=== PATIENT | female | born 1935 | race Caucasian/White ===

== ENCOUNTER 2018-03-22 16:31 | Emergency (ER) | payer MEDICARE, OTHER ==
[~2018-03-22] VITALS: Ht 154.9 cm; Wt 64.0 kg
[~2018-03-22 16:31] MED LIST: ASPIR 8181 MG PO; ATORVASTATIN CA20 MG PO; AZITHROMYCIN250 MG PO; BENZONATATE200 MG PO; BUMETANIDE1 MG PO; CALCIUM 500+D1 EACH PO; GLUCOTROL5 MG PO; K DUR10 MEQ PO; LISINOPRIL-HCT1 EAC2 PO; LISINOPRIL5 MG PO; NASONEX17 GM NS; PRAVASTATIN SOD20 MG PO; SPIRONOLACTONE50 MG PO; TOPROL XL50 MG PO
--- NOTE | 2018-03-22 20:04 | Diagnostic Imaging Report ---
BILATERAL RIB SERIES INCLUDING PA CHEST - 5 VIEWS HISTORY: ^s/p fall ^[id number] ^1814 COMPARISON: None available. FINDINGS: Bones: No acute displaced fracture. Intact median sternotomy wires. Osseous alignment is within normal limits. Joints: The joint spaces are well-maintained. Soft tissues: The soft tissues appear unremarkable. Right upper quadrant cholecystectomy clips. Small calcification overlying the right upper quadrant may represent a gallstone. The lungs are clear. The cardiac silhouette is mildly enlarged without pulmonary decompensation. IMPRESSION: No acute radiographic abnormality. Signed by: Dr. Antonella Marin M.D. on 03/22/2018 8:00 PM
--- NOTE | 2018-03-22 20:06 | Diagnostic Imaging Report ---
RIGHT KNEE X-RAY - 3 VIEWS HISTORY: ^s/p fall ^[id number] ^1814 COMPARISON: None available. FINDINGS: Bones: No acute displaced fracture. Osseous alignment is within normal limits. Joints: Mild tricompartmental degenerative changes. Soft tissues: Surgical clips in the soft tissues of the posterior knee and adjacent to the mid femur. IMPRESSION: No acute radiographic abnormality. Signed by: Dr. Antonella Marin M.D. on 03/22/2018 8:02 PM
== END 2018-03-22 23:54 | disposition home or self-care (01) ==
LOC: ER 16:31
DX: S80.01XA Contusion of right knee, initial encounter (principal); S20.211A Contusion of right front wall of thorax, initial encounter; W01.0XXA Fall on same level from slipping, tripping and stumbling without subsequent striking against object, initial encounter; Y92.008 Other place in unspecified non-institutional (private) residence as the place of occurrence of the external cause; I10 Essential (primary) hypertension; E11.9 Type 2 diabetes mellitus without complications; Z95.1 Presence of aortocoronary bypass graft
CPT/HCPCS: 71111; 99283

== ENCOUNTER → 2018-04-19 | Outpatient (CLI) | payer MEDICARE, OTHER ==
--- NOTE | 2018-04-19 13:29 | Diagnostic Imaging Report ---
FOOT RIGHT COMPLETE HISTORY: Right foot pain status post fall. COMPARISON: Right foot radiograph report from 04/02/2016, no images were available for review at the time of dictation. FINDINGS: No displaced fracture. Mild widening of the Lis Franc interval between the medial cuneiform and the second metatarsal base measuring 4 mm. There are moderate to severe degenerative most pronounced in the medial intertarsal joints and first through third tarso-tarsal joints with joint space narrowing and subchondral sclerosis and cystic changes. Severe degenerative changes at the second metatarsophalangeal joint. There is a lytic appearance of the navicular with possible erosions. IMPRESSION: No evidence of acute fracture. Extensive degenerative changes in the mid foot with sclerotic and cystic changes. Mild widening of the Lis Franc interval, of uncertain chronicity. In the chronic setting, this may represent prior trauma or early neuropathic joint. In the acute setting, this could represent ligamentous injury. Superimposed osteomyelitis is also not excluded given the lytic appearance of the navicular. MRI is suggested for further evaluation. Signed by: Dr. Patrick Mcintosh MD on 04/19/2018 1:25 PM
== END ==
LOC: RAD 12:36
DX: M79.671 Pain in right foot (principal); Z91.81 History of falling

== ENCOUNTER 2018-05-15 07:30 | Observation (INO) | payer MEDICARE, OTHER ==
[~2018-05-15] VITALS: Ht 154.9 cm; Wt 65.1 kg
--- OUTSIDE RECORDS SUMMARY | 2018-05-15 07:32 | XMS REPORT ---
[facility] Address Unknown Phone Unavailable Care Team Providers Care Director [employer] Name Role Phone HEIDI GARRETT Unavailable Unavailable Ken URENA Unavailable Unavailable Problems This patient has no known problems. Allergies, Adverse Reactions, Alerts This patient has no known allergies or adverse reactions. Medications This patient has no known medications. Results Test Description Test Time Test Comments Text Results Atomic Results Result Comments FOOT RIGHT COMPLETE 2018-04-19 13:14:00 [place] [id number] Patient Name: BAIRON ELLISON MR #: [id number] : 1935 Age/Sex: 83/F Req #: [id number] Adm Physician: Ordered by: HEIDI GARRETT MD Report #: [id number] Location: [facility] Room/Bed: Procedure: [id number] DX/FOOT RIGHT COMPLETE Exam Date: 04/19/18 Exam Time: 1236 REPORT STATUS: Signed FOOT RIGHT COMPLETE HISTORY: Right foot pain s tatus post fall. COMPARISON: Right foot radiograph report from 04/02/2016, no images were available for review at the time of dictation. FINDINGS: No displaced fracture. Mild widening of the Lis Franc interval between the medial cuneiform and the second metatarsal base measuring 4 mm. There are moderate to severe degenerative most pronounced in the medial intertarsal joints and first through third tarso-tarsal joints with joint space narrowing and subchondral sclerosis and cystic changes. Severe degenerative changes at the second metatarsophalangeal joint. There is a lytic appearance of the navicular with possible erosions. IMPRESSION: No evidence of acute fracture. Extensive degenerative changes in the mid foot with sclerotic and cystic changes. Mild widening of the Lis Franc interval, of uncertain chronicity. In the chronic setting, this may represent prior trauma or early neuropathic joint. In the acute setting, this could represent ligamentous injury. Superimposed osteomyelitis is also not excluded given the lytic appearance of the navicular. MRI is suggested for further evaluation. Signed by: Dr. Wilton Ordaz MD on 04/19/2018 1:25 PM Dictated By: WILTON ORDAZ MD [id number] Transcribed By: DARSHAN on 04/19/18 132 COPY TO: HEIDI GARRETT MD KNEE RIGHT THREE VIEWS 2018-03-22 20:00:00 [place] [id number] Patient Name: BAIRON ELLISON MR #: [id number] : 1935 Age/Sex: 83/F Req #: [id number] Adm Physician: Ordered by: TOMMY URENA MD Report #: [id number] Location: Room/Bed: Procedure: [id number] DX/KNEE RIGHT THREE VIEWS Exam Date: 03/22/18 Exam Time: 1814 REPORT STATUS: Signed RIGHT KNEE X-RAY - 3 VIEWS HISTORY: s/p fall [id number] COMPARISON: None available. FINDINGS: Bones: No acute displaced fracture. Osseous alignment is within normal limits. Joints: Mild tricompartmental degenerative changes. Soft tissues: Surgical clips in the soft tissues of the posterior knee and adjacent to the mid femur. IMPRESSION: No acute radiographic abnormality. Signed by: Dr. Kandace Delaney M.D. on 03/22/2018 8:02 PM Dictated By: KANDACE DELANEY MD 01 Transcribed By: DARSHAN on 03/22/182001 COPY TO: TOMMY URENA MD RIBS BILAT W/CXR 2018-03-22 19:58:00 [place] [id number] Patient Name: BAIRON ELLISON MR #: [id number] : 1935 Age/Sex: 83/F Req #: [id number] Adm Physician: Ordered by: TOMMY URENA MD Report #: [id number] Location: ER Room/Bed: Procedure: [id number] DX/RIBS BILAT W/CXR Exam Date: 03/22/18 Exam Time: 1814 REPORT STATUS: Signed BILATERAL RIB SERIES INCLUDING PA CHEST - 5 VIEWS HISTORY: s/p fall [id number] COMPARISON: None available. FINDINGS: Bones: No acute displaced fracture. Intact median sternotomy wires. Osseous alignment is within normal limits. Joints: The joint spaces are well-maintained. Soft tissues: The soft tissues appear unremarkable. Right upper quadrant cholecystectomy clips. Small calcification overlying the right upper quadrant may represent a gallstone. The lungs are clear. The cardiac silhouette is mildly enlarged without pulmonary decompensation. IMPRESSION: No acute radiographic abnormality. Signed by: Dr. Kandace Delaney M.D. on 03/22/2018 8:00 PM Dictated By: KANDACE DELANEY MD 99 Transcribed By: DARSHAN on 03/22/181999 COPY TO: TOMMY URENA MD
--- OUTSIDE RECORDS SUMMARY | 2018-05-15 07:32 | XMS REPORT | Continuity of Care Document ---
Author Author [facility] Interface Address Unknown Phone Unavailable Problems Problem Status Onset Date Classification Date Reported Comments Source CKD Active Problem 03/23/2018 [facility] Cellulitis Active Problem 03/23/2018 [facility] PAD Active Problem 03/23/2018 [facility] Medications Medication Details Route Status Patient Instructions Ordering Provider Order Date Source Atorvastatin Calcium 20 Mg Tablet, 20 Mg Oral Daily Active 06/22/2014 [facility] Azithromycin (Z-Bobby) 250 Mg Tablet, 250 Mg Oral Daily Active 06/22/2014 [facility] Potassium Chloride (K Dur*) 10 Meq Tabcr, 10 Meq Oral Daily Active 06/22/2014 [facility] Spironolactone 50 Mg Tablet, 1 Tab Oral Daily Active 06/22/2014 [facility] Lisinopril/Hydrochlorothiazide (Lisinopril-Hctz 10-12.5 Mg Tab) 1 Each Tablet, 20 Mg Oral Daily Active 02/18/2013 [facility] Aspirin (Aspir 81) 81 Mg Tablet.dr Daily Active [facility] Benzonatate 200 Mg Capsule Three Times A Day Active [facility] Bumetanide 1 Mg Tablet Twice A Day Active [facility] Calcium Carbonate/Vitamin D3 (Calcium 500+D Tablet Chew) 1 Each Tab.chew Twice A Day Active [facility] Glipizide (Glucotrol) 5 Mg Tablet Twice A Day Active [facility] Lisinopril 5 Mg Tablet Daily Active [facility] Metoprolol Succinate (Toprol Xl) 50 Mg Tab.er.24h Twice A Day Active [facility] Mometasone Furoate (Nasonex) 17 Gm [place] As Needed Active THERAPEUTICALLY SUBSTITUTED WITH FLONASE (FLUTICASONE) [facility] Pravastatin Sodium 20 Mg Tablet Bedtime Active [facility] Allergies, Adverse Reactions, Alerts Substance Category Reaction Severity Reaction type Status Date Reported Comments Source Penicillin RASH Mild Allergy to Substance Active 07/11/2010 [facility] sulfur RASH Mild Allergy to Substance Active 07/11/2010 [facility] Vancomycin ITCHING Intermediate Allergy to Substance Active 04/02/2016 [facility] Immunizations Immunization Date Given Site Status Last Updated Comments Source Results Order Name Results Value Reference Range Date Interpretation Comments Source Vital Signs Vital Sign Value Date Comments Source Encounters Location Location Details Encounter Type Encounter Number Reason For Visit Attending Provider ADM Date DC Date Status Source Departed Emergency Room [id number] MORENA WARD MD 03/22/2018 03/22/2018 [facility] Procedures Procedure Code Date Perfomer Comments Source
[2018-05-15] MEDS ORDERED: ASPIRIN 81 MG CHEW TAB PO ONE ×2 (07:45→08:45)
[2018-05-15] MEDS ORDERED: BUSPIRONE HCL5 MG PO (08:00)
[2018-05-15] MEDS ORDERED: LOMOTIL TABLET1 EACH (08:00)
[2018-05-15 08:01] LABS: BASOPHILS # (AUTO) 0.1 (0.0-0.1); BASOPHILS % 1.1 % (0.0-1.0); EOSINOPHILS # (AUTO) 0.2 (0.0-0.4); EOSINOPHILS % 2.3 % (0.0-6.0); HEMATOCRIT 36.4 % (34.2-44.1); HEMOGLOBIN 11.6 g/dL (12.0-16.0); LYMPHOCYTES # (AUTO) 1.8 (1.0-3.2); LYMPHOCYTES % 21.3 % (18.0-39.1); MEAN CORPUSCULAR HEMOGLOBIN 30.9 pg (28-32); MEAN CORPUSCULAR HGB CONC 31.9 g/dL (31-35); MEAN CORPUSCULAR VOLUME 96.8 fL (81-99); MONOCYTES # (AUTO) 0.7 (0.2-0.8); MONOCYTES % 8.3 % (4.4-11.3); NEUTROPHILS # (AUTO) 5.5 (2.1-6.9); NEUTROPHILS % 66.8 % (38.7-80.0); PLATELET COUNT 254 x10e3/uL (140-360); RED BLOOD COUNT 3.76 x10e6/uL (3.6-5.1); RED CELL DISTRIBUTION WIDTH 13.7 % (11.7-14.4)
[2018-05-15 08:06] LABS: INR 0.97; PARTIAL THROMBOPLASTIN TIME 33.7 seconds (23.8-35.5); PROTHROMBIN TIME 13.8 seconds (11.9-14.5)
--- NOTE | 2018-05-15 08:10 | NUR ---
xray at bedside.
[2018-05-15 08:13] LABS: ALBUMIN 4.1 g/dL (3.5-5.0); ALBUMIN/GLOBULIN RATIO 1.6 (0.8-2.0); ANION GAP 17.5 mmol/L (8-16); CALCIUM 9.2 mg/dL (8.4-10.2); CREATININE, SERUM 1.68 mg/dL (0.57-1.11); POTASSIUM 4.5 mmol/L (3.5-5.1)
--- NOTE | 2018-05-15 08:17 | NUR ---
xray leaves bedside.
--- NOTE | 2018-05-15 08:33 | Diagnostic Imaging Report ---
EXAM: XR CHEST 1 VIEW DATE: 05/15/2018 7:39 AM INDICATION: Shortness of breath COMPARISON: None FINDINGS: Lines and Tubes: None Heart and Mediastinum: Enlarged. Sternotomy wires. Lungs and Pleura: Mild interstitial prominence with small effusions. Bones and Soft Tissues: No acute findings. IMPRESSION: 1. Volume overload with small effusions. Superimposed infectious process difficult to exclude. Signed by: Dr. Jim Oneill MD on 05/15/2018 8:30 AM
[2018-05-15] MEDS ORDERED: FUROSEMIDE INJ 10 MG/ML 4 ML VIAL ONE (08:50)
--- NOTE | 2018-05-15 08:50 | NUR ---
Assisted patient to the restroom.
[2018-05-15] MEDS: FUROSEMIDE INJ 10 MG/ML 4 ML VIAL IV SCH ×2 (09:03→17:02)
[2018-05-15] MEDS ORDERED: FUROSEMIDE INJ 10 MG/ML 4 ML VIAL IV ONE (09:30)
[2018-05-15] MEDS ORDERED: DEXTROSE 50% SYRINGE 50 ML IV PRN (09:30)
--- NOTE | 2018-05-15 09:45 | NUR ---
Assisted pt to the restroom without incident.
--- NOTE | 2018-05-15 10:23 | NUR ---
Recvd patient from ER. AAOx3, Hard of hearing on right ear, Able to ambulate with assist, redness stage 1 on both buttocks, denies any pain or chest discomfort , On Tele with cont pulse ox, No distress noted, call light in reach, bed alarm on. Keep monitoring
[2018-05-15 10:31] VITALS: BP 184/80
[2018-05-15 10:35] VITALS: BP 184/80
[2018-05-15] MEDS: INSULIN REGULAR, HUMAN 100 UNIT/1 ML 3ML VIAL SQ SCH ×3 (11:30→21:49)
[2018-05-15] MEDS ORDERED: CLOPIDOGREL BISULFATE 75 MG TAB PO ONE (12:45)
--- NOTE | 2018-05-15 13:40 | History and Physical ---
CHIEF COMPLAINT: Shortness of breath. HISTORY OF PRESENT ILLNESS: This is an 83-year-old white woman who presents to [facility] with a 1-week history of worsening shortness of breath, particularly with exertion. She denies any orthopnea or paroxysmal nocturnal dyspnea. This woman has known history of chronic systolic congestive heart failure as well as coronary artery disease. In the emergency room, patient was found to have a normal complete blood count. Patient's BUN and creatinine is 26 and 1.68 respectively. Patient has a potassium of 4.5. Patient's B-type natriuretic peptide level was 3409. Patient's troponin I was slightly elevated at 0.183. In March of 2016, patient was found to have a BUN and creatinine of 22 and 1.12 respectively. Chest x-ray performed in the emergency room revealed an enlarged heart with volume overload and small pleural effusions. PAST MEDICAL HISTORY 1. Coronary artery disease (coronary artery bypass grafting in November 2012). 2. Chronic systolic congestive heart failure. 3. Stage 3 chronic kidney disease. 4. Hypertensive heart disease. 5. Type 2 diabetes mellitus. 6. Hyperlipidemia. FAMILY HISTORY: Mother had coronary artery disease but at age 97. SOCIAL HISTORY: This woman is single, has never been . She has no children. She states that she was exposed to second-hand tobacco smoke at work many years ago, but she herself never smoked tobacco. She has no history of alcohol use. SURGICAL HISTORY 1. Coronary artery bypass grafting in November 2012. 2. Colonoscopy twice. 3. Hemorrhoidectomy. 4. Laparoscopy cholecystectomy in March of 2016. ALLERGIES 1. SULFA ANTIBIOTICS. 2. PENICILLIN. 3. MORPHINE. HOME MEDICATIONS 1. Enteric-coated aspirin 81 mg daily. 2. Bumex 1 mg b.i.d. 3. Glipizide 10 mg b.i.d. 4. Metoprolol succinate 50 mg b.i.d. 5. Pravastatin 20 mg nightly. 6. Calcium and vitamin D supplementation. 7. BuSpar 10 mg t.i.d. 8. Lomotil 1 pill daily as needed for diarrhea. PHYSICAL EXAMINATION GENERAL: She is awake, alert, fully oriented. VITAL SIGNS: Blood pressure is 180/80, pulse 86, respiratory rate is 18, oxygen saturation is 98% on room air, temperature 97.2. Height is 5 feet 1 inch, weight is 143 pounds, BMI 27. INTEGUMENT: Skin is warm and dry. No pallor, jaundice, or diaphoresis. HEENT: Anicteric sclerae with moist mucous membranes. NECK: Supple. No evidence of jugular venous distension. CARDIOVASCULAR: Distant heart sounds. Regular rate and rhythm. No S3 gallop. LUNGS: Diminished breath sounds at bases. ABDOMEN: Benign. EXTREMITIES: No edema or deformity. DIAGNOSES 1. Wsadx-qd-chvuyko systolic congestive heart failure. 2. Coronary artery disease. 3. History of coronary artery bypass grafting in 2012. 4. Hypertensive heart disease. 5. Type 2 diabetes mellitus. 6. Rczhw-cm-dibnsxb renal failure. PLAN 1. Intravenous furosemide. 2. Consult cardiology. 3. Rule out myocardial infarction. 4. Order 2D echocardiogram. 5. Heart rate control. 6. Continue congestive heart failure management with intravenous furosemide, oral metoprolol succinate. 7. We will follow renal function and electrolytes as patient is on intravenous furosemide. I spent an hour in the care of this patient. Job#: [id number] LPA MTDDe
[2018-05-15] MEDS: BUSPIRONE HCL 5 MG TAB PO SCH ×2 (14:41→21:48)
--- NOTE | 2018-05-15 16:50 | Consultation ---
DATE OF CONSULTATION: May 15, 2018 CARDIAC CONSULTATION REASON FOR THE CONSULTATION: Congestive heart failure and possible angina. HPI: An 83-year-old lady who is known with coronary artery disease, coronary artery bypass surgery in 2012. She is hypertensive, diabetic, and she is known to have chronic renal insufficiency. Patient is still to certain extent active. She noted for the last month or so, she was having progressive worsening shortness of breath on exertion with chest tightness. "If I walk from here to there, I get shortness of breath, I need to stop, as well as chest tightness." Her symptoms became progressively worse. She went to local ER and subsequently admitted to this institution. Her symptoms are class III to early class IV shortness of breath on exertion with easy fatigability, chest tightness, and cough. No feet swelling. All her symptoms resolve once she sit and relax. Her BNP on admission was 3409. Her BUN and creatinine were at 26 and 1.7. She had one set of cardiac enzymes, which were within normal. Cardiac consultation is obtained. I visited the patient. Her main symptoms are as per above. REVIEW OF SYSTEMS GENERAL: No fever. No chills. HEENT: Decreased hearing. PULMONARY AND CARDIAC: Progressive worsening symptoms as described above, early class IV. No orthopnea. No paroxysmal nocturnal dyspnea. No syncope or presyncope. GI: No hematemesis. No melena. : Incontinence of urine. No hematuria. No dysuria. MUSCULOSKELETAL: Back pain. Knee pain. HEMATOLOGY: No easy bruising. No bleeding. ENDOCRINE: Patient is diabetic for many years. SOCIAL HISTORY: She lives by herself. She is nonsmoker and non-alcohol drinker. HOME MEDICATIONS: Includes; 1. Bumex 1 mg twice a day. 2. Toprol XL 50 mg twice a day. 3. Pravastatin 20 mg a day. 4. Aspirin 81 mg a day. 5. Glipizide 5 mg twice a day. 6. BuSpar. 7. Lantus insulin. ALLERGIES: SULFA, VANCOMYCIN, AND PENICILLIN. PAST MEDICAL HISTORY 1. Diabetes mellitus with end-organ damage. 2. Chronic renal insufficiency. 3. Coronary artery disease, status post coronary artery bypass surgery in 2012. 4. Chronic renal insufficiency. 5. History of cellulitis and abscess of the lower extremities. 6. Old age with limited activity. 7. Cholecystectomy. 8. Cataract surgery. FAMILY HISTORY: Father of myocardial infarction in his 50s. PHYSICAL EXAMINATION GENERAL: Elderly lady. VITAL SIGNS: Height of 5 feet 1 inch, weight of 143 pounds, blood pressure 180/80, heart rate of 80, respiratory rate of 18. HEENT: Pupils are reactive. NECK: No elevation of jugular venous pulsation. CHEST: Decreased lung expansion. A few crackles. HEART: PMI 5th left intercostal space. Normal first and second heart sounds with ejection systolic murmur. ABDOMEN: Soft with good bowel sounds EXTREMITIES: No edema. No feet pulses. NEUROLOGIC: Awake, alert, oriented. Decreased hearing is noted. Able to move her extremities. LABORATORY DATA: BUN of 26, creatinine of 1.7, sodium of 142, potassium of 4.5, BNP of 3409, bicarb of only 18. White blood cell count of 8.2, hemoglobin of 11.6, hematocrit 36%. EKG, not available. IMPRESSION 1. Progressive congestive heart failure like symptoms, severe, advanced. 2. Very high probability of significant severe coronary artery disease. 3. Coronary artery disease, status post coronary artery bypass surgery. 4. Diabetes mellitus, end-organ damage. 5. Peripheral arteriovascular disease. 6. History of cellulitis of the lower extremities. 7. Chronic renal insufficiency. 8. Debility. PLAN: Cardiac gómez, recommendation will be that we will continue beta-jeanna. We will concur with the Lasix as ordered. We will continue aspirin, DVT prophylaxis, and echocardiogram. Patient most likely does have significant severe cardiac disease. Pending on initial investigation and course in the hospital, further steps to be done. Case discussed with the patient. Questions are answered. Orders are written. Job#: [id number] LPA
[2018-05-15] MEDS: METOPROLOL SUCCINATE 50 MG TAB XL PO SCH (17:02)
[2018-05-15 17:08] VITALS: BP 144/67
--- NOTE | 2018-05-15 18:12 | NUR ---
patient resting in bed, Alert with no distress, tolerated with dinner, bed alarm on , call light in reach
--- NOTE | 2018-05-15 19:00 | NUR ---
received report from day nurse. patient is resting comfortably in the bed. bed is in lowest position and call polo is within reach. will continue to monitor patient.
[2018-05-15 20:00] VITALS: BP 172/80
[2018-05-15] MEDS ORDERED: PRAVASTATIN 20 MG TAB PO SCH (21:00)
[2018-05-16] VITALS (7 sets, daily range): BP systolic 118–168; BP diastolic 59–95
[2018-05-16 05:26] LABS: BASOPHILS # (AUTO) 0.1 (0.0-0.1); BASOPHILS % 1.1 % (0.0-1.0); EOSINOPHILS # (AUTO) 0.1 (0.0-0.4); EOSINOPHILS % 1.6 % (0.0-6.0); HEMATOCRIT 28.7 % (34.2-44.1); HEMOGLOBIN 10.3 g/dL (12.0-16.0); LYMPHOCYTES # (AUTO) 1.1 (1.0-3.2); LYMPHOCYTES % 20.7 % (18.0-39.1); MEAN CORPUSCULAR HEMOGLOBIN 32.9 pg (28-32); MEAN CORPUSCULAR HGB CONC 35.9 g/dL (31-35); MEAN CORPUSCULAR VOLUME 91.7 fL (81-99); MONOCYTES # (AUTO) 0.5 (0.2-0.8); MONOCYTES % 9.5 % (4.4-11.3); NEUTROPHILS # (AUTO) 3.7 (2.1-6.9); NEUTROPHILS % 66.7 % (38.7-80.0); PLATELET COUNT 183 x10e3/uL (140-360); RED BLOOD COUNT 3.13 x10e6/uL (3.6-5.1); RED CELL DISTRIBUTION WIDTH 13.9 % (11.7-14.4)
[2018-05-16 05:51] LABS: ALBUMIN 3.7 g/dL (3.5-5.0); ALBUMIN/GLOBULIN RATIO 1.8 (0.8-2.0); ANION GAP 14.1 mmol/L (8-16); CALCIUM 8.9 mg/dL (8.4-10.2); CREATININE, SERUM 1.71 mg/dL (0.57-1.11); POTASSIUM 4.1 mmol/L (3.5-5.1)
[2018-05-16 06:00] LABS: CREATINE KINASE MB 1.2 ng/mL (0-5.0)
[2018-05-16 06:16] LABS: CHOL/HDL RATIO 2.1 (3.0-3.6)
[2018-05-16 06:36] LABS: THYROID STIMULATING HORMONE 1.796 uIU/mL (0.350-4.940)
--- NOTE | 2018-05-16 07:07 | NUR ---
report given to day nurse. patient is resting comfortably in bed. bed is in lowest position and call polo is within reach.
[2018-05-16] MEDS: BUSPIRONE HCL 5 MG TAB PO SCH ×3 (08:10→21:43)
[2018-05-16] MEDS: FUROSEMIDE INJ 10 MG/ML 4 ML VIAL IV SCH ×2 (08:10→17:50)
[2018-05-16] MEDS: INSULIN REGULAR, HUMAN 100 UNIT/1 ML 3ML VIAL SQ SCH ×4 (08:10→21:44)
[2018-05-16] MEDS: METOPROLOL SUCCINATE 50 MG TAB XL PO SCH ×2 (08:10→17:50)
[2018-05-16] MEDS: CLOPIDOGREL BISULFATE 75 MG TAB PO SCH (08:10)
[2018-05-16] MEDS: ASPIRIN 81 MG CHEW TAB PO SCH (08:10)
[2018-05-16] MEDS: HYDRALAZINE HCL 25 MG TAB PO SCH ×3 (09:46→21:43)
--- NOTE | 2018-05-16 10:36 | Diagnostic Imaging Report ---
CHEST SINGLE (PORTABLE), 05/16/2018 7:00 AM Technique: CHEST SINGLE (PORTABLE) Comparison: 05/15/2018 Clinical history: Congestive heart failure Findings: See Impression Impression: 1. Lines/Tubes: None 2. Stable enlarged cardiomediastinal silhouette post sternotomy. 3. Central vascular congestion and/or mild edema and small effusions. Left greater than right bibasilar opacity, presumed atelectasis. Signed by: Dr Marian Del Rio MD on 05/16/2018 6:45 AM
--- NOTE | 2018-05-16 19:15 | NUR ---
rounded with warehouse shift supervisor nurse, patient aware of change. Patient in no distress, call polo within reach and bed in lowest position.
--- NOTE | 2018-05-16 19:25 | NUR ---
Report received and walking rounds complete. Pt resting in bed and in no apparent distress. All safety measures ensured, polo alarm on, and pt call polo near. Pt encouraged to use call light for assistance.
[2018-05-16] MEDS ORDERED: SIMVASTATIN 20 MG TAB PO SCH (21:00)
[2018-05-17] VITALS (7 sets, daily range): BP systolic 114–150; BP diastolic 53–77
--- NOTE | 2018-05-17 04:11 | NUR ---
PCT reported that pt had complaint of chest pain. Assessed pt and checked tele status, which were all normal. Advised pt to wear O2 to help with chest pain. Pt refused O2 and then stated,"I don't know why I need oxygen." I explained to her that it would help with her chest pain. Pt then denied that she was having chest pain and stated that she only felt short of breath when she got up to the bathroom but doesn't feel anything when she lays in bed. I advised pt that she may be anxious and should relax. Pt verbalized understanding. Will continue to monitor pt.
--- NOTE | 2018-05-17 07:05 | NUR ---
rounded with yarn dyer nurse, patient aware of change. Patient in no distress and call polo within reach
--- NOTE | 2018-05-17 07:27 | NUR ---
report given to oncoming nurse and walking rounds complete
[2018-05-17] MEDS: METOPROLOL SUCCINATE 50 MG TAB XL PO SCH ×2 (09:00→18:05)
[2018-05-17] MEDS: INSULIN REGULAR, HUMAN 100 UNIT/1 ML 3ML VIAL SQ SCH ×3 (09:00→17:10)
[2018-05-17] MEDS: ASPIRIN 81 MG CHEW TAB PO SCH (09:00)
[2018-05-17] MEDS: BUSPIRONE HCL 5 MG TAB PO SCH ×2 (09:00→14:15)
[2018-05-17] MEDS: CLOPIDOGREL BISULFATE 75 MG TAB PO SCH (09:00)
[2018-05-17] MEDS: FUROSEMIDE INJ 10 MG/ML 4 ML VIAL IV SCH (09:00)
[2018-05-17] MEDS: HYDRALAZINE HCL 25 MG TAB PO SCH ×2 (09:00→14:15)
[2018-05-17] MEDS ORDERED: AZITHROMYCIN 250MG/NS 100 ML 100 ML IV SCH (11:30)
[2018-05-17] MEDS ORDERED: CEFTRIAXONE SOD 1 GM/NS 50 ML 50 ML IV SCH (11:30)
--- NOTE | 2018-05-17 14:23 | NUR ---
CASE MANAGEMENT INITIAL ASSESSMENT [employer] Line Up Person to bedside to discuss plan of care with patient/family. CM/SW role and care transitions discussed. Anticipated discharge plan discussed along with duration of care. CM/SW discussed patients right to make decisions in care. CM/SW work hours given. Patient lives: HOME ALONE. Admit/Transfer: ER Hospital/ER visits since last admit: NONE POA/Emergency contact: VESTA LOWRY [phone] Current/Previous Home Health: [facility], PCP/Follow-up Care: DR. Yosef GARRETT Current/Previous DME: [facility] Medications (referring to index hospitalization or the first time you were in the hospital) N/A a. Were changes made in your medications when you were in the hospital on [date of index hospitalization]? Yes No Not sure Explain: Note: If no or not sure, please skip to question d b. Did you understand the changes? Yes No Explain: c. Were you able to obtain your new medications right away? Yes No n/a SNF only Explain: d. Were you able to take your medications like the doctor wanted you to? Yes No Explain: e. Did the hospital give you an accurate, easy to understand list of medications when you left? Yes No n/a SNF only Explain: Scale of 1-10 how comfortable does patient feel with disease management in outpatient setting: Other Services: NONE Employment Status: RETIRED Areas of Concerns: NONE Referral Needs: LTAC EVAL Education Needs: NONE IMM/GLEASON given and signed (if applicable): ALREADY DONE Goal for discharge: AFTER LTAC RETURN HOME. CM/SW left business card at the bedside with contact information. Name and number was also written on the patients whiteboard. Patient verbalized understanding of discussion. CM will follow-up with ongoing discharge and transition of care needs.
--- NOTE | 2018-05-17 14:35 | NUR ---
ORDER RECEIVED FOR LTAC. MET W THE PT AT THE BEDSIDE. EXPLAINED THE PURPOSE OF LTAC. VERBALIZED UNDERSTANDING. STATES SHE WANTS TO GO TO [facility] [address]. CHOICE LETTER WAS SIGNED. COPY TO CHART AND COPY GIVEN TO THE PT.
--- NOTE | 2018-05-17 15:41 | NUR ---
Nutrition Screen Note RD Recommendation for Physician: - Continue 1800 ADA, Cardiac diet Plan of Care: RD following, monitoring for tolerance and adequacy Nutrition reason for involvement: Nutrition Risk Trigger- Dx: CHF Primary Diagnose(s): CHF PMH: CAD, CHF, CKD III, HTN, DM2, HLD, CABG Ht: 61 in Wt: 143.56 lb BMI: 27.1 kg/m2 IBW: [address] Assessment: 05/17: 83 YOF admitted for CHF, seen today per dx screen. 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 Pt reports UBW of 141#, no wt loss noted. Pt reports that she does not follow any diet restrictions at home. Pt was offered diet education on low sodium diet, fluid sources and restriction, and DM nutrition therapy and declined. Pt stated she has been educated on diet restrictions previously and that she has "enough materials at home", encouraged good diet compliance with advised restrictions upon discharge- pt verbalized understanding. Chart reviewed. Labs and meds noted, currently on lasix. Will continue to monitor. Current Diet: 1800 ADA, Cardiac Malnutrition Evaluation (05/17/18) The patient does not meet criteria for a specified degree of malnutrition at this time. Will re-evaluate at follow-up as appropriate. Diet Education Needs Assessment: Diet education indicated, pt declined education. Nutrition Care Level: Low Signed: Areli Poon RD, LD, [facility]
--- NOTE | 2018-05-17 18:53 | NUR ---
report called over to Salud Swenson for patient to go to room 326
[2018-05-18] MEDS ORDERED: FUROSEMIDE 40 MG TAB PO SCH (09:00)
== END 2018-05-17 21:52 ==
LOC: ER 07:30 → ERHOLD 08:44 → IMCU 10:04
DX: I13.0 Hypertensive heart and chronic kidney disease with heart failure and stage 1 through stage 4 chronic kidney disease, or unspecified chronic kidney disease (principal); I25.10 Atherosclerotic heart disease of native coronary artery without angina pectoris; Z95.1 Presence of aortocoronary bypass graft; N18.3 Chronic kidney disease, stage 3 (moderate); E11.22 Type 2 diabetes mellitus with diabetic chronic kidney disease; Z79.4 Long term (current) use of insulin; E78.5 Hyperlipidemia, unspecified; I50.43 Acute on chronic combined systolic (congestive) and diastolic (congestive) heart failure; N17.9 Acute kidney failure, unspecified; R54 Age-related physical debility; E11.51 Type 2 diabetes mellitus with diabetic peripheral angiopathy without gangrene
CPT/HCPCS: 36415 ×3; 71045 ×2; 80053 ×2; 80061; 82270; 82550 ×2; 82553 ×2; 82948 ×3; 83880 ×2; 84443; 84484 ×2; 85025 ×2; 85610; 85730; 93005; 93306; 99284; G0378 ×3; J0696; J1940 ×3

== ENCOUNTER 2018-07-10 19:04 | Emergency (ER) | payer MEDICARE, OTHER ==
[~2018-07-10] VITALS: Ht 154.9 cm; Wt 64.9 kg
[~2018-07-10 19:04] MED LIST changes: +BUSPIRONE HCL5 MG PO; +LOMOTIL TABLET1 EACH
--- NOTE | 2018-07-10 19:14 | NUR ---
DR. MARTINEZ IN TRIAGE FOR ASSESSMENT. PATIENT TO BE D/C TO HOME.
[2018-07-10 19:25] VITALS: BP 153/75
== END 2018-07-10 19:27 | disposition home or self-care (01) ==
LOC: ER 19:04
DX: Z77.098 Contact with and (suspected) exposure to other hazardous, chiefly nonmedicinal, chemicals (principal); X58.XXXA Exposure to other specified factors, initial encounter; Y92.524 Gas station as the place of occurrence of the external cause; I10 Essential (primary) hypertension; E11.9 Type 2 diabetes mellitus without complications; I25.10 Atherosclerotic heart disease of native coronary artery without angina pectoris; Z95.1 Presence of aortocoronary bypass graft
CPT/HCPCS: 99282

== ENCOUNTER 2018-12-08 17:57 | Emergency (ER) | payer MEDICARE, OTHER ==
[~2018-12-08] VITALS: Ht 154.9 cm; Wt 64.9 kg
--- OUTSIDE RECORDS SUMMARY | 2018-12-08 18:01 | XMS REPORT | Continuity of Care Document ---
Author Author [facility] Organization [facility] Address Unknown Phone Unavailable Care Team Providers Care Fish And Wildlife Biologist Name Role Phone [facility] [employer] Unavailable Unavailable Problems Problem Status Onset Date Classification Date Reported Comments Source Chronic kidney disease Active Problem 03/23/2018 [facility] Cellulitis Active Problem 03/23/2018 [facility] Peripheral arterial disease Active Problem 03/23/2018 [facility] Medications Medication Details Route Status Patient Instructions Ordering Provider Order Date Source Atorvastatin Calcium 20 Mg Tablet, 20 Mg Oral Daily Active 06/22/2014 [facility] Azithromycin (Z-Bobby) 250 Mg Tablet, 250 Mg Oral Daily Active 06/22/2014 [facility] Potassium Chloride (K Dur*) 10 Meq Tabcr, 10 Meq Oral Daily Active 06/22/2014 [facility] Spironolactone 50 Mg Tablet, 1 Tab Oral Daily Active 06/22/2014 [facility] Lisinopril/Hydrochlorothiazide (Lisinopril-Hctz 10-12.5 Mg Tab) 1 Each Tablet, 20 Mg Oral Daily Active 02/18/2013 [facility] Aspirin (Aspir 81) 81 Mg Tablet.dr Daily Active [facility] Benzonatate 200 Mg Capsule Three Times A Day Active [facility] Bumetanide 1 Mg Tablet Twice A Day Active [facility] Calcium Carbonate/Vitamin D3 (Calcium 500+D Tablet Chew) 1 Each Tab.chew Twice A Day Active [facility] Glipizide (Glucotrol) 5 Mg Tablet Twice A Day Active [facility] Lisinopril 5 Mg Tablet Daily Active [facility] Metoprolol Succinate (Toprol Xl) 50 Mg Tab.er.24h Twice A Day Active [facility] Mometasone Furoate (Nasonex) 17 Gm [place] As Needed Active THERAPEUTICALLY SUBSTITUTED WITH FLONASE (FLUTICASONE) [facility] Pravastatin Sodium 20 Mg Tablet Bedtime Active [facility] Allergies, Adverse Reactions, Alerts Substance Category Reaction Severity Reaction type Status Date Reported Comments Source Penicillin RASH Mild Allergy to Substance Active 07/11/2010 [facility] sulfur RASH Mild Allergy to Substance Active 07/11/2010 [facility] Vancomycin ITCHING Intermediate Allergy to Substance Active 04/02/2016 [facility] Immunizations No Data Provided for This Section Results No Data Provided for This Section Pathology Reports No Data Provided for This Section Diagnostic Reports No Data Provided for This Section Consultation Notes No Data Provided for This Section Discharge Summaries No Data Provided for This Section History and Physicals No Data Provided for This Section Vital Signs No Data Provided for This Section Encounters Location Location Details Encounter Type Encounter Number Reason For Visit Attending Provider ADM Date DC Date Status Source Departed Emergency Room [id number] MORENA WARD MD 03/22/2018 03/22/2018 [facility] Procedures No Data Provided for This Section Assessment and Plan No Data Provided for This Section Plan of Care Plan of Care Date Source Discharge Date 03/22/18 11:54pm Disposition HOME, SELF-CARE Condition at Discharge Stable Instructions/Education Provided Contusion Fall Prevention RICE Therapy Prescriptions See Medication Section Referrals HEIDI GARRETT MD Order Date: As needed Address: [address] [place] [address] Additional Instructions/Education Call for follow up appointment to see your medical provider as needed. Take over the counter Motrin or Tylenol medication as needed for comfort. discussed at the bedside, drink fluids, rest and return to the emergency department for any fever, shortness of breath, chest pain, abdominal pain, trouble handling oral secretions or any new concerns. 03/22/2018 [facility] Social History Social History Date Source Social History Problem Response Recorded Date/Time Onset Date Status Hx Psychiatric Problems No 04/02/2016 3:15am Not Applicable Not Applicable Hx Eating Disorder No 04/02/2016 3:15am Not Applicable Not Applicable Hx Substance Use Disorder No 04/02/2016 3:15am Not Applicable Not Applicable Hx Depression Yes 04/02/2016 3:15am Not Applicable Not Applicable Hx Alcohol Use No 04/02/2016 3:15am Not Applicable Not Applicable Hx Substance Use Treatment No 04/02/2016 3:15am Not Applicable Not Applicable Hx Physical Abuse No 04/02/2016 3:15am Not Applicable Not Applicable Smoking Status Start Date Stop Date Never Smoker 03/22/2018 [facility] Family History No Data Provided for This Section Advance Directives Order Name Results Value Date Source Advance Directives Advance Directives Directive Response Recorded Date/Time Does the patient have an advance directive? No 04/02/16 3:15am Do you have a Directive to Physician? No 03/22/18 7:00pm Do you have a Medical Power of Display Designer Outside? No 03/22/18 7:00pm Do you have an out of hospital Do Not Resuscitate Order? No 03/22/18 7:00pm Do you have any special needs we should be aware of? No 03/22/18 7:00pm Do you have a support person here with you today? Yes 03/22/18 7:00pm Did patient receive Notice of Privacy Practices? Yes 03/22/18 7:00pm Did patient receive patient rights and responsibilities? Yes 03/22/18 7:00pm 03/22/2018 [facility] Functional Status No Data Provided for This Section
--- NOTE | 2018-12-08 19:28 | Diagnostic Imaging Report ---
BILATERAL KNEES - 3 Image(s) EACH HISTORY: Fall, bilateral anterior knee pain COMPARISON: None available. FINDINGS: Bones: Diffusely decreased mineralization of the osseous structures limits bone detail. No aggressive osseous lesion. Joints: Bilateral medial and patellofemoral compartment predominant degenerative changes. Trace bilateral effusions. Soft tissues: Bilateral metallic surgical clips. Mild right anterior and medial nonspecific soft tissue swelling. IMPRESSION: 1. No acute displaced fracture. 2. Diffuse osseous demineralization. 3. Trace bilateral effusions. 4. Nonspecific right soft tissue swelling. Signed by: Dr. Alejandro Nation D.O., M.M.M. on 12/08/2018 7:25 PM
--- NOTE | 2018-12-08 19:54 | Diagnostic Imaging Report ---
EXAMINATION: Head CT without contrast. HISTORY:Fall. COMPARISON:None. TECHNIQUE: Multidetector axial images were obtained from the foramen magnum to the vertex without contrast. The images were reconstructed using brain and bone algorithms. Thin section brain images were reformatted into coronal and sagittal planes. Dose modulation, iterative reconstruction, and/or weight based adjustment of the mA/kV was utilized to reduce the radiation dose to as low as reasonably achievable. Intravenous contrast: None IMAGE QUALITY: Acceptable. FINDINGS: Skull/scalp: Incidental 1.8 x 0.4 cm nodular superficial soft tissue lesion in left parietal scalp near the vertex may represent an epidermal inclusion cyst. No lytic or blastic. lesions. No surgical changes. No acute fracture. Parenchyma: Nonspecific bilateral frontoparietal confluent periventricular, subcortical and deep white matter hypodensity are likely related to small vessel ischemic changes. No acute hemorrhage, mass or acute major vascular territorial infarct. Arteries: No density suggestive of thrombosis. Atherosclerotic calcification in bilateral carotid siphon and in vertebral basilar system. Dural sinuses: No abnormal density suggestive of thrombosis. Ventricles: No hydrocephalus or displacement. Extra-axial spaces: No abnormal density. Brain volume: Generalized age-related cerebral volume loss. Craniocervical junction: No mass, Chiari malformation, or basilar invagination. Sella: Partial empty sella. Paranasal/mastoid sinuses: Imaged portions unremarkable. IMPRESSION: 1. No acute intracranial abnormality. 2. Moderate to severe supratentorial white matter microvascular ischemic changes. 3. Generalized age-related cerebral volume loss. Signed by: Dr. Mary Hernandez M.D. on 12/08/2018 7:51 PM
--- NOTE | 2018-12-08 20:01 | Diagnostic Imaging Report ---
History: Fall. Comparison studies: None Technique: Axial images were obtained through the cervical region.. Coronal and sagittal images reconstructed from the axial data. Dose modulation, iterative reconstruction, and/or weight based adjustment of the mA/kV was utilized to reduce the radiation dose to as low as reasonably achievable. Intravenous contrast: None Findings: Fractures: None. Soft tissue injuries: None. Atlantoaxial articulation: Intact. Alignment: Loss of normal cervical lordosis is either positional or due to muscle spasm.. No scoliosis. 2 mm grade 1 anterolisthesis at C3-C4, likely degenerative. Cervicomedullary junction: No abnormalities. The foramen magnum is patent. Soft tissues: Atherosclerotic calcification in bilateral carotid bulb. Vertebrae: No fractures, infection or neoplasm. Degenerative changes: C2-C3: Posterior disc osteophyte complex without significant canal stenosis. Mild right foraminal stenosis due to facet and uncovertebral arthrosis. C3-C4: Moderate right foraminal stenosis due to facet and uncovertebral arthrosis. C5-C6: Mild degenerative disc disease. Posterior disc osteophyte complex results in mild canal stenosis. Mild right foraminal stenosis due to facet and uncovertebral arthrosis. C6-C7: Moderate degenerative disc disease. Posterior disc osteophyte complex results in moderate canal stenosis. Mild right foraminal stenosis due to facet and uncovertebral arthrosis. IMPRESSION: 1. No acute cervical spine fracture or dislocation. Loss of normal cervical lordosis is either positional or due to muscle spasm. 2. Ligament, spinal cord and or vascular abnormalities cannot be excluded on the basis of this examination. 3. Cervical spondylosis as detailed above. Signed by: Dr. Mary Hernandez M.D. on 12/08/2018 7:57 PM
--- NOTE | 2018-12-08 20:04 | Diagnostic Imaging Report ---
History:Fall. Comparison studies: None Technique: Axial images were obtained through the maxillofacial region. Coronal and sagittal images reconstructed from the axial data. Dose modulation, iterative reconstruction, and/or weight based adjustment of the mA/kV was utilized to reduce the radiation dose to as low as reasonably achievable. Intravenous contrast: None Findings: Soft tissues: No abnormalities. Bones: No fractures or bony abnormalities. Orbits: Globes: Intact Extra or intraconal abnormalities: None. Paranasal sinuses: Clear Incidental finding: Multiple missing teeth, multifocal dental caries and endodontal disease, the activity of which is to be determined clinically. Bilateral fatty atrophy of the parotid glands. IMPRESSION: No acute posttraumatic abnormality. Signed by: Dr. Mary Hernandez M.D. on 12/08/2018 8:01 PM
== END 2018-12-08 19:55 | disposition home or self-care (01) ==
LOC: ER 17:57
DX: S16.1XXA Strain of muscle, fascia and tendon at neck level, initial encounter (principal); S00.83XA Contusion of other part of head, initial encounter; S80.01XA Contusion of right knee, initial encounter; S80.02XA Contusion of left knee, initial encounter; W01.0XXA Fall on same level from slipping, tripping and stumbling without subsequent striking against object, initial encounter; I10 Essential (primary) hypertension; E11.9 Type 2 diabetes mellitus without complications; I25.10 Atherosclerotic heart disease of native coronary artery without angina pectoris; K21.9 Gastro-esophageal reflux disease without esophagitis; F41.9 Anxiety disorder, unspecified; F32.9 Major depressive disorder, single episode, unspecified; Z95.1 Presence of aortocoronary bypass graft; Z79.84 Long term (current) use of oral hypoglycemic drugs; Z79.82 Long term (current) use of aspirin; Z88.1 Allergy status to other antibiotic agents; Z88.0 Allergy status to penicillin; Z88.2 Allergy status to sulfonamides
CPT/HCPCS: 70450; 70486; 72125; 99283

== ENCOUNTER 2019-02-13 15:26 | Emergency (ER) | payer MEDICARE, OTHER ==
[~2019-02-13] VITALS: Ht 154.9 cm; Wt 64.9 kg
--- NOTE | 2019-02-13 17:33 | Diagnostic Imaging Report ---
EXAMINATION: RIBS UNILAT W/CXR INDICATION: Trauma, Right rib pain COMPARISON: None FINDINGS: LINES/TUBES:None LUNGS:The lungs are moderately inflated. No focal consolidation or pulmonary edema. PLEURA:No pleural effusion or pneumothorax. MEDIASTINUM:The heart is mildly enlarged. Postoperative findings of prior CABG. BONES/SOFT TISSUES:No displaced rib fracture. Sternotomy wires intact. ABDOMEN:No free air under the diaphragm. Status post cholecystectomy. IMPRESSION: No displaced rib fractures. No focal pneumonia or pulmonary edema. Mild cardiomegaly Signed by: Lisa Miranda MD on 02/13/2019 5:30 PM
[2019-02-13 19:21] VITALS: BP 176/75
== END 2019-02-13 19:26 | disposition home or self-care (01) ==
LOC: ER 15:26
DX: S00.83XA Contusion of other part of head, initial encounter (principal); R07.89 Other chest pain; W06.XXXA Fall from bed, initial encounter; Y93.84 Activity, sleeping; Y92.003 Bedroom of unspecified non-institutional (private) residence as the place of occurrence of the external cause; I10 Essential (primary) hypertension; E11.9 Type 2 diabetes mellitus without complications; I25.10 Atherosclerotic heart disease of native coronary artery without angina pectoris; F41.9 Anxiety disorder, unspecified; K21.9 Gastro-esophageal reflux disease without esophagitis; Z95.1 Presence of aortocoronary bypass graft
CPT/HCPCS: 71101; 99282

== ENCOUNTER → 2019-03-17 | Emergency (ER) | payer MEDICARE, OTHER ==
[~2019-03-17] VITALS: Ht 154.9 cm; Wt 64.9 kg
[~2019-03-17] MED LIST changes: +CLINDAMYCIN HC300 MG PO
== END | disposition home or self-care (01) ==
LOC: ER 13:45
DX: L03.115 Cellulitis of right lower limb (principal); I10 Essential (primary) hypertension; E11.9 Type 2 diabetes mellitus without complications; I25.10 Atherosclerotic heart disease of native coronary artery without angina pectoris; F41.9 Anxiety disorder, unspecified; K21.9 Gastro-esophageal reflux disease without esophagitis; Z95.1 Presence of aortocoronary bypass graft
CPT/HCPCS: 99282

== ENCOUNTER 2019-11-12 21:53 | Emergency (ER) | payer MEDICARE, OTHER ==
[~2019-11-12] VITALS: Ht 154.9 cm; Wt 64.9 kg
[~2019-11-12 21:53] MED LIST changes: +LASIX40 MG PO; +LOMOTIL TABLET1 EACH PO; +OMEPRAZOLE40 MG PO; +TYLENOL PO
[2019-11-12] MEDS ORDERED: ACETAMINOPHEN 325 MG TAB PO ONE ×2 (22:15)
[2019-11-12] MEDS ORDERED: ACETAMINOPHEN 325 MG TAB ONE (22:17)
--- OUTSIDE RECORDS SUMMARY | 2019-11-12 22:30 | XMS REPORT | CCD ---
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 Superintendent Oil Field Drilling Name Role Phone Alek Foley CP Armando Timmons RP Allergies, Adverse Reactions, Alerts Substance Reaction Status penicillins Active sulfa drugs Active Problem List Condition Effective Dates Status Arthritis Resolved Atrial fibrillation Resolved Cataract Resolved Diabetes Resolved Hemorrhoid Resolved Hypertensive disease Resolved Ischemic cardiomyopathy Resolved Postoperative wound infection 12/03/2012 Active Medications Medication Instructions Start Date End Date Status tetanus-diphtheria 0.5 ml, Route: IM, ONCE, STAT, 05/07/2010 0 05/07/2010 Completed toxoids adult Start date: 05/07/10 17:05: 00, Stop intramuscular date: 05/07/10 17:05:00 suspension Immunizations Vaccine Date Status tetanus-diphtheria toxoids 05/07/2010 Auth (Carey delatorre)
--- OUTSIDE RECORDS SUMMARY | 2019-11-12 22:30 | XMS REPORT | CCD ---
Author Author [employer] [facility] [facility] Address Unknown Phone Unavailable Care Team Providers Care General Superintendent Name Role Phone Baldo Potter RP Allergies, Adverse Reactions, Alerts Substance Reaction [...] Vaccine Date Status tetanus-diphtheria toxoids 05/07/2010 Auth (Verif ied)
--- OUTSIDE RECORDS SUMMARY | 2019-11-12 22:30 | XMS REPORT | Summary of Care ---
Author Author [facility] Organization [facility] Address Unknown Phone Unavailable Encounter HQ Tanvi(FIN) [id number] Date(s): 10/27/17 - 10/27/17 [facility] [address], [address] [place] [address]- Encounter Diagnosis Ischemic cardiomyopathy (Final) - 11/02/17 Atherosclerotic heart disease of [place] coronary artery without angina pectoris (Final) - Hypertensive chronic kidney disease with stage 1 through stage 4 chronic kidney disease, or unspecified chronic kidney disease (Final) - Type 2 diabetes mellitus with diabetic chronic kidney disease (Final) - Chronic kidney disease, stage 3 (moderate) (Final) - Hyperlipidemia, unspecified (Final) - Presence of aortocoronary bypass graft (Final) - Discharge Disposition: Home or Self Care Attending Physician: Tristan Mcdaniels MD Referring Physician: Tristan Mcdaniels MD Vital Signs Most recent to 1 oldest [Reference Range]: Height 146.81 cm (10/27/17 2:30 PM) Temperature Oral 97.7 DegF [96.4-99.1 DegF] (10/27/17 2:30 PM) Blood Pressure 172/74 mmHg [90-140/60-90 mmHg] *HI* (10/27/17 2:30 PM) Respiratory Rate 18 BRMIN [14-20 BRMIN] (10/27/17 2:30 PM) Peripheral Pulse 67 bpm Rate [60-100 bpm] (10/27/17 2:30 PM) Weight 62.5 kg (10/27/17 2:30 PM) Body Mass Index 29 m2 (10/27/17 2:30 PM) Problem List Condition Effective Dates Status Health Status Informan t Atrial Resolved fibrillation(Confirm ed) Benign Essential Active Hypertension(Confirm ed) CABG(Confirmed) Resolved CAD - Coronary Resolved artery disease(Confirmed) Diabetes(Confirmed) Resolved Diabetes mellitus Active type 2(Confirmed) Gastroenteritis(Conf Active irmed) Hemorrhoid(Confirmed Resolved ) Hyperlipidemia(Confi Active rmed) Hypertension(Confirm Resolved ed) Ischemic Active cardiomyopathy(Confi rmed) Osteoarthritis(Confi Active rmed) Postoperative wound 12/03/12 Resolved infection(Confirmed) Allergies, Adverse Reactions, Alerts Substance Reaction Severity Status penicillins Active sulfa drugs Active codeine Active Medications No Known Medications Results No data available for this section Immunizations Given and Recorded Vaccine Date Status Refusal Reason tetanus-diphtheria toxoids 05/07/10 Given Procedures Procedure Date Related Diagnosis Body Site Status CABG - Coronary artery bypass graft 11/27/12 Co mpleted Coronary artery bypass grafts x 4 11/11/12 Comp leted Angiogram 11/08/12 Completed Colonoscopy 08/10/12 Completed Hemorrhoidectomy Completed Social History Social History Type Response Alcohol Never Smoking Status Never smoker; Type: Cigars; Previous treatment: None; Exposure to Tobacco Smoke None; Cigarette Smoking Last 365 Days No; Reg Smoking Cessation Counseling No entered on: 05/08/18 Assessment and Plan No data available for this section
--- OUTSIDE RECORDS SUMMARY | 2019-11-12 22:30 | XMS REPORT | Summary of Care ---
Author Author [facility] Organization [facility] Address Unknown Phone Unavailable Encounter BRANDEN Tinajero(MICHAELA) [id number] Date(s): 03/25/18 - 03/25/18 [facility] [address], [address] [place] [address]- Encounter Diagnosis Ischemic cardiomyopathy (Final) - 04/01/18 Atherosclerotic heart disease of [place] coronary artery without angina pectoris (Final) - Hypertensive heart and chronic kidney disease with heart failure and stage 1 thr ough stage 4 chronic kidney disease, or unspecified chronic kidney disease (Final) - Type 2 diabetes mellitus with diabetic chronic kidney disease (Final) - Chronic kidney disease, stage 3 (moderate) (Final) - Chronic systolic (congestive) heart failure (Final) - 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) - Presence of aortocoronary bypass graft (Final) - Hyperlipidemia, unspecified (Final) - Unspecified atrial fibrillation (Final) - detention (current) use of aspirin (Final) - Discharge Disposition: Home or Self Care Attending Physician: Tristan Mcdaniels MD Referring Physician: Tristan Mcdaniels MD Vital Signs Most recent to 1 oldest [Reference Range]: Height 149.86 cm (03/25/18 1:53 PM) Temperature Oral 97.7 DegF [96.4-99.1 DegF] (03/25/18 1:53 PM) Blood Pressure 194/73 mmHg [90-140/60-90 mmHg] *HI* (03/25/18 1:53 PM) Respiratory Rate 16 BRMIN [14-20 BRMIN] (03/25/18 1:53 PM) Peripheral Pulse 83 bpm Rate [60-100 bpm] (03/25/18 1:53 PM) Weight 61.273 kg (03/25/18 1:53 PM) Body Mass Index 27.28 m2 (03/25/18 1:53 PM) Problem List Condition Effective Dates Status [...] Active sulfa drugs Active codeine Active Medications pravastatin 20 mg oral tablet 20 mg = 1 tab, PO, Bedtime, PLEASE FAX PRESCRIPTION REFILL REQUESTS TO OR CALL [phone] PLEASE DO NOT SEND, # 90 tab, 3 Refill(s), Pharmacy: [facility] [id number] Start Date: 05/04/18 Status: Ordered Results No data available for this section [...]
--- OUTSIDE RECORDS SUMMARY | 2019-11-12 22:30 | XMS REPORT | Summary of Care ---
Author Author [facility] Organization [facility] Address Unknown Phone Unavailable Encounter HQ Tanvi(MICHAELA) [id number] Date(s): 04/14/19 - 04/14/19 [facility] [address] [place], [place] [address]RUST [phone] Discharge Disposition: Home or Self Care Attending Physician: Tristan Mcdaniels MD Vital Signs Most recent to 1 oldest [Reference Range]: Height 154.94 cm (04/14/19 11:02 AM) Weight 64.091 kg (04/14/19 11:02 AM) Body Mass Index 26.7 m2 (04/14/19 11:02 AM) Problem List Condition Effective Dates Status Health Status Informan t Atrial Resolved fibrillation(Confirm ed) Benign Essential < 06/23/13 Resolved Hypertension(Confirm ed) CABG(Confirmed) Resolved CAD - Coronary Resolved artery disease(Confirmed) Carotid artery Active stenosis(Confirmed) Diabetes(Confirmed) Resolved Diabetes mellitus Active type 2(Confirmed) Gastroenteritis(Conf Active irmed) Hemorrhoid(Confirmed Resolved ) Hyperlipidemia(Confi < 06/23/13 Resolved rmed) Hypertension(Confirm Resolved ed) Ischemic Active cardiomyopathy(Confi rmed) Osteoarthritis(Confi < 06/23/13 Resolved rmed) Postoperative wound 12/03/12 Resolved infection(Confirmed) Allergies, Adverse Reactions, Alerts Substance Reaction Severity Status penicillins Active sulfa drugs Active codeine Active Medications No data available for this section Results No data available for this section [...] Reg Smoking Cessation Counseling No entered on: 03/24/19 Assessment and Plan No data available for this section
--- OUTSIDE RECORDS SUMMARY | 2019-11-12 22:30 | XMS REPORT | CCD ---
Author Author [employer] [facility] Address Unknown Phone Unavailable Care Team Providers Care Grill Attendant Name Role Phone Baldo Potter RP Allergies, [...]
--- OUTSIDE RECORDS SUMMARY | 2019-11-12 22:30 | XMS REPORT | Continuity of Care Document ---
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 IVP No Longer Active [facility] 12/03/2012 [facility] ondansetron 4 mg, 2 mL, Route: IVP, Drug form: INJ, ONCE, Dosing Weight 62.528, kg, PRN Nausea & Vomiting, Start date: 12/03/12 9:34:00 IVP No Longer Active [facility] 12/03/2012 [facility] Insulin regular 100 unit + Sodium Chlori de 0.9% (titrate) 100 mL 100 mL, Rate: Start Insulin Drip Per ICU Protocol, Dosing Weight 62.528, kg, Route: IVPB, Total Volume: 100, Duration: 30 day, Stop date: 01/02/13 9:23:00, Replace Every: 24 hr, Initial Insulin Drip Rate (units/hour)=(Fasting Blood Glucose-60)X0.03 "m...Initial Insulin Drip Rate (units/hour)=(Fasting Blood Glucose-60)X0.03 "multiplier". IVPB No Longer Active [place] 12/03/2012 [facility] morphine Sulfate 2 mg, 1 mL, R oute: IVP, Drug form: INJ, Q2H, Dosing Weight 62.528, kg, PRN Pain Score 1-5, Start date: 12/03/12 9:16:00, Duration: 30 day, Stop date: 01/02/13 9:15:00 IVP No Longer Active 12/03/2012 [facility] docusate 100 mg, 1 cap, Route: PO, Drug form: CAP, BID, Dosing Weight 62.528, kg, PRN Constipation, Start date: 12/03/12 9:16:00, Duration: 30 day, Stop date: 01/02/13 9:15:00 PO No Longer Active 12/03/2012 [facility] glucagon 1 mg, Route: IM, Drug form: PDR/INJ, PRN, Dosing Weight 62.528, kg, PRN Blood Glucose Results, Start date: 12/03/12 9:16:00, Duration: 30 day, Stop date: 01/02/13 9:15:00 IM No Longer Active 12/03/2012 [facility] Dextrose 50% Syringe 12.5 gm, 25 mL, Route: IVP, Drug Form: INJ, Dosing Weight 62.528, kg, PRN, PRN Blood Glucose Results, Start date: 12/03/12 9:16:00, Duration: 30 day, Stop date: 01/02/13 9:15:00 IVP No Longer Active Frantz 12/03/2012 [facility] minocycline 100 mg, 1 cap, Rou te: PO, Drug form: CAP, Q12H, Dosing Weight 62.528, kg, Start date: 12/03/12 9:00:00, Duration: 30 day, Stop date: 01/01/13 21:00:00 PO No Longer Active Burnazian 12/03/2012 [facility] nter potassium chloride 10 mEq oral tablet, extended releas e 10 mEq, 1 tab, Route: PO, Drug form: ERTAB, Daily, Dosing Weight 62.528, kg, Start date: 12/03/12 9:00:00, Duration: 30 day, Stop date: 01/01/13 9:00:00 PO No Longer Active Heshmat [facility] Toprol-XL 50 mg oral tablet, extended release 50 mg, 1 tab, Route: PO, Drug form: ERTAB, BID, Start date: 12/03/12 9:00:00, Duration: 30 day, Stop date: 01/01/13 17:00:00 PO No Longer Active Heshmat 12/03/2012 [facility] lisinopril 20 mg, 1 tab, Route : PO, Drug form: TAB, Q12H, Dosing Weight 62.528, kg, Start date: 12/03/12 9:00:00, Duration: 30 day, Stop date: 01/01/13 21:00:00 PO No Longer Active Shiue 12/03/2012 [facility] nter insulin glargine 15 unit, 0.15 mL, Route: SUB-Q, Drug form: INJ, Daily, Dosing Weight 62.528, kg, Start date: 12/03/12 9:00:00, Duration: 30 day, Stop date: 01/01/13 9:00:00 SUB-Q No Longer Active Heshmat 12/03/2012 [facility] docusate sodium 100 mg oral capsule 100 mg, 1 cap, Route: PO, Drug form: CAP, Daily, Dosing Weight 62.528, kg, Start date: 12/03/12 9:00:00, Duration: 30 day, Stop date: 01/01/13 9:00:00 [facility] atorvastatin 20 mg, 1 tab, Rou te: PO, Drug form: TAB, Daily, Dosing Weight 62.528, kg, Start date: 12/03/12 9:00:00, Duration: 30 day, Stop date: 01/01/13 9:00:00 [facility]2012 [facility] nt bumetanide 1 mg, 1 tab, Route: PO, Drug form: TAB, BID, Dosing Weight 62.528, kg, Start date: 12/03/12 9:00:00, Duration: 30 day, Stop date: 01/01/13 17:00:00 PO [facility] 12/03[facility]2012 [facility] nter aspirin 325 mg tablet, enteric coated 325 mg, 1 tab, Route: PO, Drug form: ECTAB, Daily, Dosing Weight 62.528, kg, Start date: 12/03/12 9:00:00, Duration: 30 day, Stop date: 01/01/13 9:00:00 PO No Longer Active [facility]2012 [facility] AMIODarone 200 mg, 1 tab, Rout e: PO, Drug form: TAB, Daily, Dosing Weight 62.528, kg, Start date: 12/03/12 9:00:00, Duration: 30 day, Stop date: 01/01/13 9:00:00 PO No Longer Active Manoukian 12/03/2012 [facility] nter magnesium sulfate 1 gm, 50 mL, Route: IVPB, Drug form: INJ, ONCE, Dosing Weight 62.528, kg, Priority: NOW, Start date: 12/03/12 5:01:00, Stop date: 12/03/12 5:01:00 IVPB No Longer Active [facility] 12/03/2012 [facility] vancomycin 500 mg, Route: IVPB , Drug form: PDR/INJ, [id number], Dosing Weight 62.528, kg, Priority: NOW, Start date: 12/03/12 0:10:00, Duration: 30 day, Stop date: 01/01/13 12:10:00 IVPB No Longer Active Alex 12/03/2012 [facility] vancomycin 1 gm, Route: IVPB, Drug form: INJ, [id number], Dosing Weight 62.528, kg, Start date: 12/02/12 23:00:00, Duration: 30 day, Stop date: 01/01/13 11:00:00 IVPB [facility]2012 [facility] acetaminophen-hydrocodone 325 mg-10 mg oral tablet 1 tab, Route: PO, Drug Form: TAB, Dosing Weight 62.528, kg, Q6H, PRN as needed for pain, Start date: 12/02/12 22:58:00, Duration: 30 day, Stop date: 01/01/13 22:57:00 [facility] vancomycin 2 gm, Route: IVPB, Drug form: INJ, ONCE, Dosing Weight 62.528, kg, Start date: 12/02/12 21:30:00, Stop date: 12/02/12 21:30:00 IVPB No Longer Active Maguire 12/03/2012 [facility] Saline Flush 0.9% 5 ml, Route: IVP, Drug Form: INJ, Dosing Weight 62.528, kg, Q12H, Start date: 12/02/12 21:00:00, Duration: 30 day, Stop date: 01/01/13 9:00:00 IVP No Longer Active Potter 12/03/2012 [facility] Toprol-XL 50 mg oral tablet, extended release 50 mg, 1 tab, PO, BID, 30 tab, Substitution Allowed, ERTAB PO [facility]2012 [facility] potassium chloride 10 mEq oral tablet, extended releas e 10 mEq, 1 tab, PO, Daily, 10 tab, Substitution Allowed PO Active Hesat 12/03/2012 [facility] minocycline 100 mg oral tablet 100 mg, 1 tab, PO, Q12H, 30 tab, Substitution Allowed, TAB PO No Longer Active [facility] 12/03/2012 [facility] lisinopril 20 mg oral tablet 2 0 mg, 1 tab, PO, Q12H, 30 tab, Substitution Allowed, TAB PO No Longer Active [facility] 12/03/2012 [facility] nter bumetanide 1 mg oral tablet 1 mg, 1 tab, PO, BID, 30 tab, Substitution Allowed, TAB PO Active [facility] 12/03/2012 [facility] nter atorvastatin 20 mg oral tablet 20 mg, 1 tab, PO, Daily, 30 tab, Substitution Allowed, TAB PO Active [facility] 12/03/2012 [facility] nter aspirin 325 mg tablet, enteric coated 325 mg, 1 tab, PO, Daily, 30 tab, Substitution Allowed, ECTAB PO No Longer Active [facility] 12/03/2012 [facility] Glucotrol 5 mg oral tablet 5 m g, 1 tab, PO, BID, 30 tab, Substitution Allowed PO No Longer Active 12/03/2012 [facility] nter AMIODarone 200 mg oral tablet 200 mg, 1 tab, PO, Daily, 60 tab, Substitution Allowed, TAB PO No Longer Active [facility] 12/03/2012 [facility] Saline Flush 0.9% 5 ml, Route: IVP, Drug Form: INJ, Dosing Weight 62.528, kg, PRN, PRN Line Flush, Start date: 12/02/12 20:38:00, Duration: 30 day, Stop date: 01/01/13 20:37:00 IVP No Longer Active [facility] 12/03/2012 [facility] [id number] 250 mL 250 mL, Rate: call center trainer for use with blood product administration, Route: IV, Dosing Weight 62.528 kg, Total Volume: 250, Start date: 12/02/12 20:38:00, Duration: 1 day, Stop date: 12/03/12 20:37:00 IV No Longer Active [facility] 12/03 [facility] [id number] 1,000 mL 1,000 mL, Rate : 75 ml/hr, Infuse over: 13.3 hr, Route: IV, Dosing Weight 62.528 kg, Total Volume: 1,000, Start date: 12/02/12 20:38:00, Duration: 30 day, Stop date: 01/01/13 20:37:00 IV No Longer Active Blakeadilson 12/03/2012 [facility] minocycline 100 mg oral tablet 100 mg, 1 tab, PO, BID, 14 tab, Substitution Allowed PO Active Kline 11/26/2012 [facility] nter vancomycin 1 gm, Route: IV, Dr james form: INJ, [id number], Dosing Weight 73.722, kg, Start date: 11/24/12 13:15:00, Duration: 30 day, Stop date: 12/24/12 1:15:00 IV No Longer Active Kline 11/24/2012 [facility] aspirin 325 mg tablet, enteric coated 325 mg, 1 tab, PO, Daily, 30 tab, 2, 2, Substitution Allowed PO Active Kline 11/24/2012 [facility] nter insulin glargine 100 units/mL subcutaneous solution 15 unit, 0.15 mL, SUB-Q, Daily, 1 pen(s), Substitution Allowed, SOLN SUB-Q Active Kline 11/24/2012 [facility] Glucotrol 5 mg oral tablet 5 m g, 1 tab, PO, BID-After Meals, 60 tab, 2, 2, Substitution Allowed, TAB PO Active Kline 11/24/2012 [facility] nter bumetanide 1 mg oral tablet 1 mg, 1 tab, PO, BID, 60 tab, 2, 2, Substitution Allowed, TAB PO Active Kline 11/24/2012 [facility] nter Bumex 1 mg, 1 tab, Route: PO, Drug form: TAB, BID, Dosing Weight 73.722, kg, Start date: 11/23/12 17:00:00, Duration: 30 day, Stop date: 12/23/12 9:00:00 PO No Longer Active Gazzala 11/23/2012 [facility] nter AMIODarone 200 mg, 1 tab, Rout e: PO, Drug form: TAB, Daily, Dosing Weight 65, kg, Start date: 11/23/12 9:00:00, Duration: 30 day, Stop date: 12/22/12 9:00:00 PO No Longer Active Kline 11/23/2012 [facility] nter Glucotrol 5 mg oral tablet 5 m g, 1 tab, Route: PO, Drug form: TAB, BID-After Meals, Dosing Weight 73.722, kg, Start date: 11/22/12 17:30:00, Duration: 30 day, Stop date: 12/22/12 8:30:00 [facility] Bumex 1 mg, 4 mL, Route: IV, D rug form: INJ, BID, Dosing Weight 73.722, kg, Start date: 11/22/12 17:00:00, Duration: 30 day, Stop date: 12/22/12 9:00:00 [facility]2012 [facility] nter Bumex 1 mg, 4 mL, Route: IVP, Drug form: INJ, Q12H, Dosing Weight 73.722, kg, Priority: Routine, Start date: 11/22/12 9:00:00, Duration: 30 day, Stop date: 12/21/12 21:00:[address] Longer [address] [facility] 11/22/2012 [facility] Bumex 1 mg, 4 mL, Route: IVP, Drug form: INJ, ONCE, Dosing Weight 73.722, kg, Priority: STAT, Start date: 11/22/12 7:51:00, Stop date: 11/22/12 7:51:00 IVP No Longer Active [facility] 11/22/2012 [facility] nter ondansetron 4 mg, 2 mL, Route: IV, Drug form: INJ, Q6H, Dosing Weight 73.722, kg, PRN Nausea, Start date: 11/21/12 17:57:00, Duration: 30 day, Stop date: 12/21/12 17:56:00 IV No Longer Active Kline 11/21/2012 [facility] nter aspirin 81 mg tablet, chewable 81 mg, 1 tab, PO, Daily, 30 tab, 3, 3, Substitution Allowed, CHEWTAB PO No Longer Active Kline 11/21/2012 [facility] acetaminophen-hydrocodone 325 mg-10 mg oral tablet 1 tab, PO, Q4H, PRN, 30 tab, 0, 0, Pain Score 1-3, Substitution Allowed, Maintenance, TAB PO Active Maguire 11/21/2012 [facility] potassium chloride 10 mEq oral tablet, extended releas e 10 mEq, 1 tab, PO, Daily, 30 tab, Substitution Allowed, ERTAB PO Active 11/21/2012 [facility] Toprol-XL 50 mg oral tablet, extended release 50 mg, 1 tab, PO, BID, 60 tab, 3, 3, Substitution Allowed, ERTAB PO Active 11/21/2012 [facility] lisinopril 20 mg oral tablet 2 0 mg, 1 tab, PO, Q12H, 30 tab, 3, 3, Substitution Allowed, TAB PO Active 11/21/2012 [facility] nter insulin glargine 100 units/mL subcutaneous solution 15 unit, 0.15 mL, SUB-Q, Daily, 5 mL, 3, 3, Substitution Allowed, SOLN SUB-Q No Longer Active 03/2013 [facility] furosemide 40 mg oral tablet 4 0 mg, 1 tab, PO, Daily, 30 tab, 3, 3, Substitution Allowed, TAB PO No Longer Active Maguire 11/21/2012 [facility] docusate sodium 100 mg oral capsule 100 mg, 1 cap, PO, Daily, 30 cap, 3, 3, Substitution Allowed, CAP PO Active 11/21/2012 [facility] atorvastatin 20 mg oral tablet 20 mg, 1 tab, PO, QPM, 30 tab, 3, 3, Substitution Allowed, TAB PO Active 11/21/2012 [facility] nter AMIODarone 200 mg oral tablet 200 mg, 1 tab, PO, Daily, 30 tab, 3, 3, Substitution Allowed, TAB PO Active 11/21/2012 [facility] nter Lasix 40 mg, 1 tab, Route: PO, Drug form: TAB, Daily, Start date: 11/20/12 14:00:00, Duration: 30 day, Stop date: 12/20/12 9:00:00 PO No Longer Active 02/2013 [facility] Lasix 20 mg, 1 tab, Route: PO, Drug form: TAB, Daily, Dosing Weight 65, kg, Start date: 11/18/12 12:00:00, Duration: 30 day, Stop date: 12/18/12 9:00:00 [facility]2012 [facility] nter iron sucrose + Sodium Chloride 0.9% IV 95 mL 100 mg, 5 mL, Route: IV, Daily, Dosing Weight 65, kg, 3 doses only, Priority: NOW, Start date: 11/17/12 21:10:00, Duration: 3 doses or times, Stop date: 11/19/12 9:00:00 IV No Longer Active Gazzala 12/2012 [facility] calcium gluconate + Sodium Chloride 0.9% IV 50 mL 1,000 mg, 10 mL, Route: IVPB, Drug form: INJ, ONCE, Dosing Weight 65, kg, Priority: STAT, Start date: 11/16/12 3:15:00, Stop date: 11/16/12 3:15:00 IVPB No Longer Active Maguire 11/16/2012 [facility] potassium chloride 20 mEq/15 mL oral liquid 40 mEq, 30 mL, Route: PO, Drug form: LIQ, ONCE, Dosing Weight 65, kg, Priority: NOW, Start date: 11/16/12 3:15:00, Stop date: 11/16/12 3:15:00 PO No Longer Active Maguire 11/16/2012 [facility] Toprol-XL 50 mg oral tablet, extended release 50 mg, 1 tab, Route: PO, Drug form: ERTAB, BID, Start date: 11/15/12 21:00:00, Duration: 30 day, Stop date: 12/15/12 9:00:00 PO No Longer Active [place] 11/16/2012 [facility] docusate sodium 100 mg oral capsule 100 mg, 1 cap, Route: PO, Drug form: CAP, BID, Start date: 11/15/12 17:00:00, Duration: 30 day, Stop date: 12/15/12 9:00:00 PO No Longer Active Harjeet 11/15/2012 [facility] nter AMIODarone 0.5 mg/min, Route: PO, Drug form: TAB, BID, Dosing Weight 65, kg, Start date: 11/15/12 17:00:00, Stop date: 12/15/12 9:00:00 PO No Longer Active [place] 11/15/2012 [facility] Lasix 20 mg, 2 mL, Route: IVP, Drug form: INJ, ONCE, Dosing Weight 65, kg, Start date: 11/15/12 9:00:00, Stop date: 11/15/12 9:00:00 IVP No Longer Active Potter 11/15 [facility] calcium gluconate + Sodium Chloride 0.9% IV 50 mL 1,000 mg, 10 mL, Route: IVPB, ONCE, Dosing Weight 65, kg, Priority: STAT, Start date: 11/15/12 4:54:00, Stop date: 11/15/12 4:54:00 IVPB No Longer Active Joele 11/15/2012 [facility] Neutra-Phos oral powder Route: PO, Drug Form: PDR/REC, Dosing Weight 65, kg, ONCE, STAT, Start date: 11/14/12 20:00:00, Stop date: 11/14/12 20:00:00 PO No Longer Active Eli 11/15/2012 [facility] nter calcium gluconate + Sodium Chloride 0.9% IV 50 mL 1,000 mg, 10 mL, Route: IVPB, ONCE, Dosing Weight 65, kg, Priority: STAT, Start date: 11/14/12 20:00:00, Stop date: 11/14/12 20:00:00 IVPB No Longer Active [facility] 11/15/2012 [facility] AMIODarone 200 mg, 1 tab, Rout e: PO, Drug form: TAB, TID, Dosing Weight 65, kg, Start date: 11/14/12 17:00:00, Duration: 30 day, Stop date: 12/14/12 13:00:00 PO No Longer Active Kline 11/14/2012 [facility] nter insulin glargine 15 unit, 0.15 mL, Route: SUB-Q, Drug form: INJ, Daily, Dosing Weight 65, kg, Start date: 11/14/12 13:00:00, Stop date: 12/14/12 9:00:00 SUB-Q No Longer Active Whitney 11/14/2012 [facility] nter insulin aspart 2 unit, 0.02 mL , Route: SUB-Q, Drug form: SOLN, TID-Before Meals, Dosing Weight 65, kg, PRN Blood Glucose Results, Start date: 11/14/12 12:02:00, Duration: 30 day, Stop date: 12/14/12 12:01:00 SUB-Q No [facility]er Active [facility]2012 [facility] Dextrose 50% Syringe 12.5 gm, 25 mL, Route: IVP, Drug Form: INJ, Dosing Weight 65, kg, PRN, PRN Blood Glucose Results, Start date: 11/14/12 12:02:00, Duration: 30 day, Stop date: 12/14/12 12:01:00 IVP No Longer Active [facility] 11/14/2012 [facility] glucagon 1 mg, Route: IM, Drug form: PDR/INJ, PRN, Dosing Weight 65, kg, PRN Blood Glucose Results, Start date: 11/14/12 12:02:00, Duration: 30 day, Stop date: 12/14/12 12:01:00 IM No Longer Active [facility] 11/14/2012 [facility] AMIODarone 900 mg + Dextrose 5% in Water (Titrate) IV 482 mL 482 mL, Rate: Infuse as directed, Dosing Weight 65, kg, Route: IV, Total Volume: 500 mL, Stop date: 12/14/12 8:57:00, Replace Every: 24 hr IV No Longer Active [facility] 11/14/2012 [facility] AMIODarone 150 mg + Dextrose 5% in Water IV 100 mL 100 mL, Rate: 600 ml/hr, Infuse over: 10.3 min, Route: IVPB, Dosing Weight 65 kg, Total Volume: 103, Start date: 11/14/12 8:58:00, Duration: 1 doses or times, Stop date: 11/14/12 9:07:00 IVPB No Longer Active Potter 11/14/2012 [facility] nt metoprolol 5 mg/5 ml INJ 5 mg, 5 mL, Route: IV, Drug form: INJ, ONCE, Dosing Weight 65, kg, Priority: STAT, Start date: 11/14/12 7:08:00, Stop date: 11/14/12 7:08:00 IV No Longer Active Potter 11/14/2012 [facility] metoprolol 5 mg/5 ml INJ 5 mg, Route: IV, ONCE, Dosing Weight 65, kg, Priority: STAT, Start date: 11/14/12 3:17:00, Stop date: 11/14/12 3:17:00 IV No Longer Active Shiue 11/14/2012 [facility] morphine Sulfate 2 mg, 1 mL, R oute: IVP, Drug form: INJ, ONCE, Dosing Weight 65, kg, Priority: NOW, Start date: 11/14/12 2:11:00, Stop date: 11/14/12 2:11:00 IVP No Longer Active Shiue 11/14/2012 [facility] nter calcium gluconate + Sodium Chloride 0.9% IV 50 mL 1,000 mg, 10 mL, Route: IVPB, ONCE, Dosing Weight 65, kg, Start date: 11/14/12 0:07:00, Stop date: 11/14/12 0:07:00 IVPB No Longer Active Shiue 11/14/2012 [facility] potassium phosphate + Sodium Chloride 0.9% IV 250 mL 30 mmol, 10 mL, Route: IVPB, ONCE, Dosing Weight 65, kg, Start date: 11/14/12 0:03:00, Stop date: 11/14/12 0:03:00 IVPB No Longer Active Shiue 11/14/2012 [facility] potassium chloride 10 mEq, 50 mL, Route: IVPB, Drug form: INJ, Q1H, Start date: 11/14/12 0:00:00, Duration: 3 doses or times, Stop date: 11/14/12 2:00:00 IVPB No Longer Active Shiue 11/14/2012 [facility] nter magnesium sulfate 1 gm, 50 mL, Route: IVPB, Drug form: INJ, ONCE, Dosing Weight 65, kg, Priority: STAT, Start date: 11/13/12 23:10:00, Stop date: 11/13/12 23:10:00 IVPB No Longer Active Shiue 11/14/2012 [facility] nter potassium chloride 30 mEq, Rou te: IV, ONCE, Dosing Weight 65, kg, Priority: STAT, Start date: 11/13/12 23:10:00, Stop date: 11/13/12 23:10:00 IV No Longer Active Shiue 11/14/2012 [facility] nter metoprolol 5 mg/5 ml INJ 5 mg, 5 mL, Route: IV, Drug form: INJ, ONCE, Dosing Weight 65, kg, Priority: NOW, Start date: 11/13/12 23:10:00, Stop date: 11/13/12 23:10:00 IV No Longer Active Shiue 11/14/2012 [facility] metoprolol 5 mg/5 ml INJ 5 mg, 5 mL, Route: IV, Drug form: INJ, ONCE, Dosing Weight 65, kg, Start date: 11/13/12 19:41:00, Stop date: 11/13/12 19:41:00 IV No Longer Active Shiue 11/14/2012 [facility] nter potassium chloride 40 mEq, Rou te: IV, ONCE, Dosing Weight 65, kg, Start date: 11/13/12 17:44:00, Stop date: 11/13/12 17:44:00 [facility] magnesium sulfate 2 gm, 50 mL, Route: IVPB, Drug form: INJ, ONCE, Dosing Weight 65, kg, Start date: 11/13/12 17:20:00, Duration: 1 doses or times, Stop date: 11/13/12 17:20:00, For Mg = 1.8 - 2 mg/dLFor Mg = 1.8 - 2 mg/dL IVPB No [facility] nter potassium chloride 40 mEq, 30 mL, Route: NJ, Drug form: LIQ, ONCE, Dosing Weight 65, kg, Start date: 11/13/12 17:20:00, Duration: 1 doses or times, Stop date: 11/13/12 17:20:00, For K = 3 - 3.4 mEq/LFor K = 3 - 3.4 mEq/L NJ No Longer Active [facility] 11/13/2012 [facility] vancomycin 1 gm, Route: IVPB, Drug form: INJ, [id number], Dosing Weight 65, kg, Start date: 11/13/12 9:00:00, Duration: 30 day, Stop date: 12/12/12 21:00:00 IVPB No Longer Active Shawn Whyte 11/13/2012 [facility] nter D5W 1000 mL 1,000 mL, Rate: 50 ml/hr, Infuse over: 20 hr, Route: IV, Dosing Weight 65 kg, Total Volume: 1,000, Start date: 11/13/12 8:44:00, Duration: 30 day, Stop date: 12/13/12 8:43:00 IV No Longer Active Potter 11/13/2012 [facility] potassium chloride 20 mEq, 100 mL, Route: IVPB, Drug form: INJ, ONCE, Start date: 11/13/12 5:30:00, Stop date: 11/13/12 5:30:00 [facility] normal saline 0.9% IV 85 mL + potassium chloride 20 mEq + sodium bicarbonate 4% (Neut) 5 mL 85 mL, Rate: 42.5 ml/hr, Infuse over: 2 hr, Route: IVPB, Dosing Weight 65 kg, Total Volume: 85 mL, Priority: STAT, Start date: 11/13/12 5:00:00, Duration: 1 doses or times, Stop date: 11/13/12 6:59:00 IVPB No Longer Active [facility] 11/13/2012 [facility] Sodium Chloride 0.9% IV 1,000 mL 1,000 mL, Rate: 50 ml/hr, Infuse over: 20 hr, Route: IV, Dosing Weight 65 kg, Total Volume: 1,000, Priority: NOW, Start date: 11/12/12 21:15:00, Duration: 10 hr, Stop date: 11/13/12 7:14:00 IV No Longer Active Potter 11/13/2012 [facility] nter Merrem 500 mg, Route: IV, Drug form: PDR/INJ, [id number], Dosing Weight 65, kg, Start date: 11/12/12 10:00:00, Duration: 30 day, Stop date: 12/12/12 2:00:00 IV No Longer Active leon Whyte 11/12/2012 [facility] nter pantoprazole 40 mg, Route: IVP , Drug form: INJ, Daily, Dosing Weight 65, kg, Start date: 11/12/12 9:00:00, Duration: 30 day, Stop date: 12/11/12 9:00:00 IVP No Longer Active Shawn Whyte 11/12/2012 [facility] nter aspirin 300 mg rectal suppository 300 mg, 1 supp, Route: OR, Drug form: SUPP, Daily, Dosing Weight 65, kg, Start date: 11/12/12 9:00:00, Duration: 30 day, Stop date: 12/11/12 9:00:00 OR No Longer Active Indio 11/12/2012 [facility] aspirin 325 mg, 1 tab, Route: NG, Drug form: TAB, Daily, Dosing Weight 65, kg, Start date: 11/12/12 9:00:00, Duration: 30 day, Stop date: 12/11/12 9:00:00 NG No Longer Active [place] 11/12/2012 [facility] nter potassium chloride 20 mEq, 100 mL, Route: IVPB, Drug form: INJ, ONCE, Dosing Weight 65, kg, Total dose = 20 mEq, Start date: 11/12/12 6:14:00, Duration: 1 doses or times, Stop date: 11/12/12 6:14:00, For K = 3.5 - 3.9 mEq/LFor K = 3.5 - 3.9 mEq/L IVPB No Longer Active [facility] 11/12/2012 [facility] albumin human 25% intravenous solution 75 gm, 300 mL, Route: IV, Drug form: INJ, ONCE, Dosing Weight 65, kg, Priority: STAT, Start date: 11/12/12 0:22:00, Stop date: 11/12/12 0:22:00 IV No Longer Active [facility] 11/12/2012 [facility] albumin human 25% intravenous solution 12.5 gm, 250 mL, Route: IV, Drug form: INJ, ONCE, Dosing Weight 65, kg, Start date: 11/12/12 0:14:00, Stop date: 11/12/12 0:14:00 IV No Longer Active [facility] 11/12/2012 [facility] Lactated Ringers (Bolus) IV 250 mL 250 mL, Rate: 250 ml/hr, Infuse over: 1 hr, Route: IV, Dosing Weight 65 kg, Total Volume: 250, Start date: 11/12/12 0:13:00, Duration: 1 doses or times, Stop date: 11/12/12 1:12:00 IV No Longer Active [facility] 11/12/2012 [facility] calcium chloride + Sodium Chloride 0.9% IV 100 mL 1,000 mg, 10 mL, Route: IVPB, ONCE, Dosing Weight 65, kg, Start date: 11/11/12 21:49:00, Stop date: 11/11/12 21:49:00 IVPB No Longer Active Potter 11/12/2012 [facility] vancomycin (SCIP) 1 gm, Route: IVPB, Drug form: INJ, Q12H, Dosing Weight 65, kg, Start date: 11/11/12 21:00:00, Duration: 4 doses or times, Stop date: 11/13/12 9:00:00 IVPB No Longer Active Potter 11/12/2012 [facility] milrinone 20 mg in D5W 100 ml Premix (titrate) 20 mg 20 mg, 100 mL, Rate: As directed, Dosing Weight 65, kg, Route: IV, Total Volume: 100, Start date: 11/11/12 20:02:00, Duration: 30 day, Stop date: 12/11/12 20:01:00, Replace Every: 24 hr IV No Longer Active Whitney 11/12/2012 [facility] nter vancomycin (SCIP) 1 gm, Route: IVPB, Drug form: INJ, [id number], Dosing Weight 65, kg, Start date: 11/11/12 20:00:00, Duration: 2 doses or times, Stop date: 11/12/12 8:00:00 IVPB No Longer Active Potter 11/12/2012 [facility] potassium chloride 20 mEq, 100 mL, Route: IVPB, Drug form: INJ, Q2H, Start date: 11/11/12 20:00:00, Duration: 2 doses or times, Stop date: 11/11/12 22:00:00 IVPB No Longer Active Potter 11/12/2012 [facility] nter potassium chloride 40 mEq, Rou te: IV, ONCE, Dosing Weight 65, kg, Priority: STAT, Start date: 11/11/12 19:07:00, Stop date: 11/11/12 19:07:00 IV No Longer Active Potter 11/12/2012 [facility] nter calcium gluconate + Sodium Chloride 0.9% IV 50 mL 1,000 mg, 10 mL, Route: IV, ONCE, Dosing Weight 65, kg, Priority: STAT, Start date: 11/11/12 18:45:00, Stop date: 11/11/12 18:45:00 IV No Longer Active Arslan 11/11/2012 [facility] labetalol 10 mg, 2 mL, Route: IV, Drug form: INJ, ONCE, Dosing Weight 65, kg, Priority: STAT, Start date: 11/11/12 18:31:00, Stop date: 11/11/12 18:31:00 IV No Longer Active Potter 11/11/2012 [facility] nter cefazolin (SCIP) 1 gm, Route: IVPB, Drug form: PDR/INJ, [id number], Dosing Weight 65, kg, Start date: 11/11/12 18:00:00, Duration: 6 doses or times, Stop date: 11/14/12 6:00:00 IVPB No Longer Active Whitney 11/11/2012 [facility] FENTanyl 1000 mcg in 20 mL (titrate) IV 1,000 microgra m 1,000 microgram, 20 mL, Rate: Titrate as directed, Dosing Weight 65, kg, Route: IV, Total Volume: 20 ml, Duration: 30 day, Stop date: 12/11/12 17:11:00, Replace Every: 24 hr IV No Longer Active Potter 11/11/2012 [facility] nter fentanyl (PF) 20 mcg/ml GRAIN HANDLER (600 microgr am /30 mL) 600 microgram 600 microgram, 30 mL, Route: IV, GRAIN HANDLER Dos e: 10 mcg, GRAIN HANDLER Lockout: 10 minutes, Continuous Basal Rate: 0 mg, 4 Hour Limit (In MCG): 240, Drug Form: INJ, Continuous, Start date: 11/11/12 17:00:00, Duration: 30 day, Stop date: 12/11/12 16:59:00 IV No Longer Active Collinsuthi 11/11/2012 [facility] nter docusate 100 mg, 10 mL, Route: PO, Drug form: LIQ, BID, Dosing Weight 65, kg, Start date: 11/11/12 17:00:00, Duration: 30 day, Stop date: 12/11/12 9:00:00 PO No Longer Active Prescott 11/11/2012 [facility] nter fentanyl 100 microgram, Route: IVP, ONCE, Dosing Weight 65, kg, Priority: STAT, Start date: 11/11/12 17:00:00, Stop date: 11/11/12 17:00:00 IVP No Longer Active Potter 11/11/2012 [facility] Insulin regular 100 unit + Sodium Chlori de 0.9% (titrate) 99 mL 99 mL, Rate: Start Insulin Drip Per ICU Protocol, Dosing Weight 65, kg, Route: IVPB, Total Volume: 100, Duration: 30 day, Stop date: 12/11/12 16:36:00, Replace Every: 24 hr, Initial Insulin Drip Rate (units/hour)=(Fasting Blood Glucose-60)X0.03 "multi...Initial Insulin Drip Rate (units/hour)=(Fasting Blood Glucose-60)X0.03 "multiplier". IVPB No Longer Active Shawn Whyte 11/11/2012 [facility] Cardene 40 mg in NS 200 ml IV 40 mg 40 mg, 200 mL, Rate: Titrate, Dosing Weight 65, kg, Route: IV, Total Volume: 200 mL, Duration: 30 day, Stop date: 12/11/12 16:36:00, Replace Every: 24 hr IV No Longer Active Potter 11/11/2012 [facility] ondansetron 4 mg, 2 mL, Route: IVP, Drug form: INJ, ONCE, Dosing Weight 65, kg, PRN Nausea & Vomiting, Start date: 11/11/12 16:35:00 IVP No Longer Active Kenyon 2012 [facility] naloxone 0.04 mg, 0.1 mL, Rout e: IVP, Drug form: INJ, Q2MIN, Dosing Weight 65, kg, PRN Narcotic Reversal, Start date: 11/11/12 16:35:00, Duration: 30 day, Stop date: 12/11/12 16:34:00 IVP No Longer Active Indio 11/11/2012 [facility] fentanyl 10 microgram, 0.2 mL, Route: IVP, Drug form: INJ, Q2H, Dosing Weight 65, kg, PRN Pain Score 1-3, Start date: 11/11/12 16:35:00, Duration: 30 day, Stop date: 12/11/12 16:34:00 IVP No Longer Active Amy 11/11/2012 [facility] nalbuphine 2 mg, 0.2 mL, Route : IVP, Drug form: INJ, Q2H, Dosing Weight 65, kg, PRN Itching, Start date: 11/11/12 16:35:00, Duration: 5 doses or times, Stop date: 11/12/12 0:00:00 IVP No Longer Active Kenyon 11/11/2012 [facility] Dextrose 50% Syringe 12.5 gm, 25 mL, Route: IVP, Drug Form: INJ, Dosing Weight 65, kg, PRN, PRN Blood Glucose Results, Start date: 11/11/12 16:35:00, Duration: 30 day, Stop date: 12/11/12 16:34:00 IVP No Longer Active Shawn Whyte 11/11/2012 [facility] labetalol 10 mg, 2 mL, Route: IVP, Drug form: INJ, Q4H, Dosing Weight 65, kg, PRN Hypertension, Start date: 11/11/12 16:35:00, Duration: 30 day, Stop date: 12/11/12 16:34:00 IVP No Longer Active Idnio 11/11/2012 [facility] metoprolol 2.5 mg, 2.5 mL, Rou te: IVP, Drug form: INJ, Q4H, Dosing Weight 65, kg, PRN Hypertension, Start date: 11/11/12 16:35:00, Duration: 30 day, Stop date: 12/11/12 16:34:00 IVP No Longer Active Chris 11/11/2012 [facility] hydrALAZINE 10 mg, 0.5 mL, Rou te: IVP, Drug form: INJ, Q6H, Dosing Weight 65, kg, PRN Hypertension, Start date: 11/11/12 16:35:00, Duration: 30 day, Stop date: 12/11/12 16:34:00 IVP No Longer Active Chris 11/11/2012 [facility] acetaminophen 650 mg, 1 supp, Route: OR, Drug form: SUPP, Q4H, Dosing Weight 65, kg, PRN Pain Score 1-3, Start date: 11/11/12 16:35:00, Duration: 30 day, Stop date: 12/11/12 16:34:00 OR No Longer Active Kenyon 11/11/2012 [facility] aspirin 325 mg tablet 325 mg, Route: NG, ONCE, Dosing Weight 65, kg, Start date: 11/11/12 16:35:00, Stop date: 11/11/12 16:35:00 NG No Longer Active Kenyon 2012 [facility] acetaminophen-hydrocodone 325 mg-10 mg oral tablet 1 tab, Route: PO, Drug Form: TAB, Dosing Weight 65, kg, Q4H, PRN Pain Score 1-3, Start date: 11/11/12 16:35:00, Duration: 30 day, Stop date: 12/11/12 16:34:00 PO No Longer Active Prescott 2012 [facility] nitroglycerin 100 mg in 250 ml [id number] Premi x (titrate) 100 mg 100 mg, 250 mL, Rate: Infuse as directed , Dosing Weight 65, kg, Route: IV, Total Volume: 250 mL, Start date: 11/11/12 16:35:00, Duration: 30 day, Stop date: 12/11/12 16:34:00, Replace Every: 24 hr IV No Longer Active Tariq 11/11/2012 [facility] Insulin regular 5 unit, Route: SUB-Q, ONCE, Dosing Weight 65, kg, Start date: 11/10/12 21:55:00, Stop date: 11/10/12 21:55:00 SUB-Q No Longer Active Hari 013 [facility] vancomycin + Sodium Chloride 0.9% IV 250 mL 1,500 mg, Route: IVPB, ONCALL, Dosing Weight 65, kg, Start date: 11/10/12 19:00:00, Stop date: 11/11/12 15:00:00 IVPB No Longer Active Whitney 11/11/2012 [facility] nter cefazolin 1 gm, Route: IVPB, D rug form: PDR/INJ, ONCALL, Dosing Weight 65, kg, Start date: 11/10/12 19:00:00, Stop date: 11/11/12 15:00:00 IVPB No Longer Active Whitney 11/11/2012 [facility] nter Sodium Chloride 0.9% (titrate) 250 mL 250 mL, Rate: call center trainer for use with blood product administration, Dosing Weight 65, kg, Route: IV, Total Volume: 250, Duration: 30 day, Stop date: 12/10/12 18:21:00, Replace Every: 24 hr IV No Longer Active Whitney 11/10/2012 [facility] nter Saline Flush 0.9% 5 ml, Route: IVP, Drug Form: INJ, Dosing Weight 65, kg, Q12H, Start date: 11/09/12 21:00:00, Duration: 30 day, Stop date: 12/09/12 9:00:00 IVP No Longer Active Prescott 11/10/2012 [facility] nter Lasix 20 mg, 2 mL, Route: IVP, Drug form: INJ, Q12H, Dosing Weight 65, kg, Start date: 11/09/12 21:00:00, Duration: 30 day, Stop date: 12/09/12 9:00:00 IVP No Longer Active Tariq 11/10/2012 [facility] nter cefazolin 1 gm, Route: IVPB, D rug form: PDR/INJ, ONCALL, Dosing Weight 65, kg, Start date: 11/09/12 19:00:00, Stop date: 11/10/12 16:00:00 IVPB No Longer Active [place]cott 11/10/2012 [facility] vancomycin 1 gm, Route: IVPB, Drug form: INJ, ONCALL, Dosing Weight 65, kg, Start date: 11/09/12 19:00:00, Stop date: 11/10/12 16:00:00 IVPB No Longer Active Prescott 11/10/2012 [facility] Sodium Chloride 0.9% (titrate) 250 mL 250 mL, Rate: call center trainer for use with blood product administration, Dosing Weight 65, kg, Route: IV, Total Volume: 250, Duration: 30 day, Stop date: 12/09/12 18:35:00, Replace Every: 24 hr IV No Longer Active Prescott 11/09/2012 [facility] Saline Flush 0.9% 5 ml, Route: IVP, Drug Form: INJ, Dosing Weight 65, kg, PRN, PRN Line Flush, Start date: 11/09/12 18:35:00, Duration: 30 day, Stop date: 12/09/12 18:34:00 IVP No Longer Active [place]cott 11/09/2012 [facility] Sodium Chloride 0.45% IV 1,000 mL 1,000 mL, Rate: 75 ml/hr, Infuse over: 13.3 hr, Route: IV, Dosing Weight 65 kg, Total Volume: 1,000, Start date: 11/09/12 18:35:00, Duration: 30 day, Stop date: 12/09/12 18:34:00 IV No Longer Active Whitney 11/09/2012 [facility] atorvastatin 20 mg, 1 tab, Rou te: PO, Drug form: TAB, QPM, Dosing Weight 65, kg, Start date: 11/09/12 17:00:00, Duration: 30 day, Stop date: 12/08/12 17:00:00 PO No Longer Active Heshmat 11/09/2012 [facility] nter heparin 5,000 unit, 1 mL, Rout e: SUB-Q, Drug form: INJ, Q8H, Dosing Weight 65, kg, Start date: 11/09/12 16:00:00, Duration: 30 day, Stop date: 12/09/12 8:00:00 SUB-Q No Longer Active Vaat 11/09/2012 [facility] nter lisinopril 20 mg, 1 tab, Route : PO, Drug form: TAB, Q12H, Dosing Weight 65, kg, Priority: STAT, Start date: 11/09/12 14:39:00, Duration: 30 day, Stop date: 12/09/12 9:00:00 PO No Longer Active Vaat 11/09/2012 [facility] Lasix 40 mg, 4 mL, Route: IVP, Drug form: INJ, Daily, Dosing Weight 65, kg, Start date: 11/09/12 9:00:00, Duration: 30 day, Stop date: 12/08/12 9:00:00 [facility] nter metoprolol tartrate 25 mg, 1 t ab, Route: PO, Drug form: TAB, Q12H, Dosing Weight 65, kg, Start date: 11/09/12 9:00:00, Duration: 30 day, Stop date: 12/08/12 21:00:00 PO No Longer Active Manoukian 11/09/2012 [facility] nter Klor-Con 10 10 mEq, 1 tab, Rou te: PO, Drug form: ERTAB, Daily, Dosing Weight 65, kg, Start date: 11/09/12 9:00:00, Duration: 30 day, Stop date: 12/08/12 9:00:00 PO No Longer Active [facility] 11/09/2012 [facility] nter lisinopril 20 mg, 1 tab, Route : PO, Drug form: TAB, Daily, Dosing Weight 65, kg, Start date: 11/09/12 9:00:00, Duration: 30 day, Stop date: 12/08/12 9:00:00 PO No Longer Active [facility] 11/09/2012 [facility] nter aspirin 81 mg, 1 tab, Route: P O, Drug form: ECTAB, Daily, Dosing Weight 65, kg, Start date: 11/09/12 9:00:00, Duration: 30 day, Stop date: 12/08/12 9:00:00 PO No Longer Active [facility] 11/09/2012 [facility] nter Glucotrol XL 5 mg oral tablet, extended release 5 mg, 1 tab, PO, TID, Substitution Allowed PO No Longer Active 11/09/2012 [facility] nter hydrochlorothiazide 12.5 mg, P O, Daily, Substitution Allowed PO No Longer Active 11/09/2012 [facility] lisinopril 20 mg oral tablet 2 0 mg, 1 tab, PO, Daily, 30 tab, Substitution Allowed, TAB PO No Longer Active [facility] 11/09/2012 [facility] nter Klor-Con 10 oral tablet, extended release 10 mEq, 1 tab, PO, Daily, Substitution Allowed PO No Longer Active [facility] 11/09/2012 [facility] nter tetanus-diphtheria toxoids adult intramu scular suspension 0.5 ml, Route: IM, ONCE, STAT, Start denisse e: 05/07/10 17:05:00, Stop date: 05/07/10 17:05:00 Inactive Brown 05/07/2010 [facility] Allergies, Adverse Reactions, Alerts Substance Category Reaction Severity Reaction type Status Date Reported Comments Source penicillins Assertion Drug allergy Active [facility] sulfa drugs Assertion Drug allergy Active [facility] codeine Assertion Drug allergy Active [facility] Immunizations Immunization Date Given Site Status Last Updated Comments Source tetanus-diphtheria toxoids Right Deltoid completed [facility] tetanus-diphtheria toxoids Right Deltoid completed [facility] tetanus-diphtheria toxoids completed H anjelica [facility] Results Order Name Results Value Reference Range Date Interpretation Comments Source CARDIAC ENZYMES BNP 743 <=100 pg/mL 03/24/2019 [facility] ELECTROLYTES AGAP 8.8 10.0 - 20.0 03/24/2019 [facility] ELECTROLYTES B/C Ratio 15 6 - 25 03/24/2019 [facility] ELECTROLYTES Globulin 3.3 2.7 - 4.2 03/24/2019 [facility] ELECTROLYTES A/G Ratio 1.2 0.7 - 1.6 03/24/2019 [facility] ELECTROLYTES Glucose Lvl 202 70 - 99 03/24/2019 [facility] ELECTROLYTES BUN 30 7 - 22 03/24/2019 [facility] ELECTROLYTES Creatinine Lvl 2.0 0 0.50 - 1.40 03/24/2019 [facility] ELECTROLYTES Sodium Lvl 139 135 - 145 03/24/2019 [facility] ELECTROLYTES Potassium Lvl 3.8 3.5 - 5.1 03/24/2019 [facility] ELECTROLYTES Chloride Lvl 105 95 - 109 03/24/2019 [facility] ELECTROLYTES CO2 29 24 - 32 03/24/2019 [facility] ELECTROLYTES Calcium Lvl 9.3 8.5 - 10.5 03/24/2019 [facility] ELECTROLYTES Total Protein 7.3 6.4 - 8.4 03/24/2019 [facility] ELECTROLYTES Albumin Lvl 4.0 3.5 - 5.0 03/24/2019 [facility] ELECTROLYTES ALT 24 0 - 65 03/24/2019 [facility] ELECTROLYTES AST 35 0 - 37 03/24/2019 [facility] ELECTROLYTES Alk Phos 63 39 - 136 03/24/2019 [facility] ELECTROLYTES Bili Total 0.5 0.2 - 1.3 03/24/2019 [facility] ELECTROLYTES eGFR 22 03/24/2019 Result Comment: The eGFR is calculated using the CKD-EPI formula. In most young, healthy individuals the eGFR will be >90 mL/min/1.73m2. The eGFR declines with age. An eGFR of 60-89 may be normal in some populations, particularly the elderly, for whom the CKD-EPI formula has not been extensively validated. Use of the eGFR is not recommended in the following populations:

Individuals with unstable creatinine concentrations, including patients and those with serious co-morbid conditions.

Patients with extremes in muscle mass or diet.

The data above are obtained from the National Kidney Disease Education Program (NKDEP) which additionally recommends that when the eGFR is used in patients with extremes of body mass index for purposes of drug dosing, the eGFR should be multiplied by the estimated BMI. [facility] HEMATOLOGY Segs 67.5 45.0 - 75.0 03/24/2019 [facility] HEMATOLOGY Lymphocytes 22.4 20.0 - 40.0 03/24/2019 [facility] HEMATOLOGY Monocytes 7.0 2.0 - 12.0 03/24/2019 [facility] HEMATOLOGY Eosinophils 2.0 0.0 - 4.0 03/24/2019 [facility] HEMATOLOGY Basophils 1.1 0.0 - 1.0 03/24/2019 [facility] HEMATOLOGY Neutrophils # 5.3 1.5 - 8.1 03/24/2019 [facility] HEMATOLOGY Lymphocytes # 1.8 1.0 - 5.5 03/24/2019 [facility] HEMATOLOGY Monocytes # 0.5 0.0 - 0.8 03/24/2019 [facility] HEMATOLOGY Eosinophils # 0.2 0.0 - 0.5 03/24/2019 [facility] HEMATOLOGY Basophils # 0.1 0.0 - 0.2 03/24/2019 [facility] HEMATOLOGY WBC 7.9 3.7 - 10.4 03/24/2019 [facility] HEMATOLOGY RBC 3.74 4.20 - 5.40 03/24/2019 [facility] HEMATOLOGY Hgb 11.6 12.0 - 16.0 03/24/2019 [facility] HEMATOLOGY Hct 34.7 36.0 - 48.0 03/24/2019 [facility] HEMATOLOGY MCV 92.7 80.0 - 98.0 03/24/2019 [facility] HEMATOLOGY MCH 31.1 27.0 - 31.0 03/24/2019 [facility] HEMATOLOGY MCHC 33.6 32.0 - 36.0 03/24/2019 [facility] HEMATOLOGY RDW 14.2 11.5 - 14.5 03/24/2019 [facility] HEMATOLOGY Platelet 231 133 - 450 03/24/2019 [facility] HEMATOLOGY MPV 10.0 7.4 - 10.4 03/24/2019 [facility] CARDIAC ENZYMES proBNP 42641 0 - 450 05/08/2018 [facility] CARDIAC ENZYMES proBNP 39970 0 - 450 05/08/2018 [facility] CARDIAC ENZYMES Troponin-I 0.09 0.00 - 0.40 05/08/2018 [facility] CHEM PANEL Globulin 3.1 2.7 - 4.2 05/08/2018 [facility] CHEM PANEL A/G Ratio 1.1 0.7 - 1.6 05/08/2018 [facility] CHEM PANEL AGAP 12.6 10.0 - 20.0 05/08/2018 [facility] CHEM PANEL B/C Ratio 16 6 - 25 05/08/2018 [facility] CHEM PANEL eGFR 27 05/08/2018 Result Comment: The eGFR is calculated using the CKD-EPI formula. In most young, healthy individuals the eGFR will be >90 mL/min/1.73m2. The eGFR declines with age. An eGFR of 60-89 may be normal in some populations, particularly the elderly, for whom the CKD-EPI formula has not been extensively validated. Use of the eGFR is not recommended in the following populations:

Individuals with unstable creatinine concentrations, including patients and those with serious co-morbid conditions.

Patients with extremes in muscle mass or diet.

The data above are obtained from the National Kidney Disease Education Program (NKDEP) which additionally recommends that when the eGFR is used in patients with extremes of body mass index for purposes of drug dosing, the eGFR should be multiplied by the estimated BMI. [facility] CHEM PANEL Alk Phos 105 39 - 136 05/08/2018 [facility] CHEM PANEL Bili Total 0.3 0.2 - 1.3 05/08/2018 [facility] CHEM PANEL Calcium Lvl 8.7 8.5 - 10.5 05/08/2018 [facility] CHEM PANEL Total Protein 6.6 6.4 - 8.4 05/08/2018 [facility] CHEM PANEL Albumin Lvl 3.5 3.5 - 5.0 05/08/2018 [facility] CHEM PANEL ALT 49 0 - 65 05/08/2018 [facility] CHEM PANEL AST 35 0 - 37 05/08/2018 [facility] CHEM PANEL BUN 28 7 - 22 05/08/2018 [facility] CHEM PANEL Chloride Lvl 110 95 - 109 05/08/2018 [facility] CHEM PANEL CO2 24 24 - 32 05/08/2018 [facility] CHEM PANEL Potassium Lvl 4.6 3.5 - 5.1 05/08/2018 [facility] CHEM PANEL Sodium Lvl 142 135 - 145 05/08/2018 [facility] CHEM PANEL Creatinine Lvl 1.74 0.50 - 1.40 05/08/2018 [facility] CHEM PANEL Glucose Lvl 218 70 - 99 05/08/2018 [facility] ELECTROLYTES AGAP 12.6 10.0 - 20.0 05/08/2018 [facility] ELECTROLYTES B/C Ratio 16 6 - 25 05/08/2018 [facility] ELECTROLYTES Globulin 3.1 2.7 - 4.2 05/08/2018 [facility] ELECTROLYTES A/G Ratio 1.1 0.7 - 1.6 05/08/2018 [facility] ELECTROLYTES Glucose Lvl 218 70 - 99 05/08/2018 [facility] ELECTROLYTES BUN 28 7 - 22 05/08/2018 [facility] ELECTROLYTES Creatinine Lvl 1.7 4 0.50 - 1.40 05/08/2018 [facility] ELECTROLYTES Sodium Lvl 142 135 - 145 05/08/2018 [facility] ELECTROLYTES Potassium Lvl 4.6 3.5 - 5.1 05/08/2018 [facility] ELECTROLYTES Chloride Lvl 110 95 - 109 05/08/2018 [facility] ELECTROLYTES CO2 24 24 - 32 05/08/2018 [facility] ELECTROLYTES Calcium Lvl 8.7 8.5 - 10.5 05/08/2018 [facility] ELECTROLYTES Total Protein 6.6 6.4 - 8.4 05/08/2018 [facility] ELECTROLYTES Albumin Lvl 3.5 3.5 - 5.0 05/08/2018 [facility] ELECTROLYTES ALT 49 0 - 65 05/08/2018 [facility] ELECTROLYTES AST 35 0 - 37 05/08/2018 [facility] ELECTROLYTES Alk Phos 105 39 - 136 05/08/2018 [facility] ELECTROLYTES Bili Total 0.3 0.2 - 1.3 05/08/2018 [facility] ELECTROLYTES eGFR 27 05/08/2018 Result Comment: The eGFR is calculated using the CKD-EPI formula. In most young, healthy individuals the eGFR will be >90 mL/min/1.73m2. The eGFR declines with age. An eGFR of 60-89 may be normal in some populations, particularly the elderly, for whom the CKD-EPI formula has not been extensively validated. Use of the eGFR is not recommended in the following populations:

Individuals with unstable creatinine concentrations, including patients and those with serious co-morbid conditions.

Patients with extremes in muscle mass or diet.

The data above are obtained from the National Kidney Disease Education Program (NKDEP) which additionally recommends that when the eGFR is used in patients with extremes of body mass index for purposes of drug dosing, the eGFR should be multiplied by the estimated BMI. [facility] HEMATOLOGY PTT 31.8 22.9 - 35.8 05/08/2018 [facility] HEMATOLOGY PT 13.8 12.0 - 14.7 05/08/2018 [facility] INR 1.08 0.85 - 1.17 05/08/2018 [facility] RDW 12.9 11.5 - 14.5 05/08/2018 [facility] Platelet 211 133 - 450 05/08/2018 [facility] MPV 9.4 7.4 - 10.4 05/08/2018 [facility] MCV 92.2 80.0 - 98.0 05/08/2018 [facility] MCH 31.5 27.0 - 31.0 05/08/2018 [facility] Hct 29.8 36.0 - 48.0 05/08/2018 [facility] MCHC 34.2 32.0 - 36.0 05/08/2018 [facility] Hgb 10.2 12.0 - 16.0 05/08/2018 [facility] RBC 3.23 4.20 - 5.40 05/08/2018 [facility] WBC 6.2 3.7 - 10.4 05/08/2018 [facility] Eosinophils # 0.1 0.0 - 0.5 05/08/2018 [facility] Monocytes # 0.4 0.0 - 0.8 05/08/2018 [facility] Lymphocytes # 1.3 1.0 - 5.5 05/08/2018 [facility] Eosinophils 1.7 0.0 - 4.0 05/08/2018 [facility] HEMATOLOGY Basophils 0.7 0.0 - 1.0 05/08/2018 [facility] HEMATOLOGY Neutrophils # 4.4 1.5 - 8.1 05/08/2018 [facility] HEMATOLOGY Segs 70.2 45.0 - 75.0 05/08/2018 [facility] HEMATOLOGY Lymphocytes 20.7 20.0 - 40.0 05/08/2018 [facility] HEMATOLOGY Monocytes 6.7 2.0 - 12.0 05/08/2018 [facility] CARDIAC ENZYMES CK MB 1.8 0.5 - 3.6 11/18/2017 [facility] CARDIAC ENZYMES Total CK 112 12 - 191 11/18/2017 [facility] CARDIAC ENZYMES Troponin-I <0.02 0.00 - 0.40 11/18/2017 [facility] CARDIAC ENZYMES CK MB Index 1.6 0.0 - 2.5 11/18/2017 [facility] CHEM PANEL eGFR 32 11/18/2017 Result Comment: The eGFR is calculated using the CKD-EPI formula. In most young, healthy individuals the eGFR will be >90 mL/min/1.73m2. The eGFR declines with age. An eGFR of 60-89 may be normal in some populations, particularly the elderly, for whom the CKD-EPI formula has not been extensively validated. Use of the eGFR is not recommended in the following populations:

Individuals with unstable creatinine concentrations, including patients and those with serious co-morbid conditions.

Patients with extremes in muscle mass or diet.

The data above are obtained from the National Kidney Disease Education Program (NKDEP) which additionally recommends that when the eGFR is used in patients with extremes of body mass index for purposes of drug dosing, the eGFR should be multiplied by the estimated BMI. [facility] CHEM PANEL AST 25 0 - 37 11/18/2017 [facility] CHEM PANEL Alk Phos 49 39 - 136 11/18/2017 [facility] CHEM PANEL Bili Total 0.5 0.2 - 1.3 11/18/2017 [facility] CHEM PANEL Globulin 3.2 2.7 - 4.2 11/18/2017 [facility] CHEM PANEL A/G Ratio 1.2 0.7 - 1.6 11/18/2017 [facility] CHEM PANEL AGAP 13.3 10.0 - 20.0 11/18/2017 [facility] CHEM PANEL B/C Ratio 17 6 - 25 11/18/2017 [facility] CHEM PANEL Albumin Lvl 3.8 3.5 - 5.0 11/18/2017 [facility] CHEM PANEL ALT 24 0 - 65 11/18/2017 [facility] CHEM PANEL Calcium Lvl 9.3 8.5 - 10.5 11/18/2017 [facility] CHEM PANEL Total Protein 7.0 6.4 - 8.4 11/18/2017 [facility] CHEM PANEL Chloride Lvl 109 95 - 109 11/18/2017 [facility] CHEM PANEL CO2 25 24 - 32 11/18/2017 [facility] CHEM PANEL Sodium Lvl 143 135 - 145 11/18/2017 [facility] CHEM PANEL Potassium Lvl 4.3 3.5 - 5.1 11/18/2017 [facility] CHEM PANEL Glucose Lvl 153 70 - 99 11/18/2017 [facility] CHEM PANEL BUN 25 7 - 22 11/18/2017 [facility] CHEM PANEL Creatinine Lvl 1.49 0.50 - 1.40 11/18/2017 [facility] HEMATOLOGY WBC 8.1 3.7 - 10.4 11/18/2017 [facility] HEMATOLOGY RBC 3.42 4.20 - 5.40 11/18/2017 [facility] HEMATOLOGY MPV 9.7 7.4 - 10.4 11/18/2017 [facility] MCHC 33.5 32.0 - 36.0 11/18/2017 [facility] HEMATOLOGY Hgb 10.6 12.0 - 16.0 11/18/2017 [facility] HEMATOLOGY Platelet 234 133 - 450 11/18/2017 [facility] HEMATOLOGY RDW 12.7 11.5 - 14.5 11/18/2017 [facility] HEMATOLOGY MCV 92.0 80.0 - 98.0 11/18/2017 [facility] HEMATOLOGY MCH 30.9 27.0 - 31.0 11/18/2017 [facility] HEMATOLOGY Hct 31.5 36.0 - 48.0 11/18/2017 [facility] HEMATOLOGY PTT 31.6 22.9 - 35.8 11/18/2017 [facility] HEMATOLOGY INR 1.03 0.85 - 1.17 11/18/2017 [facility] HEMATOLOGY PT 13.5 12.0 - 14.7 11/18/2017 [facility] HEMATOLOGY Monocytes # 0.4 0.0 - 0.8 11/18/2017 [facility] HEMATOLOGY Basophils 0.8 0.0 - 1.0 11/18/2017 [facility] HEMATOLOGY Neutrophils # 6.3 1.5 - 8.1 11/18/2017 [facility] HEMATOLOGY Segs 78.5 45.0 - 75.0 11/18/2017 [facility] HEMATOLOGY Lymphocytes # 1.2 1.0 - 5.5 11/18/2017 [facility] HEMATOLOGY Monocytes 5.2 2.0 - 12.0 11/18/2017 [facility] HEMATOLOGY Lymphocytes 14.4 20.0 - 40.0 11/18/2017 [facility] HEMATOLOGY Eosinophils 1.1 0.0 - 4.0 11/18/2017 [facility] HEMATOLOGY Eosinophils # 0.1 0.0 - 0.5 11/18/2017 [facility] HEMATOLOGY Basophils # 0.1 0.0 - 0.2 11/18/2017 [facility] CHEM PANEL Procalcitonin Lvl 0.16 0.00 - 0.10 03/07/2016 [facility] CHEM PANEL Amylase Lvl 68 25 - 115 03/07/2016 [facility] URINE AND STOOL UA Bacteria None Seen (03/06/16 8:53 PM) None Seen 03/07/2016 [facility] URINE AND STOOL UA RBC None Seen (03/06/16 8:53 PM) 0 - 2 03/07/2016 [facility] URINE AND STOOL UA Mucus None Seen (03/06/16 8:53 PM) None Seen 03/07/2016 [facility] URINE AND STOOL UA WBC 0-2 /HPF None Seen /HPF 03/07/2016 [facility] URINE AND STOOL UA Sq Epi Occasional /LPF Few /LPF 03/07/2016 [facility] URINE AND STOOL UA Protein Negative mg/dL Negative mg/dL 03/07/2016 [facility] URINE AND STOOL UA Bili Negative *NA* (03/06/16 8:53 PM) Negative 03/07/2016 [facility] URINE AND STOOL UA Glucose Negative mg/dL Negative mg/dL 03/07/[address] [facility] [address] URINE AND STOOL UA Ketones Negative mg/dL Negative mg/dL 03/07/[address] [facility] [address] URINE AND STOOL UA Leuk Est Negative (03/06/16 8:53 PM) Negative 03/07/2016 [facility] URINE AND STOOL UA Urobilinogen 0.2 0.1 - 1.0 03/07/2016 [facility] URINE AND STOOL UA Blood Negative (03/06/16 8:53 PM) Negative 03/07/2016 [facility] URINE AND STOOL UA Nitrite Negative (03/06/16 8:53 PM) Negative 03/07/2016 [facility] URINE AND STOOL UA Turbidity Clear (03/06/16 8:53 PM) Clear 03/07/2016 [facility] URINE AND STOOL UA Color Yellow *NA* (03/06/16 8:53 PM) Yellow 03/07/2016 [facility] URINE AND STOOL UA Spec Grav 1.010 <=1.030 03/07/2016 [facility] URINE AND STOOL UA pH 6.0 5.0 - 8.0 03/07/2016 [facility] CARDIAC ENZYMES Troponin-I <0.02 0.00 - 0.40 03/06/2016 [facility] CARDIAC ENZYMES Total CK 205 12 - 191 03/06/2016 [facility] CARDIAC ENZYMES CK MB 1.8 0.5 - 3.6 03/06/2016 [facility] CARDIAC ENZYMES CK MB Index 0.9 0.0 - 2.5 03/06/2016 [facility] CHEM PANEL Lipase Lvl 1258 73 - 393 03/06/2016 [facility] CHEM PANEL eGFR 27 03/06/2016 Result Comment: The eGFR is calculated using the CKD-EPI formula. In most young, healthy individuals the eGFR will be >90 mL/min/1.73m2. The eGFR declines with age. An eGFR of 60-89 may be normal in some populations, particularly the elderly, for whom the CKD-EPI formula has not been extensively validated. Use of the eGFR is not recommended in the following populations:

Individuals with unstable creatinine concentrations, including patients and those with serious co-morbid conditions.

Patients with extremes in muscle mass or diet.

The data above are obtained from the National Kidney Disease Education Program (NKDEP) which additionally recommends that when the eGFR is used in patients with extremes of body mass index for purposes of drug dosing, the eGFR should be multiplied by the estimated BMI. [facility] CHEM PANEL A/G Ratio 1.0 0.7 - 1.6 03/06/2016 [facility] CHEM PANEL AST 30 0 - 37 03/06/2016 [facility] CHEM PANEL B/C Ratio 19 6 - 25 03/06/2016 [facility] CHEM PANEL Globulin 3.6 2.7 - 4.2 03/06/2016 [facility] CHEM PANEL AGAP 10.9 10.0 - 20.0 03/06/2016 [facility] CHEM PANEL Calcium Lvl 9.1 8.5 - 10.5 03/06/2016 [facility] CHEM PANEL Bili Total 0.4 0.2 - 1.3 03/06/2016 [facility] CHEM PANEL Total Protein 7.3 6.4 - 8.4 03/06/2016 [facility] CHEM PANEL CO2 30 24 - 32 03/06/2016 [facility] CHEM PANEL Creatinine Lvl 1.75 0.50 - 1.40 03/06/2016 [facility] CHEM PANEL Sodium Lvl 141 135 - 145 03/06/2016 [facility] CHEM PANEL Potassium Lvl 3.9 3.5 - 5.1 03/06/2016 [facility] CHEM PANEL ALT 52 0 - 65 03/06/2016 [facility] CHEM PANEL Albumin Lvl 3.7 3.5 - 5.0 03/06/2016 [facility] CHEM PANEL Alk Phos 135 39 - 136 03/06/2016 [facility] CHEM PANEL Chloride Lvl 104 95 - 109 03/06/2016 [facility] CHEM PANEL Glucose Lvl 191 70 - 99 03/06/2016 [facility] CHEM PANEL BUN 34 7 - 22 03/06/2016 [facility] HEMATOLOGY MPV 9.6 7.4 - 10.4 03/06/2016 [facility] HEMATOLOGY Platelet 281 133 - 450 03/06/2016 [facility] HEMATOLOGY RDW 12.6 11.5 - 14.5 03/06/2016 [facility] HEMATOLOGY MCH 30.8 27.0 - 31.0 03/06/2016 [facility] HEMATOLOGY MCV 90.6 80.0 - 98.0 03/06/2016 [facility] HEMATOLOGY MCHC 34.0 32.0 - 36.0 03/06/2016 [facility] HEMATOLOGY Hct 30.7 36.0 - 48.0 03/06/2016 [facility] HEMATOLOGY Hgb 10.4 12.0 - 16.0 03/06/2016 [facility] HEMATOLOGY RBC 3.39 4.20 - 5.40 03/06/2016 [facility] HEMATOLOGY WBC 7.2 3.7 - 10.4 03/06/2016 [facility] HEMATOLOGY Segs 70.4 45.0 - 75.0 03/06/2016 [facility] HEMATOLOGY Monocytes 5.2 2.0 - 12.0 03/06/2016 [facility] HEMATOLOGY Lymphocytes 22.3 20.0 - 40.0 03/06/2016 [facility] HEMATOLOGY Eosinophils # 0.1 0.0 - 0.5 03/06/2016 [facility] HEMATOLOGY Basophils # 0.1 0.0 - 0.2 03/06/2016 [facility] HEMATOLOGY Monocytes # 0.4 0.0 - 0.8 03/06/2016 [facility] HEMATOLOGY Basophils 0.7 0.0 - 1.0 03/06/2016 [facility] HEMATOLOGY Eosinophils 1.4 0.0 - 4.0 03/06/2016 [facility] HEMATOLOGY Segs-Bands # 5.0 1.5 - 8.1 03/06/2016 [facility] HEMATOLOGY Lymphocytes # 1.6 1.0 - 5.5 03/06/2016 [facility] CHEM PANEL Lactic Acid WB 1.7 0.5 - 2.2 10/06/2015 [facility] DRUG SCREEN U Phencyc Scr Nega tive *NA* (10/05/15 6:00 PM) Negative 10/05/2015 [facility] DRUG SCREEN U Benzodia Scr Nega tive *NA* (10/05/15 6:00 PM) Negative 10/05/2015 [facility] DRUG SCREEN U Cocaine Scr Nega tive *NA* (10/05/15 6:00 PM) Negative 10/05/2015 [facility] DRUG SCREEN U Cannab Scr Nega tive *NA* (10/05/15 6:00 PM) Negative 10/05/2015 [facility] DRUG SCREEN U Opiate Scr Nega tive *NA* (10/05/15 6:00 PM) Negative 10/05/2015 [facility] DRUG SCREEN U Amph Scr Nega tive *NA* (10/05/15 6:00 PM) Negative 10/05/2015 [facility] DRUG SCREEN U Aleida Scr Nega tive *NA* (10/05/15 6:00 PM) Negative 10/05/2015 [facility] DRUG SCREEN UDS Note See Note *NA* (10/05/15 6:00 PM) 10/05/2015 [facility] URINE AND STOOL UA Leuk Est Negative (10/05/15 6:00 PM) Negative 10/05/2015 [facility] URINE AND STOOL UA Nitrite Negative (10/05/15 6:00 PM) Negative 10/05/2015 [facility] URINE AND STOOL UA Urobilinogen 0.2 0.1 - 1.0 10/05/2015 [facility] URINE AND STOOL UA Color Yellow *NA* (10/05/15 6:00 PM) Yellow 10/05/2015 [facility] URINE AND STOOL UA Blood Trace *ABN* (10/05/15 6:00 PM) Negative 10/05/2015 [facility] URINE AND STOOL UA Bili Negative *NA* (10/05/15 6:00 PM) Negative 10/05/2015 [facility] URINE AND STOOL UA Ketones Negative *NA* (10/05/15 6:00 PM) Negative 10/05/2015 [facility] URINE AND STOOL UA Glucose Negative (10/05/15 6:00 PM) Negative 10/05/2015 [facility] URINE AND STOOL UA Protein Trace *ABN* (10/05/15 6:00 PM) Negative 10/05/2015 [facility] URINE AND STOOL UA pH 7.0 5.0 - 8.0 10/05/2015 [facility] URINE AND STOOL UA Spec Grav 1.015 <=1.030 10/05/2015 [facility] URINE AND STOOL UA Turbidity Clear (10/05/15 6:00 PM) Clear 10/05/2015 [facility] URINE AND STOOL UA Sq Epi Rare /LPF Few /LPF 10/05/2015 [facility] URINE AND STOOL UA WBC None Seen (10/05/15 6:00 PM) None Seen 10/05/2015 [facility] URINE AND STOOL UA Bacteria None Seen (10/05/15 6:00 PM) None Seen 10/05/2015 [facility] URINE AND STOOL UA RBC 1 10/05/2015 [facility] BLOOD BANK RESULTS Antibody Scrn Negative (10/05/15 4:03 PM) 10/05/2015 [facility] BLOOD BANK RESULTS ABO/Rh O POS 10/05/2015 [facility] CARDIAC ENZYMES Troponin-I <0.02 0.00 - 0.40 10/05/2015 [facility] CHEM PANEL Total Protein 7.3 6.4 - 8.4 10/05/2015 [facility] CHEM PANEL Albumin Lvl 4.0 3.5 - 5.0 10/05/2015 [facility] CHEM PANEL Bili Direct 0.1 0.0 - 0.3 10/05/2015 [facility] CHEM PANEL Bili Total 0.5 0.2 - 1.3 10/05/2015 [facility] CHEM PANEL Alk Phos 65 39 - 136 10/05/2015 [facility] CHEM PANEL AST 31 0 - 37 10/05/2015 [facility] CHEM PANEL ALT 25 0 - 65 10/05/2015 [facility] CHEM PANEL Bili Indirect 0.4 0.0 - 1.0 10/05/2015 [facility] CHEM PANEL A/G Ratio 1.2 0.7 - 1.6 10/05/2015 [facility] CHEM PANEL Globulin 3.3 2.0 - 4.0 10/05/2015 [facility] CHEM PANEL Lactic Acid Lvl 2.9 0.5 - 2.2 10/05/2015 [facility] ELECTROLYTES AGAP 16.3 10.0 - 20.0 10/05/2015 [facility] ELECTROLYTES eGFR 24 10/05/2015 Result Comment: The eGFR is calculated using the CKD-EPI formula. In most young, healthy individuals the eGFR will be >90 mL/min/1.73m2. The eGFR declines with age. An eGFR of 60-89 may be normal in some populations, particularly the elderly, for whom the CKD-EPI formula has not been extensively validated. Use of the eGFR is not recommended in the following populations:

Individuals with unstable creatinine concentrations, including patients and those with serious co-morbid conditions.

Patients with extremes in muscle mass or diet.

The data above are obtained from the National Kidney Disease Education Program (NKDEP) which additionally recommends that when the eGFR is used in patients with extremes of body mass index for purposes of drug dosing, the eGFR should be multiplied by the estimated BMI. [facility] ELECTROLYTES Creatinine Lvl 1.9 6 0.50 - 1.40 10/05/2015 [facility] ELECTROLYTES Sodium Lvl 138 135 - 145 10/05/2015 [facility] ELECTROLYTES Chloride Lvl 101 95 - 109 10/05/2015 [facility] ELECTROLYTES CO2 25 24 - 32 10/05/2015 [facility] ELECTROLYTES BUN 33 7 - 22 10/05/2015 [facility] ELECTROLYTES Glucose Lvl 248 70 - 99 10/05/2015 [facility] ELECTROLYTES Potassium Lvl 4.3 3.5 - 5.1 10/05/2015 [facility] ELECTROLYTES Calcium Lvl 9.1 8.5 - 10.5 10/05/2015 [facility] HEMATOLOGY Lymphocytes # 1.4 1.0 - 5.5 10/05/2015 [facility] HEMATOLOGY Basophils # 0.1 0.0 - 0.2 10/05/2015 [facility] HEMATOLOGY Segs-Bands # 8.0 1.5 - 8.1 10/05/2015 [facility] HEMATOLOGY Eosinophils # 0.2 0.0 - 0.5 10/05/2015 [facility] HEMATOLOGY Monocytes # 0.4 0.0 - 0.8 10/05/2015 [facility] HEMATOLOGY Basophils 0.8 0.0 - 1.0 10/05/2015 [facility] HEMATOLOGY Lymphocytes 14.1 20.0 - 40.0 10/05/2015 [facility] HEMATOLOGY Segs 79.0 45.0 - 75.0 10/05/2015 [facility] HEMATOLOGY Eosinophils 2.0 0.0 - 4.0 10/05/2015 [facility] HEMATOLOGY Monocytes 4.1 2.0 - 12.0 10/05/2015 [facility] HEMATOLOGY Angle Rapid 79 64 - 80 10/05/2015 [facility] HEMATOLOGY Max Amplitude Rapid 67 52 - 71 10/05/2015 [facility] HEMATOLOGY G-value Rapid 10.2 5.0 - 11.6 10/05/2015 [facility] HEMATOLOGY K-time Rapid 0.9 0.6 - 2.3 10/05/2015 [facility] HEMATOLOGY R-time Rapid 0.5 0.4 - 0.7 10/05/2015 [facility] HEMATOLOGY ACT (TEG) Rapid 97 86 - 118 10/05/2015 [facility] HEMATOLOGY Split Point Rapid 0.4 10/05/2015 [facility] HEMATOLOGY Estimated % Lysis Rapid 3 .3 0.0 - 7.5 10/05/2015 Result Comment: "Significant Findings ca lled to Esteban Mackey_at 10/05/2015 17:23__by GD__.Read Back OK." [facility] HEMATOLOGY MCV 91.3 80.0 - 98.0 10/05/2015 [facility] HEMATOLOGY Hct 32.1 36.0 - 48.0 10/05/2015 [facility] HEMATOLOGY Platelet 209 133 - 450 10/05/2015 [facility] HEMATOLOGY RDW 13.1 11.5 - 14.5 10/05/2015 [facility] HEMATOLOGY Hgb 11.0 12.0 - 16.0 10/05/2015 [facility] HEMATOLOGY MCHC 34.2 32.0 - 36.0 10/05/2015 [facility] HEMATOLOGY MCH 31.2 27.0 - 31.0 10/05/2015 [facility] HEMATOLOGY RBC 3.51 4.20 - 5.40 10/05/2015 [facility] HEMATOLOGY WBC 10.1 3.7 - 10.4 10/05/2015 [facility] HEMATOLOGY MPV 9.3 7.4 - 10.4 10/05/2015 [facility] TOXICOLOGY Etoh (%) <0.003 % 10/05/2015 [facility] TOXICOLOGY Ethanol Lvl <3.0 mg/dL 10/05/2015 [facility] CARDIAC ENZYMES Total CK 161 12 - 191 08/27/2015 [facility] CARDIAC ENZYMES CK MB 1.1 0.5 - 3.6 08/27/2015 [facility] CARDIAC ENZYMES Troponin-I 0.03 0.00 - 0.40 08/27/2015 [facility] CARDIAC ENZYMES CK MB Index 0.7 0.0 - 2.5 08/27/2015 [facility] CHEM PANEL Globulin 3.4 2.0 - 4.0 08/27/2015 [facility] CHEM PANEL A/G Ratio 1.3 0.7 - 1.6 08/27/2015 [facility] CHEM PANEL AGAP 9.9 10.0 - 20.0 08/27/2015 [facility] CHEM PANEL B/C Ratio 18 6 - 25 08/27/2015 [facility] CHEM PANEL AST 24 0 - 37 08/27/2015 [facility] CHEM PANEL Total Protein 7.7 6.4 - 8.4 08/27/2015 [facility] CHEM PANEL eGFR 29 08/27/2015 Result Comment: The eGFR is calculated using the CKD-EPI formula. In most young, healthy individuals the eGFR will be >90 mL/min/1.73m2. The eGFR declines with age. An eGFR of 60-89 may be normal in some populations, particularly the elderly, for whom the CKD-EPI formula has not been extensively validated. Use of the eGFR is not recommended in the following populations:

Individuals with unstable creatinine concentrations, including patients and those with serious co-morbid conditions.

Patients with extremes in muscle mass or diet.

The data above are obtained from the National Kidney Disease Education Program (NKDEP) which additionally recommends that when the eGFR is used in patients with extremes of body mass index for purposes of drug dosing, the eGFR should be multiplied by the estimated BMI. [facility] CHEM PANEL Albumin Lvl 4.3 3.5 - 5.0 08/27/2015 [facility] CHEM PANEL Alk Phos 51 39 - 136 08/27/2015 [facility] CHEM PANEL Glucose Lvl 128 70 - 99 08/27/2015 [facility] CHEM PANEL ALT 25 0 - 65 08/27/2015 [facility] CHEM PANEL Calcium Lvl 9.4 8.5 - 10.5 08/27/2015 [facility] CHEM PANEL Bili Total 0.4 0.2 - 1.3 08/27/2015 [facility] CHEM PANEL Chloride Lvl 104 95 - 109 08/27/2015 [facility] CHEM PANEL CO2 31 24 - 32 08/27/2015 [facility] CHEM PANEL Potassium Lvl 3.9 3.5 - 5.1 08/27/2015 [facility] CHEM PANEL Creatinine Lvl 1.65 0.50 - 1.40 08/27/2015 [facility] CHEM PANEL Sodium Lvl 141 135 - 145 08/27/2015 [facility] CHEM PANEL BUN 30 7 - 22 08/27/2015 [facility] HEMATOLOGY RBC 3.77 4.20 - 5.40 08/27/2015 [facility] HEMATOLOGY WBC 7.4 3.7 - 10.4 08/27/2015 [facility] HEMATOLOGY Hct 34.5 36.0 - 48.0 08/27/2015 [facility] HEMATOLOGY RDW 12.4 11.5 - 14.5 08/27/2015 [facility] HEMATOLOGY MCHC 32.8 32.0 - 36.0 08/27/2015 [facility] HEMATOLOGY MPV 9.6 7.4 - 10.4 08/27/2015 [facility] HEMATOLOGY Hgb 11.3 12.0 - 16.0 08/27/2015 [facility] HEMATOLOGY Platelet 228 133 - 450 08/27/2015 [facility] MCH 30.0 27.0 - 31.0 08/27/2015 [facility] HEMATOLOGY MCV 91.5 80.0 - 98.0 08/27/2015 [facility] HEMATOLOGY Segs 59.7 45.0 - 75.0 08/27/2015 [facility] HEMATOLOGY Monocytes 7.6 2.0 - 12.0 08/27/2015 [facility] HEMATOLOGY Lymphocytes 27.3 20.0 - 40.0 08/27/2015 [facility] HEMATOLOGY Segs-Bands # 4.4 1.5 - 8.1 08/27/2015 [facility] HEMATOLOGY Basophils 2.3 0.0 - 1.0 08/27/2015 [facility] HEMATOLOGY Eosinophils 3.1 0.0 - 4.0 08/27/2015 [facility] HEMATOLOGY Monocytes # 0.6 0.0 - 0.8 08/27/2015 [facility] HEMATOLOGY Lymphocytes # 2.0 1.0 - 5.5 08/27/2015 [facility] HEMATOLOGY Basophils # 0.2 0.0 - 0.2 08/27/2015 [facility] HEMATOLOGY Eosinophils # 0.2 0.0 - 0.5 08/27/2015 [facility] VIRAL - SEROLOGY Influ B Negative (08/26/15 8:17 PM) Negative 08/27/2015 [facility] VIRAL - SEROLOGY Influ A Negative (08/26/15 8:17 PM) Negative 08/27/2015 [facility] URINE AND STOOL UA Protein Negative mg/dL Negative mg/dL 02/25/2014 [facility] URINE AND STOOL UA Ketones Negative mg/dL Negative mg/dL 02/25/2014 [facility] URINE AND STOOL UA Glucose Negative mg/dL Negative mg/dL 02/25/2014 [facility] URINE AND STOOL UA Bili Negative *NA* (02/24/14 6:30 PM) Negative 02/25/2014 [facility] URINE AND STOOL UA Blood Negative (02/24/14 6:30 PM) Negative 02/25/2014 [facility] URINE AND STOOL UA Turbidity Clear (02/24/14 6:30 PM) Clear 02/25/2014 [facility] URINE AND STOOL UA Color Yellow *NA* (02/24/14 6:30 PM) Yellow 02/25/2014 [facility] URINE AND STOOL UA Nitrite Negative (02/24/14 6:30 PM) Negative 02/25/2014 [facility] URINE AND STOOL UA Urobilinogen 0.2 0.1 - 1.0 02/25/2014 [facility] URINE AND STOOL UA Leuk Est Negative (02/24/14 6:30 PM) Negative 02/25/2014 [facility] URINE AND STOOL UA Spec Grav 1.025 <=1.030 02/25/2014 [facility] URINE AND STOOL UA pH 5.5 5.0 - 8.0 02/25/2014 [facility] URINE AND STOOL UA Bacteria None Seen (02/24/14 6:30 PM) None Seen 02/25/2014 [facility] URINE AND STOOL UA WBC 3-5 /HPF None Seen /HPF 02/25/2014 [facility] URINE AND STOOL UA RBC None Seen (02/24/14 6:30 PM) 0 - 2 02/25/2014 [facility] URINE AND STOOL UA Sq Epi Few /LPF Few /LPF 02/25/2014 [facility] Microbiology Culture: Wound/Abscess w/Gram Stain 12/18/2012 [facility] BEDSIDE GLUCOSE TESTING Gluc POC Lif scn 127 70 - 99 12/06/2012 HI <sup>1</sup>Interpretive Data: Upper Reportable Limit: 200 mg/dL. [facility] BEDSIDE GLUCOSE TESTING Gluc POC Lif scn 248 70 - 99 12/06/2012 HI <sup>2</sup>Interpretive Data: Upper Reportable Limit: 200 mg/dL. [facility] BEDSIDE GLUCOSE TESTING Comment1 Notify RN/MD 12/06/2012 NA [facility] BEDSIDE GLUCOSE TESTING Gluc POC Lif scn 135 70 - 99 12/06/2012 HI <sup>3</sup>Interpretive Data: Upper Reportable Limit: 200 mg/dL. [facility] CHEMISTRY Sodium Lvl 145 135 - 145 12/06/2012 Normal [facility] CHEMISTRY Potassium Lvl 3.9 3.5 - 5.1 12/06/2012 Normal [facility] CHEMISTRY Chloride Lvl 106 95 - 109 12/06/2012 Normal [facility] CHEMISTRY CO2 26 24 - 32 12/06/2012 Normal [facility] CHEMISTRY Calcium Lvl 8.3 8.5 - 10.5 12/06/2012 LOW [facility] CHEMISTRY Creatinine Lvl 1.6 0.5 - 1.4 12/06/2012 HI [facility] CHEMISTRY Glucose Lvl 116 70 - 99 12/06/2012 HI <sup>7</sup>Interpretive Data: Adult ref erence range values reflect the clinical guidelines
of the [place] [employer]. [facility] CHEMISTRY BUN 32 7 - 22 12/06/2012 HI [facility] CHEMISTRY eGFR 31 12/06/2012 NA <sup>4</sup>Result Comment: The eGFR is calculated using the CKD-EPI formula. In most young, healthy individuals the eGFR will be >90 mL/min/1.73m2. The eGFR declines with age. An eGFR of 60-89 may be normal in some populations, particularly the elderly, for whom the CKD-EPI formula has not been extensively validated. Use of the eGFR is not recommended in the following populations:& lt;br/>
Individuals with unstable creatinine concentrations, including patients and those with serious co-morbid conditions.

Patients with extremes in muscle mass or diet.

The data above are obtained from the National Kidney Disease Education Program (NKDEP) which additionally recommends that when the eGFR is used in patients with extremes of body mass index for purposes of drug dosing, the eGFR should be multiplied by the estimated BMI. [facility] CHEMISTRY AGAP 16.9 10.0 - 20.0 12/06/2012 [facility] HEMATOLOGY MPV 9.7 7.4 - 10.4 12/06/2012 [facility] HEMATOLOGY Hct 28.7 36.0 - 48.0 12/06/2012 [facility] HEMATOLOGY Platelet 188 133 - 450 12/06/2012 [facility] HEMATOLOGY RDW 14.6 11.5 - 14.5 12/06/2012 [facility] HEMATOLOGY MCHC 33.7 32.0 - 36.0 12/06/2012 [facility] HEMATOLOGY MCH 30.7 27.0 - 31.0 12/06/2012 [facility] HEMATOLOGY MCV 91.0 81.0 - 99.0 12/06/2012 [facility] HEMATOLOGY RBC 3.15 4.20 - 5.40 12/06/2012 [facility] HEMATOLOGY WBC 5.4 3.7 - 10.4 12/06/2012 [facility] HEMATOLOGY Hgb 9.7 12.0 - 16.0 12/06/2012 [facility] HEMATOLOGY Monocytes # 0.5 0.0 - 0.8 12/06/2012 [facility] HEMATOLOGY Lymphocytes # 1.0 1.0 - 5.5 12/06/2012 [facility] HEMATOLOGY Segs-Bands # 3.5 1.5 - 8.1 12/06/2012 [facility] HEMATOLOGY Basophils 0.9 0.0 - 1.0 12/06/2012 Normal [facility] HEMATOLOGY Eosinophils 6.2 0.0 - 4.0 12/06/2012 HI [facility] HEMATOLOGY Monocytes 9.8 2.0 - 12.0 12/06/2012 Normal [facility] HEMATOLOGY Lymphocytes 18.4 20.0 - 40.0 12/06/2012 LOW [facility] HEMATOLOGY Eosinophils # 0.3 0.0 - 0.5 12/06/2012 Normal [facility] HEMATOLOGY Basophils # 0.1 0.0 - 0.2 12/06/2012 [facility] HEMATOLOGY Segs 64.7 45.0 - 75.0 12/06/2012 Normal [facility] BEDSIDE GLUCOSE TESTING Comment1 Notify RN/MD 12/06/2012 NA [facility] BEDSIDE GLUCOSE TESTING Comment1 Notify RN/MD 12/05/2012 [facility] CHEMISTRY AGAP 18.6 10.0 - 20.0 12/05/2012 Normal [facility] CHEMISTRY eGFR 33 12/05/2012 NA <sup>5</sup>Result Comment: The eGFR is calculated using the CKD-EPI formula. In most young, healthy individuals the eGFR will be >90 mL/min/1.73m2. The eGFR declines with age. An eGFR of 60-89 may be normal in some populations, particularly the elderly, for whom the CKD-EPI formula has not been extensively validated. Use of the eGFR is not recommended in the following populations:& lt;br/>
Individuals with unstable creatinine concentrations, including patients and those with serious co-morbid conditions.

Patients with extremes in muscle mass or diet.

The data above are obtained from the National Kidney Disease Education Program (NKDEP) which additionally recommends that when the eGFR is used in patients with extremes of body mass index for purposes of drug dosing, the eGFR should be multiplied by the estimated BMI. [facility] CHEMISTRY Calcium Lvl 8.1 8.5 - 10.5 12/05/2012 [facility] CHEMISTRY CO2 23 24 - 32 12/05/2012 [facility] CHEMISTRY Chloride Lvl 105 95 - 109 12/05/2012 Normal [facility] CHEMISTRY Potassium Lvl 3.6 3.5 - 5.1 12/05/2012 [facility] CHEMISTRY Glucose Lvl 102 70 - 99 12/05/2012 MD <sup>8</sup>Interpretive Data: Adult ref erence range values reflect the clinical guidelines
of the [place] [employer]. [facility] CHEMISTRY Sodium Lvl 143 135 - 145 12/05/2012 [facility] CHEMISTRY Creatinine Lvl 1.5 0.5 - 1.4 12/05/2012 [facility] CHEMISTRY BUN 31 7 - 22 12/05/2012 [facility] HEMATOLOGY MPV 10.1 7.4 - 10.4 12/05/2012 [facility] HEMATOLOGY RDW 14.8 11.5 - 14.5 12/05/2012 [facility] HEMATOLOGY MCH 30.2 27.0 - 31.0 12/05/2012 [facility] HEMATOLOGY MCV 92.5 81.0 - 99.0 12/05/2012 [facility] HEMATOLOGY Platelet 192 133 - 450 12/05/2012 [facility] HEMATOLOGY MCHC 32.7 32.0 - 36.0 12/05/2012 [facility] HEMATOLOGY WBC 5.6 3.7 - 10.4 12/05/2012 [facility] HEMATOLOGY RBC 3.25 4.20 - 5.40 12/05/2012 [facility] HEMATOLOGY Hgb 9.8 12.0 - 16.0 12/05/2012 [facility] HEMATOLOGY Hct 30.1 36.0 - 48.0 12/05/2012 [facility] HEMATOLOGY Basophils # 0.1 0.0 - 0.2 12/05/2012 [facility] HEMATOLOGY Eosinophils # 0.4 0.0 - 0.5 12/05/2012 [facility] HEMATOLOGY Lymphocytes # 1.0 1.0 - 5.5 12/05/2012 [facility] HEMATOLOGY Basophils 0.9 0.0 - 1.0 12/05/2012 [facility] HEMATOLOGY Monocytes 7.9 2.0 - 12.0 12/05/2012 [facility] HEMATOLOGY Lymphocytes 17.3 20.0 - 40.0 12/05/2012 [facility] HEMATOLOGY Segs-Bands # 3.8 1.5 - 8.1 12/05/2012 [facility] HEMATOLOGY Monocytes # 0.4 0.0 - 0.8 12/05/2012 Normal [facility] HEMATOLOGY Segs 67.1 45.0 - 75.0 12/05/2012 Normal [facility] HEMATOLOGY Eosinophils 6.8 0.0 - 4.0 12/05/2012 HI [facility] CHEMISTRY Vanco Tr TND 1200 12/04/2012 NA [facility] CHEMISTRY Vanco Tr 9.6 12/04/2012 NA <sup>10</sup>Interpretive Data: Therapeutic Range:
Trough: 10 - 20 ug/mL
Peak: 20 - 40 ug/mL
Potential Toxicity: >80 ug/mL [facility] CHEMISTRY AGAP 18.0 10.0 - 20.0 12/04/2012 Normal [facility] CHEMISTRY Potassium Lvl 4.0 3.5 - 5.1 12/04/2012 Normal [facility] CHEMISTRY Chloride Lvl 109 95 - 109 12/04/2012 Normal [facility] CHEMISTRY Sodium Lvl 145 135 - 145 12/04/2012 Normal [facility] CHEMISTRY eGFR 40 12/04/2012 NA <sup>6</sup>Result Comment: The eGFR is calculated using the CKD-EPI formula. In most young, healthy individuals the eGFR will be >90 mL/min/1.73m2. The eGFR declines with age. An eGFR of 60-89 may be normal in some populations, particularly the elderly, for whom the CKD-EPI formula has not been extensively validated. Use of the eGFR is not recommended in the following populations:& lt;br/>
Individuals with unstable creatinine concentrations, including patients and those with serious co-morbid conditions.

Patients with extremes in muscle mass or diet.

The data above are obtained from the National Kidney Disease Education Program (NKDEP) which additionally recommends that when the eGFR is used in patients with extremes of body mass index for purposes of drug dosing, the eGFR should be multiplied by the estimated BMI. [facility] CHEMISTRY Glucose Lvl 81 70 - 99 12/04/2012 Normal <sup>9</sup>Interpretive Data: Adult ref erence range values reflect the clinical guidelines
of the [place] [employer]. [facility] CHEMISTRY BUN 29 7 - 22 12/04/2012 [facility] CHEMISTRY Creatinine Lvl 1.3 0.5 - 1.4 12/04/2012 [facility] CHEMISTRY Calcium Lvl 7.9 8.5 - 10.5 12/04/2012 [facility] CHEMISTRY CO2 22 24 - 32 12/04/2012 [facility] HEMATOLOGY Segs 72.8 45.0 - 75.0 12/04/2012 [facility] HEMATOLOGY Monocytes 7.6 2.0 - 12.0 12/04/2012 [facility] HEMATOLOGY Basophils 0.8 0.0 - 1.0 12/04/2012 [facility] HEMATOLOGY Eosinophils 5.4 0.0 - 4.0 12/04/2012 [facility] HEMATOLOGY Lymphocytes 13.4 20.0 - 40.0 12/04/2012 [facility] HEMATOLOGY Monocytes # 0.5 0.0 - 0.8 12/04/2012 [facility] HEMATOLOGY Lymphocytes # 0.9 1.0 - 5.5 12/04/2012 [facility] HEMATOLOGY Basophils # 0.1 0.0 - 0.2 12/04/2012 [facility] HEMATOLOGY Eosinophils # 0.4 0.0 - 0.5 12/04/2012 [facility] HEMATOLOGY Segs-Bands # 5.1 1.5 - 8.1 12/04/2012 [facility] HEMATOLOGY WBC 7.0 3.7 - 10.4 12/04/2012 [facility] HEMATOLOGY RBC 3.19 4.20 - 5.40 12/04/2012 [facility] HEMATOLOGY Hgb 9.8 12.0 - 16.0 12/04/2012 [facility] HEMATOLOGY Hct 29.2 36.0 - 48.0 12/04/2012 [facility] HEMATOLOGY Platelet 221 133 - 450 12/04/2012 [facility] HEMATOLOGY RDW 14.4 11.5 - 14.5 12/04/2012 [facility] HEMATOLOGY MCV 91.4 81.0 - 99.0 12/04/2012 [facility] HEMATOLOGY MCHC 33.7 32.0 - 36.0 12/04/2012 [facility] HEMATOLOGY MCH 30.8 27.0 - 31.0 12/04/2012 [facility] HEMATOLOGY MPV 9.5 7.4 - 10.4 12/04/2012 Normal [facility] Microbiology Culture: AFB w/Smear 12/03/2012 [facility] Microbiology Culture: Anaerobic 12/03/2012 [facility] Microbiology Culture: Wound/Abscess w/Gram Stain 12/03/2012 [facility] Microbiology Culture: Aspirate/Body Fluid/Tissue 12/03/2012 [facility] Microbiology Culture: Fungal w/Smear 12/03/2012 [facility] CHEMISTRY Magnesium Lvl 1.9 1.8 - 2.4 12/03/2012 Normal [facility] CHEMISTRY Phosphorus 3.8 2.5 - 4.5 12/03/2012 Normal [facility] CHEMISTRY Total Protein 6.0 6.4 - 8.4 12/03/2012 LOW [facility] CHEMISTRY Bili Total 0.5 0.2 - 1.3 12/03/2012 Normal [facility] CHEMISTRY AST 25 0 - 37 12/03/2012 Normal [facility] CHEMISTRY A/G Ratio 0.8 0.7 - 1.6 12/03/2012 Normal [facility] CHEMISTRY Globulin 3.4 2.0 - 4.0 12/03/2012 Normal [facility] CHEMISTRY B/C Ratio 28 6 - 25 12/03/2012 HI [facility] CHEMISTRY ALT 36 0 - 65 12/03/2012 Normal [facility] CHEMISTRY Alk Phos 120 39 - 136 12/03/2012 Normal [facility] CHEMISTRY Albumin Lvl 2.6 3.5 - 5.0 12/03/2012 LOW [facility] HEMATOLOGY PTT 32.0 22.9 - 35.8 12/03/2012 Normal <sup>12</sup>Interpretive Data: Heparin Therapeutic Range: 57 - 92 Seconds [facility] Microbiology Culture: MRSA 12/03/2012 [facility] CHEMISTRY A/G Ratio 0.9 0.7 - 1.6 12/03/2012 Normal [facility] CHEMISTRY Globulin 3.2 2.0 - 4.0 12/03/2012 Normal [facility] CHEMISTRY AST 31 0 - 37 12/03/2012 Normal [facility] CHEMISTRY Bili Total 0.5 0.2 - 1.3 12/03/2012 Normal [facility] CHEMISTRY Total Protein 6.2 6.4 - 8.4 12/03/2012 LOW [facility] CHEMISTRY B/C Ratio 30 6 - 25 12/03/2012 HI [facility] CHEMISTRY Alk Phos 125 39 - 136 12/03/2012 Normal [facility] CHEMISTRY Albumin Lvl 3.0 3.5 - 5.0 12/03/2012 LOW [facility] CHEMISTRY ALT 38 0 - 65 12/03/2012 Normal [facility] HEMATOLOGY PTT 30.6 22.9 - 35.8 12/03/2012 Normal <sup>13</sup>Interpretive Data: Heparin Therapeutic Range: 57 - 92 Seconds [facility] HEMATOLOGY PT 14.7 12.0 - 14.7 12/03/2012 Normal [facility] HEMATOLOGY INR 1.13 0.85 - 1.17 12/03/2012 Normal <sup>11</sup>Interpretive Data: RECOMMEN DED RANGES FOR PROTIME INR:
2.0-3.0 for most medical and surgical thromboembolic states.
2.5-3.5 for artificial heart valves and recurrent embolism.

INR SHOULD BE USED ONLY FOR PATIENTS ON STABLE ANTICOAGULANT THERAPY. [facility] BLOOD BANK RESULTS ABO/Rh O POS 12/03/2012 Unknown [facility] BLOOD BANK RESULTS Antibody Scrn Negative (12/02/2012 20:39:00) 12/03/2012 Normal [facility] BLOOD BANK RESULTS RBC product Product available (12/02/2012 20:39:00) 12/03/2012 Normal [facility] BLOOD BANK RESULTS Platelet product Product available (12/02/2012 20:39:00) 12/03/2012 Normal [facility] BLOOD BANK RESULTS FFP product Product available (12/02/2012 20:39:00) 12/03/2012 Normal [facility] BEDSIDE GLUCOSE TESTING Comment1 Notify RN/ 11/26/2012 NA [facility] BEDSIDE GLUCOSE TESTING Gluc POC Lif scn 207 70 - 99 11/26/2012 HI <sup>1</sup>Interpretive Data: Upper Reportable Limit: 200 mg/dL. [facility] BEDSIDE GLUCOSE TESTING Gluc POC Lif scn 252 70 - 99 11/26/2012 HI <sup>2</sup>Interpretive Data: Upper Reportable Limit: 200 mg/dL. [facility] BEDSIDE GLUCOSE TESTING Comment1 Notify RN/ 11/26/2012 NA [facility] BEDSIDE GLUCOSE TESTING Gluc POC Lif scn 180 70 - 99 11/26/2012 HI <sup>3</sup>Interpretive Data: Upper Reportable Limit: 200 mg/dL. [facility] BEDSIDE GLUCOSE TESTING Comment1 Notify RN/ 11/26/2012 NA [facility] CHEMISTRY eGFR 40 11/25/2012 NA <sup>4</sup>Result Comment: The eGFR is calculated using the CKD-EPI formula. In most young, healthy individuals the eGFR will be >90 mL/min/1.73m2. The eGFR declines with age. An eGFR of 60-89 may be normal in some populations, particularly the elderly, for whom the CKD-EPI formula has not been extensively validated. Use of the eGFR is not recommended in the following populations:& lt;br/>
Individuals with unstable creatinine concentrations, including patients and those with serious co-morbid conditions.

Patients with extremes in muscle mass or diet.

The data above are obtained from the National Kidney Disease Education Program (NKDEP) which additionally recommends that when the eGFR is used in patients with extremes of body mass index for purposes of drug dosing, the eGFR should be multiplied by the estimated BMI. [facility] CHEMISTRY Chloride Lvl 102 95 - 109 11/25/2012 Normal [facility] CHEMISTRY Calcium Lvl 8.3 8.5 - 10.5 11/25/2012 LOW [facility] CHEMISTRY Potassium Lvl 4.2 3.5 - 5.1 11/25/2012 Normal [facility] CHEMISTRY Sodium Lvl 144 135 - 145 11/25/2012 Normal [facility] CHEMISTRY CO2 29 24 - 32 11/25/2012 Normal [facility] CHEMISTRY Creatinine Lvl 1.3 0.5 - 1.4 11/25/2012 Normal [facility] CHEMISTRY BUN 16 7 - 22 11/25/2012 Normal [facility] CHEMISTRY Glucose Lvl 127 70 - 99 11/25/2012 HI <sup>7</sup>Interpretive Data: Adult ref erence range values reflect the clinical guidelines
of the [place] [employer]. [facility] CHEMISTRY AGAP 17.2 10.0 - 20.0 11/25/2012 Normal [facility] HEMATOLOGY Monocytes # 0.7 0.0 - 0.8 11/25/2012 [facility] HEMATOLOGY Eosinophils # 0.1 0.0 - 0.5 11/25/2012 [facility] HEMATOLOGY Basophils # 0.1 0.0 - 0.2 11/25/2012 [facility] HEMATOLOGY Lymphocytes # 1.2 1.0 - 5.5 11/25/2012 [facility] HEMATOLOGY Segs 74.8 45.0 - 75.0 11/25/2012 [facility] HEMATOLOGY Monocytes 9.0 2.0 - 12.0 11/25/2012 [facility] HEMATOLOGY Eosinophils 1.3 0.0 - 4.0 11/25/2012 [facility] HEMATOLOGY Basophils 0.8 0.0 - 1.0 11/25/2012 [facility] HEMATOLOGY Segs-Bands # 6.2 1.5 - 8.1 11/25/2012 [facility] HEMATOLOGY Lymphocytes 14.1 20.0 - 40.0 11/25/2012 [facility] HEMATOLOGY WBC 8.3 3.7 - 10.4 11/25/2012 [facility] HEMATOLOGY RDW 14.6 11.5 - 14.5 11/25/2012 [facility] HEMATOLOGY MCHC 33.6 32.0 - 36.0 11/25/2012 [facility] HEMATOLOGY Hgb 10.1 12.0 - 16.0 11/25/2012 [facility] HEMATOLOGY Hct 30.2 36.0 - 48.0 11/25/2012 [facility] HEMATOLOGY RBC 3.27 4.20 - 5.40 11/25/2012 [facility] HEMATOLOGY MCH 31.0 27.0 - 31.0 11/25/2012 [facility] HEMATOLOGY MCV 92.3 81.0 - 99.0 11/25/2012 [facility] HEMATOLOGY MPV 9.5 7.4 - 10.4 11/25/2012 [facility] HEMATOLOGY Platelet 251 133 - 450 11/25/2012 [facility] CHEMISTRY Ca Ion WB 1.03 1.05 - 1.25 11/24/2012 [facility] CHEMISTRY Ca Norm WB 1.08 1.05 - 1.25 11/24/2012 [facility] CHEMISTRY Phosphorus 3.2 2.5 - 4.5 11/24/2012 [facility] CHEMISTRY Magnesium Lvl 1.7 1.8 - 2.4 11/24/2012 LOW [facility] CHEMISTRY AGAP 14.2 10.0 - 20.0 11/24/2012 Normal [facility] CHEMISTRY eGFR 36 11/24/2012 NA <sup>5</sup>Result Comment: The eGFR is calculated using the CKD-EPI formula. In most young, healthy individuals the eGFR will be >90 mL/min/1.73m2. The eGFR declines with age. An eGFR of 60-89 may be normal in some populations, particularly the elderly, for whom the CKD-EPI formula has not been extensively validated. Use of the eGFR is not recommended in the following populations:& lt;br/>
Individuals with unstable creatinine concentrations, including patients and those with serious co-morbid conditions.

Patients with extremes in muscle mass or diet.

The data above are obtained from the National Kidney Disease Education Program (NKDEP) which additionally recommends that when the eGFR is used in patients with extremes of body mass index for purposes of drug dosing, the eGFR should be multiplied by the estimated BMI. [facility] CHEMISTRY Glucose Lvl 118 70 - 99 11/24/2012 HI <sup>8</sup>Interpretive Data: Adult ref erence range values reflect the clinical guidelines
of the [place] [employer]. [facility] CHEMISTRY Chloride Lvl 102 95 - 109 11/24/2012 Normal [facility] CHEMISTRY CO2 30 24 - 32 11/24/2012 Normal [facility] CHEMISTRY Calcium Lvl 8.5 8.5 - 10.5 11/24/2012 Normal [facility] CHEMISTRY Creatinine Lvl 1.4 0.5 - 1.4 11/24/2012 Normal [facility] CHEMISTRY Sodium Lvl 142 135 - 145 11/24/2012 Normal [facility] CHEMISTRY Potassium Lvl 4.2 3.5 - 5.1 11/24/2012 Normal [facility] CHEMISTRY BUN 17 7 - 22 11/24/2012 Normal [facility] HEMATOLOGY Hgb 10.5 12.0 - 16.0 11/24/2012 LOW [facility] HEMATOLOGY WBC 9.4 3.7 - 10.4 11/24/2012 Normal [facility] HEMATOLOGY Hct 31.7 36.0 - 48.0 11/24/2012 [facility] HEMATOLOGY RBC 3.47 4.20 - 5.40 11/24/2012 [facility] HEMATOLOGY MCV 91.4 81.0 - 99.0 11/24/2012 [facility] HEMATOLOGY MCH 30.2 27.0 - 31.0 11/24/2012 [facility] HEMATOLOGY Platelet 284 133 - 450 11/24/2012 [facility] HEMATOLOGY MCHC 33.0 32.0 - 36.0 11/24/2012 [facility] HEMATOLOGY RDW 14.8 11.5 - 14.5 11/24/2012 [facility] HEMATOLOGY MPV 9.3 7.4 - 10.4 11/24/2012 [facility] HEMATOLOGY Lymphocytes 18.1 20.0 - 40.0 11/24/2012 [facility] HEMATOLOGY Eosinophils 0.9 0.0 - 4.0 11/24/2012 [facility] HEMATOLOGY Monocytes 9.5 2.0 - 12.0 11/24/2012 [facility] HEMATOLOGY Segs-Bands # 6.6 1.5 - 8.1 11/24/2012 [facility] HEMATOLOGY Lymphocytes # 1.7 1.0 - 5.5 11/24/2012 [facility] HEMATOLOGY Basophils 0.8 0.0 - 1.0 11/24/2012 [facility] HEMATOLOGY Segs 70.7 45.0 - 75.0 11/24/2012 [facility] HEMATOLOGY Monocytes # 0.9 0.0 - 0.8 11/24/2012 [facility] HEMATOLOGY Basophils # 0.1 0.0 - 0.2 11/24/2012 [facility] HEMATOLOGY Eosinophils # 0.1 0.0 - 0.5 11/24/2012 [facility] CHEMISTRY eGFR 44 11/23/2012 NA <sup>6</sup>Result Comment: The eGFR is calculated using the CKD-EPI formula. In most young, healthy individuals the eGFR will be >90 mL/min/1.73m2. The eGFR declines with age. An eGFR of 60-89 may be normal in some populations, particularly the elderly, for whom the CKD-EPI formula has not been extensively validated. Use of the eGFR is not recommended in the following populations:& lt;br/>
Individuals with unstable creatinine concentrations, including patients and those with serious co-morbid conditions.

Patients with extremes in muscle mass or diet.

The data above are obtained from the National Kidney Disease Education Program (NKDEP) which additionally recommends that when the eGFR is used in patients with extremes of body mass index for purposes of drug dosing, the eGFR should be multiplied by the estimated BMI. [facility] CHEMISTRY Glucose Lvl 123 70 - 99 11/23/2012 HI <sup>9</sup>Interpretive Data: Adult ref erence range values reflect the clinical guidelines
of the [place] [employer]. [facility] CHEMISTRY BUN 14 7 - 22 11/23/2012 Normal [facility] CHEMISTRY ALT 24 0 - 65 11/23/2012 Normal [facility] CHEMISTRY Total Protein 5.8 6.4 - 8.4 11/23/2012 LOW [facility] CHEMISTRY AGAP 7.2 10.0 - 20.0 11/23/2012 LOW [facility] CHEMISTRY Albumin Lvl 2.6 3.5 - 5.0 11/23/2012 LOW [facility] CHEMISTRY B/C Ratio 12 6 - 25 11/23/2012 Normal [facility] CHEMISTRY Creatinine Lvl 1.2 0.5 - 1.4 11/23/2012 Normal [facility] CHEMISTRY Potassium Lvl 4.2 3.5 - 5.1 11/23/2012 Normal [facility] CHEMISTRY Sodium Lvl 140 135 - 145 11/23/2012 Normal [facility] CHEMISTRY CO2 32 24 - 32 11/23/2012 Normal [facility] CHEMISTRY Chloride Lvl 105 95 - 109 11/23/2012 Normal [facility] CHEMISTRY Bili Total 1.0 0.2 - 1.3 11/23/2012 Normal [facility] CHEMISTRY Calcium Lvl 8.2 8.5 - 10.5 11/23/2012 LOW [facility] CHEMISTRY Globulin 3.2 2.0 - 4.0 11/23/2012 Normal [facility] CHEMISTRY AST 25 0 - 37 11/23/2012 Normal [facility] CHEMISTRY A/G Ratio 0.8 0.7 - 1.6 11/23/2012 Normal [facility] CHEMISTRY Alk Phos 134 39 - 136 11/23/2012 [facility] HEMATOLOGY Eosinophils # 0.1 0.0 - 0.5 11/23/2012 [facility] HEMATOLOGY Monocytes # 0.7 0.0 - 0.8 11/23/2012 [facility] HEMATOLOGY Lymphocytes # 1.2 1.0 - 5.5 11/23/2012 [facility] HEMATOLOGY Basophils # 0.1 0.0 - 0.2 11/23/2012 [facility] HEMATOLOGY Segs-Bands # 5.7 1.5 - 8.1 11/23/2012 [facility] HEMATOLOGY Basophils 0.8 0.0 - 1.0 11/23/2012 [facility] HEMATOLOGY Eosinophils 0.7 0.0 - 4.0 11/23/2012 [facility] HEMATOLOGY Monocytes 9.1 2.0 - 12.0 11/23/2012 [facility] HEMATOLOGY Segs 73.8 45.0 - 75.0 11/23/2012 [facility] HEMATOLOGY Lymphocytes 15.6 20.0 - 40.0 11/23/2012 [facility] HEMATOLOGY Hct 32.0 36.0 - 48.0 11/23/2012 [facility] HEMATOLOGY RDW 14.7 11.5 - 14.5 11/23/2012 [facility] HEMATOLOGY MCV 90.5 81.0 - 99.0 11/23/2012 [facility] HEMATOLOGY MCH 30.1 27.0 - 31.0 11/23/2012 [facility] HEMATOLOGY Hgb 10.7 12.0 - 16.0 11/23/2012 [facility] HEMATOLOGY MCHC 33.3 32.0 - 36.0 11/23/2012 [facility] HEMATOLOGY WBC 7.7 3.7 - 10.4 11/23/2012 [facility] HEMATOLOGY RBC 3.54 4.20 - 5.40 11/23/2012 [facility] HEMATOLOGY Platelet 284 133 - 450 11/23/2012 [facility] HEMATOLOGY MPV 9.4 7.4 - 10.4 11/23/2012 [facility] HEMATOLOGY INR 1.13 0.85 - 1.17 11/23/2012 Normal <sup>12</sup>Interpretive Data: RECOMMEN DED RANGES FOR PROTIME INR:
2.0-3.0 for most medical and surgical thromboembolic states.
2.5-3.5 for artificial heart valves and recurrent embolism.

INR SHOULD BE USED ONLY FOR PATIENTS ON STABLE ANTICOAGULANT THERAPY. [facility] HEMATOLOGY PT 14.7 12.0 - 14.7 11/23/2012 Normal [facility] HEMATOLOGY PTT 47.6 22.9 - 35.8 11/23/2012 HI <sup>18</sup>Interpretive Data: Heparin Therapeutic Range: 57 - 92 Seconds [facility] IMMUNOLOGY Prealbumin 11.8 18.0 - 45.0 11/23/2012 LOW [facility] BEDSIDE GLUCOSE TESTING Comment2 Verify w/Lab 11/22/2012 NA [facility] CHEMISTRY Lipase Lvl 186 73 - 393 11/22/2012 Normal [facility] CHEMISTRY Amylase Lvl 28 25 - 115 11/22/2012 Normal [facility] CHEMISTRY Ferritin Lvl 1205 5 - 204 11/22/2012 [facility] CHEMISTRY TIBC 176 228 - 428 11/22/2012 LOW [facility] CHEMISTRY Iron 38 30 - 160 11/22/2012 Normal [facility] CHEMISTRY % [place] Fe 22 12 - 57 11/22/2012 Normal [facility] CHEMISTRY UIBC 138 110 - 370 11/22/2012 Normal [facility] CHEMISTRY Globulin 3.4 2.0 - 4.0 11/22/2012 Normal [facility] CHEMISTRY Total Protein 6.3 6.4 - 8.4 11/22/2012 LOW [facility] CHEMISTRY AST 27 0 - 37 11/22/2012 Normal [facility] CHEMISTRY A/G Ratio 0.9 0.7 - 1.6 11/22/2012 Normal [facility] CHEMISTRY Bili Direct 0.4 0.0 - 0.3 11/22/2012 [facility] CHEMISTRY Bili Total 1.1 0.2 - 1.3 11/22/2012 Normal [facility] CHEMISTRY Albumin Lvl 2.9 3.5 - 5.0 11/22/2012 LOW [facility] CHEMISTRY Alk Phos 145 39 - 136 11/22/2012 [facility] CHEMISTRY Bili Indirect 0.7 0.0 - 1.0 11/22/2012 Normal [facility] CHEMISTRY ALT 22 0 - 65 11/22/2012 Normal [facility] IMMUNOLOGY Prealbumin 15.2 18.0 - 45.0 11/22/2012 LOW [facility] CHEMISTRY Phosphorus 3.7 2.5 - 4.5 11/22/2012 Normal [facility] CHEMISTRY Magnesium Lvl 1.8 1.8 - 2.4 11/22/2012 Normal [facility] CHEMISTRY Magnesium Lvl 1.9 1.8 - 2.4 11/21/2012 Normal [facility] CHEMISTRY Phosphorus 3.6 2.5 - 4.5 11/21/2012 Normal [facility] HEMATOLOGY PT 14.7 12.0 - 14.7 11/21/2012 Normal [facility] HEMATOLOGY INR 1.13 0.85 - 1.17 11/21/2012 Normal <sup>13</sup>Interpretive Data: RECOMMEN DED RANGES FOR PROTIME INR:
2.0-3.0 for most medical and surgical thromboembolic states.
2.5-3.5 for artificial heart valves and recurrent embolism.

INR SHOULD BE USED ONLY FOR PATIENTS ON STABLE ANTICOAGULANT THERAPY. [facility] CHEMISTRY Ca Ion WB 1.03 1.05 - 1.25 11/16/2012 LOW [facility] CHEMISTRY Ca Norm WB 1.01 1.05 - 1.25 11/16/2012 LOW [facility] BLOOD BANK RESULTS Antibody Scrn Negative (11/16/2012 01:55:00) 11/16/2012 Normal [facility] BLOOD BANK RESULTS ABO/Rh O POS 11/16/2012 Unknown [facility] HEMATOLOGY RBC Morph Linda l (11/16/2012 01:55:00) 11/16/2012 Normal [facility] HEMATOLOGY Plt Morph Linda l (11/16/2012 01:55:00) 11/16/2012 Normal [facility] CHEMISTRY Ca Ion WB 1.05 1.05 - 1.25 11/15/2012 Normal [facility] CHEMISTRY Ca Norm WB 1.05 1.05 - 1.25 11/15/2012 Normal [facility] HEMATOLOGY RBC Morph Linda l (11/15/2012 01:44:00) 11/15/2012 Normal [facility] HEMATOLOGY Plt Morph Linda l (11/15/2012 01:44:00) 11/15/2012 Normal [facility] CHEMISTRY Vanco Tr TND 0900 11/14/2012 NA [facility] CHEMISTRY Vanco Tr 16.7 11/14/2012 NA <sup>11</sup>Interpretive Data: Therapeutic Range:
Trough: 10 - 20 ug/mL
Peak: 20 - 40 ug/mL
Potential Toxicity: >80 ug/mL [facility] CHEMISTRY POC A LA 0.8 0.5 - 2.2 11/14/2012 Normal [facility] CHEMISTRY POC A Glu 146 70 - 99 11/14/2012 [facility] CHEMISTRY POC A Source ART 11/14/2012 NA [facility] CHEMISTRY POC A pH 7.46 7.35 - 7.45 11/14/2012 [facility] CHEMISTRY POC A Temp 37.0 11/14/2012 NA [facility] CHEMISTRY POC A PO2 82 80 - 100 11/14/2012 Normal [facility] CHEMISTRY POC A HCO3 26 22 - 26 11/14/2012 Normal [facility] CHEMISTRY POC A PCO2 36 35 - 45 11/14/2012 Normal [facility] CHEMISTRY POC A BE 2 -2-2 - 2 11/14/2012 Normal [facility] CHEMISTRY POC A Hct 33.0 36.0 - 48.0 11/14/2012 LOW [facility] CHEMISTRY POC A O2 Sat 97.0 95.0 - 100.0 11/14/2012 Normal [facility] CHEMISTRY POC A K 4.4 3.5 - 5.1 11/14/2012 Normal [facility] CHEMISTRY POC A Na 138 135 - 145 11/14/2012 Normal [facility] CHEMISTRY POC A Ca Ion 1.06 1.05 - 1.25 11/14/2012 Normal [facility] BLOOD BANK RESULTS RBC product Product available (11/14/2012 05:18:00) 11/14/2012 Normal [facility] CHEMISTRY POC A Glu 132 70 - 99 11/14/2012 [facility] CHEMISTRY POC A LA 0.7 0.5 - 2.2 11/14/2012 Normal [facility] CHEMISTRY POC A Ca Ion 1.08 1.05 - 1.25 11/14/2012 Normal [facility] CHEMISTRY POC A K 4.1 3.5 - 5.1 11/14/2012 Normal [facility] CHEMISTRY POC A Na 139 135 - 145 11/14/2012 [facility] CHEMISTRY POC A Hct 27.0 36.0 - 48.0 11/14/2012 LOW [facility] CHEMISTRY POC A O2 Sat 97.0 95.0 - 100.0 11/14/2012 Normal [facility] CHEMISTRY POC A Source ART 11/14/2012 NA [facility] CHEMISTRY POC A BE 3 -2-2 - 2 11/14/2012 HI [facility] CHEMISTRY POC A HCO3 27 22 - 26 11/14/2012 HI [facility] CHEMISTRY POC A PCO2 40 35 - 45 11/14/2012 Normal [facility] CHEMISTRY POC A PO2 87 80 - 100 11/14/2012 Normal [facility] CHEMISTRY POC A pH 7.44 7.35 - 7.45 11/14/2012 Normal [facility] CHEMISTRY POC A Temp 37.0 11/14/2012 NA [facility] HEMATOLOGY PT 16.3 12.0 - 14.7 11/14/2012 HI [facility] HEMATOLOGY INR 1.29 0.85 - 1.17 11/14/2012 HI <sup>14</sup>Interpretive Data: RECOMMEN DED RANGES FOR PROTIME INR:
2.0-3.0 for most medical and surgical thromboembolic states.
2.5-3.5 for artificial heart valves and recurrent embolism.

INR SHOULD BE USED ONLY FOR PATIENTS ON STABLE ANTICOAGULANT THERAPY. [facility] HEMATOLOGY PTT 41.2 22.9 - 35.8 11/14/2012 HI <sup>19</sup>Interpretive Data: Heparin Therapeutic Range: 57 - 92 Seconds [facility] HEMATOLOGY D-Dimer 0.88 11/14/2012 NA <sup>15</sup>Interpretive Data: In DIC, quantitative D-Dimer is generally greater than
0.66 ug/mL FEU. Values of quantitative D-Dimer less than
0.40 ug/mL FEU have been reported to be associated with a low
probability of deep vein thrombosis/pulmonary embolism.
This test alone should not be used to rule out DVT/PE. [facility] HEMATOLOGY Thrombin Time 15.2 15.0 - 21.2 11/14/2012 Normal [facility] HEMATOLOGY Fibrinogen Lvl 462 230 - 510 11/14/2012 Normal [facility] HEMATOLOGY Elliptocyte Sligh t *ABN* (11/14/2012 04:00:00) None S een 11/14/2012 [facility] HEMATOLOGY Large Plt Sligh t *ABN* (11/14/2012 04:00:00) None S een 11/14/2012 ABN [facility] CHEMISTRY POC A PO2 92 80 - 100 11/14/2012 Normal [facility] CHEMISTRY POC A pH 7.48 7.35 - 7.45 11/14/2012 [facility] CHEMISTRY POC A LA 0.9 0.5 - 2.2 11/14/2012 Normal [facility] CHEMISTRY POC A Na 143 135 - 145 11/14/2012 [facility] CHEMISTRY POC A K 3.7 3.5 - 5.1 11/14/2012 Normal [facility] CHEMISTRY POC A Ca Ion 1.08 1.05 - 1.25 11/14/2012 Normal [facility] CHEMISTRY POC A Temp 37.0 11/14/2012 NA [facility] CHEMISTRY POC A Hct 28.0 36.0 - 48.0 11/14/2012 LOW [facility] CHEMISTRY POC A O2 Sat 98.0 95.0 - 100.0 11/14/2012 Normal [facility] CHEMISTRY POC A PCO2 39 35 - 45 11/14/2012 Normal [facility] CHEMISTRY POC A HCO3 29 22 - 26 11/14/2012 [facility] CHEMISTRY POC A BE 5 -2-2 - 2 11/14/2012 [facility] CHEMISTRY POC A Glu 149 70 - 99 11/14/2012 [facility] CHEMISTRY POC A Source ART 11/14/2012 NA [facility] CHEMISTRY POC V Hct 27.0 36.0 - 48.0 11/13/2012 LOW [facility] CHEMISTRY POC V Ion Ca 1.11 1.05 - 1.25 11/13/2012 [facility] CHEMISTRY POC V Temp 37.0 11/13/2012 NA [facility] CHEMISTRY POC V PO2 82 20 - 49 11/13/2012 [facility] CHEMISTRY POC V PCO2 38 38 - 52 11/13/2012 Normal [facility] CHEMISTRY POC V pH 7.46 7.28 - 7.42 11/13/2012 [facility] CHEMISTRY POC V LA 0.8 0.5 - 2.2 11/13/2012 Normal [facility] CHEMISTRY POC V K 3.8 3.5 - 5.1 11/13/2012 Normal [facility] CHEMISTRY POC V Na 145 135 - 145 11/13/2012 Normal [facility] CHEMISTRY POC V Glu 117 70 - 99 11/13/2012 [facility] CHEMISTRY POC V O2 Sat 97.0 40.0 - 70.0 11/13/2012 [facility] CHEMISTRY POC V BE 3 -2-2 - 2 11/13/2012 [facility] CHEMISTRY POC V HCO3 27 22 - 26 11/13/2012 [facility] CHEMISTRY POC V Source ROMULO 11/13/2012 NA [facility] CHEMISTRY POC V Mode NC 11/13/2012 NA [facility] CHEMISTRY POC V LA 0.5 0.5 - 2.2 11/13/2012 Normal [facility] [facility] CHEMISTRY POC V PCO2 50 38 - 52 11/13/2012 Normal [facility] CHEMISTRY POC V pH 7.38 7.28 - 7.42 11/13/2012 Normal [facility] CHEMISTRY POC V HCO3 30 22 - 26 11/13/2012 [facility] CHEMISTRY POC V BE 4 -2-2 - 2 11/13/2012 [facility] CHEMISTRY POC V PO2 35 20 - 49 11/13/2012 Normal [facility] CHEMISTRY POC V O2 Sat 66.0 40.0 - 70.0 11/13/2012 Normal [facility] CHEMISTRY POC V Glu 101 70 - 99 11/13/2012 [facility] CHEMISTRY POC V Na 146 135 - 145 11/13/2012 [facility] CHEMISTRY POC V K 3.2 3.5 - 5.1 11/13/2012 LOW [facility] CHEMISTRY POC V Source ROMULO 11/13/2012 [facility] CHEMISTRY POC V Ion Ca 1.13 1.05 - 1.25 11/13/2012 Normal [facility] CHEMISTRY POC V Temp 37.0 11/13/2012 [facility] CHEMISTRY POC V Hct 27.0 36.0 - 48.0 11/13/2012 [facility] CHEMISTRY Bili Total 1.5 0.2 - 1.3 11/13/2012 [facility] CHEMISTRY Total Protein 4.9 6.4 - 8.4 11/13/2012 LOW [facility] CHEMISTRY AST 47 0 - 37 11/13/2012 HI [facility] CHEMISTRY Albumin Lvl 3.1 3.5 - 5.0 11/13/2012 LOW [facility] CHEMISTRY ALT 15 0 - 65 11/13/2012 Normal [facility] CHEMISTRY Alk Phos 47 39 - 136 11/13/2012 Normal [facility] CHEMISTRY A/G Ratio 1.7 0.7 - 1.6 11/13/2012 HI [facility] CHEMISTRY Globulin 1.8 2.0 - 4.0 11/13/2012 LOW [facility] CHEMISTRY B/C Ratio 25 6 - 25 11/13/2012 Normal [facility] HEMATOLOGY PTT 38.8 22.9 - 35.8 11/13/2012 HI <sup>20</sup>Interpretive Data: Heparin Therapeutic Range: 57 - 92 Seconds [facility] HEMATOLOGY D-Dimer 0.69 11/13/2012 NA <sup>16</sup>Interpretive Data: In DIC, quantitative D-Dimer is generally greater than
0.66 ug/mL FEU. Values of quantitative D-Dimer less than
0.40 ug/mL FEU have been reported to be associated with a low
probability of deep vein thrombosis/pulmonary embolism.
This test alone should not be used to rule out DVT/PE. [facility] HEMATOLOGY Thrombin Time 14.5 15.0 - 21.2 11/13/2012 LOW [facility] HEMATOLOGY Fibrinogen Lvl 342 230 - 510 11/13/2012 Normal [facility] HEMATOLOGY D-Dimer 0.37 11/13/2012 NA <sup>17</sup>Interpretive Data: In DIC, quantitative D-Dimer is generally greater than
0.66 ug/mL FEU. Values of quantitative D-Dimer less than
0.40 ug/mL FEU have been reported to be associated with a low
probability of deep vein thrombosis/pulmonary embolism.
This test alone should not be used to rule out DVT/PE. [facility] HEMATOLOGY Fibrinogen Lvl 325 230 - 510 11/13/2012 Normal [facility] HEMATOLOGY Thrombin Time 14.6 15.0 - 21.2 11/13/2012 LOW [facility] CHEMISTRY Bili Indirect 2.0 0.0 - 1.0 11/12/2012 HI [facility] CHEMISTRY Bili Direct 0.8 0.0 - 0.3 11/12/2012 HI [facility] HEMATOLOGY RBC Morph Linda l (11/12/2012 12:01:00) 11/12/2012 Normal [facility] HEMATOLOGY Plt Morph Linda l (11/12/2012 12:01:00) 11/12/2012 Normal [facility] URINALYSIS UA Bacteria Occas ional /HPF (11/12/2012 10:38:27) None S een 11/12/2012 Normal [facility] URINALYSIS UA Nitrite Negat shaan (11/12/2012 10:38:27) Negati ve 11/12/2012 Normal [facility] URINALYSIS UA Urobilinogen 0.2 0.1 - 1.0 11/12/2012 Normal [facility] URINALYSIS Micro? Perfo rmed (11/12/2012 10:38:27) 11/12/2012 Normal [facility] URINALYSIS UA RBC 0-2 / HPF (11/12/2012 10:38:27) 0 - 2 11/12/2012 Normal [facility] URINALYSIS UA Sq Epi None Seen (11/12/2012 10:38:27) Few 11/12/2012 Normal [facility] URINALYSIS UA WBC None Seen (11/12/2012 10:38:27) 0 - 5 11/12/2012 Normal [facility] URINALYSIS UA Leuk Est Negat shaan (11/12/2012 10:38:27) Negati ve 11/12/2012 Normal [facility] URINALYSIS UA Protein Negat shaan (11/12/2012 10:38:27) Negati ve 11/12/2012 Normal [facility] URINALYSIS UA pH 5.5 5.0 - 8.0 11/12/2012 Normal [facility] URINALYSIS UA Turbidity Clear (11/12/2012 10:38:27) Clear 11/12/2012 Normal [facility] URINALYSIS UA Spec Grav 1.025 <=1.030 11/12/2012 Normal [facility] URINALYSIS UA Color Yello w *NA* (11/12/2012 10:38:27) Yellow 11/12/2012 NA [facility] URINALYSIS UA Blood Trace *ABN* (11/12/2012 10:38:27) Negati ve 11/12/2012 ABN [facility] URINALYSIS UA Glucose Negat shaan (11/12/2012 10:38:27) Negati ve 11/12/2012 Normal [facility] URINALYSIS UA Bili Negat shaan *NA* (11/12/2012 10:38:27) Negati ve 11/12/2012 NA [facility] URINALYSIS UA Ketones Negat shaan *NA* (11/12/2012 10:38:27) Negati ve 11/12/2012 NA [facility] HEMATOLOGY TEG Data See N ote 21 (11/12/2012 10:15:45) 11/12/2012 Normal <sup>21</sup>Interpretive Data: Normal ranges are for citrated whole blood with kaolin activator.

R TIME: Reflects the degree of anti-coagulation due to LMWH, unfractionated heparin, and coumadin as well as non-specific
factor deficiencies.

K TIME, ALPHA ANGLE, AND MA(MAX AMPLITUDE): Have been
associated with the platelet release reaction and fibrin
polymer formation. These parameters assess the speed of clot
formation and the tensil strength of the clot. Higher levels
are associated with hypercoagulable states.

G VALUE: Another measure of clot strength.

LY30: Percent lysis in 30 Minutes is associated with the degree
of fibrinolysis.

CI or COAG INDEX: A calculation from the above measured data
indicating an overall hyper or hypo coagulability with values
above (plus) +3.0 being relatively hypercoagulable and those
below (minus) -3.0 being relatively hypocoagulable.

These measurements are functional in nature with many variables
and require close clinical correlation.

Thromboelasography (TEG) is mostly used to monitor significant coagulopathy in trauma patients or surgical patients. It assesses gloabal (primary and secondary) hemostasis using whole blood and therefore, not expected to correlate well with conventional coagulation tests. TEG results need to be correlated with clinical evaluation for patient management. [facility] HEMATOLOGY G-Value Hep 6.5 4.5 - 11.0 11/12/2012 Normal [facility] HEMATOLOGY Max Amp Hep 56.5 50.0 - 70.0 11/12/2012 Normal [facility] HEMATOLOGY Angle Hep 60.6 53.0 - 72.0 11/12/2012 Normal [facility] HEMATOLOGY K-Time Hep 2.2 1.0 - 3.0 11/12/2012 Normal [facility] HEMATOLOGY R-Time Hep 6.1 5.0 - 10.0 11/12/2012 Normal [facility] HEMATOLOGY Coag Index Hep -1.1 -3.0-3.0 - 3.0 11/12/2012 Normal [facility] HEMATOLOGY LY30 Hep 3.8 0.0 - 7.5 11/12/2012 Normal [facility] CHEMISTRY B/C Ratio 23 6 - 25 11/12/2012 Normal [facility] CHEMISTRY LDH 321 98 - 192 11/12/2012 HI [facility] HEMATOLOGY Retic Auto 1.4 0.5 - 1.5 11/12/2012 Normal [facility] HEMATOLOGY PB Smear Path 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 Impression: (1) no evidence of microangiopathic hemolysis, (2) RBC morphology is sugestive of liver disease. CPT: 57589 11/12/2012 NA [facility] IMMUNOLOGY Haptoglobin 35 16 - 200 11/12/2012 Normal [facility] BLOOD BANK RESULTS FFP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
--- OUTSIDE RECORDS SUMMARY | 2019-11-12 22:30 | XMS REPORT | Summary of Care ---
Author Author [facility] Organization [facility] Address Unknown Phone Unavailable Encounter BRANDEN Tinajero(MICHAELA) [id number] Date(s): 05/08/18 - 05/08/18 [facility] [address], [place], [place] [address]- [phone] Encounter Diagnosis Shortness of breath (Final) - 05/19/18 Other specified abnormal findings of blood chemistry (Final) - Nausea (Final) - Ischemic cardiomyopathy (Final) - Hypertensive chronic kidney disease with stage 1 through stage 4 chronic kidney disease, or unspecified chronic kidney disease (Final) - Type 2 diabetes mellitus with diabetic chronic kidney disease (Final) - Chronic kidney disease, unspecified (Final) - Hyperlipidemia, unspecified (Final) - Anxiety disorder, unspecified (Final) - Atherosclerotic heart disease of [place] coronary artery without angina pectoris (Final) - Paroxysmal atrial fibrillation (Final) - Unspecified osteoarthritis, unspecified site (Final) - Presence of aortocoronary bypass graft (Final) - Discharge Disposition: Left Against Medical Advise Attending Physician: Krishna Grande MD Vital Signs Most recent to 1 2 oldest [Reference Range]: Height 160.02 cm (05/08/18 3:19 PM) Temperature Oral 98.0 DegF 98.0 DegF [96.4-99.1 DegF] (05/08/18 5:21 PM) (05/08/18 3:19 PM) Blood Pressure 189/93 mmHg 184/79 mmHg [90-140/60-90 mmHg] *HI* *HI* (05/08/18 5:21 PM) (05/08/18 3:19 PM) Respiratory Rate 22 BRMIN 22 BRMIN [14-20 BRMIN] *HI* *HI* (05/08/18 5:21 PM) (05/08/18 3:19 PM) Peripheral Pulse 81 bpm 89 bpm Rate [60-100 bpm] (05/08/18 5:21 PM) (05/08/18 3:19 PM) Weight 65 kg (05/08/18 3:19 PM) Body Mass Index 25.38 m2 (05/08/18 3:19 PM) Problem List Condition Effective Dates Status [...] Active sulfa drugs Active codeine Active Medications Saline Flush 0.9% 10 mL, Route: IVP, Drug Form: INJ, Dosing Weight 61.273, kg, PRN, PRN Line Flush , Start date: 05/08/18 15:21:00 PSYCHOLOGICAL OPERATIONS, Duration: 30 day, Stop date: 06/07/18 15:20 :00 PSYCHOLOGICAL OPERATIONS Notes: (Same as: BD Posiflush) Start Date: 05/08/18 Stop Date: 05/08/18 Status: Discontinued Results Most recent to 1 2 oldest [Reference Range]: Neutrophils # 4.4 K/CMM [1.5-8.1 K/CMM] (05/08/18 3:37 PM) Lymphocytes # 1.3 K/CMM [1.0-5.5 K/CMM] (05/08/18 3:37 PM) Monocytes # [0.0-0.8 0.4 K/CMM K/CMM] (05/08/18 3:37 PM) Eosinophils # 0.1 K/CMM [0.0-0.5 K/CMM] (05/08/18 3:37 PM) proBNP [0-450 pg/mL] 75021 pg/mL 22165 pg/mL *HI* *HI* (05/08/18 3:37 PM) (05/08/18 3:37 PM) eGFR 27 mL/min/1.73m2 1 *NA* (05/08/18 3:37 PM) A/G Ratio [0.7-1.6] 1.1 (05/08/18 3:37 PM) Albumin Lvl [3.5-5.0 3.5 g/dL g/dL] (05/08/18 3:37 PM) Alk Phos [39-136 105 unit/L unit/L] (05/08/18 3:37 PM) ALT [0-65 unit/L] 49 unit/L (05/08/18 3:37 PM) AGAP [10.0-20.0 12.6 mEq/L mEq/L] (05/08/18 3:37 PM) AST [0-37 unit/L] 35 unit/L (05/08/18 3:37 PM) B/C Ratio [6-25] 16 (05/08/18 3:37 PM) Basophils [0.0-1.0 0.7 % %] (05/08/18 3:37 PM) BUN [7-22 mg/dL] 28 mg/dL *HI* (05/08/18 3:37 PM) Calcium Lvl 8.7 mg/dL [8.5-10.5 mg/dL] (05/08/18 3:37 PM) Chloride Lvl [95-109 110 mEq/L mEq/L] *HI* (05/08/18 3:37 PM) CO2 [24-32 mEq/L] 24 mEq/L (05/08/18 3:37 PM) Creatinine Lvl 1.74 mg/dL [0.50-1.40 mg/dL] *HI* (05/08/18 3:37 PM) Eosinophils [0.0-4.0 1.7 % %] (05/08/18 3:37 PM) Globulin [2.7-4.2 3.1 g/dL g/dL] (05/08/18 3:37 PM) Glucose Lvl [70-99 218 mg/dL mg/dL] *HI* (05/08/18 3:37 PM) Hct [36.0-48.0 %] 29.8 % *LOW* (05/08/18 3:37 PM) Hgb [12.0-16.0 g/dL] 10.2 g/dL *LOW* (05/08/18 3:37 PM) INR [0.85-1.17] 1.08 (05/08/18 3:37 PM) Potassium Lvl 4.6 mEq/L [3.5-5.1 mEq/L] (05/08/18 3:37 PM) Lymphocytes 20.7 % [20.0-40.0 %] (05/08/18 3:37 PM) MCH [27.0-31.0 pg] 31.5 pg *HI* (05/08/18 3:37 PM) MCHC [32.0-36.0 34.2 g/dL g/dL] (05/08/18 3:37 PM) MCV [80.0-98.0 fL] 92.2 fL (05/08/18 3:37 PM) Monocytes [2.0-12.0 6.7 % %] (05/08/18 3:37 PM) MPV [7.4-10.4 fL] 9.4 fL (05/08/18 3:37 PM) Sodium Lvl [135-145 142 mEq/L mEq/L] (05/08/18 3:37 PM) Platelet [133-450 211 K/CMM K/CMM] (05/08/18 3:37 PM) Segs [45.0-75.0 %] 70.2 % (05/08/18 3:37 PM) Total Protein 6.6 g/dL [6.4-8.4 g/dL] (05/08/18 3:37 PM) PT [12.0-14.7 13.8 seconds seconds] (05/08/18 3:37 PM) PTT [22.9-35.8 31.8 seconds seconds] (05/08/18 3:37 PM) RBC [4.20-5.40 3.23 M/CMM M/CMM] *LOW* (05/08/18 3:37 PM) RDW [11.5-14.5 %] 12.9 % (05/08/18 3:37 PM) Bili Total [0.2-1.3 0.3 mg/dL mg/dL] (05/08/18 3:37 PM) Troponin-I 0.09 ng/mL [0.00-0.40 ng/mL] (05/08/18 3:37 PM) WBC [3.7-10.4 K/CMM] 6.2 K/CMM (05/08/18 3:37 PM) 1Result Comment: The eGFR is calculated using the [...] from the National Kidney Disease Education Program ( NKDEP) which additionally recommends that when the eGFR is used in patients with extremes of body mass index for purposes of drug dosing, the eGFR should be mul tiplied by the estimated BMI. Immunizations Given and Recorded Vaccine Date Status [...]
--- OUTSIDE RECORDS SUMMARY | 2019-11-12 22:30 | XMS REPORT | Summary of Care ---
Author Author [facility] Organization [facility] Address Unknown Phone Unavailable Encounter BRANDEN Tinajero(MICHAELA) [id number] Date(s): 10/27/17 - 10/27/17 [facility] [address], [address] [place], [place] [address] Discharge Disposition: Home or Self Care Attending [...] Severity Status penicillins Active sulfa drugs Active Medications No Known Medications Results No [...] Reg Smoking Cessation Counseling No entered on: 10/27/17 Assessment and Plan No data available for this section
--- OUTSIDE RECORDS SUMMARY | 2019-11-12 22:30 | XMS REPORT | Summary of Care ---
Author Author [facility] Organization [facility] Address Unknown Phone Unavailable Encounter HQ Tanvi(FIN) [id number] Date(s): 01/26/18 - 01/26/18 [facility] [address], [address] [place], [place] [address] Attending Physician: Tristan Mcdaniels MD Referring Physician: Tristan Mcdaniels MD Vital Signs No data available for this section Problem List Condition Effective Dates Status Health [...]
--- OUTSIDE RECORDS SUMMARY | 2019-11-12 22:30 | XMS REPORT | CCD ---
Author Author [facility] Address Unknown Phone Unavailable Care Team Providers Care Heel Top Lift Splitter Name Role Phone Baldo Potter RP Allergies, [...]
--- OUTSIDE RECORDS SUMMARY | 2019-11-12 22:30 | XMS REPORT | Summary of Care ---
Author Author [facility] Organization [facility] Address Unknown Phone Unavailable Encounter BRANDEN Tinajero(MICHAELA) [id number] Date(s): 09/08/19 - 09/08/19 [facility] [address], [address] [place], [place] [address] Discharge Disposition: Home or Self Care Attending Physician: Tristan Mcdaniels MD Referring Physician: Tristan Mcdaniels MD Vital Signs Most recent to 1 oldest [Reference Range]: Height 148.59 cm (09/08/19 1:57 PM) Temperature Oral 97.9 DegF [96.4-99.1 DegF] (09/08/19 1:57 PM) Blood Pressure 145/60 mmHg [90-140/60-90 mmHg] *HI* (09/08/19 1:57 PM) Respiratory Rate 18 BRMIN [14-20 BRMIN] (09/08/19 1:57 PM) Peripheral Pulse 62 bpm Rate [60-100 bpm] (09/08/19 1:57 PM) Weight 60.17 kg (09/08/19 1:57 PM) Body Mass Index 27.25 m2 (09/08/19 1:57 PM) Problem List Condition Effective Dates Status [...] Active sulfa drugs Active codeine Active Medications Macular Vitamin Benefit oral tablet PO, Daily, 0 Refill(s) Start Date: 09/08/19 Status: Ordered metFORMIN 500 mg oral tablet 500 mg = 1 tab, PO, BID-Meals, # 180 tab, 1 Refill(s) Start Date: 09/08/19 Status: Ordered Results No data available for [...] Smoking Cessation Counseling No entered on: 09/08/19 Assessment and Plan No data available for this section
--- OUTSIDE RECORDS SUMMARY | 2019-11-12 22:30 | XMS REPORT | Summary of Care ---
Author Author [facility] Organization [facility] Address Unknown Phone Unavailable Encounter BRANDEN Tinajero(MICHAELA) [id number] Date(s): 11/18/17 - 11/18/[address] [facility] [address], 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 (Final) - Discharge Disposition: Left Against Medical Advise Attending Physician: Patricia Lagos MD Vital Signs Most recent to 1 2 oldest [Reference Range]: Height 154.94 cm (11/18/17 1:10 PM) Temperature Oral 97.3 DegF [96.4-99.1 DegF] (11/18/17 1:10 PM) Blood Pressure 145/80 mmHg 198/77 mmHg [90-140/60-90 mmHg] *HI* *HI* (11/18/17 3:46 PM) (11/18/17 1:10 PM) Respiratory Rate 20 BRMIN 20 BRMIN [14-20 BRMIN] (11/18/17 3:46 PM) (11/18/17 1:10 PM) Peripheral Pulse 70 bpm 77 bpm Rate [60-100 bpm] (11/18/17 3:46 PM) (11/18/17 1:10 PM) Weight 65 kg (11/18/17 1:10 PM) Body Mass Index 27.08 m2 (11/18/17 1:10 PM) Problem List Condition Effective Dates Status [...] Weight 65, kg, PRN, PRN Line Flush, St art date: 11/18/17 13:18:00 CDT, Duration: 30 day, Stop date: 12/18/17 13:17:00 CDT Notes: (Same as: BD Posiflush) Start Date: 11/18/17 Stop Date: 11/18/17 Status: Discontinued Results ELECTROLYTES Most recent to 1 oldest [Reference Range]: Sodium Lvl [135-145 143 mEq/L mEq/L] (11/18/17 1:30 PM) Potassium Lvl 4.3 mEq/L [3.5-5.1 mEq/L] (11/18/17 1:30 PM) Chloride Lvl [95-109 109 mEq/L mEq/L] (11/18/17 1:30 PM) CO2 [24-32 mEq/L] 25 mEq/L (11/18/17 1:30 PM) AGAP [10.0-20.0 13.3 mEq/L mEq/L] (11/18/17 1:30 PM) CHEM PANEL Most recent to 1 oldest [Reference Range]: Creatinine Lvl 1.49 mg/dL [0.50-1.40 mg/dL] *HI* (11/18/17 1:30 PM) eGFR 32 mL/min/1.73m2 1 *NA* (11/18/17 1:30 PM) BUN [7-22 mg/dL] 25 mg/dL *HI* (11/18/17 1:30 PM) B/C Ratio [6-25] 17 (11/18/17 1:30 PM) Glucose Lvl [70-99 153 mg/dL mg/dL] *HI* (11/18/17 1:30 PM) Total Protein 7.0 g/dL [6.4-8.4 g/dL] (11/18/17 1:30 PM) Albumin Lvl [3.5-5.0 3.8 g/dL g/dL] (11/18/17 1:30 PM) Globulin [2.7-4.2 3.2 g/dL g/dL] (11/18/17 1:30 PM) A/G Ratio [0.7-1.6] 1.2 (11/18/17 1:30 PM) Calcium Lvl 9.3 mg/dL [8.5-10.5 mg/dL] (11/18/17 1:30 PM) ALT [0-65 unit/L] 24 unit/L (11/18/17 1:30 PM) AST [0-37 unit/L] 25 unit/L (11/18/17 1:30 PM) Alk Phos [39-136 49 unit/L unit/L] (11/18/17 1:30 PM) Bili Total [0.2-1.3 0.5 mg/dL mg/dL] (11/18/17 1:30 PM) 1Result Comment: The eGFR is calculated [...] be mul tiplied by the estimated BMI. CARDIAC ENZYMES Most recent to 1 oldest [Reference Range]: Total CK [12-191 112 unit/L unit/L] (11/18/17 1:30 PM) CK MB [0.5-3.6 1.8 ng/mL ng/mL] (11/18/17 1:30 PM) CK MB Index 1.6 [0.0-2.5] (11/18/17 1:30 PM) Troponin-I <0.02 ng/mL [0.00-0.40 ng/mL] (11/18/17 1:30 PM) HEMATOLOGY Most recent to 1 oldest [Reference Range]: WBC [3.7-10.4 K/CMM] 8.1 K/CMM (11/18/17 1:30 PM) RBC [4.20-5.40 3.42 M/CMM M/CMM] *LOW* (11/18/17 1:30 PM) Hgb [12.0-16.0 g/dL] 10.6 g/dL *LOW* (11/18/17 1:30 PM) Hct [36.0-48.0 %] 31.5 % *LOW* (11/18/17 1:30 PM) MCV [80.0-98.0 fL] 92.0 fL (11/18/17 1:30 PM) MCH [27.0-31.0 pg] 30.9 pg (11/18/17 1:30 PM) MCHC [32.0-36.0 33.5 g/dL g/dL] (11/18/17 1:30 PM) RDW [11.5-14.5 %] 12.7 % (11/18/17 1:30 PM) MPV [7.4-10.4 fL] 9.7 fL (11/18/17 1:30 PM) Platelet [133-450 234 K/CMM K/CMM] (11/18/17 1:30 PM) Segs [45.0-75.0 %] 78.5 % *HI* (11/18/17 1:30 PM) Lymphocytes 14.4 % [20.0-40.0 %] *LOW* (11/18/17 1:30 PM) Monocytes [2.0-12.0 5.2 % %] (11/18/17 1:30 PM) Eosinophils [0.0-4.0 1.1 % %] (11/18/17 1:30 PM) Basophils [0.0-1.0 0.8 % %] (11/18/17 1:30 PM) Neutrophils # 6.3 K/CMM [1.5-8.1 K/CMM] (11/18/17 1:30 PM) Lymphocytes # 1.2 K/CMM [1.0-5.5 K/CMM] (11/18/17 1:30 PM) Monocytes # [0.0-0.8 0.4 K/CMM K/CMM] (11/18/17 1:30 PM) Eosinophils # 0.1 K/CMM [0.0-0.5 K/CMM] (11/18/17 1:30 PM) Basophils # [0.0-0.2 0.1 K/CMM K/CMM] (11/18/17 1:30 PM) PT [12.0-14.7 13.5 seconds seconds] (11/18/17 1:30 PM) INR [0.85-1.17] 1.03 (11/18/17 1:30 PM) PTT [22.9-35.8 31.6 seconds seconds] (11/18/17 1:30 PM) Immunizations Given and Recorded Vaccine Date Status [...]
--- OUTSIDE RECORDS SUMMARY | 2019-11-12 22:30 | XMS REPORT | Summary of Care ---
Author Author [facility] Organization [facility] Address Unknown Phone Unavailable Encounter BRANDEN Tinajero(MICHAELA) [id number] Date(s): 03/24/19 - 03/24/19 [facility] [address], [address] [place], [place] [address] Discharge Disposition: Home or Self Care Attending Physician: Tristan Mcdaniels MD Referring Physician: Tristan Mcdaniels MD Vital Signs Most recent to 1 oldest [Reference Range]: Height 148.59 cm (03/24/19 2:45 PM) Temperature Oral 98.4 DegF [96.4-99.1 DegF] (03/24/19 2:45 PM) Blood Pressure 157/72 mmHg [90-140/60-90 mmHg] *HI* (03/24/19 2:45 PM) Respiratory Rate 18 BRMIN [14-20 BRMIN] (03/24/19 2:45 PM) Peripheral Pulse 79 bpm Rate [60-100 bpm] (03/24/19 2:45 PM) Weight 64.631 kg (03/24/19 2:45 PM) Body Mass Index 29.27 m2 (03/24/19 2:45 PM) Problem List Condition Effective Dates Status [...] Active sulfa drugs Active codeine Active Medications busPIRone 5 mg oral tablet 5 mg = 1 tab, PO, TID, # 270 tab, 0 Refill(s) Start Date: 03/24/19 Status: Ordered furosemide 40 mg oral tablet 40 mg = 1 tab, PO, Daily, # 90 tab, 1 Refill(s) Start Date: 03/24/19 Status: Ordered Glucotrol 5 mg oral tablet 5 mg = 1 tab, PO, BID-Before Meals, # 180 tab, 1 Refill(s) Start Date: 03/24/19 Stop Date: 03/24/19 Status: Discontinued Lomotil oral tablet 1 tab, PO, QID, PRN for loose stool, 0 Refill(s) Start Date: 03/24/19 Stop Date: 03/31/19 Status: Ordered metoprolol tartrate 50 mg oral tablet 50 mg = 1 tab, PO, BID, # 180 tab, 3 Refill(s), Pharmacy: [facility] [id number] Start Date: 03/24/19 Status: Ordered nitrofurantoin macrocrystals 100 mg oral capsule (Macrodantin) 100 mg = 1 cap, PO, Daily, # 40 cap, 0 Refill(s) Start Date: 03/24/19 Stop Date: 04/03/19 Status: Ordered omeprazole 40 mg oral delayed release capsule 40 mg = 1 cap, PO, Daily, # 90 cap, 0 Refill(s) Start Date: 03/24/19 Status: Ordered pravastatin 20 mg oral tablet 20 mg = 1 tab, PO, Bedtime, PLEASE FAX PRESCRIPTION REFILL REQUESTS TO [phone] OR CALL [phone] PLEASE DO NOT SEND, # 90 tab, 3 Refill(s), Pharmacy: [facility] [id number] Start Date: 03/24/19 Status: Ordered Tylenol 325 mg oral capsule 325 mg = 1 cap, PO, PRN, 0 Refill(s) Start Date: 03/24/19 Status: Ordered Results Most recent to 1 oldest [Reference Range]: Neutrophils # 5.3 K/CMM [1.5-8.1 K/CMM] (03/24/19 5:06 PM) Lymphocytes # 1.8 K/CMM [1.0-5.5 K/CMM] (03/24/19 5:06 PM) Monocytes # [0.0-0.8 0.5 K/CMM K/CMM] (03/24/19 5:06 PM) Eosinophils # 0.2 K/CMM [0.0-0.5 K/CMM] (03/24/19 5:06 PM) Basophils # [0.0-0.2 0.1 K/CMM K/CMM] (03/24/19 5:06 PM) BNP [<=100 pg/mL] 743 pg/mL *HI* (03/24/19 5:06 PM) eGFR 22 mL/min/1.73m2 1 *NA* (03/24/19 5: PM) A/G Ratio [0.7-1.6] 1.2 (03/24/19 5:06 PM) Albumin Lvl [3.5-5.0 4.0 g/dL g/dL] (03/24/19 5:06 PM) Alk Phos [39-136 63 unit/L unit/L] (03/24/19 5:06 PM) ALT [0-65 unit/L] 24 unit/L (03/24/19 5:06 PM) AGAP [10.0-20.0 8.8 mEq/L mEq/L] *LOW* (03/24/19 5:06 PM) AST [0-37 unit/L] 35 unit/L (03/24/19 5:06 PM) B/C Ratio [6-25] 15 (03/24/19 5:06 PM) Basophils [0.0-1.0 1.1 % %] *HI* (03/24/19 5:06 PM) BUN [7-22 mg/dL] 30 mg/dL *HI* (03/24/19 5:06 PM) Calcium Lvl 9.3 mg/dL [8.5-10.5 mg/dL] (03/24/19 5:06 PM) Chloride Lvl [95-109 105 mEq/L mEq/L] (03/24/19 5:06 PM) CO2 [24-32 mEq/L] 29 mEq/L (03/24/19 5:06 PM) Creatinine Lvl 2.00 mg/dL [0.50-1.40 mg/dL] *HI* (03/24/19 5:06 PM) Eosinophils [0.0-4.0 2.0 % %] (03/24/19 5:06 PM) Globulin [2.7-4.2 3.3 g/dL g/dL] (03/24/19 5:06 PM) Glucose Lvl [70-99 202 mg/dL mg/dL] *HI* (03/24/19 5:06 PM) Hct [36.0-48.0 %] 34.7 % *LOW* (03/24/19 5: PM) Hgb [12.0-16.0 g/dL] 11.6 g/dL *LOW* (03/24/19: PM) Potassium Lvl 3.8 mEq/L [3.5-5.1 mEq/L] (03/24/19 5:06 PM) Lymphocytes 22.4 % [20.0-40.0 %] (03/24/19 5: PM) MCH [27.0-31.0 pg] 31.1 pg *HI* (03/24/19 5:06 PM) MCHC [32.0-36.0 33.6 g/dL g/dL] (03/24/19 5:06 PM) MCV [80.0-98.0 fL] 92.7 fL (03/24/19 5:06 PM) Monocytes [2.0-12.0 7.0 % %] (03/24/19 5:06 PM) MPV [7.4-10.4 fL] 10.0 fL (03/24/19 5:06 PM) Sodium Lvl [135-145 139 mEq/L mEq/L] (03/24/19 5:06 PM) Platelet [133-450 231 K/CMM K/CMM] (03/24/19 5:06 PM) Segs [45.0-75.0 %] 67.5 % (03/24/19 5:06 PM) Total Protein 7.3 g/dL [6.4-8.4 g/dL] (03/24/19 5:06 PM) RBC [4.20-5.40 3.74 M/CMM M/CMM] *LOW* (03/24/19 5:06 PM) RDW [11.5-14.5 %] 14.2 % (03/24/19 5:06 PM) Bili Total [0.2-1.3 0.5 mg/dL mg/dL] (03/24/19 5:06 PM) WBC [3.7-10.4 K/CMM] 7.9 K/CMM (03/24/19 5:06 PM) 1Result Comment: The eGFR is calculated [...]
--- OUTSIDE RECORDS SUMMARY | 2019-11-12 22:30 | XMS REPORT | Summary of Care ---
Author Author [facility] Organization [facility] Address Unknown Phone Unavailable Encounter BRANDEN Tinajero(MICHAELA) [id number] Date(s): 02/19/17 - 02/19/17 [facility] [address], [address] [place], [place] [address] Discharge Disposition: Home or Self Care Attending Physician: Tristan Mcdaniels MD Referring Physician: Tristan Mcdaniels MD Vital Signs Most recent to 1 oldest [Reference Range]: Height 124.46 cm (02/19/17 11:51 AM) Temperature Oral 97.6 DegF [96.4-99.1 DegF] (02/19/17 11:51 AM) Blood Pressure 151/74 mmHg [90-140/60-90 mmHg] *HI* (02/19/17 11:51 AM) Peripheral Pulse 80 bpm Rate [60-100 bpm] (02/19/17 11:51 AM) Weight 62.273 kg (02/19/17 11:51 AM) Body Mass Index 40.2 m2 (02/19/17 11:51 AM) Problem List Condition Effective Dates Status [...] Status penicillins Active sulfa drugs Active Medications bumetanide 1 mg oral tablet 1 mg = 1 tab, PO, Daily, Must make follow-up appointment for any future refills. Call [phone]., # 90 tab, 3 Refill(s), Pharmacy: [facility] [address], PL EASE FAX ALL FUTURE REFILL REQUESTS TO: [phone]. Start Date: 02/19/17 Status: Ordered lisinopril 5 mg oral tablet See Instructions, TAKE TWO TABS BY MOUTH IN THE MORNING AND ONE TAB IN THE EVENI NG., # 270 tab, 3 Refill(s), Pharmacy: [facility] [address] Start Date: 02/19/17 Status: Ordered metoprolol 25 mg oral tablet, extended release 50 mg = 2 tab, PO, Daily, Take 50mg daily., # 180 tab, 3 Refill(s), Pharmacy: [facility] [address] Start Date: 02/19/17 Stop Date: 02/14/18 Status: Ordered pravastatin 20 mg oral tablet 20 mg = 1 tab, PO, Bedtime, PLEASE FAX PRESCRIPTION REFILL REQUESTS TO OR CALL [phone] PLEASE DO NOT SEND, # 90 tab, 3 Refill(s), Pharmacy: [facility] [address] Start Date: 02/19/17 Stop Date: 02/14/18 Status: Ordered spironolactone 25 mg oral tablet 25 mg = 1 tab, PO, BID, # 180 tab, 0 Refill(s) Start Date: 02/19/17 Stop Date: 05/20/17 Status: Ordered spironolactone 25 mg oral tablet 25 mg = 1 tab, PO, BID, # 180 tab, 3 Refill(s), Pharmacy: [facility] [address] Start Date: 02/19/17 Stop Date: 02/14/18 Status: Ordered Results No data available for this section Immunizations Given and Recorded Vaccine Date Status Refusal Reason tetanus-diphtheria toxoids 05/07/10 Given Procedures Procedure Date Related Diagnosis Body Site CABG - Coronary artery bypass graft 11/27/12 Coronary artery bypass grafts x 4 11/11/12 Angiogram 11/08/12 Colonoscopy 08/10/12 Hemorrhoidectomy Social History Social History Type Response Alcohol Never Smoking Status Never smoker; Type: Cigars; Previous treatment: None; Exposure to Tobacco Smoke None; Cigarette Smoking Last 365 Days No; Reg Smoking Cessation Counseling No Assessment and Plan No data available for this section
--- OUTSIDE RECORDS SUMMARY | 2019-11-12 22:30 | XMS REPORT | CCD ---
Author Author [facility] Crowe [facility] Address Unknown Phone Unavailable Care Team Providers Care Toy Maker Name Role Phone Alek Foley RP Allergies, Adverse Reactions, Alerts Substance Reaction [...]
--- OUTSIDE RECORDS SUMMARY | 2019-11-12 22:30 | XMS REPORT | Summary of Care ---
Author Author [facility] Organization [facility] Address Unknown Phone Unavailable Encounter BRANDEN Tinajero(MICHAELA) [id number] Date(s): 05/08/18 - 05/08/18 [facility] [address], 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, Duration: 30 day, Stop date: 06/07/18 15:20 :00 [employer]ATERPR[employer] MACHINE TENDER Notes: (Same as: BD Posiflush) Start Date: 05/08/18 Stop Date: 05/08/18 Status: Discontinued Results ELECTROLYTES Most recent to 1 2 oldest [Reference Range]: Sodium Lvl [135-145 142 mEq/L mEq/L] (05/08/18 3:37 PM) Potassium Lvl 4.6 mEq/L [3.5-5.1 mEq/L] (05/08/18 3:37 PM) Chloride Lvl [95-109 110 mEq/L mEq/L] *HI* (05/08/18 3:37 PM) CO2 [24-32 mEq/L] 24 mEq/L (05/08/18 3:37 PM) AGAP [10.0-20.0 12.6 mEq/L mEq/L] (05/08/18 3:37 PM) CHEM PANEL Most recent to 1 2 oldest [Reference Range]: Creatinine Lvl 1.74 mg/dL [0.50-1.40 mg/dL] *HI* (05/08/18 3:37 PM) eGFR 27 mL/min/1.73m2 1 *NA* (05/08/18 3:37 PM) BUN [7-22 mg/dL] 28 mg/dL *HI* (05/08/18 3:37 PM) B/C Ratio [6-25] 16 (05/08/18 3:37 PM) Glucose Lvl [70-99 218 mg/dL mg/dL] *HI* (05/08/18 3:37 PM) Total Protein 6.6 g/dL [6.4-8.4 g/dL] (05/08/18 3:37 PM) Albumin Lvl [3.5-5.0 3.5 g/dL g/dL] (05/08/18 3:37 PM) Globulin [2.7-4.2 3.1 g/dL g/dL] (05/08/18 3:37 PM) A/G Ratio [0.7-1.6] 1.1 (05/08/18 3:37 PM) Calcium Lvl 8.7 mg/dL [8.5-10.5 mg/dL] (05/08/18 3:37 PM) ALT [0-65 unit/L] 49 unit/L (05/08/18 3:37 PM) AST [0-37 unit/L] 35 unit/L (05/08/18 3:37 PM) Alk Phos [39-136 105 unit/L unit/L] (05/08/18 3:37 PM) Bili Total [0.2-1.3 0.3 mg/dL mg/dL] (05/08/18 3:37 PM) 1Result Comment: The eGFR [...] BMI. CARDIAC ENZYMES Most recent to 1 2 oldest [Reference Range]: Troponin-I 0.09 ng/mL [0.00-0.40 ng/mL] (05/08/18 3:37 PM) proBNP [0-450 pg/mL] 58010 pg/mL 87359 pg/mL *HI* *HI* (05/08/18 3:37 PM) (05/08/18 3:37 PM) HEMATOLOGY Most recent to 1 2 oldest [Reference Range]: WBC [3.7-10.4 K/CMM] 6.2 K/CMM (05/08/18 3:37 PM) RBC [4.20-5.40 3.23 M/CMM M/CMM] *LOW* (05/08/18 3:37 PM) Hgb [12.0-16.0 g/dL] 10.2 g/dL *LOW* (05/08/18 3:37 PM) Hct [36.0-48.0 %] 29.8 % *LOW* (05/08/18 3:37 PM) MCV [80.0-98.0 fL] 92.2 fL (05/08/18 3:37 PM) MCH [27.0-31.0 pg] 31.5 pg *HI* (05/08/18 3:37 PM) MCHC [32.0-36.0 34.2 g/dL g/dL] (05/08/18 3:37 PM) RDW [11.5-14.5 %] 12.9 % (05/08/18 3:37 PM) MPV [7.4-10.4 fL] 9.4 fL (05/08/18 3:37 PM) Platelet [133-450 211 K/CMM K/CMM] (05/08/18 3:37 PM) Segs [45.0-75.0 %] 70.2 % (05/08/18 3:37 PM) Lymphocytes 20.7 % [20.0-40.0 %] (05/08/18 3:37 PM) Monocytes [2.0-12.0 6.7 % %] (05/08/18 3:37 PM) Eosinophils [0.0-4.0 1.7 % %] (05/08/18 3:37 PM) Basophils [0.0-1.0 0.7 % %] (05/08/18 3:37 PM) Neutrophils # 4.4 K/CMM [1.5-8.1 K/CMM] (05/08/18 3:37 PM) Lymphocytes # 1.3 K/CMM [1.0-5.5 K/CMM] (05/08/18 3:37 PM) Monocytes # [0.0-0.8 0.4 K/CMM K/CMM] (05/08/18 3:37 PM) Eosinophils # 0.1 K/CMM [0.0-0.5 K/CMM] (05/08/18 3:37 PM) PT [12.0-14.7 13.8 seconds seconds] (05/08/18 3:37 PM) INR [0.85-1.17] 1.08 (05/08/18 3:37 PM) PTT [22.9-35.8 31.8 seconds seconds] (05/08/18 3:37 PM) Immunizations Given and Recorded Vaccine Date [...]
--- OUTSIDE RECORDS SUMMARY | 2019-11-12 22:30 | XMS REPORT | Summary of Care ---
Author Author [facility] Organization [facility] Address Unknown Phone Unavailable Encounter HQ Tanvi(FIN) [id number] Date(s): 08/25/16 - 08/26/16 [facility] [address], [address] [place] [address]- Vital Signs No data available for this [...] Status penicillins Active sulfa drugs Active Medications lisinopril 5 mg oral tablet See Instructions, TAKE TWO TABS BY MOUTH IN THE MORNING AND ONE TAB IN THE EVENI NG., # 90 tab, 5 Refill(s), Pharmacy: [id number] Start Date: 08/25/16 Status: Ordered Results No data available for this section Immunizations Given and Recorded Vaccine Date Status Refusal Reason tetanus-diphtheria toxoids 05/07/10 Given Procedures Procedure Date Related Diagnosis Body Site CABG - Coronary artery bypass graft 11/27/12 Coronary artery bypass grafts x 4 11/11/12 Angiogram 11/08/12 Colonoscopy 08/10/12 Hemorrhoidectomy Social History Social History Type Response Alcohol Never Smoking Status Never smoker; Previous warren tment: None; Exposure to Tobacco Smoke None; Cigarette Smoking Last 365 Days No; Reg Smoking Cessation Counseling No Assessment and Plan No data available for this section
--- OUTSIDE RECORDS SUMMARY | 2019-11-12 22:30 | XMS REPORT | Summary of Care ---
Author Author [facility] Organization [facility] Address Unknown Phone Unavailable Encounter BRANDEN Tinajero(MICHAELA) [id number] Date(s): 07/28/17 - 07/28/17 [facility] [address], [address] [place], [place] [address] Discharge Disposition: Home or Self Care Attending Physician: Tristan Mcdaniels MD Referring Physician: Tristan Mcdaniels MD Vital Signs Most recent to 1 oldest [Reference Range]: Height 146.81 cm (07/28/17 2:48 PM) Temperature Oral 97.4 DegF [96.4-99.1 DegF] (07/28/17 2:48 PM) Blood Pressure 179/76 mmHg [90-140/60-90 mmHg] *HI* (07/28/17 2:48 PM) Respiratory Rate 15 BRMIN [14-20 BRMIN] (07/28/17 2:48 PM) Peripheral Pulse 76 bpm Rate [60-100 bpm] (07/28/17 2:48 PM) Weight 63.722 kg (07/28/17 2:48 PM) Body Mass Index 29.57 m2 (07/28/17 2:48 PM) Problem List Condition Effective Dates Status [...] Status penicillins Active sulfa drugs Active Medications metoprolol tartrate 50 mg oral tablet 50 mg = 1 tab, PO, BID, # 60 tab, 0 Refill(s), other Start Date: 07/28/17 Stop Date: 08/27/17 Status: Ordered Norvasc 5 mg oral tablet 5 mg = 1 tab, PO, Daily, # 30 tab, 5 Refill(s), Pharmacy: [id number] Start Date: 07/28/17 Stop Date: 01/24/18 Status: Ordered Results No data available for [...] Reg Smoking Cessation Counseling No entered on: 07/28/17 Assessment and Plan No data available for this section
--- OUTSIDE RECORDS SUMMARY | 2019-11-12 22:30 | XMS REPORT | Summary of Care ---
Author Author [facility] Organization [facility] Address Unknown Phone Unavailable Encounter BRANDEN Tinajero(MICHAELA) [id number] Date(s): 08/27/16 - 08/28/16 [facility] [address], [address] [place], [place] [address] Vital Signs No data available for this [...] follow-up appointment for any future refills. Call [phone]., # 90 tab, 0 Refill(s), [id number], [address] EASE FAX ALL FUTURE REFILL REQUESTS TO: [phone]. Start Date: 08/27/16 Stop Date: 11/25/16 Status: Ordered Results No data available for [...]
--- OUTSIDE RECORDS SUMMARY | 2019-11-12 22:30 | XMS REPORT | CCD ---
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 And Name Role Phone Alek Foley CP Endy Timmonslalit CP AmySabas Albin RP Allergies, Adverse Reactions, Alerts Substance Reaction Status penicillins Active sulfa drugs Active Problem List Condition Effective Dates Status Arthritis Resolved Cataract Resolved Diabetes Resolved Hemorrhoid Resolved Hypertensive disease Resolved Medications Medication Instructions Start Date End Date Status calcium gluconate + 1,000 mg, 10 mL, Route: IVPB, ONCE, 11/1511/15/2012 Completed Sodium Chloride 0.9% Dosing Weight 65, kg, Prior ity: IV 50 mL STAT, Start date: 11/15/12 4:54:00, Stop date: 11/15/12 4:54:00 albumin human 25% 75 gm, 300 mL, Route: IV, Drug 11/12/2012 Completed intravenous solution form: INJ, ONCE, Dosing Hari ght 65, kg, Priority: STAT, Start date: 11/12/12 0:22:00, Stop date: 11/12/12 0:22:00 calcium gluconate + 1,000 mg, 10 mL, Route: IVPB, ONCE, 11/1411/14/2012 Completed Sodium Chloride 0.9% Dosing Weight 65, kg, Start date: IV 50 mL 11/14/12 0:07:00, Stop date : 11/14/12 0:07:00 potassium phosphate 30 mmol, 10 mL, Route: IVPB, ONCE, 201211/14/2012 Completed + Sodium Chloride Dosing Weight 65, kg, Start date: 0.9% IV 250 mL 11/14/12 0:03:00, Stop date : 11/14/12 0:03:00 potassium chloride 40 mEq, Route: IV, ONCE, Dosing 11/13/2012 11/13/2012 Completed Weight 65, kg, Start date: 11/13/12 17:44:00, Stop date: 11/13/12 17:44:00 minocycline 100 mg 100 mg, 1 tab, PO, BID, 14 tab, 11/26/2012 Ordered oral tablet Substitution Allowed Bumex 1 mg, 4 mL, Route: IV, Drug form: 11/22/201211/23 Discontinued INJ, BID, Dosing Weight 73.722, kg, Start date: 11/22/12 17:00:00, Duration: 30 day, Stop date: 12/22/12 9:00:00 Neutra-Phos oral Route: PO, Drug Form: PDR/REC, 11/14/201208/2012 Completed powder Dosing Weight 65, kg, ONCE, STAT, Start date: 11/14/12 20:00:00, Stop date: 11/14/12 20:00:00 ondansetron 4 mg, 2 mL, Route: IVP, Drug form: 11/11/201207/2012 Completed INJ, ONCE, Dosing Weight 65, kg, PRN Nausea & Vomiting, Start date: 11/11/12 16:35:00 fentanyl (PF) 20 600 microgram, 30 mL, Route: IV, 11/11/2012 0 11/15/2012 Discontinued mcg/ml PLATING EQUIPMENT TENDER (600 PLATING EQUIPMENT TENDER Dose: 10 mcg, PLATING EQUIPMENT TENDER Locko ut: 10 microgram /30 mL) minutes, Continuous Basal R ate: 0 600 microgram mg, 4 Hour Limit (In MCG): 240, Drug Form: INJ, Continuous, Start date: 11/11/12 17:00:00, Duration: 30 day, Stop date: 12/11/12 16:59:00 naloxone 0.04 mg, 0.1 mL, Route: IVP, Drug 11/11/201211/15 Discontinued form: INJ, Q2MIN, Dosing Weight 65, kg, PRN Narcotic Reversal, Start date: 11/11/12 16:35:00, Duration: 30 day, Stop date: 12/11/12 16:34:00 fentanyl 10 microgram, 0.2 mL, Route: IVP, 11/11/201211/16 Discontinued Drug form: INJ, Q2H, Dosing Weight 65, kg, PRN Pain Score 1-3, Start date: 11/11/12 16:35:00, Duration: 30 day, Stop date: 12/11/12 16:34:00 nalbuphine 2 mg, 0.2 mL, Route: IVP, Drug 11/11/2012 11/13/19 Completed form: INJ, Q2H, Dosing Weight 65, kg, PRN Itching, Start date: 11/11/12 16:35:00, Duration: 5 doses or times, Stop date: 11/12/12 0:00:00 Dextrose 50% Syringe 12.5 gm, 25 mL, Route: IVP, Drug 11/11/2012 11/14/2012 Discontinued Form: INJ, Dosing Weight 65, kg, PRN, PRN Blood Glucose Results, Start date: 11/11/12 16:35:00, Duration: 30 day, Stop date: 12/11/12 16:34:00 Dextrose 50% Syringe 25 gm, 50 mL, Route: IVP, Drug 11/11/2012 11/14/2012 Discontinued Form: INJ, Dosing Weight 65, kg, PRN, PRN Blood Glucose Results, Start date: 11/11/12 16:35:00, Duration: 30 day, Stop date: 12/11/12 16:34:00 labetalol 10 mg, 2 mL, Route: IVP, Drug form: 11/11/201209/2012 Discontinued INJ, Q4H, Dosing Weight 65, kg, PRN Hypertension, Start date: 11/11/12 16:35:00, Duration: 30 day, Stop date: 12/11/12 16:34:00 metoprolol 2.5 mg, 2.5 mL, Route: IVP, Drug 11/11/20122012 Discontinued form: INJ, Q4H, Dosing Weight 65, kg, PRN Hypertension, Start date: 11/11/12 16:35:00, Duration: 30 day, Stop date: 12/11/12 16:34:00 hydrALAZINE 10 mg, 0.5 mL, Route: IVP, Drug 11/11/2012 Discontinued form: INJ, Q6H, Dosing Weight 65, kg, PRN Hypertension, Start date: 11/11/12 16:35:00, Duration: 30 day, Stop date: 12/11/12 16:34:00 pantoprazole 40 mg, Route: IVP, Drug form: INJ, 11/12/201209/2012 Discontinued Daily, Dosing Weight 65, kg, Start date: 11/12/12 9:00:00, Duration: 30 day, Stop date: 12/11/12 9:00:00 Insulin regular 100 99 mL, Rate: Start Insulin Drip Per 11/1111/14/2012 Discontinued unit + Sodium ICU Protocol, Dosing Weight 65, kg, Chloride 0.9% Route: IVPB, Total Volume: 100, (titrate) 99 mL Duration: 30 day, Stop date : 12/11/12 16:36:00, Replace Every: 24 hr, Initial Insulin Drip Rate (units/hour)=(Fasting Blood Glucose-60)X0.03 "multi... Initial Insulin Drip Rate (units/hour)=(Fasting Blood Glucose-60)X0.03 "multiplier". cefazolin (SCIP) 1 gm, Route: IVPB, Drug form: 11/11/201207/2012 Discontinued PDR/INJ, [id number], Dosing Weight 65, kg, Start date: 11/11/12 18:00:00, Duration: 6 doses or times, Stop date: 11/14/12 6:00:00 acetaminophen 650 mg, 1 supp, Route: NH, Drug 11/11/201211/26 Discontinued form: SUPP, Q4H, Dosing Weight 65, kg, PRN Pain Score 1-3, Start date: 11/11/12 16:35:00, Duration: 30 day, Stop date: 12/11/12 16:34:00 acetaminophen 650 mg, 20.3 mL, Route: PO, Drug 11/11/201211/10 Discontinued form: LIQ, Q4H, Dosing Weight 65, kg, PRN Pain 1-3/Temp > 100.4 F, Start date: 11/11/12 16:35:00, Duration: 30 day, Stop date: 12/11/12 16:34:00 vancomycin (SCIP) 1 gm, Route: IVPB, Drug form: INJ, 11/11/2012 11/11/2012 Canceled Q12H, Dosing Weight 65, kg, Start date: 11/11/12 21:00:00, Duration: 4 doses or times, Stop date: 11/13/12 9:00:00 aspirin 325 mg 325 mg, Route: NG, ONCE, Dosing 11/11/201205/2012 Completed tablet Weight 65, kg, Start date: 11/11/12 16:35:00, Stop date: 11/11/12 16:35:00 aspirin 300 mg 300 mg, 1 supp, Route: NH, Drug 11/12/201208/2012 Discontinued rectal suppository form: SUPP, Daily, Dosing W eight 65, kg, Start date: 11/12/12 9:00:00, Duration: 30 day, Stop date: 12/11/12 9:00:00 acetaminophen-hydroc 1 tab, Route: PO, Drug Form: TAB, 201211/26/2012 Discontinued odone 325 mg-10 mg Dosing Weight 65, kg, Q4H, PRN Pain oral tablet Score 1-3, Start date: 05/25 16:35:00, Duration: 30 day, Stop date: 12/11/12 16:34:00 acetaminophen-hydroc 2 tab, Route: PO, Drug Form: TAB, 201211/26/2012 Discontinued odone 325 mg-10 mg Dosing Weight 65, kg, Q4H, PRN Pain oral tablet Score 4-6, Start date: 05/25 16:35:00, Duration: 30 day, Stop date: 12/11/12 16:34:00 fentanyl 25 microgram, 0.5 mL, Route: IVP, 11/11/201211/16 Discontinued Drug form: INJ, Q2H, Dosing Weight 65, kg, PRN Pain Score 1-5, Start date: 11/11/12 16:35:00, Duration: 30 day, Stop date: 12/11/12 16:34:00 docusate 100 mg, 10 mL, Route: PO, Drug 11/11/2012 11/16/19 Discontinued form: LIQ, BID, Dosing Weight 65, kg, Start date: 11/11/12 17:00:00, Duration: 30 day, Stop date: 12/11/12 9:00:00 aspirin 325 mg, 1 tab, Route: NG, Drug 11/12/2012 11/27/19 Discontinued form: TAB, Daily, Dosing Weight 65, kg, Start date: 11/12/12 9:00:00, Duration: 30 day, Stop date: 12/11/12 9:00:00 Cardene 40 mg in NS 40 mg, 200 mL, Rate: Titrate, 11/11/2012 0 11/14/2012 Discontinued 200 ml IV 40 mg Dosing Weight 65, kg, Route : IV, Total Volume: 200 mL, Duration: 30 day, Stop date: 12/11/12 16:36:00, Replace Every: 24 hr nitroglycerin 100 mg 100 mg, 250 mL, Rate: Infuse as 11/11/2012 11/14/2012 Discontinued in 250 ml D5W directed, Dosing Weight 65, kg, Premix (titrate) 100 Route: IV, Total Volume: 25 0 mL, mg Start date: 11/11/12 16:35: 00, Duration: 30 day, Stop date: 12/11/12 16:34:00, Replace Every: 24 hr aspirin 81 mg 81 mg, 1 tab, PO, Daily, 30 tab, 3, 11/21/2012 0 11/24/2012 Discontinued tablet, chewable 3, Substitution Allowed, CH EWTAB calcium gluconate + 1,000 mg, 10 mL, Route: IVPB, ONCE, 11/1411/14/2012 Completed Sodium Chloride 0.9% Dosing Weight 65, kg, Prior ity: IV 50 mL STAT, Start date: 11/14/12 20:00:00, Stop date: 11/14/12 20:00:00 Saline Flush 0.9% 5 ml, Route: IVP, Drug Form: INJ, 11/09/2012 11/26/2012 Discontinued Dosing Weight 65, kg, PRN, PRN Line Flush, Start date: 11/09/12 18:35:00, Duration: 30 day, Stop date: 12/09/12 18:34:00 Saline Flush 0.9% 5 ml, Route: IVP, Drug Form: INJ, 11/09/2012 11/26/2012 Discontinued Dosing Weight 65, kg, Q12H, Start date: 11/09/12 21:00:00, Duration: 30 day, Stop date: 12/09/12 9:00:00 Sodium Chloride 0.9% 250 mL, Rate: on call pharmacy technician for use with 11/0911/11/2012 Discontinued (titrate) 250 mL blood product administratio n, Dosing Weight 65, kg, Route: IV, Total Volume: 250, Duration: 30 day, Stop date: 12/09/12 18:35:00, Replace Every: 24 hr cefazolin 1 gm, Route: IVPB, Drug form: 11/09/2012 3 Completed PDR/INJ, ONCALL, Dosing Weight 65, kg, Start date: 11/09/12 19:00:00, Stop date: 11/10/12 16:00:00 vancomycin 1 gm, Route: IVPB, Drug form: INJ, 11/09/2012 0805/2012 Completed ONCALL, Dosing Weight 65, kg, Start date: 11/09/12 19:00:00, Stop date: 11/10/12 16:00:00 Sodium Chloride 1,000 mL, Rate: 75 ml/hr, Infuse 11/09/2012 Discontinued 0.45% IV 1,000 mL over: 13.3 hr, Route: IV, D osing Weight 65 kg, Total Volume: 1,000, Start date: 11/09/12 18:35:00, Duration: 30 day, Stop date: 12/09/12 18:34:00 docusate sodium 100 100 mg, 1 cap, Route: PO, Drug 11/15/2012 11/26/2012 Discontinued mg oral capsule form: CAP, BID, Start date: 11/15/12 17:00:00, Duration: 30 day, Stop date: 12/15/12 9:00:00 acetaminophen-hydroc 1 tab, PO, Q4H, PRN, 30 tab, 0, 0, 11/21 Ordered odone 325 mg-10 mg Pain Score 1-3, Substitutio n oral tablet Allowed, Maintenance, TAB calcium chloride + 1,000 mg, 10 mL, Route: IVPB, ONCE, 201211/11/2012 Completed Sodium Chloride 0.9% Dosing Weight 65, kg, Start date: IV 100 mL 11/11/12 21:49:00, Stop denisse e: 11/11/12 21:49:00 potassium chloride 10 mEq, 1 tab, PO, Daily, 30 tab, 11/22/19 13 Ordered 10 mEq oral tablet, Substitution Allowed, ERTAB extended release Toprol-XL 50 mg oral 50 mg, 1 tab, PO, BID, 60 tab, 3, 2012 Ordered tablet, extended 3, Substitution Allowed, ER TAB release Sodium Chloride 0.9% 1,000 mL, Rate: 50 ml/hr, Infuse 11/12/2012 11/13/2012 Completed IV 1,000 mL over: 20 hr, Route: IV, Dos ing Weight 65 kg, Total Volume: 1,000, Priority: NOW, Start date: 11/12/12 21:15:00, Duration: 10 hr, Stop date: 11/13/12 7:14:00 milrinone 20 mg in 20 mg, 100 mL, Rate: As directed, 11/11/2012 11/13/2012 Discontinued D5W 100 ml Premix Dosing Weight 65, kg, Route : IV, (titrate) 20 mg Total Volume: 100, Start da te: 11/11/12 20:02:00, Duration: 30 day, Stop date: 12/11/12 20:01:00, Replace Every: 24 hr vancomycin 1 gm, Route: IVPB, Drug form: INJ, 11/13/201209/2012 Discontinued [id number], Dosing Weight 65, kg, Start date: 11/13/12 9:00:00, Duration: 30 day, Stop date: 12/12/12 21:00:00 labetalol 10 mg, 2 mL, Route: IV, Drug form: 11/11/201205/2012 Completed INJ, ONCE, Dosing Weight 65, kg, Priority: STAT, Start date: 11/11/12 18:31:00, Stop date: 11/11/12 18:31:00 vancomycin (SCIP) 1 gm, Route: IVPB, Drug form: INJ, 11/11/2012 11/12/2012 Completed [id number], Dosing Weight 65, kg, Start date: 11/11/12 20:00:00, Duration: 2 doses or times, Stop date: 11/12/12 8:00:00 iron sucrose + 100 mg, 5 mL, Route: IV, Daily, 11/17/201211/10 Completed Sodium Chloride 0.9% Dosing Weight 65, kg, 3 dos es only, IV 95 mL Priority: NOW, Start date: 11/17/12 21:10:00, Duration: 3 doses or times, Stop date: 11/19/12 9:00:00 potassium chloride 40 mEq, Route: IV, ONCE, Dosing 11/11/2012 11/11/2012 Discontinued Weight 65, kg, Priority: STAT, Start date: 11/11/12 19:07:00, Stop date: 11/11/12 19:07:00 potassium chloride 10 mEq, 50 mL, Route: IVPB, Drug 11/14/2012 11/14/2012 Discontinued form: INJ, Q1H, Start date: 11/14/12 0:00:00, Duration: 3 doses or times, Stop date: 11/14/12 2:00:00 AMIODarone 200 mg, 1 tab, Route: PO, Drug 11/14/2012 11/23/19 Discontinued form: TAB, TID, Dosing Weight 65, kg, Start date: 11/14/12 17:00:00, Duration: 30 day, Stop date: 12/14/12 13:00:00 Bumex 1 mg, 4 mL, Route: IVP, Drug form: 11/22/201211/10 Completed INJ, ONCE, Dosing Weight 73.722, kg, Priority: STAT, Start date: 11/22/12 7:51:00, Stop date: 11/22/12 7:51:00 Bumex 1 mg, 4 mL, Route: IVP, Drug form: 11/22/201211/10 Discontinued INJ, Q12H, Dosing Weight 73.722, kg, Priority: Routine, Start date: 11/22/12 9:00:00, Duration: 30 day, Stop date: 12/21/12 21:00:00 AMIODarone 900 mg + 482 mL, Rate: Infuse as directed, 11/14/2012 11/15/2012 Discontinued Dextrose 5% in Water Dosing Weight 65, kg, Route : IV, (Titrate) IV 482 mL Total Volume: 500 mL, Stop date: 12/14/12 8:57:00, Replace Every: 24 hr calcium gluconate + 1,000 mg, 10 mL, Route: IVPB, Drug 201211/16/2012 Completed Sodium Chloride 0.9% form: INJ, ONCE, Dosing Hari ght 65, IV 50 mL kg, Priority: STAT, Start d ate: 11/16/12 3:15:00, Stop date: 11/16/12 3:15:00 potassium chloride 40 mEq, 30 mL, Route: PO, Drug 11/16/2012 0 11/16/2012 Completed 20 mEq/15 mL oral form: LIQ, ONCE, Dosing Hari ght 65, liquid kg, Priority: NOW, Start da te: 11/16/12 3:15:00, Stop date: 11/16/12 3:15:00 AMIODarone 200 mg, 1 tab, Route: PO, Drug 11/23/2012 11/27/19 Discontinued form: TAB, Daily, Dosing Weight 65, kg, Start date: 11/23/12 9:00:00, Duration: 30 day, Stop date: 12/22/12 9:00:00 vancomycin 1 gm, Route: IV, Drug form: INJ, 11/24/20122012 Discontinued [id number], Dosing Weight 73.722, kg, Start date: 11/24/12 13:15:00, Duration: 30 day, Stop date: 12/24/12 1:15:00 lisinopril 20 mg 20 mg, 1 tab, PO, Q12H, 30 tab, 3, 3 Ordered oral tablet 3, Substitution Allowed, TA B Glucotrol 5 mg oral 5 mg, 1 tab, Route: PO, Drug form: 201211/26/2012 Discontinued tablet TAB, BID-After Meals, Dosin g Weight 73.722, kg, Start date: 11/22/12 17:30:00, Duration: 30 day, Stop date: 12/22/12 8:30:00 insulin glargine 100 15 unit, 0.15 mL, SUB-Q, Daily, 5 201211/22/2012 Discontinued units/mL mL, 3, 3, Substitution Allo wed, subcutaneous SOLN solution potassium chloride 20 mEq, 100 mL, Route: IVPB, Drug 11/12/2012 11/12/2012 Completed form: INJ, ONCE, Dosing Weight 65, kg, Total dose = 20 mEq, Start date: 11/12/12 6:14:00, Duration: 1 doses or times, Stop date: 11/12/12 6:14:00, For K = 3.5 - 3.9 mEq/L For K = 3.5 - 3.9 mEq/L magnesium sulfate 1 gm, 50 mL, Route: IVPB, Drug 11/13/2012 Discontinued form: INJ, ONCE, Dosing Weight 65, kg, Priority: STAT, Start date: 11/13/12 23:10:00, Stop date: 11/13/12 23:10:00 potassium chloride 30 mEq, Route: IV, ONCE, Dosing 11/13/2012 11/13/2012 Deleted Weight 65, kg, Priority: STAT, Start date: 11/13/12 23:10:00, Stop date: 11/13/12 23:10:00 metoprolol 5 mg/5 ml 5 mg, 5 mL, Route: IV, Drug form: 201211/13/2012 Completed INJ INJ, ONCE, Dosing Weight 65 , kg, Priority: NOW, Start date: 11/13/12 23:10:00, Stop date: 11/13/12 23:10:00 furosemide 40 mg 40 mg, 1 tab, PO, Daily, 30 tab, 3, 11/21/2012 11/22/2012 Discontinued oral tablet 3, Substitution Allowed, TA B docusate sodium 100 100 mg, 1 cap, PO, Daily, 30 cap, 013 Ordered mg oral capsule 3, 3, Substitution Allowed, CAP atorvastatin 20 mg 20 mg, 1 tab, PO, QPM, 30 tab, 3, 11/22/19 13 Ordered oral tablet 3, Substitution Allowed, TA B AMIODarone 200 mg 200 mg, 1 tab, PO, Daily, 30 tab, 3 Ordered oral tablet 3, 3, Substitution Allowed, TAB fentanyl 100 microgram, Route: IVP, ONCE, 11/11/20122012 Completed Dosing Weight 65, kg, Priority: STAT, Start date: 11/11/12 17:00:00, Stop date: 11/11/12 17:00:00 Bumex 1 mg, 1 tab, Route: PO, Drug form: 11/23/201211/10 Discontinued TAB, BID, Dosing Weight 73.722, kg, Start date: 11/23/12 17:00:00, Duration: 30 day, Stop date: 12/23/12 9:00:00 Merrem 500 mg, Route: IV, Drug form: 11/12/2012 3 Discontinued PDR/INJ, [id number], Dosing Weight 65, kg, Start date: 11/12/12 10:00:00, Duration: 30 day, Stop date: 12/12/12 2:00:00 ondansetron 4 mg, 2 mL, Route: IV, Drug form: 11/21/201211/26 Discontinued INJ, Q6H, Dosing Weight 73.722, kg, PRN Nausea, Start date: 11/21/12 17:57:00, Duration: 30 day, Stop date: 12/21/12 17:56:00 potassium chloride 20 mEq, 100 mL, Route: IVPB, Drug 11/13/2012 11/13/2012 Completed form: INJ, ONCE, Start date: 11/13/12 5:30:00, Stop date: 11/13/12 5:30:00 morphine Sulfate 2 mg, 1 mL, Route: IVP, Drug form: 11/14/2012 11/14/2012 Completed INJ, ONCE, Dosing Weight 65, kg, Priority: NOW, Start date: 11/14/12 2:11:00, Stop date: 11/14/12 2:11:00 Glucotrol XL 5 mg 5 mg, 1 tab, PO, TID, Substitution 11/08/2012 11/21/2012 Discontinued oral tablet, Allowed extended release hydrochlorothiazide 12.5 mg, PO, Daily, Substitution 11/08/2012 11/21/2012 Discontinued Allowed Lasix 40 mg, 4 mL, Route: IVP, Drug form: 11/09/2012 Discontinued INJ, Daily, Dosing Weight 65, kg, Start date: 11/09/12 9:00:00, Duration: 30 day, Stop date: 12/08/12 9:00:00 metoprolol tartrate 25 mg, 1 tab, Route: PO, Drug form: 11/0911/15/2012 Discontinued TAB, Q12H, Dosing Weight 65, kg, Start date: 11/09/12 9:00:00, Duration: 30 day, Stop date: 12/08/12 21:00:00 Klor-Con 10 10 mEq, 1 tab, Route: PO, Drug 11/09/2012 11/27/19 Discontinued form: ERTAB, Daily, Dosing Weight 65, kg, Start date: 11/09/12 9:00:00, Duration: 30 day, Stop date: 12/08/12 9:00:00 lisinopril 20 mg, 1 tab, Route: PO, Drug form: 11/09/2012 Discontinued TAB, Daily, Dosing Weight 65, kg, Start date: 11/09/12 9:00:00, Duration: 30 day, Stop date: 12/08/12 9:00:00 tetanus-diphtheria 0.5 ml, Route: IM, ONCE, STAT, 05/07/2010 0 05/07/2010 Completed toxoids adult Start date: 05/07/10 17:05: 00, Stop intramuscular date: 05/07/10 17:05:00 suspension Lasix 20 mg, 2 mL, Route: IVP, Drug form: 11/15/201209/2012 Completed INJ, ONCE, Dosing Weight 65, kg, Start date: 11/15/12 9:00:00, Stop date: 11/15/12 9:00:00 AMIODarone 150 mg + 100 mL, Rate: 600 ml/hr, Infuse 11/14/2012 11/14/2012 Completed Dextrose 5% in Water over: 10.3 min, Route: IVPB , Dosing IV 100 mL Weight 65 kg, Total Volume: 103, Start date: 11/14/12 8:58:00, Duration: 1 doses or times, Stop date: 11/14/12 9:07:00 potassium chloride 20 mEq, 100 mL, Route: IVPB, Drug 11/11/2012 11/11/2012 Completed form: INJ, Q2H, Start date: 11/11/12 20:00:00, Duration: 2 doses or times, Stop date: 11/11/12 22:00:00 lisinopril 20 mg 20 mg, 1 tab, PO, Daily, 30 tab, 11/08/2012 0 11/15/2012 Discontinued oral tablet Substitution Allowed, TAB Sodium Chloride 0.9% 250 mL, Rate: on call pharmacy technician for use with 11/1011/13/2012 Discontinued (titrate) 250 mL blood product administratio n, Dosing Weight 65, kg, Route: IV, Total Volume: 250, Duration: 30 day, Stop date: 12/10/12 18:21:00, Replace Every: 24 hr vancomycin + Sodium 1,500 mg, Route: IVPB, ONCALL, 11/10/2012 11/13/2012 Discontinued Chloride 0.9% IV 250 Dosing Weight 65, kg, Start date: mL 11/10/12 19:00:00, Stop denisse e: 11/11/12 15:00:00 cefazolin 1 gm, Route: IVPB, Drug form: 11/10/2012 3 Discontinued PDR/INJ, ONCALL, Dosing Weight 65, kg, Start date: 11/10/12 19:00:00, Stop date: 11/11/12 15:00:00 lisinopril 20 mg, 1 tab, Route: PO, Drug form: 11/09/2012 Discontinued TAB, Q12H, Dosing Weight 65, kg, Priority: STAT, Start date: 11/09/12 14:39:00, Duration: 30 day, Stop date: 12/09/12 9:00:00 magnesium sulfate 2 gm, 50 mL, Route: IVPB, Drug 11/13/2012 Completed form: INJ, ONCE, Dosing Weight 65, kg, Start date: 11/13/12 17:20:00, Duration: 1 doses or times, Stop date: 11/13/12 17:20:00, For Mg = 1.8 - 2 mg/dL For Mg = 1.8 - 2 mg/dL aspirin 325 mg 325 mg, 1 tab, PO, Daily, 30 tab, 11/24/2012 Ordered tablet, enteric 2, 2, Substitution Allowed coated calcium gluconate + 1,000 mg, 10 mL, Route: IV, ONCE, 11/11/2012 11/11/2012 Completed Sodium Chloride 0.9% Dosing Weight 65, kg, Prior ity: IV 50 mL STAT, Start date: 11/11/12 18:45:00, Stop date: 11/11/12 18:45:00 insulin glargine 100 15 unit, 0.15 mL, SUB-Q, Daily, 1 2012 Ordered units/mL pen(s), Substitution Allowe d, SOLN subcutaneous solution Lasix 40 mg, 1 tab, Route: PO, Drug form: 11/20/2012 Discontinued TAB, Daily, Start date: 11/20/12 14:00:00, Duration: 30 day, Stop date: 12/20/12 9:00:00 Toprol-XL 50 mg oral 50 mg, 1 tab, Route: PO, Drug form: 09/201211/26/2012 Discontinued tablet, extended ERTAB, BID, Start date: 09/22 release 21:00:00, Duration: 30 day, Stop date: 12/15/12 9:00:00 metoprolol 5 mg/5 ml 5 mg, 5 mL, Route: IV, Drug form: 201211/14/2012 Completed INJ INJ, ONCE, Dosing Weight 65 , kg, Priority: STAT, Start date: 11/14/12 7:08:00, Stop date: 11/14/12 7:08:00 Klor-Con 10 oral 10 mEq, 1 tab, PO, Daily, 11/08/2012 11/16/19 Discontinued tablet, extended Substitution Allowed release potassium chloride 40 mEq, 30 mL, Route: NJ, Drug 11/13/2012 0 11/13/2012 Completed form: LIQ, ONCE, Dosing Weight 65, kg, Start date: 11/13/12 17:20:00, Duration: 1 doses or times, Stop date: 11/13/12 17:20:00, For K = 3 - 3.4 mEq/L For K = 3 - 3.4 mEq/L insulin aspart 2 unit, 0.02 mL, Route: SUB-Q, Drug 11/14/2012 11/26/2012 Discontinued form: SOLN, TID-Before Meals, Dosing Weight 65, kg, PRN Blood Glucose Results, Start date: 11/14/12 12:02:00, Duration: 30 day, Stop date: 12/14/12 12:01:00 insulin aspart 4 unit, 0.04 mL, Route: SUB-Q, Drug 11/14/2012 11/26/2012 Discontinued form: SOLN, TID-Before Meals, Dosing Weight 65, kg, PRN Blood Glucose Results, Start date: 11/14/12 12:02:00, Duration: 30 day, Stop date: 12/14/12 12:01:00 insulin aspart 6 unit, 0.06 mL, Route: SUB-Q, Drug 11/14/2012 11/26/2012 Discontinued form: SOLN, TID-Before Meals, Dosing Weight 65, kg, PRN Blood Glucose Results, Start date: 11/14/12 12:02:00, Duration: 30 day, Stop date: 12/14/12 12:01:00 insulin aspart 8 unit, 0.08 mL, Route: SUB-Q, Drug 11/14/2012 11/26/2012 Discontinued form: SOLN, TID-Before Meals, Dosing Weight 65, kg, PRN Blood Glucose Results, Start date: 11/14/12 12:02:00, Duration: 30 day, Stop date: 12/14/12 12:01:00 insulin aspart 10 unit, 0.1 mL, Route: SUB-Q, Drug 11/14/2012 11/26/2012 Discontinued form: SOLN, TID-Before Meals, Dosing Weight 65, kg, PRN Blood Glucose Results, Start date: 11/14/12 12:02:00, Duration: 30 day, Stop date: 12/14/12 12:01:00 Dextrose 50% Syringe 12.5 gm, 25 mL, Route: IVP, Drug 11/14/2012 11/26/2012 Discontinued Form: INJ, Dosing Weight 65, kg, PRN, PRN Blood Glucose Results, Start date: 11/14/12 12:02:00, Duration: 30 day, Stop date: 12/14/12 12:01:00 Dextrose 50% Syringe 25 gm, 50 mL, Route: IVP, Drug 11/14/2012 11/26/2012 Discontinued Form: INJ, Dosing Weight 65, kg, PRN, PRN Blood Glucose Results, Start date: 11/14/12 12:02:00, Duration: 30 day, Stop date: 12/14/12 12:01:00 glucagon 1 mg, Route: IM, Drug form: 11/14/2012 11/26/2012 Discontinued PDR/INJ, PRN, Dosing Weight 65, kg, PRN Blood Glucose Results, Start date: 11/14/12 12:02:00, Duration: 30 day, Stop date: 12/14/12 12:01:00 insulin glargine 15 unit, 0.15 mL, Route: SUB-Q, 11/14/2012 Discontinued Drug form: INJ, Daily, Dosing Weight 65, kg, Start date: 11/14/12 13:00:00, Stop date: 12/14/12 9:00:00 heparin 5,000 unit, 1 mL, Route: SUB-Q, 11/09/2012 013 Discontinued Drug form: INJ, Q8H, Dosing Weight 65, kg, Start date: 11/09/12 16:00:00, Duration: 30 day, Stop date: 12/09/12 8:00:00 Lactated Ringers 250 mL, Rate: 250 ml/hr, Infuse 11/12/2012 Completed (Bolus) IV 250 mL over: 1 hr, Route: IV, Dosi ng Weight 65 kg, Total Volume: 250, Start date: 11/12/12 0:13:00, Duration: 1 doses or times, Stop date: 11/12/12 1:12:00 normal saline 0.9% 85 mL, Rate: 42.5 ml/hr, Infuse 11/13/2012 11/13/2012 Deleted IV 85 mL + potassium over: 2 hr, Route: IVPB, Do sing chloride 20 mEq + Weight 65 kg, Total Volume: 85 mL, sodium bicarbonate Priority: STAT, Start date: 4% (Neut) 5 mL 11/13/12 5:00:00, Duration: 1 doses or times, Stop date: 11/13/12 6:59:00 Glucotrol 5 mg oral 5 mg, 1 tab, PO, BID-After Meals, 013 Ordered tablet 60 tab, 2, 2, Substitution Allowed, TAB AMIODarone 0.5 mg/min, Route: PO, Drug form: 11/15/201211/15 Discontinued TAB, BID, Dosing Weight 65, kg, Start date: 11/15/12 17:00:00, Stop date: 12/15/12 9:00:00 metoprolol 5 mg/5 ml 5 mg, 5 mL, Route: IV, Drug form: 201211/13/2012 Completed INJ INJ, ONCE, Dosing Weight 65 , kg, Start date: 11/13/12 19:41:00, Stop date: 11/13/12 19:41:00 FENTanyl 1000 mcg in 1,000 microgram, 20 mL, Rate: 11/11/2012 11/14/2012 Discontinued 20 mL (titrate) IV Titrate as directed, Dosing Weight 1,000 microgram 65, kg, Route: IV, Total Vo lume: 20 ml, Duration: 30 day, Stop date: 12/11/12 17:11:00, Replace Every: 24 hr atorvastatin 20 mg, 1 tab, Route: PO, Drug form: 11/09/2012 Discontinued TAB, QPM, Dosing Weight 65, kg, Start date: 11/09/12 17:00:00, Duration: 30 day, Stop date: 12/08/12 17:00:00 bumetanide 1 mg oral 1 mg, 1 tab, PO, BID, 60 tab, 2, 2, 11/10 Ordered tablet Substitution Allowed, TAB Insulin regular 5 unit, Route: SUB-Q, ONCE, Dosing 11/10/2012 11/10/2012 Completed Weight 65, kg, Start date: 11/10/12 21:55:00, Stop date: 11/10/12 21:55:00 Lasix 20 mg, 2 mL, Route: IVP, Drug form: 11/09/201209/2012 Discontinued INJ, Q12H, Dosing Weight 65, kg, Start date: 11/09/12 21:00:00, Duration: 30 day, Stop date: 12/09/12 9:00:00 D5W 1000 mL 1,000 mL, Rate: 50 ml/hr, Infuse 11/13/20122012 Discontinued over: 20 hr, Route: IV, Dosing Weight 65 kg, Total Volume: 1,000, Start date: 11/13/12 8:44:00, Duration: 30 day, Stop date: 12/13/12 8:43:00 aspirin 81 mg, 1 tab, Route: PO, Drug form: 11/09/201205/2012 Discontinued ECTAB, Daily, Dosing Weight 65, kg, Start date: 11/09/12 9:00:00, Duration: 30 day, Stop date: 12/08/12 9:00:00 albumin human 25% 12.5 gm, 250 mL, Route: IV, Drug 11/12/2012 11/12/2012 Deleted intravenous solution form: INJ, ONCE, Dosing Hari ght 65, kg, Start date: 11/12/12 0:14:00, Stop date: 11/12/12 0:14:00 metoprolol 5 mg/5 ml 5 mg, Route: IV, ONCE, Dosing 11/14/2012 11/14/2012 Completed INJ Weight 65, kg, Priority: ST AT, Start date: 11/14/12 3:17:00, Stop date: 11/14/12 3:17:00 Lasix 20 mg, 1 tab, Route: PO, Drug form: 11/18/201202/2013 Discontinued TAB, Daily, Dosing Weight 65, kg, Start date: 11/18/12 12:00:00, Duration: 30 day, Stop date: 12/18/12 9:00:00 Immunizations Vaccine Date Status tetanus-diphtheria toxoids 05/07/2010 Auth (Verif ied) Vital Signs Most recent to oldest [Reference Range]: 1 2 3 Height 160.02 cm (11/13/2012 17:04:00) 154.94 cm (11/08/2012 21:12:00) 154.94 cm (11/08/2012 21:12:00) Current Weight 62.818 kg (11/26/2012 05:37:00) 64.364 kg (11/24/2012 05:12:00) 71.449 kg (11/21/2012 06:38:00) Temperature Oral [96.4-99.1 DegF] 99.2 DegF *HI* (11/26/2012 12:27:00) 99.0 DegF (11/26/2012 09:25:00) 98.8 DegF (11/25/2012 22:55:00) Systolic Blood Pressure [90-140 mmHg] 133 mmHg (11/26/2012 12:27:00) 121 mmHg (11/26/2012 09:25:00) 114 mmHg (11/25/2012 22:55:00) Diastolic Blood Pressure [60-90 mmHg] 61 mmHg (11/26/2012 12:27:00) 56 mmHg *LOW* (11/26/2012 09:25:00) 69 mmHg (11/25/2012 22:55:00) Respiratory Rate [14-20 BRMIN] 18 BRMIN (11/25/2012 22:55:00) 18 BRMIN (11/25/2012 20:34:00) 18 BRMIN (11/24/2012 00:00:00) Peripheral Pulse Rate [60-100 bpm] 88 bpm (11/25/2012 22:55:00) 89 bpm (11/25/2012 20:34:00) 79 bpm (11/25/2012 17:11:00) Weight 73.722 kg (11/19/2012 06:58:00) 65 kg (11/08/2012 21:12:00) 65 kg (11/08/2012 21:12:00) Results BEDSIDE GLUCOSE TESTING Most recent to oldest [Reference Range]: 1 2 3 Gluc POC Lif[place]n [70-99 mg/dL] 207 mg/dL 1 *HI* (11/26/2012 11:56:00) 252 mg/dL 2 *HI* (11/26/2012 09:13:00) 180 mg/dL 3 *HI* (11/25/2012 22:57:00) Comment1 Notify RN/MD *NA* (11/26/2012 11:56:00) Notify RN/MD *NA* (11/26/2012 09:13:00) Notify RN/MD *NA* (11/25/2012 22:57:00) Comment2 Verify w/Lab *NA* (11/22/2012 12:07:00) 1Interpretive Data: Upper Reportable Limit: 200 mg/dL. 2Interpretive Data: Upper Reportable Limit: 200 mg/dL. 3Interpretive Data: Upper Reportable Limit: 200 mg/dL. URINALYSIS Most recent to oldest [Reference Range]: 1 2 3 UA Turbidity [Clear] Clear (11/12/2012 10:38:27) UA Color [Yellow] Yellow *NA* (11/12/2012 10:38:27) UA pH [5.0-8.0] 5.5 (11/12/2012 10:38:27) UA Spec Grav [<=1.030] 1.025 (11/12/2012 10:38:27) UA Glucose [Negative] Negative (11/12/2012 10:38:27) UA Blood [Negative] Trace *ABN* (11/12/2012 10:38:27) UA Ketones [Negative] Negative *NA* (11/12/2012 10:38:27) UA Protein [Negative] Negative (11/12/2012 10:38:27) UA Urobilinogen [0.1-1.0 EU/dL] 0.2 EU/dL (11/12/2012 10:38:27) UA Bili [Negative] Negative *NA* (11/12/2012 10:38:27) UA Leuk Est [Negative] Negative (11/12/2012 10:38:27) UA Nitrite [Negative] Negative (11/12/2012 10:38:27) UA WBC [0-5] None Seen (11/12/2012 10:38:27) UA RBC [0-2 /HPF] 0-2 /HPF (11/12/2012 10:38:27) UA Bacteria [None Seen /HPF] Occasional /HPF (11/12/2012 10:38:27) UA Sq Epi [Few] None Seen (11/12/2012 10:38:27) Micro? Performed (11/12/2012 10:38:27) BLOOD BANK RESULTS Most recent to oldest [Reference Range]: 1 2 3 ABO/Rh O POS *Unknown* (11/16/2012 01:55:00) O POS *Unknown* (11/12/2012 01:00:00) O POS *Unknown* (11/09/2012 01:30:00) Antibody Scrn Negative (11/16/2012 01:55:00) Negative (11/12/2012 01:00:00) Negative (11/09/2012 01:30:00) DENISSE Gel Int Negative (11/12/2012 01:00:00) C3 Int Negative (11/12/2012 01:00:00) FFP product Product available (11/12/2012 09:40:00) Product available (11/10/2012 18:22:00) Product available (11/09/2012 18:36:00) Platelet product Product available (11/10/2012 18:22:00) Product available (11/09/2012 18:36:00) RBC product Product available (11/14/2012 05:18:00) Product available (11/12/2012 09:40:00) Product available (11/12/2012 08:31:00) CHEMISTRY Most recent to oldest [Reference Range]: 1 2 3 Sodium Lvl [135-145 mEq/L] 144 mEq/L (11/25/2012 04:00:00) 142 mEq/L (11/24/2012 00:15:00) 140 mEq/L (11/23/2012 05:15:00) Potassium Lvl [3.5-5.1 mEq/L] 4.2 mEq/L (11/25/2012 04:00:00) 4.2 mEq/L (11/24/2012 00:15:00) 4.2 mEq/L (11/23/2012 05:15:00) Chloride Lvl [95-109 mEq/L] 102 mEq/L (11/25/2012 04:00:00) 102 mEq/L (11/24/2012 00:15:00) 105 mEq/L (11/23/2012 05:15:00) CO2 [24-32 mEq/L] 29 mEq/L (11/25/2012 04:00:00) 30 mEq/L (11/24/2012 00:15:00) 32 mEq/L (11/23/2012 05:15:00) AGAP [10.0-20.0 mEq/L] 17.2 mEq/L (11/25/2012 04:00:00) 14.2 mEq/L (11/24/2012 00:15:00) 7.2 mEq/L *LOW* (11/23/2012 05:15:00) Creatinine Lvl [0.5-1.4 mg/dL] 1.3 mg/dL (11/25/2012 04:00:00) 1.4 mg/dL (11/24/2012 00:15:00) 1.2 mg/dL (11/23/2012 05:15:00) eGFR 40 mL/min/1.73m2 4 *NA* (11/25/2012 04:00:00) 36 mL/min/1.73m2 5 *NA* (11/24/2012 00:15:00) 44 mL/min/1.73m2 6 *NA* (11/23/2012 05:15:00) BUN [7-22 mg/dL] 16 mg/dL (11/25/2012 04:00:00) 17 mg/dL (11/24/2012 00:15:00) 14 mg/dL (11/23/2012 05:15:00) B/C Ratio [6-25] 12 (11/23/2012 05:15:00) 25 (11/13/2012 02:05:00) 23 (11/12/2012 10:10:00) Glucose Lvl [70-99 mg/dL] 127 mg/dL 7 *HI* (11/25/2012 04:00:00) 118 mg/dL 8 *HI* (11/24/2012 00:15:00) 123 mg/dL 9 *HI* (11/23/2012 05:15:00) Total Protein [6.4-8.4 g/dL] 5.8 g/dL *LOW* (11/23/2012 05:15:00) 6.3 g/dL *LOW* (11/22/2012 11:26:00) 4.9 g/dL *LOW* (11/13/2012 02:05:00) Albumin Lvl [3.5-5.0 g/dL] 2.6 g/dL *LOW* (11/23/2012 05:15:00) 2.9 g/dL *LOW* (11/22/2012 11:26:00) 3.1 g/dL *LOW* (11/13/2012 02:05:00) Globulin [2.0-4.0 g/dL] 3.2 g/dL (11/23/2012 05:15:00) 3.4 g/dL (11/22/2012 11:26:00) 1.8 g/dL *LOW* (11/13/2012 02:05:00) A/G Ratio [0.7-1.6] 0.8 (11/23/2012 05:15:00) 0.9 (11/22/2012 11:26:00) 1.7 *HI* (11/13/2012 02:05:00) Calcium Lvl [8.5-10.5 mg/dL] 8.3 mg/dL *LOW* (11/25/2012 04:00:00) 8.5 mg/dL (11/24/2012 00:15:00) 8.2 mg/dL *LOW* (11/23/2012 05:15:00) Phosphorus [2.5-4.5 mg/dL] 3.2 mg/dL (11/24/2012 00:15:00) 3.7 mg/dL (11/22/2012 11:25:00) 3.6 mg/dL (11/21/2012 04:20:00) Magnesium Lvl [1.8-2.4 mg/dL] 1.7 mg/dL *LOW* (11/24/2012 00:15:00) 1.8 mg/dL (11/22/2012 11:25:00) 1.9 mg/dL (11/21/2012 04:20:00) ALT [0-65 unit/L] 24 unit/L (11/23/2012 05:15:00) 22 unit/L (11/22/2012 11:26:00) 15 unit/L (11/13/2012 02:05:00) AST [0-37 unit/L] 25 unit/L (11/23/2012 05:15:00) 27 unit/L (11/22/2012 11:26:00) 47 unit/L *HI* (11/13/2012 02:05:00) Alk Phos [39-136 unit/L] 134 unit/L (11/23/2012 05:15:00) 145 unit/L *HI* (11/22/2012 11:26:00) 47 unit/L (11/13/2012 02:05:00) LDH [98-192 unit/L] 321 unit/L *HI* (11/12/2012 10:10:00) Bili Total [0.2-1.3 mg/dL] 1.0 mg/dL (11/23/2012 05:15:00) 1.1 mg/dL (11/22/2012 11:26:00) 1.5 mg/dL *HI* (11/13/2012 02:05:00) Bili Direct [0.0-0.3 mg/dL] 0.4 mg/dL *HI* (11/22/2012 11:26:00) 0.8 mg/dL *HI* (11/12/2012 12:01:00) Bili Indirect [0.0-1.0 mg/dL] 0.7 mg/dL (11/22/2012 11:26:00) 2.0 mg/dL *HI* (11/12/2012 12:01:00) Amylase Lvl [25-115 unit/L] 28 unit/L (11/22/2012 11:26:00) Lipase Lvl [73-393 unit/L] 186 unit/L (11/22/2012 11:26:00) Lactic Acid Lvl [0.5-2.2 mMol/L] 5.7 mMol/L *HI* (11/11/2012 17:00:59) BNP [<=100 pg/mL] 46 pg/mL 10 (11/09/2012 01:30:47) CHD Risk [3.90-5.80] 3.68 *LOW* (11/09/2012 01:30:47) Chol [<=199 mg/dL] 136 mg/dL (11/09/2012 01:30:47) Trig [<=149 mg/dL] 109 mg/dL (11/09/2012 01:30:47) HDL [>=61 mg/dL] 37 mg/dL *LOW* (11/09/2012 01:30:47) LDL [<=99 mg/dL] 77 mg/dL (11/09/2012 01:30:47) Hgb A1C [<=5.6 %] 6.2 % *HI* (11/09/2012 01:30:47) Iron [30-160 ug/dl] 38 ug/dl (11/22/2012 11:26:00) Ferritin Lvl [5-204 ng/mL] 1205 ng/mL *HI* (11/22/2012 11:26:00) % Satur Fe [12-57 %] 22 % (11/22/2012 11:26:00) UIBC [110-370 ug/dl] 138 ug/dl (11/22/2012 11:26:00) TIBC [228-428 ug/dl] 176 ug/dl *LOW* (11/22/2012 11:26:00) TSH [0.360-3.740 uIU/mL] 2.280 uIU/mL (11/10/2012 02:40:00) Ca Ion WB [1.05-1.25 mMol/L] 1.03 mMol/L *LOW* (11/24/2012 00:15:00) 1.03 mMol/L *LOW* (11/16/2012 01:55:34) 1.05 mMol/L (11/15/2012 01:45:07) Ca Norm WB [1.05-1.25 mMol/L] 1.08 mMol/L (11/24/2012 00:15:00) 1.01 mMol/L *LOW* (11/16/2012 01:55:34) 1.05 mMol/L (11/15/2012 01:45:07) [facility] *NA* (11/14/2012 08:34:00) [facility] *NA* (11/14/2012 08:34:00) POC A Hct [36.0-48.0 %] 33.0 % *LOW* (11/14/2012 07:57:00) 27.0 % *LOW* (11/14/2012 05:02:00) 28.0 % *LOW* (11/13/2012 22:55:00) POC A Ca Ion [1.05-1.25 mMol/L] 1.06 mMol/L (11/14/2012 07:57:00) 1.08 mMol/L (11/14/2012 05:02:00) 1.08 mMol/L (11/13/2012 22:55:00) POC A K [3.5-5.1 mEq/L] 4.4 mEq/L (11/14/2012 07:57:00) 4.1 mEq/L (11/14/2012 05:02:00) 3.7 mEq/L (11/13/2012 22:55:00) POC A Source ART *NA* (11/14/2012 07:57:00) ART *NA* (11/14/2012 05:02:00) ART *NA* (11/13/2012 22:55:00) POC A Temp 37.0 DegC *NA* (11/14/2012 07:57:00) 37.0 DegC *NA* (11/14/2012 05:02:00) 37.0 DegC *NA* (11/13/2012 22:55:00) POC A pH [7.35-7.45] 7.46 *HI* (11/14/2012 07:57:00) 7.44 (11/14/2012 05:02:00) 7.48 *HI* (11/13/2012 22:55:00) POC A PCO2 [35-45 mmHg] 36 mmHg (11/14/2012 07:57:00) 40 mmHg (11/14/2012 05:02:00) 39 mmHg (11/13/2012 22:55:00) POC A PO2 [80-100 mmHg] 82 mmHg (11/14/2012 07:57:00) 87 mmHg (11/14/2012 05:02:00) 92 mmHg (11/13/2012 22:55:00) POC A HCO3 [22-26 mMol/L] 26 mMol/L (11/14/2012 07:57:00) 27 mMol/L *HI* (11/14/2012 05:02:00) 29 mMol/L *HI* (11/13/2012 22:55:00) POC A BE [-2-2 mMol/L] 2 mMol/L (11/14/2012 07:57:00) 3 mMol/L *HI* (11/14/2012 05:02:00) 5 mMol/L *HI* (11/13/2012 22:55:00) POC A O2 Sat [95.0-100.0 %] 97.0 % (11/14/2012 07:57:00) 97.0 % (11/14/2012 05:02:00) 98.0 % (11/13/2012 22:55:00) POC A Glu [70-99 mg/dL] 146 mg/dL *HI* (11/14/2012 07:57:00) 132 mg/dL *HI* (11/14/2012 05:02:00) 149 mg/dL *HI* (11/13/2012 22:55:00) POC A LA [0.5-2.2 mMol/L] 0.8 mMol/L (11/14/2012 07:57:00) 0.7 mMol/L (11/14/2012 05:02:00) 0.9 mMol/L (11/13/2012 22:55:00) POC A Na [135-145 mEq/L] 138 mEq/L (11/14/2012 07:57:00) 139 mEq/L (11/14/2012 05:02:00) 143 mEq/L (11/13/2012 22:55:00) POC V Source DARI *NA* (11/13/2012 08:07:00) DARI *NA* (11/13/2012 04:23:00) DARI *NA* (11/12/2012 07:36:00) POC V Temp 37.0 DegC *NA* (11/13/2012 08:07:00) 37.0 DegC *NA* (11/13/2012 04:23:00) 37.0 DegC *NA* (11/12/2012 07:36:00) POC V pH [7.28-7.42] 7.46 *HI* (11/13/2012 08:07:00) 7.38 (11/13/2012 04:23:00) 7.45 *HI* (11/12/2012 07:36:00) POC V PCO2 [38-52 mmHg] 38 mmHg (11/13/2012 08:07:00) 50 mmHg (11/13/2012 04:23:00) 42 mmHg (11/12/2012 07:36:00) POC V PO2 [20-49 mmHg] 82 mmHg *HI* (11/13/2012 08:07:00) 35 mmHg (11/13/2012 04:23:00) 30 mmHg (11/12/2012 07:36:00) POC V HCO3 [22-26 mmol/L] 27 mmol/L *HI* (11/13/2012 08:07:00) 30 mmol/L *HI* (11/13/2012 04:23:00) 29 mmol/L *HI* (11/12/2012 07:36:00) POC V BE [-2-2 mmol/L] 3 mmol/L *HI* (11/13/2012 08:07:00) 4 mmol/L *HI* (11/13/2012 04:23:00) 5 mmol/L *HI* (11/12/2012 07:36:00) POC V O2 Sat [40.0-70.0 %] 97.0 % *HI* (11/13/2012 08:07:00) 66.0 % (11/13/2012 04:23:00) 61.0 % (11/12/2012 07:36:00) POC V Mode NC *NA* (11/13/2012 08:07:00) POC V Glu [70-99 mg/dL] 117 mg/dL *HI* (11/13/2012 08:07:00) 101 mg/dL *HI* (11/13/2012 04:23:00) 123 mg/dL *HI* (11/12/2012 07:36:00) POC V Hct [36.0-48.0 %] 27.0 % *LOW* (11/13/2012 08:07:00) 27.0 % *LOW* (11/13/2012 04:23:00) 20.0 % *CRIT* (11/12/2012 07:36:00) POC V Ion Ca [1.05-1.25 mMol/L] 1.11 mMol/L (11/13/2012 08:07:00) 1.13 mMol/L (11/13/2012 04:23:00) 1.20 mMol/L (11/12/2012 07:36:00) POC V K [3.5-5.1 mEq/L] 3.8 mEq/L (11/13/2012 08:07:00) 3.2 mEq/L *LOW* (11/13/2012 04:23:00) 3.7 mEq/L (11/12/2012 07:36:00) POC V LA [0.5-2.2 mMol/L] 0.8 mMol/L (11/13/2012 08:07:00) 0.5 mMol/L (11/13/2012 04:23:00) 3.3 mMol/L *HI* (11/12/2012 07:36:00) POC V Na [135-145 mEq/L] 145 mEq/L (11/13/2012 08:07:00) 146 mEq/L *HI* (11/13/2012 04:23:00) 145 mEq/L (11/12/2012 07:36:00) 4Result Comment: The eGFR is calculated using the [...] be mul tiplied by the estimated BMI. 5Result Comment: The eGFR is calculated using the [...] be mul tiplied by the estimated BMI. 6Result Comment: The eGFR is calculated using the [...] be mul tiplied by the estimated BMI. 7Interpretive Data: Adult reference range values reflect the clinical guidelines of the [place] [employer]. 8Interpretive Data: Adult reference range values reflect the clinical guidelines of the [place] [employer]. 9Interpretive Data: Adult reference range values reflect the clinical guidelines of the [place] [employer]. 10Interpretive Data: Elevated results are in line with increasing severity of congestive heart failure. Minor elevations between 100 and 300 may be seen with Myocardial Ischemia, Sodium retaining drugs, and compensated/treated heart failure. 11Interpretive Data: Therapeutic Range: Trough: 10 - 20 ug/mL Peak: 20 - 40 ug/mL Potential Toxicity: >80 ug/mL HEMATOLOGY Most recent to oldest [Reference Range]: 1 2 3 WBC [3.7-10.4 K/CMM] 8.3 K/CMM (11/25/2012 04:00:00) 9.4 K/CMM (11/24/2012 00:15:00) 7.7 K/CMM (11/23/2012 05:15:00) RBC [4.20-5.40 M/CMM] 3.27 M/CMM *LOW* (11/25/2012 04:00:00) 3.47 M/CMM *LOW* (11/24/2012 00:15:00) 3.54 M/CMM *LOW* (11/23/2012 05:15:00) Hgb [12.0-16.0 g/dL] 10.1 g/dL *LOW* (11/25/2012 04:00:00) 10.5 g/dL *LOW* (11/24/2012 00:15:00) 10.7 g/dL *LOW* (11/23/2012 05:15:00) Hct [36.0-48.0 %] 30.2 % *LOW* (11/25/2012 04:00:00) 31.7 % *LOW* (11/24/2012 00:15:00) 32.0 % *LOW* (11/23/2012 05:15:00) MCV [81.0-99.0 fL] 92.3 fL (11/25/2012 04:00:00) 91.4 fL (11/24/2012 00:15:00) 90.5 fL (11/23/2012 05:15:00) MCH [27.0-31.0 pg] 31.0 pg (11/25/2012 04:00:00) 30.2 pg (11/24/2012 00:15:00) 30.1 pg (11/23/2012 05:15:00) MCHC [32.0-36.0 g/dL] 33.6 g/dL (11/25/2012 04:00:00) 33.0 g/dL (11/24/2012 00:15:00) 33.3 g/dL (11/23/2012 05:15:00) RDW [11.5-14.5 %] 14.6 % *HI* (11/25/2012 04:00:00) 14.8 % *HI* (11/24/2012 00:15:00) 14.7 % *HI* (11/23/2012 05:15:00) Platelet [133-450 K/CMM] 251 K/CMM (11/25/2012 04:00:00) 284 K/CMM (11/24/2012 00:15:00) 284 K/CMM (11/23/2012 05:15:00) MPV [7.4-10.4 fL] 9.5 fL (11/25/2012 04:00:00) 9.3 fL (11/24/2012 00:15:00) 9.4 fL (11/23/2012 05:15:00) Segs [45.0-75.0 %] 74.8 % (11/25/2012 04:00:00) 70.7 % (11/24/2012 00:15:00) 73.8 % (11/23/2012 05:15:00) Bands [0.0-11.0 %] 10.0 % (11/12/2012 06:38:12) 7.0 % (11/12/2012 01:16:36) Lymphocytes [20.0-40.0 %] 14.1 % *LOW* (11/25/2012 04:00:00) 18.1 % *LOW* (11/24/2012 00:15:00) 15.6 % *LOW* (11/23/2012 05:15:00) Atypical Lymphs [<=0.0 %] 0.0 % (11/12/2012 06:38:12) 0.0 % (11/12/2012 01:16:36) Monocytes [2.0-12.0 %] 9.0 % (11/25/2012 04:00:00) 9.5 % (11/24/2012 00:15:00) 9.1 % (11/23/2012 05:15:00) Eosinophils [0.0-4.0 %] 1.3 % (11/25/2012 04:00:00) 0.9 % (11/24/2012 00:15:00) 0.7 % (11/23/2012 05:15:00) Basophils [0.0-1.0 %] 0.8 % (11/25/2012 04:00:00) 0.8 % (11/24/2012 00:15:00) 0.8 % (11/23/2012 05:15:00) Segs-Bands # [1.5-8.1 K/CMM] 6.2 K/CMM (11/25/2012 04:00:00) 6.6 K/CMM (11/24/2012 00:15:00) 5.7 K/CMM (11/23/2012 05:15:00) Lymphocytes # [1.0-5.5 K/CMM] 1.2 K/CMM (11/25/2012 04:00:00) 1.7 K/CMM (11/24/2012 00:15:00) 1.2 K/CMM (11/23/2012 05:15:00) Monocytes # [0.0-0.8 K/CMM] 0.7 K/CMM (11/25/2012 04:00:00) 0.9 K/CMM *HI* (11/24/2012 00:15:00) 0.7 K/CMM (11/23/2012 05:15:00) Eosinophils # [0.0-0.5 K/CMM] 0.1 K/CMM (11/25/2012 04:00:00) 0.1 K/CMM (11/24/2012 00:15:00) 0.1 K/CMM (11/23/2012 05:15:00) Basophils # [0.0-0.2 K/CMM] 0.1 K/CMM (11/25/2012 04:00:00) 0.1 K/CMM (11/24/2012 00:15:00) 0.1 K/CMM (11/23/2012 05:15:00) Tot Cell Ct 100 *NA* (11/12/2012 06:38:12) RBC Morph Normal (11/16/2012 01:55:00) Normal (11/15/2012 01:44:00) Normal (11/12/2012 12:01:00) Anisocyte [None Seen] 1+ *ABN* (11/12/2012 01:16:36) Polychrom [None Seen] Slight (11/12/2012 01:16:36) Hypochrom [None Seen] Slight (11/12/2012 06:38:12) Slight (11/12/2012 01:16:36) Microcyte [None Seen] 1+ *ABN* (11/12/2012 01:16:36) Tear Cell [None Seen] Slight *ABN* (11/12/2012 01:16:36) Elliptocyte [None Seen] Slight *ABN* (11/14/2012 04:00:00) Slight *ABN* (11/12/2012 01:16:36) Toxic Gran [None Seen] Slight *ABN* (11/12/2012 06:38:12) Slight *ABN* (11/12/2012 01:16:36) Neut Vac [None Seen] Slight *ABN* (11/12/2012 06:38:12) PB Smear Path Peripheral blood smear shows hypochromic macrocytic anemia with anisopoikilocytsosis, a few target cells and stomatocytes, no increase in schistocytes, slight polychromasia, moderate thrombocytopenia. Impression: (1) no evidence of microangiopathic hemolysis, (2) RBC morphology is sugestive of liver disease. CPT: 92442 *NA* (11/12/2012 10:10:00) Plt Morph Normal (11/16/2012 01:55:00) Normal (11/15/2012 01:44:00) Normal (11/12/2012 12:01:00) Large Plt [None Seen] Slight *ABN* (11/14/2012 04:00:00) Slight *ABN* (11/12/2012 06:38:12) Slight *ABN* (11/12/2012 01:16:36) Retic Auto [0.5-1.5 %] 1.4 % (11/12/2012 10:10:00) PT [12.0-14.7 seconds] 14.7 seconds (11/23/2012 05:15:00) 14.7 seconds (11/21/2012 04:20:00) 16.3 seconds *HI* (11/14/2012 04:00:00) INR [0.85-1.17] 1.13 12 (11/23/2012 05:15:00) 1.13 13 (11/21/2012 04:20:00) 1.29 14 *HI* (11/14/2012 04:00:00) Thrombin Time [15.0-21.2 seconds] 15.2 seconds (11/14/2012 04:00:00) 14.5 seconds *LOW* (11/13/2012 02:05:00) 14.6 seconds *LOW* (11/12/2012 19:55:00) Fibrinogen Lvl [230-510 mg/dL] 462 mg/dL (11/14/2012 04:00:00) 342 mg/dL (11/13/2012 02:05:00) 325 mg/dL (11/12/2012 19:55:00) D-Dimer 0.88 ug/mL FEU 15 *NA* (11/14/2012 04:00:00) 0.69 ug/mL FEU 16 *NA* (11/13/2012 02:05:00) 0.37 ug/mL FEU 17 *NA* (11/12/2012 19:55:00) PTT [22.9-35.8 seconds] 47.6 seconds 18 *HI* (11/23/2012 05:15:00) 41.2 seconds 19 *HI* (11/14/2012 04:00:00) 38.8 seconds 20 *HI* (11/13/2012 02:05:00) R-Time Hep [5.0-10.0 minutes] 6.1 minutes (11/12/2012 10:15:45) K-Time Hep [1.0-3.0 minutes] 2.2 minutes (11/12/2012 10:15:45) Angle Hep [53.0-72.0 degrees] 60.6 degrees (11/12/2012 10:15:45) Max Amp Hep [50.0-70.0 mm] 56.5 mm (11/12/2012 10:15:45) G-Value Hep [4.5-11.0 K d/sc] 6.5 K d/sc (11/12/2012 10:15:45) LY30 Hep [0.0-7.5 %] 3.8 % (11/12/2012 10:15:45) Coag Index Hep [-3.0-3.0] -1.1 (11/12/2012 10:15:45) TEG Data See Note 21 (11/12/2012 10:15:45) 12Interpretive Data: RECOMMENDED RANGES FOR PROTIME INR: 2.0-3.0 for most medical and surgical thromboembolic states. 2.5-3.5 for artificial heart valves and recurrent embolism. INR SHOULD BE USED ONLY FOR PATIENTS ON STABLE ANTICOAGULANT THERAPY. 13Interpretive Data: RECOMMENDED RANGES FOR PROTIME INR: 2.0-3.0 for most medical and surgical thromboembolic states. 2.5-3.5 for artificial heart valves and recurrent embolism. INR SHOULD BE USED ONLY FOR PATIENTS ON STABLE ANTICOAGULANT THERAPY. 14Interpretive Data: RECOMMENDED RANGES FOR PROTIME INR: 2.0-3.0 for most medical and surgical thromboembolic states. 2.5-3.5 for artificial heart valves and recurrent embolism. INR SHOULD BE USED ONLY FOR PATIENTS ON STABLE ANTICOAGULANT THERAPY. 15Interpretive Data: In DIC, quantitative D-Dimer is generally greater than 0.66 ug/mL FEU. Values of quantitative D-Dimer less than 0.40 ug/mL FEU have been reported to be associated with a low probability of deep vein thrombosis/pulmonary embolism. This test alone should not be used to rule out DVT/PE. 16Interpretive Data: In DIC, quantitative D-Dimer is generally greater than 0.66 ug/mL FEU. Values of quantitative D-Dimer less than 0.40 ug/mL FEU have been reported to be associated with a low probability of deep vein thrombosis/pulmonary embolism. This test alone should not be used to rule out DVT/PE. 17Interpretive Data: In DIC, quantitative D-Dimer is generally greater than 0.66 ug/mL FEU. Values of quantitative D-Dimer less than 0.40 ug/mL FEU have been reported to be associated with a low probability of deep vein thrombosis/pulmonary embolism. This test alone should not be used to rule out DVT/PE. 18Interpretive Data: Heparin Therapeutic Range: 57 - 92 Seconds 19Interpretive Data: Heparin Therapeutic Range: 57 - 92 Seconds 20Interpretive Data: Heparin Therapeutic Range: 57 - 92 Seconds 21Interpretive Data: Normal ranges are for citrated whole blood with kaolin activator. R TIME: Reflects the degree of anti-coagulation due to LMWH, unfractionated hep lucy, and coumadin as well as non-specific factor [...] mostly used to monitor significant coagulopathy in t rauma patients or surgical patients. It assesses gloabal (primary and secondary ) hemostasis using whole blood and therefore, not expected to correlate well wit h conventional coagulation tests. TEG results need to be correlated with clinic al evaluation for patient management. IMMUNOLOGY Most recent to oldest [Reference Range]: 1 2 3 Prealbumin [18.0-45.0 mg/dL] 11.8 mg/dL *LOW* (11/23/2012 05:15:00) 15.2 mg/dL *LOW* (11/22/2012 11:26:00) Haptoglobin [16-200 mg/dL] 35 mg/dL (11/12/2012 10:10:00) Microbiology Reports PROCEDURE:Culture: Blood STATUS: Auth (Verified) BODY SITE: COLLECTED DATE/TIME: 11/12/2012 08:00:00 SOURCE: Blood FREE TEXT SOURCE: FINAL REPORTS Final Report No Growth At 5 Days PRELIMINARY REPORTS Preliminary Report No Growth At 2 Days Preliminary Report No Growth At 3 Days Preliminary Report No Growth At 5 Days Preliminary Report No Growth At 1 Day Preliminary Report No Growth At 4 Days PROCEDURE:Culture: Urine STATUS: Auth (Verified) BODY SITE: COLLECTED DATE/TIME: 11/12/2012 08:00:00 SOURCE: Urine, Clean Catch FREE TEXT SOURCE: cup FINAL REPORTS Final Report No Growth PRELIMINARY REPORTS Preliminary Report No Growth; Holding PROCEDURE:Culture: Blood STATUS: Auth (Verified) BODY SITE: COLLECTED DATE/TIME: 11/12/2012 08:00:00 SOURCE: Blood FREE TEXT SOURCE: FINAL REPORTS Final Report No Growth At 5 Days PRELIMINARY REPORTS Preliminary Report No Growth At 1 Day Preliminary Report No Growth At 5 Days Preliminary Report No Growth At 2 Days Preliminary Report No Growth At 4 Days Preliminary Report No Growth At 3 Days PROCEDURE:Culture: MRSA STATUS: Auth (Verified) BODY SITE: Nares COLLECTED DATE/TIME: 11/11/2012 03:50:21 SOURCE: Nasal Swab FREE TEXT SOURCE: FINAL REPORTS Final Report No Methicillin Resistant Staphylococcus Aureus Isolated Procedures Procedures Date Related Diagnosis Angiogram 11/08/2012 00:00:00 Colonoscopy 08/10/2012 00:00:00 Hemorrhoidectomy
--- OUTSIDE RECORDS SUMMARY | 2019-11-12 22:31 | XMS REPORT | Summary of Care ---
Author Author [facility] Organization [facility] Address Unknown Phone Unavailable Encounter BRANDEN Tinajero(MICHAELA) [id number] Date(s): 06/14/15 - 06/14/15 [facility] [address] [facility], [address] Discharge Disposition: Home Attending Physician: Tristan cMdaniels MD Referring Physician: Tristan Mcdaniels MD Vital Signs Most recent to 1 oldest [Reference Range]: Height 154.94 cm (06/14/15 10:06 AM) Temperature Oral 96.4 DegF [96.4-99.1 DegF] (06/14/15 10:06 AM) Blood Pressure 151/77 mmHg [90-140/60-90 mmHg] *HI* (06/14/15 10:06 AM) Respiratory Rate 16 BRMIN [14-20 BRMIN] (06/14/15 10:06 AM) Peripheral Pulse 80 bpm Rate [60-100 bpm] (06/14/15 10:06 AM) Weight 64.659 kg (06/14/15 10:06 AM) Body Mass Index 26.93 m2 (06/14/15 10:06 AM) Problem List Condition Effective Dates Status Health Status Informan t Atrial Resolved fibrillation(Confirm ed) Benign Essential Active Hypertension(Confirm ed) CABG(Confirmed) Resolved CAD - Coronary Resolved artery disease(Confirmed) Cataract(Confirmed) Resolved Diabetes(Confirmed) Resolved Diabetes mellitus Active type 2(Confirmed) Hemorrhoid(Confirmed Resolved ) Hyperlipidemia(Confi Active rmed) Ischemic Active cardiomyopathy(Confi rmed) Osteoarthritis(Confi Active rmed) Postoperative wound 12/03/12 Resolved infection(Confirmed) Allergies, Adverse Reactions, Alerts Substance Reaction Severity Status penicillins Active sulfa drugs Active Medications Dymista 137 mcg-50 mcg/inh nasal spray 1 spray, NASAL, 0 Refill(s) Start Date: 06/14/15 Status: Ordered Results No data available for this section Immunizations Vaccine Date Refusal Reason tetanus-diphtheria toxoids 05/07/10 Procedures Procedure Date Related Diagnosis Body Site CABG - Coronary artery bypass graft 11/27/12 Coronary artery bypass grafts x 4 11/11/12 Angiogram 11/08/12 Colonoscopy 08/10/12 Hemorrhoidectomy Social History Social History Type Response Alcohol Past, Previous treatment: N one.1 Smoking Status Never smoker; Previous warren tment: None; Exposure to Tobacco Smoke None; Cigarette Smoking Last 365 Days No; Reg Smoking Cessation Counseling No 1never drank Assessment and Plan No data available for this section
--- OUTSIDE RECORDS SUMMARY | 2019-11-12 22:31 | XMS REPORT | Summary of Care ---
Author Organization Unknown Address Unknown Phone Unavailable Encounter HQ Tanvi(MICHAELA) [id number] Date(s): 02/16/14 - 02/16/[address] Discharge Disposition: Home Physician Attending: Tristan Mcdaniels MD Physician_Referring: Tristan Mcdaniels MD Reason for Visit FOLLOW UP 3 MONTH Vital Signs Most recent to 1 oldest [Reference Range]: Height 154.94 cm (02/16/14 9:24 AM) Temperature Oral 97.7 DegF [96.4-99.1 DegF] (02/16/14 9:24 AM) Systolic Blood 146 mmHg Pressure [90-140 *HI* mmHg] (02/16/14 9:24 AM) Diastolic Blood 73 mmHg Pressure [60-90 (02/16/14 9:24 AM) mmHg] Respiratory Rate 18 BRMIN [14-20 BRMIN] (02/16/14 9:24 AM) Peripheral Pulse 94 bpm Rate [60-100 bpm] (02/16/14 9:24 AM) Weight 66.96 kg (02/16/14 9:24 AM) Body Mass Index 27.89 m2 (02/16/14 9:24 AM) Problem List Condition Effective Dates Status [...] penicillins Active sulfa drugs Active Medications No data available for this section Medications Administered During Your Visit No data available for this section Immunizations Vaccine Date Refusal Reason tetanus-diphtheria toxoids 05/07/10 Social History Social History Type Response Alcohol Use: Past, Previous treatme nt: None1 Smoking Status Never smoker, Previous warren tment: None, Exposure to Tobacco Smoke None, Cigarette Smoking Last 365 Days No, Reg Smoking Cessation Counseling No 1never drank
--- OUTSIDE RECORDS SUMMARY | 2019-11-12 22:31 | XMS REPORT | Summary of Care ---
Author Organization Unknown Address Unknown Phone Unavailable Encounter Dates Location Diagnoses Discharge Providers Disposition 06/15/2013 [facility] Baldo Varela - [address] [place] [address] Baldo Potter 06/15/[address] Reason for Visit FOLLOW UP .. PER JOSHUA Vital Signs Most recent to 1 oldest [Reference Range]: Height 154.94 cm (06/15/2013 16:51:00 [place]) Temperature Oral 97.6 DegF [96.4-99.1 DegF] (06/15/2013 16:51:00 [facility]) Systolic Blood 125 mmHg Pressure [90-140 (06/15/2013 16:51:00 [place] [facility]) mmHg] Diastolic Blood 76 mmHg Pressure [60-90 (06/15/2013 16:51:00 [place]) mmHg] Respiratory Rate 16 BRMIN [14-20 BRMIN] (06/15/2013 16:51:00 [place] [facility]) Peripheral Pulse 89 bpm Rate [60-100 bpm] (06/15/2013 16:51:00 [place]) Weight 62.001 kg (06/15/2013 16:51:00 [place]) Body Mass Index 25.83 m2 (06/15/2013 16:51:00 [place]) Problem List Condition Effective Dates Status Health Status Informan t Arthritis(Confirmed) Resolved Atrial Resolved fibrillation(Confirm ed) Cataract(Confirmed) Resolved Diabetes(Confirmed) Resolved Hemorrhoid(Confirmed Resolved ) Hypertensive Resolved disease(Confirmed) Ischemic Resolved cardiomyopathy(Confi rmed) Postoperative wound 12/03/2012 Active infection(Confirmed) Allergies, Adverse Reactions, Alerts Status Substance Reaction Severity Active penicillins Active sulfa drugs Medications Medication Instructions Start Date Stop Date Status Aspirin Low Dose 81 81 mg = 1 tab, PO, Daily, 0 06/15/2013 Ordered mg oral tablet Refill(s) furosemide 80 mg 80 mg = 1 tab, PO, Daily, # 30 tab, 06/16/19 14 Ordered oral tablet 0 Refill(s) Glucotrol XL 5 mg 5 mg = 1 tab, PO, BID, # 30 tab, 0 06/16/19 14 Ordered oral tablet, Refill(s) extended release Mucinex 600 mg oral 600 mg = 1 tab, PO, Q12H, prn, # 20 06/1506/25/2013 Ordered tablet, extended tab, 0 Refill(s) release prn Nasonex 50 mcg/inh 2 spray, NASAL, Daily, for allergy 014 Ordered nasal spray symptoms, prn, # 17 gm, 0 R efill(s) prn spironolactone 50 mg 50 mg = 1 tab, PO, Daily, # 60 tab, 09/2013 Ordered oral tablet 0 Refill(s) Medications Administered During Your Visit No data available for this section Immunizations Vaccine Date Refusal Reason tetanus-diphtheria toxoids 05/07/2010
--- OUTSIDE RECORDS SUMMARY | 2019-11-12 22:31 | XMS REPORT | Summary of Care ---
Author Organization Unknown Address Unknown Phone Unavailable Encounter HQ Tanvi(MICHAELA) [id number] Date(s): 12/01/13 - 12/02/13 [facility] [address] [facility], [address] Reason for Visit Phone Message Problem List Condition Effective Dates Status Health [...] Status penicillins Active sulfa drugs Active Medications pravastatin 20 mg oral tablet 20 mg = 1 tab, PO, Bedtime, # 30 tab, 3 Refill(s), called to pharmacy Start Date: 12/01/13 Status: Ordered Medications Administered During Your Visit No data [...]
--- OUTSIDE RECORDS SUMMARY | 2019-11-12 22:31 | XMS REPORT | Summary of Care ---
Author Organization Unknown Address Unknown Phone Unavailable Encounter BRANDEN Tinajero(MICHAELA) [id number] Date(s): 08/18/13 - 08/18/13 [facility] [address] [place] [address] Discharge Disposition: Home Physician Attending: Tristan Mcdaniels MD Physician_Referring: Tristan Mcdaniels MD Reason for Visit 1 MONTH FOLLOW UP Vital Signs Most recent to 1 oldest [Reference Range]: Height 154.94 cm (08/18/13 9:56 AM) Temperature Oral 97.9 DegF [96.4-99.1 DegF] (08/18/13 9:56 AM) Systolic Blood 141 mmHg Pressure [90-140 *HI* mmHg] (08/18/13 9:56 AM) Diastolic Blood 77 mmHg Pressure [60-90 (08/18/13 9:56 AM) mmHg] Peripheral Pulse 91 bpm Rate [60-100 bpm] (08/18/13 9:56 AM) Weight 66.506 kg (08/18/13 9:56 AM) Body Mass Index 27.7 m2 (08/18/13 9:56 AM) Problem List Condition Effective Dates Status [...] Status penicillins Active sulfa drugs Active Medications calcium carbonate 1000 mg oral tablet, chewable = 1,000 mg, PO, Daily, # 72 tab, 0 Refill(s), Pharmacy: [facility] [address] Start Date: 08/18/13 Status: Ordered lisinopril 5 mg oral tablet 5 mg = 1 tab, PO, Daily, # 90 tab, 0 Refill(s), Pharmacy: [id number] Start Date: 08/18/13 Status: Ordered metoprolol 25 mg oral tablet, extended release 25 mg, PO, Daily, # 30 tab, 0 Refill(s) Start Date: 08/18/13 Stop Date: 09/17/13 Status: Ordered miconazole topical 2% ointment See Instructions, apply to all itching areas, more so between your toes and left foot., # 1 tube, 1 Refill(s), Pharmacy: [facility] [id number] Special Instructions: apply to all itching areas, more so between your toes and left foot. Start Date: 08/18/13 Status: Ordered pravastatin 20 mg oral tablet 20 mg = 1 tab, PO, Bedtime, # 90 tab, 0 Refill(s), Pharmacy: [facility] 500 Start Date: 08/18/13 Status: Ordered Medications Administered During Your Visit [...]
--- OUTSIDE RECORDS SUMMARY | 2019-11-12 22:31 | XMS REPORT | Summary of Care ---
Author Author [facility] Organization [facility] Address Unknown Phone Unavailable Encounter BRANDEN Tinajero(MICHAELA) [id number] Date(s): 03/15/15 - 03/15/15 [facility] [address] [facility], [address] Discharge Disposition: Home Attending Physician: Tristan Mcdaniels MD Referring Physician: Tristan Mcdaniels MD Vital Signs Most recent to 1 oldest [Reference Range]: Height 154.94 cm (03/15/15 4:12 PM) Temperature Oral 97.8 DegF [96.4-99.1 DegF] (03/15/15 4:12 PM) Blood Pressure 149/67 mmHg [90-140/60-90 mmHg] *HI* (03/15/15 4:12 PM) Respiratory Rate 18 BRMIN [14-20 BRMIN] (03/15/15 4:12 PM) Peripheral Pulse 88 bpm Rate [60-100 bpm] (03/15/15 4:12 PM) Weight 63.75 kg (03/15/15 4:12 PM) Body Mass Index 26.56 m2 (03/15/15 4:12 PM) Problem List Condition Effective Dates Status [...] Status penicillins Active sulfa drugs Active Medications acetaminophen-tramadol 325 mg-37.5 mg oral tablet 1 tab, PO, Q6H, PRN Pain, # 60 tab, 0 Refill(s) Start Date: 03/15/15 Stop Date: 03/25/15 Status: Ordered Calcium 600 +D oral tablet 1 tab, PO, Daily, # 270 tab, 0 Refill(s) Start Date: 03/15/15 Status: Ordered lisinopril 5 mg oral tablet See Instructions, take 2 tab in AM and 1 tab PM., # 90 tab, 3 Refill(s) Start Date: 03/15/15 Status: Ordered Results No data available for [...]
--- OUTSIDE RECORDS SUMMARY | 2019-11-12 22:31 | XMS REPORT | CCD ---
Author Author [facility] Crowe [facility] Address Unknown Phone Unavailable Care Team Providers Care Echo Vascular Tech Name Role Phone Baldo Potter RP Allergies, [...]
--- OUTSIDE RECORDS SUMMARY | 2019-11-12 22:31 | XMS REPORT | Summary of Care ---
Author Organization Unknown Address Unknown Phone Unavailable Encounter Dates Location Diagnoses Providers 06/26/2013 [facility] 06/27/[address] [place] [address], [address] Reason for Visit Phone Message Problem List Condition Effective Dates Status Health Status Informan t Atrial Resolved fibrillation(Confirm ed) Benign Essential Active Hypertension(Confirm ed) CABG(Confirmed) Resolved CAD - Coronary Resolved artery disease(Confirmed) Cataract(Confirmed) Resolved Diabetes(Confirmed) Resolved Diabetes mellitus Active type 2(Confirmed) Hemorrhoid(Confirmed Resolved ) Hyperlipidemia(Confi Active rmed) Ischemic Active cardiomyopathy(Confi rmed) Osteoarthritis(Confi Active rmed) Postoperative wound 12/03/2012 Resolved infection(Confirmed) Allergies, Adverse Reactions, Alerts Status Substance Reaction Severity Active penicillins Active sulfa drugs Medications No data available for this section Medications Administered During Your Visit No data available for this section Immunizations Vaccine Date Refusal Reason tetanus-diphtheria toxoids 05/07/2010 Social History Social History Type Response Alcohol Past, Previous treatment: N one.1 Smoking Status Use: Never smoker. Previou s treatment: None. Tobacco smoke exposure: None. Did the Patient Smoke Cigarettes Anytime During the t 365 Days? No. Cessation Counseling Provided? No. 1never drank
--- OUTSIDE RECORDS SUMMARY | 2019-11-12 22:31 | XMS REPORT | Summary of Care ---
Author Author [facility] Organization [facility] Address Unknown Phone Unavailable Encounter BRANDEN Tinajero(MICHAELA) [id number] Date(s): 08/26/15 - 08/26/15 [facility] [address], [place], [place] [address]- [phone] Discharge Diagnosis: Acute upper respiratory infection Discharge Diagnosis: Cough Discharge Disposition: Home Attending Physician: Angela Pemberton MD Vital Signs Most recent to 1 2 oldest [Reference Range]: Height 154.94 cm (08/26/15 7:57 PM) Temperature Oral 98.2 DegF [96.4-99.1 DegF] (08/26/15 7:57 PM) Blood Pressure 135/62 mmHg 170/82 mmHg [90-140/60-90 mmHg] (08/26/15 10:22 PM) *HI* (08/26/15 7:57 PM) Respiratory Rate 18 BRMIN 18 BRMIN [14-20 BRMIN] (08/26/15 10:22 PM) (08/26/15 7:57 PM) Peripheral Pulse 62 bpm 66 bpm Rate [60-100 bpm] (08/26/15 10:22 PM) (08/26/15 7:57 PM) Weight 63.636 kg (08/26/15 7:57 PM) Body Mass Index 26.51 m2 (08/26/15 7:57 PM) Problem List Condition Effective Dates Status [...] Status penicillins Active sulfa drugs Active Medications Saline Flush 0.9% 10 mL, Route: IVP, Drug Form: INJ, Dosing Weight 63.636, kg, PRN, PRN Line Flush , Start date: 08/26/15 20:46:00 CDT, Duration: 30 day, Stop date: 09/25/15 20:45 :00 CDT Notes: (Same as: BD Posiflush) Start Date: 08/26/15 Stop Date: 08/26/15 Status: Discontinued ZyrTEC 10 mg oral tablet 10 mg = 1 tab, PO, Daily, PRN for allergy symptoms, X 14 day, # 14 tab, 1 Refill (s) Start Date: 08/26/15 Stop Date: 09/23/15 Status: Ordered Results ELECTROLYTES Most recent to 1 oldest [Reference Range]: Sodium Lvl [135-145 141 mEq/L mEq/L] (08/26/15 9:01 PM) Potassium Lvl 3.9 mEq/L [3.5-5.1 mEq/L] (08/26/15 9:01 PM) Chloride Lvl [95-109 104 mEq/L mEq/L] (08/26/15 9:01 PM) CO2 [24-32 mEq/L] 31 mEq/L (08/26/15 9:01 PM) AGAP [10.0-20.0 9.9 mEq/L mEq/L] *LOW* (08/26/15 9:01 PM) CHEM PANEL Most recent to 1 oldest [Reference Range]: Creatinine Lvl 1.65 mg/dL [0.50-1.40 mg/dL] *HI* (08/26/15 9:01 PM) eGFR 29 mL/min/1.73m2 1 *NA* (08/26/15 9:01 PM) BUN [7-22 mg/dL] 30 mg/dL *HI* (08/26/15 9:01 PM) B/C Ratio [6-25] 18 (08/26/15 9:01 PM) Glucose Lvl [70-99 128 mg/dL mg/dL] *HI* (08/26/15 9:01 PM) Total Protein 7.7 g/dL [6.4-8.4 g/dL] (08/26/15 9:01 PM) Albumin Lvl [3.5-5.0 4.3 g/dL g/dL] (08/26/15 9:01 PM) Globulin [2.0-4.0 3.4 g/dL g/dL] (08/26/15 9:01 PM) A/G Ratio [0.7-1.6] 1.3 (08/26/15 9:01 PM) Calcium Lvl 9.4 mg/dL [8.5-10.5 mg/dL] (08/26/15 9:01 PM) ALT [0-65 unit/L] 25 unit/L (08/26/15 9:01 PM) AST [0-37 unit/L] 24 unit/L (08/26/15 9:01 PM) Alk Phos [39-136 51 unit/L unit/L] (08/26/15 9:01 PM) Bili Total [0.2-1.3 0.4 mg/dL mg/dL] (08/26/15 9:01 PM) 1Result Comment: The eGFR is calculated [...] 1 oldest [Reference Range]: Total CK [12-191 161 unit/L unit/L] (08/26/15 9:01 PM) CK MB [0.5-3.6 1.1 ng/mL ng/mL] (08/26/15 9:01 PM) CK MB Index 0.7 [0.0-2.5] (08/26/15 9:01 PM) Troponin-I 0.03 ng/mL [0.00-0.40 ng/mL] (08/26/15 9:01 PM) HEMATOLOGY Most recent to 1 oldest [Reference Range]: WBC [3.7-10.4 K/CMM] 7.4 K/CMM (08/26/15 9:01 PM) RBC [4.20-5.40 3.77 M/CMM M/CMM] *LOW* (08/26/15 9:01 PM) Hgb [12.0-16.0 g/dL] 11.3 g/dL *LOW* (08/26/15 9:01 PM) Hct [36.0-48.0 %] 34.5 % *LOW* (08/26/15 9:01 PM) MCV [80.0-98.0 fL] 91.5 fL (08/26/15 9:01 PM) MCH [27.0-31.0 pg] 30.0 pg (08/26/15 9:01 PM) MCHC [32.0-36.0 32.8 g/dL g/dL] (08/26/15 9:01 PM) RDW [11.5-14.5 %] 12.4 % (08/26/15 9:01 PM) Platelet [133-450 228 K/CMM K/CMM] (08/26/15 9:01 PM) MPV [7.4-10.4 fL] 9.6 fL (08/26/15 9:01 PM) Segs [45.0-75.0 %] 59.7 % (08/26/15 9:01 PM) Lymphocytes 27.3 % [20.0-40.0 %] (08/26/15 9:01 PM) Monocytes [2.0-12.0 7.6 % %] (08/26/15 9:01 PM) Eosinophils [0.0-4.0 3.1 % %] (08/26/15 9:01 PM) Basophils [0.0-1.0 2.3 % %] *HI* (08/26/15 9:01 PM) Segs-Bands # 4.4 K/CMM [1.5-8.1 K/CMM] (08/26/15 9:01 PM) Lymphocytes # 2.0 K/CMM [1.0-5.5 K/CMM] (08/26/15 9:01 PM) Monocytes # [0.0-0.8 0.6 K/CMM K/CMM] (08/26/15 9:01 PM) Eosinophils # 0.2 K/CMM [0.0-0.5 K/CMM] (08/26/15 9:01 PM) Basophils # [0.0-0.2 0.2 K/CMM K/CMM] (08/26/15 9:01 PM) VIRAL - SEROLOGY Most recent to 1 oldest [Reference Range]: Influ A [Negative] Negative (08/26/15 8:17 PM) Influ B [Negative] Negative (08/26/15 8:17 PM) Immunizations Vaccine Date Refusal Reason tetanus-diphtheria toxoids [...]
--- OUTSIDE RECORDS SUMMARY | 2019-11-12 22:31 | XMS REPORT | Summary of Care ---
Author Organization Unknown Address Unknown Phone Unavailable Encounter BRANDEN Tinajero(MICHAELA) [id number] Date(s): 07/28/13 - 07/28/[address] Discharge Disposition: Home Physician Attending: Tristan Mcdaniels Physician_Referring: Tristan Mcdaniels Reason for Visit FOLLOW UP Vital Signs Most recent to 1 oldest [Reference Range]: Height 154.94 cm (07/28/13 9:40 AM) Temperature Oral 97.4 DegF [96.4-99.1 DegF] (07/28/13 9:40 AM) Systolic Blood 131 mmHg Pressure [90-140 (07/28/13 9:40 AM) mmHg] Diastolic Blood 72 mmHg Pressure [60-90 (07/28/13 9:40 AM) mmHg] Respiratory Rate 17 BRMIN [14-20 BRMIN] (07/28/13 9:40 AM) Peripheral Pulse 80 bpm Rate [60-100 bpm] (07/28/13 9:40 AM) Weight 65.511 kg (07/28/13 9:40 AM) Body Mass Index 27.29 m2 (07/28/13 9:40 AM) Problem List Condition Effective Dates Status [...] # 30 tab, 0 Refill(s) Start Date: 07/28/13 Status: Ordered Medications Administered During Your Visit [...]
--- OUTSIDE RECORDS SUMMARY | 2019-11-12 22:31 | XMS REPORT | CCD ---
Author Author [facility] Crowe [facility] Address Unknown Phone Unavailable Care Team Providers Care Straight Cutter Machine Name Role Phone Baldo Potter RP Allergies, [...]
--- OUTSIDE RECORDS SUMMARY | 2019-11-12 22:31 | XMS REPORT | Summary of Care ---
Author Organization Unknown Address Unknown Phone Unavailable Encounter Dates Location Diagnoses Discharge Providers Disposition 06/16/2013 [facility] Home Tristan Jones S - [address] [facility] Tristan Mcdaniels 06/16/[address] Reason for Visit FOLLOW UP Vital Signs Most recent to 1 oldest [Reference Range]: Temperature Oral 97.2 DegF [96.4-99.1 DegF] (06/16/2013 09:54:00 [place] Systolic Blood 148 mmHg Pressure [90-140 *HI* mmHg] (06/16/2013 09:54:00 [facility]) Diastolic Blood 87 mmHg Pressure [60-90 (06/16/2013 09:54:00 [place] [facility] mmHg] Respiratory Rate 20 BRMIN [14-20 BRMIN] (06/16/2013 09:54:00 [place] [facility] Peripheral Pulse 92 bpm Rate [60-100 bpm] (06/16/2013 09:54:00 [place]) Problem List Condition Effective Dates Status Health Status Informan t Arthritis(Confirmed) Resolved Atrial Resolved fibrillation(Confirm ed) Cataract(Confirmed) Resolved Diabetes(Confirmed) Resolved Hemorrhoid(Confirmed Resolved ) Hypertensive Resolved disease(Confirmed) Ischemic Resolved cardiomyopathy(Confi rmed) Postoperative wound 12/03/2012 Active infection(Confirmed) Allergies, Adverse Reactions, Alerts Status Substance Reaction Severity Active penicillins Active sulfa drugs Medications Medication Instructions Start Date Stop Date Status lisinopril 5 mg oral 5 mg = 1 tab, PO, Daily, # 90 tab, 06/16 Ordered tablet 3 Refill(s), [facility] Medications Administered During Your Visit No data available for this section Immunizations Vaccine Date Refusal Reason tetanus-diphtheria toxoids 05/07/2010
--- OUTSIDE RECORDS SUMMARY | 2019-11-12 22:31 | XMS REPORT | Summary of Care ---
Author Author [facility] Organization [facility] Address Unknown Phone Unavailable Encounter HQ Tanvi(MICHAELA) [id number] Date(s): 01/03/15 - 01/04/15 [facility] [address] [facility], [address] Vital Signs No data available for this [...] penicillins Active sulfa drugs Active Medications metoprolol 25 mg oral tablet, extended release See Instructions, 2 tablets PO Daily, # 180 tab, 3 Refill(s), [facility] Special Instructions: 2 tablets PO Daily Start Date: 01/03/15 Status: Ordered Results No data available for [...]
--- OUTSIDE RECORDS SUMMARY | 2019-11-12 22:31 | XMS REPORT | CCD ---
Author Author [facility] Crowe [facility] Address Unknown Phone Unavailable Care Team Providers Care Chain Offbearer Name Role Phone Baldo Potter RP Allergies, [...]
--- OUTSIDE RECORDS SUMMARY | 2019-11-12 22:31 | XMS REPORT | Summary of Care ---
Author Organization Unknown Address Unknown Phone Unavailable Encounter HQ Tanvi(MICHAELA) [id number] Date(s): 06/06/14 - 06/07/14 [facility] Advanced Heart Failure [address] [facility], [address] Vital Signs No data available for [...] Active sulfa drugs Active Medications metoprolol tartrate 25 mg oral tablet 25 mg = 1 tab, PO, BID, # 60 tab, 5 Refill(s), Pharmacy: [facility] Start Date: 06/06/14 Status: Ordered Results No data available for this section Immunizations Vaccine Date Refusal Reason tetanus-diphtheria toxoids 05/07/10 Procedures No data available for this section Social History Social History Type Response Alcohol Past, Previous treatment: N one.1 Smoking Status Never smoker; Previous warren tment: None; Exposure to Tobacco Smoke None; Cigarette Smoking Last 365 Days No; Reg Smoking Cessation Counseling No 1never drank Assessment and Plan No data available for this section
--- OUTSIDE RECORDS SUMMARY | 2019-11-12 22:31 | XMS REPORT | Summary of Care ---
Author Author [facility] Organization [facility] Address Unknown Phone Unavailable Encounter HQ Tanvi(FIN) [id number] Date(s): 04/02/15 - 04/03/[address] [facility] [address] [facility], [address] Vital Signs No data available for [...]
--- OUTSIDE RECORDS SUMMARY | 2019-11-12 22:31 | XMS REPORT | CCD ---
Author Author [facility]IR[facility] Crowe [facility] Address Unknown Phone Unavailable Care Team Providers Care Customer Greeter Name Role Phone Harjinder, Krishna Castanon CP Allergies, Adverse Reactions, Alerts Substance Reaction Status [...] recent to oldest [Reference Range]: 1 2 Height 154.94 cm (12/17/2012 17:53:00) Temperature Oral [96.4-99.1 DegF] 98.1 DegF (12/17/2012 20:14:00) 98.0 DegF (12/17/2012 17:53:00) Systolic Blood Pressure [90-140 mmHg] 129 mmHg (12/17/2012 20:14:00) 145 mmHg *HI* (12/17/2012 17:53:00) Diastolic Blood Pressure [60-90 mmHg] 67 mmHg (12/17/2012 20:14:00) 73 mmHg (12/17/2012 17:53:00) Respiratory Rate [14-20 BRMIN] 18 BRMIN (12/17/2012 20:14:00) 18 BRMIN (12/17/2012 17:53:00) Peripheral Pulse Rate [60-100 bpm] 90 bpm (12/17/2012 20:14:00) 87 bpm (12/17/2012 17:53:00) Weight 60 kg (12/17/2012 17:53:00) Results Microbiology Reports PROCEDURE:Culture: Wound/Abscess w/Gram Stain STATUS: In Progress BODY SITE: Chest COLLECTED DATE/TIME: 12/17/2012 19:12:00 SOURCE: Wound, Surg FREE TEXT SOURCE: PRELIMINARY REPORTS Preliminary Report No Growth; Holding Preliminary Report 48 Hour Report - No Growth, Holding STAIN REPORTS Stain Report Rare Wbc'S; No Organisms Seen
--- OUTSIDE RECORDS SUMMARY | 2019-11-12 22:31 | XMS REPORT | Summary of Care ---
Author Organization Unknown Address Unknown Phone Unavailable Encounter HQ Tanvi(MICHAELA) [id number] Date(s): 09/21/14 - 09/22/14 [facility] Advanced Heart Failure [address] [facility], [address] Vital Signs No data available for [...] Active Medications lisinopril 5 mg oral tablet 5 mg = 1 tab, PO, BID, # 60 tab, 5 Refill(s), Pharmacy: [id number] Start Date: 09/21/14 Status: Ordered Results No data available for [...]
--- OUTSIDE RECORDS SUMMARY | 2019-11-12 22:31 | XMS REPORT | Summary of Care ---
Author Organization Unknown Address Unknown Phone Unavailable Encounter [facility] Tanvi(MICHAELA) [id number] Date(s): 07/21/13 - 07/21/13 [facility] [address] [place] [address] Discharge Disposition: Home Physician Attending: Tristan Mcdaniels Physician_Referring: Tristan Mcdaniels Reason for Visit 2 WEEK FOLLOW UP Vital Signs Most recent to 1 oldest [Reference Range]: Height 157.48 cm (07/21/13 10:08 AM) Temperature Oral 98.2 DegF [96.4-99.1 DegF] (07/21/13 10:08 AM) Systolic Blood 142 mmHg Pressure [90-140 *HI* mmHg] (07/21/13 10:08 AM) Diastolic Blood 80 mmHg Pressure [60-90 (07/21/13 10:08 AM) mmHg] Peripheral Pulse 88 bpm Rate [60-100 bpm] (07/21/13 10:08 AM) Weight 68.807 kg (07/21/13 10:08 AM) Body Mass Index 27.74 m2 (07/21/13 10:08 AM) Problem List Condition Effective Dates Status [...] nt: None1 Smoking Status Never smoker, Previous awrren tment: None, Exposure to Tobacco Smoke None, Cigarette Smoking Last 365 Days No, Reg Smoking Cessation Counseling No 1never drank
--- OUTSIDE RECORDS SUMMARY | 2019-11-12 22:31 | XMS REPORT | Summary of Care ---
Author Author [facility] Organization [facility] Address Unknown Phone Unavailable Encounter BRANDEN Tinajero(MICHAELA) [id number] Date(s): 11/23/14 - 11/23/14 [facility] [address] [facility], [address] Discharge Disposition: Home Attending Physician: Tristan Mcdaniels MD Referring Physician: Tristan Mcdaniels MD Vital Signs Most recent to 1 oldest [Reference Range]: Height 154.94 cm (11/23/14 12:06 PM) Most recent to 1 oldest [Reference Range]: Temperature Oral 97.5 DegF [96.4-99.1 DegF] (11/23/14 12:06 PM) Most recent to 1 oldest [Reference Range]: Blood Pressure 130/72 mmHg [90-140/60-90 mmHg] (11/23/14 12:06 PM) Most recent to 1 oldest [Reference Range]: Peripheral Pulse 75 bpm Rate [60-100 bpm] (11/23/14 12:06 PM) Most recent to 1 oldest [Reference Range]: Weight 67.926 kg (11/23/14 12:06 PM) Most recent to 1 oldest [Reference Range]: Body Mass Index 28.29 m2 (11/23/14 12:06 PM) Problem List Condition Effective Dates Status [...]
--- OUTSIDE RECORDS SUMMARY | 2019-11-12 22:31 | XMS REPORT | Summary of Care ---
Author Organization Unknown Address Unknown Phone Unavailable Encounter Dates Location Diagnoses Discharge Providers Disposition 06/23/2013 [facility] Home Tristan Jones - [address] [facility] Tristan Mcdaniels 06/23/[address] Reason for Visit 1 WEEK FOLLOW UP Vital Signs Most recent to 1 oldest [Reference Range]: Height 154.94 cm (06/23/2013 10:02:00 [place]) Temperature Oral 97.1 DegF [96.4-99.1 DegF] (06/23/2013 10:02:00 [place] [facility]) Systolic Blood 120 mmHg Pressure [90-140 (06/23/2013 10:02:00 [facility]) mmHg] Diastolic Blood 70 mmHg Pressure [60-90 (06/23/2013 10:02:00 [facility]) mmHg] Respiratory Rate 16 BRMIN [14-20 BRMIN] (06/23/2013 10:02:00 [facility] Peripheral Pulse 82 bpm Rate [60-100 bpm] (06/23/2013 10:02:00 [place] [facility] Weight 63.324 kg (06/23/2013 10:02:00 [facility]) Body Mass Index 26.38 m2 (06/23/2013 10:02:00 [facility]) Problem List Condition Effective Dates Status Health Status Informan t Atrial Resolved fibrillation(Confirm ed) Benign Essential Active Hypertension(Confirm ed) Cataract(Confirmed) Resolved Diabetes mellitus Active type 2(Confirmed) Hemorrhoid(Confirmed Resolved ) Hyperlipidemia(Confi Active rmed) Ischemic Active cardiomyopathy(Confi rmed) Osteoarthritis(Confi Active rmed) Postoperative wound 12/03/2012 Resolved infection(Confirmed) Allergies, Adverse Reactions, Alerts Status Substance Reaction Severity Active penicillins Active sulfa drugs Medications Medication Instructions Start Date Stop Date Status furosemide 40 mg 40 mg = 1 tab, PO, Daily, # 30 tab, 06/17/19 14 Ordered oral tablet 5 Refill(s), Pharmacy: [id number] Medications Administered During Your Visit No data available for this section Immunizations Vaccine Date Refusal Reason tetanus-diphtheria toxoids 05/07/2010
--- OUTSIDE RECORDS SUMMARY | 2019-11-12 22:31 | XMS REPORT | Summary of Care ---
Author Organization Unknown Address Unknown Phone Unavailable Encounter BRANDEN Tinajero(MICHAELA) [id number] Date(s): 08/17/14 - 08/17/14 [facility] [address] [facility], [address] Discharge Disposition: Home Physician Attending: Tristan Mcdaniels MD Physician_Referring: Tristan Mcdaniels MD Vital Signs Most recent to 1 oldest [Reference Range]: Height 154.94 cm (08/17/14 9:46 AM) Temperature Oral 95.6 DegF [96.4-99.1 DegF] *LOW* (08/17/14 9:46 AM) Blood Pressure 147/73 mmHg [90-140/60-90 mmHg] *HI* (08/17/14 9:46 AM) Peripheral Pulse 85 bpm Rate [60-100 bpm] (08/17/14 9:46 AM) Weight 66.989 kg (08/17/14 9:46 AM) Body Mass Index 27.9 m2 (08/17/14 9:46 AM) Problem List Condition Effective Dates Status [...] Status penicillins Active sulfa drugs Active Medications benzonatate 200 mg oral capsule 200 mg = 1 cap, PO, PRN, 0 Refill(s) Start Date: 08/17/14 Status: Ordered pantoprazole 40 mg oral enteric coated tablet 40 mg = 1 tab, PO, Daily, # 30 tab, 0 Refill(s) Start Date: 08/17/14 Status: Ordered Tylenol 325 mg oral tablet 325 mg = 1 tab, PO, Q4H, PRN Pain, # 60 tab, 0 Refill(s) Start Date: 08/17/14 Status: Ordered Results No data available for [...]
--- OUTSIDE RECORDS SUMMARY | 2019-11-12 22:31 | XMS REPORT | Summary of Care ---
Author Organization Unknown Address Unknown Phone Unavailable Encounter [facility] Tanvi(MICHAELA) [id number] Date(s): 09/26/14 - 09/26/14 [facility] [address] [facility], [address] Discharge Disposition: Home Physician Attending: Tristan Mcdaniels MD Physician_Referring: Tristan Mcdaniels MD Vital Signs Most recent to 1 oldest [Reference Range]: Temperature Oral 98.0 DegF [96.4-99.1 DegF] (09/26/14 12:08 PM) Blood Pressure 165/77 mmHg [90-140/60-90 mmHg] *HI* (09/26/14 12:08 PM) Respiratory Rate 16 BRMIN [14-20 BRMIN] (09/26/14 12:08 PM) Peripheral Pulse 89 bpm Rate [60-100 bpm] (09/26/14 12:08 PM) Weight 65.625 kg (09/26/14 12:08 PM) Problem List Condition Effective Dates Status [...]
--- OUTSIDE RECORDS SUMMARY | 2019-11-12 22:31 | XMS REPORT | CCD ---
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 Name Role Phone Baldo Potter CP Allergies, Adverse Reactions, Alerts Substance Reaction Status penicillins Active sulfa drugs Active Problem List Condition Effective Dates Status Arthritis Resolved Atrial fibrillation Resolved Cataract Resolved Diabetes Resolved Hemorrhoid Resolved Hypertensive disease Resolved Ischemic cardiomyopathy Resolved Postoperative wound infection 12/03/2012 Active Medications Medication Instructions Start Date End Date Status vancomycin (SCIP) 1 gm, Route: IVPB, Drug form: INJ, 12/03/2012 12/03/2012 Canceled Q12H, Dosing Weight 62.528, kg, Start date: 12/03/12 21:00:00, Duration: 2 doses or times, Stop date: 12/04/12 9:00:00 morphine Sulfate 2 mg, 1 mL, Route: IVP, Drug form: 12/03/2012 12/06/2012 Discontinued INJ, Q2H, Dosing Weight 62.528, kg, PRN Pain Score 1-5, Start date: 12/03/12 9:16:00, Duration: 30 day, Stop date: 01/02/13 9:15:00 docusate 100 mg, 1 cap, Route: PO, Drug 12/03/2012 12/07/19 Discontinued form: CAP, BID, Dosing Weight 62.528, kg, PRN Constipation, Start date: 12/03/12 9:16:00, Duration: 30 day, Stop date: 01/02/13 9:15:00 glucagon 1 mg, Route: IM, Drug form: 12/03/2012 12/05/2012 Discontinued PDR/INJ, PRN, Dosing Weight 62.528, kg, PRN Blood Glucose Results, Start date: 12/03/12 9:16:00, Duration: 30 day, Stop date: 01/02/13 9:15:00 Lovenox 30 mg, 0.3 mL, Route: SUB-Q, Drug 12/03/201212/06 Discontinued form: INJ, Q24H, Start date: 12/03/12 12:00:00, Duration: 30 day, Stop date: 01/01/13 12:00:00 lisinopril 20 mg 20 mg, 1 tab, PO, Q12H, 30 tab, 12/02/2012 Discontinued oral tablet Substitution Allowed, TAB bumetanide 1 mg oral 1 mg, 1 tab, PO, BID, 30 tab, 12/02/2012 Ordered tablet Substitution Allowed, TAB potassium chloride 10 mEq, 1 tab, PO, Daily, 10 tab, 12/03/19 Ordered 10 mEq oral tablet, Substitution Allowed extended release magnesium sulfate 1 gm, 50 mL, Route: IVPB, Drug 12/03/2012 Completed form: INJ, ONCE, Dosing Weight 62.528, kg, Priority: NOW, Start date: 12/03/12 5:01:00, Stop date: 12/03/12 5:01:00 aspirin 81 mg, 1 tab, Route: PO, Drug form: 12/06/2012 Discontinued ECTAB, Daily, Dosing Weight 62.528, kg, Start date: 12/06/12 9:00:00, Duration: 30 day, Stop date: 01/04/13 9:00:00 atorvastatin 20 mg 20 mg, 1 tab, PO, Daily, 30 tab, 3 Ordered oral tablet Substitution Allowed, TAB Levaquin 500 mg, 1 tab, Route: PO, Drug 12/05/2012 12/07/19 Discontinued form: TAB, [id number], Dosing Weight 62.528, kg, Start date: 12/05/12 18:00:00, Duration: 30 day, Stop date: 01/03/13 18:00:00 aspirin 325 mg 325 mg, 1 tab, PO, Daily, 30 tab, 12/02/2012 Discontinued tablet, enteric Substitution Allowed, ECTAB coated Dextrose 50% Syringe 50 mL, Route: IVP, Dosing Weight 12/03/2012 12/03/2012 Deleted 62.528, kg, PRN, PRN Blood Glucose Results, Start date: 12/03/12 14:26:00, Duration: 30 day, Stop date: 01/02/13 14:25:00 Dextrose 50% Syringe 25 mL, Route: IVP, Dosing Weight 12/03/2012 12/03/2012 Deleted 62.528, kg, PRN, PRN Blood Glucose Results, Start date: 12/03/12 14:26:00, Duration: 30 day, Stop date: 01/02/13 14:25:00 insulin aspart 6 unit, 0.06 mL, Route: SUB-Q, Drug 12/03/2012 12/06/2012 Discontinued form: SOLN, TID-Before Meals, Dosing Weight 62.528, kg, PRN Blood Glucose Results, Start date: 12/03/12 14:26:00, Duration: 30 day, Stop date: 01/02/13 14:25:00 insulin aspart 8 unit, 0.08 mL, Route: SUB-Q, Drug 12/03/2012 12/06/2012 Discontinued form: SOLN, TID-Before Meals, Dosing Weight 62.528, kg, PRN Blood Glucose Results, Start date: 12/03/12 14:26:00, Duration: 30 day, Stop date: 01/02/13 14:25:00 insulin aspart 4 unit, 0.04 mL, Route: SUB-Q, Drug 12/03/2012 12/06/2012 Discontinued form: SOLN, TID-Before Meals, Dosing Weight 62.528, kg, PRN Blood Glucose Results, Start date: 12/03/12 14:26:00, Duration: 30 day, Stop date: 01/02/13 14:25:00 insulin aspart 2 unit, 0.02 mL, Route: SUB-Q, Drug 12/03/2012 12/06/2012 Discontinued form: SOLN, TID-Before Meals, Dosing Weight 62.528, kg, PRN Blood Glucose Results, Start date: 12/03/12 14:26:00, Duration: 30 day, Stop date: 01/02/13 14:25:00 insulin aspart 10 unit, 0.1 mL, Route: SUB-Q, Drug 12/03/2012 12/06/2012 Discontinued form: SOLN, TID-Before Meals, Dosing Weight 62.528, kg, PRN Blood Glucose Results, Start date: 12/03/12 14:26:00, Duration: 30 day, Stop date: 01/02/13 14:25:00 insulin aspart 1 unit, 0.01 mL, Route: SUB-Q, Drug 12/03/2012 12/06/2012 Discontinued form: SOLN, Bedtime, Dosing Weight 62.528, kg, PRN Blood Glucose Results, Start date: 12/03/12 14:26:00, Duration: 30 day, Stop date: 01/02/13 14:25:00 insulin aspart 2 unit, 0.02 mL, Route: SUB-Q, Drug 12/03/2012 12/06/2012 Discontinued form: SOLN, Bedtime, Dosing Weight 62.528, kg, PRN Blood Glucose Results, Start date: 12/03/12 14:26:00, Duration: 30 day, Stop date: 01/02/13 14:25:00 insulin aspart 3 unit, 0.03 mL, Route: SUB-Q, Drug 12/03/2012 12/06/2012 Discontinued form: SOLN, Bedtime, Dosing Weight 62.528, kg, PRN Blood Glucose Results, Start date: 12/03/12 14:26:00, Duration: 30 day, Stop date: 01/02/13 14:25:00 insulin aspart 4 unit, 0.04 mL, Route: SUB-Q, Drug 12/03/2012 12/06/2012 Discontinued form: SOLN, Bedtime, Dosing Weight 62.528, kg, PRN Blood Glucose Results, Start date: 12/03/12 14:26:00, Duration: 30 day, Stop date: 01/02/13 14:25:00 glucagon 1 mg, Route: IM, Drug form: 12/03/2012 12/06/2012 Discontinued PDR/INJ, PRN, Dosing Weight 62.528, kg, PRN Blood Glucose Results, Start date: 12/03/12 14:26:00, Duration: 30 day, Stop date: 01/02/13 14:25:00 Plavix 75 mg, 1 tab, Route: PO, Drug form: 12/06/2012 Canceled TAB, Daily, Dosing Weight 62.528, kg, Start date: 12/06/12 9:00:00, Duration: 30 day, Stop date: 01/04/13 9:00:00 cefepime 1 gm, Route: IVPB, Drug form: INJ, 12/05/201211/11 Completed [id number], Dosing Weight 62.528, kg, (CrCl 30 - 49 ml/min), Start date: 12/05/12 18:00:00, Duration: 1 day, Stop date: 12/06/12 6:00:00 minocycline 100 mg, 1 cap, Route: PO, Drug 12/03/2012 12/04/19 13 Discontinued form: CAP, Q12H, Dosing Weight 62.528, kg, Start date: 12/03/12 9:00:00, Duration: 30 day, Stop date: 01/01/13 21:00:00 potassium chloride 10 mEq, 1 tab, Route: PO, Drug 12/03/2012 0 12/06/2012 Discontinued 10 mEq oral tablet, form: ERTAB, Daily, Dosing Weight extended release 62.528, kg, Start date: 9:00:00, Duration: 30 day, Stop date: 01/01/13 9:00:00 minocycline 100 mg 100 mg, 1 tab, PO, Q12H, 30 tab, 12/02/2012 12/06/2012 Discontinued oral tablet Substitution Allowed, TAB Calmoseptine topical 1 appl, Route: TOP, PRN, Drug form: 11/1112/06/2012 Discontinued ointment OINT, PRN Diaper Rash, Star t date: 12/04/12 11:00:00, Duration: 30 day, Stop date: 01/03/13 10:59:00, Dosing Dosing vancomycin 2 gm, Route: IVPB, Drug form: INJ, 12/02/201211/11 Discontinued ONCE, Dosing Weight 62.528, kg, Start date: 12/02/12 21:30:00, Stop date: 12/02/12 21:30:00 Toprol-XL 50 mg oral 50 mg, 1 tab, PO, BID, 30 tab, 3 Ordered tablet, extended Substitution Allowed, ERTAB release Levaquin 500 mg oral 500 mg, 1 tab, PO, Q24H, 10 tab, 12/06/2012 12/16/2012 Ordered tablet Substitution Allowed vancomycin 500 mg, Route: IVPB, Drug form: 12/03/2012 013 Discontinued PDR/INJ, [id number], Dosing Weight 62.528, kg, Priority: NOW, Start date: 12/03/12 0:10:00, Duration: 30 day, Stop date: 01/01/13 12:10:00 cefepime 1 gm, Route: IVPB, Drug form: INJ, 12/03/201211/11 Discontinued [id number], Dosing Weight 62.528, kg, (CrCl 30 - 49 ml/min), Start date: 12/03/12 15:00:00, Duration: 30 day, Stop date: 01/02/13 3:00:00 Glucotrol 5 mg oral 5 mg, 1 tab, PO, BID, 30 tab, 12/02/2012 0 12/06/2012 Discontinued tablet Substitution Allowed aspirin 81 mg 81 mg, 1 tab, PO, Daily, 90 tab, 12/06/2012 Ordered tablet, enteric Substitution Allowed, ECTAB coated flumazenil 0.2 mg, 2 mL, Route: IVP, Drug 12/03/2012 12/07/19 Discontinued form: INJ, PRN, Dosing Weight 62.528, kg, PRN Benzodiazepine Reversal, Initial dose, Start date: 12/03/12 9:34:00, Duration: 30 day, Stop date: 01/02/13 9:33:00 hydromorphone 0.5 mg, 0.25 mL, Route: IVP, Drug 12/03/2012 Discontinued form: INJ, Q5Min, Dosing Weight 62.528, kg, PRN Pain Score 7-10, Start date: 12/03/12 9:34:00, Duration: 5 doses or times, Stop date: Limited # of times naloxone 0.04 mg, 0.1 mL, Route: IVP, Drug 12/03/201212/06 Discontinued form: INJ, Q2MIN, Dosing Weight 62.528, kg, PRN Narcotic Reversal, Start date: 12/03/12 9:34:00, Duration: 8 doses or times, Stop date: Limited # of times ondansetron 4 mg, 2 mL, Route: IVP, Drug form: 12/03/201211/11 Discontinued INJ, ONCE, Dosing Weight 62.528, kg, PRN Nausea & Vomiting, Start date: 12/03/12 9:34:00 Toprol-XL 50 mg oral 50 mg, 1 tab, Route: PO, Drug form: 11/1112/06/2012 Discontinued tablet, extended ERTAB, BID, Start date: release 9:00:00, Duration: 30 day, Stop date: 01/01/13 17:00:00 lisinopril 20 mg, 1 tab, Route: PO, Drug form: 12/03/2012 Discontinued TAB, Q12H, Dosing Weight 62.528, kg, Start date: 12/03/12 9:00:00, Duration: 30 day, Stop date: 01/01/13 21:00:00 insulin glargine 15 unit, 0.15 mL, Route: SUB-Q, 12/03/2012 Discontinued Drug form: INJ, Daily, Dosing Weight 62.528, kg, Start date: 12/03/12 9:00:00, Duration: 30 day, Stop date: 01/01/13 9:00:00 docusate sodium 100 100 mg, 1 cap, Route: PO, Drug 12/03/2012 12/06/2012 Discontinued mg oral capsule form: CAP, Daily, Dosing We ight 62.528, kg, Start date: 12/03/12 9:00:00, Duration: 30 day, Stop date: 01/01/13 9:00:00 AMIODarone 200 mg 200 mg, 1 tab, PO, Daily, 60 tab, 12/02/2012 12/05/2012 Discontinued oral tablet Substitution Allowed, TAB atorvastatin 20 mg, 1 tab, Route: PO, Drug form: 12/03/2012 Discontinued TAB, Daily, Dosing Weight 62.528, kg, Start date: 12/03/12 9:00:00, Duration: 30 day, Stop date: 01/01/13 9:00:00 bumetanide 1 mg, 1 tab, Route: PO, Drug form: 12/03/201211/11 Discontinued TAB, BID, Dosing Weight 62.528, kg, Start date: 12/03/12 9:00:00, Duration: 30 day, Stop date: 01/01/13 17:00:00 aspirin 325 mg 325 mg, 1 tab, Route: PO, Drug 12/03/201212/05 Discontinued tablet, enteric form: ECTAB, Daily, Dosing Weight coated 62.528, kg, Start date: 9:00:00, Duration: 30 day, Stop date: 01/01/13 9:00:00 AMIODarone 200 mg, 1 tab, Route: PO, Drug 12/03/2012 12/06/19 Discontinued form: TAB, Daily, Dosing Weight 62.528, kg, Start date: 12/03/12 9:00:00, Duration: 30 day, Stop date: 01/01/13 9:00:00 acetaminophen-hydroc 1 tab, Route: PO, Drug Form: TAB, 201212/06/2012 Discontinued odone 325 mg-10 mg Dosing Weight 62.528, kg, Q 6H, PRN oral tablet as needed for pain, Start d ate: 12/02/12 22:58:00, Duration: 30 day, Stop date: 01/01/13 22:57:00 vancomycin 1 gm, Route: IVPB, Drug form: INJ, 12/02/201211/11 Discontinued [id number], Dosing Weight 62.528, kg, Start date: 12/02/12 23:00:00, Duration: 30 day, Stop date: 01/01/13 11:00:00 potassium chloride 20 mEq, 1 tab, Route: PO, Drug 12/05/2012 0 12/05/2012 Completed form: ERTAB, ONCE, Dosing Weight 62.528, kg, Start date: 12/05/12 10:10:00, Stop date: 12/05/12 10:10:00 tetanus-diphtheria 0.5 ml, Route: IM, ONCE, STAT, 05/07/2010 0 05/07/2010 Completed toxoids adult Start date: 05/07/10 17:05: 00, Stop intramuscular date: 05/07/10 17:05:00 suspension Saline Flush 0.9% 5 ml, Route: IVP, Drug Form: INJ, 12/02/2012 12/06/2012 Discontinued Dosing Weight 62.528, kg, Q12H, Start date: 12/02/12 21:00:00, Duration: 30 day, Stop date: 01/01/13 9:00:00 Saline Flush 0.9% 5 ml, Route: IVP, Drug Form: INJ, 12/02/2012 12/06/2012 Discontinued Dosing Weight 62.528, kg, PRN, PRN Line Flush, Start date: 12/02/12 20:38:00, Duration: 30 day, Stop date: 01/01/13 20:37:00 [id number] 250 mL 250 mL, Rate: human resources generalist for use with 12/02/2012 Completed blood product administration, Route: IV, Dosing Weight 62.528 kg, Total Volume: 250, Start date: 12/02/12 20:38:00, Duration: 1 day, Stop date: 12/03/12 20:37:00 [id number] 1,000 mL 1,000 mL, Rate: 75 ml/hr, Infuse 12/02/2012 Discontinued over: 13.3 hr, Route: IV, Dosing Weight 62.528 kg, Total Volume: 1,000, Start date: 12/02/12 20:38:00, Duration: 30 day, Stop date: 01/01/13 20:37:00 enoxaparin 40 mg, Route: SUB-Q, Drug form: 12/03/2012 013 Discontinued INJ, [id number], Dosing Weight 62.528, kg, Start date: 12/03/12 10:00:00, Duration: 30 day, Stop date: 01/01/13 10:00:00 Dextrose 50% Syringe 12.5 gm, 25 mL, Route: IVP, Drug 12/03/2012 12/06/2012 Discontinued Form: INJ, Dosing Weight 62.528, kg, PRN, PRN Blood Glucose Results, Start date: 12/03/12 9:16:00, Duration: 30 day, Stop date: 01/02/13 9:15:00 Dextrose 50% Syringe 25 gm, 50 mL, Route: IVP, Drug 12/03/2012 12/06/2012 Discontinued Form: INJ, Dosing Weight 62.528, kg, PRN, PRN Blood Glucose Results, Start date: 12/03/12 9:16:00, Duration: 30 day, Stop date: 01/02/13 9:15:00 Insulin regular 100 100 mL, Rate: Start Insulin Drip 12/03/2012 12/05/2012 Discontinued unit + Sodium Per ICU Protocol, Dosing We ight Chloride 0.9% 62.528, kg, Route: IVPB, To morena (titrate) 100 mL Volume: 100, Duration: 30 d ay, Stop date: 01/02/13 9:23:00, Replace Every: 24 hr, Initial Insulin Drip Rate (units/hour)=(Fasting Blood Glucose-60)X0.03 "m... Initial Insulin Drip Rate (units/hour)=(Fasting Blood Glucose-60)X0.03 "multiplier". Immunizations Vaccine Date Status tetanus-diphtheria toxoids 05/07/2010 Auth (Verif ied) Vital Signs Most recent to oldest [Reference Range]: 1 2 3 Height 154.94 cm (12/02/2012 18:11:00) Current Weight 65 kg (12/05/2012 06:49:00) 71.136 kg (12/04/2012 04:04:00) Temperature Oral [96.4-99.1 DegF] 98.4 DegF (12/06/2012 17:20:00) 98 DegF (12/06/2012 12:13:00) 98 DegF (12/06/2012 08:07:00) Systolic Blood Pressure [90-140 mmHg] 110 mmHg (12/06/2012 18:00:00) 105 mmHg (12/06/2012 17:00:00) 122 mmHg (12/06/2012 16:00:00) Diastolic Blood Pressure [60-90 mmHg] 53 mmHg *LOW* (12/06/2012 18:00:00) 62 mmHg (12/06/2012 17:00:00) 67 mmHg (12/06/2012 16:00:00) Respiratory Rate [14-20 BRMIN] 18 BRMIN (12/05/2012 21:41:00) 18 BRMIN (12/05/2012 19:00:00) 20 BRMIN (12/05/2012 18:00:00) Weight 60.483 kg (12/06/2012 06:38:00) 62.528 kg (12/02/2012 18:11:00) Results BEDSIDE GLUCOSE TESTING Most recent to oldest [Reference Range]: 1 2 3 Gluc POC Lifscn [70-99 mg/dL] 127 mg/dL 1 *HI* (12/06/2012 16:59:00) 248 mg/dL 2 *HI* (12/06/2012 11:36:00) 135 mg/dL 3 *HI* (12/06/2012 05:41:00) Comment1 Notify RN/MD *NA* (12/06/2012 11:36:00) Notify RN/MD *NA* (12/05/2012 20:45:00) Notify RN/MD *NA* (12/05/2012 17:02:00) 1Interpretive Data: Upper Reportable Limit: 200 mg/dL. 2Interpretive Data: Upper Reportable Limit: 200 mg/dL. 3Interpretive Data: Upper Reportable Limit: 200 mg/dL. BLOOD BANK RESULTS Most recent to [Reference Range]: 1 2 3 ABO/Rh O POS *Unknown* (12/02/2012 20:39:00) Antibody Scrn Negative (12/02/2012 20:39:00) FFP product Product available (12/02/2012 20:39:00) Platelet product Product available (12/02/2012 20:39:00) RBC product Product available (12/02/2012 20:39:00) CHEMISTRY Most recent to oldest [Reference Range]: 1 2 3 Sodium Lvl [135-145 mEq/L] 145 mEq/L (12/06/2012 03:45:00) 143 mEq/L (12/05/2012 04:00:00) 145 mEq/L (12/04/2012 04:30:00) Potassium Lvl [3.5-5.1 mEq/L] 3.9 mEq/L (12/06/2012 03:45:00) 3.6 mEq/L (12/05/2012 04:00:00) 4.0 mEq/L (12/04/2012 04:30:00) Chloride Lvl [95-109 mEq/L] 106 mEq/L (12/06/2012 03:45:00) 105 mEq/L (12/05/2012 04:00:00) 109 mEq/L (12/04/2012 04:30:00) CO2 [24-32 mEq/L] 26 mEq/L (12/06/2012 03:45:00) 23 mEq/L *LOW* (12/05/2012 04:00:00) 22 mEq/L *LOW* (12/04/2012 04:30:00) AGAP [10.0-20.0 mEq/L] 16.9 mEq/L (12/06/2012 03:45:00) 18.6 mEq/L (12/05/2012 04:00:00) 18.0 mEq/L (12/04/2012 04:30:00) Creatinine Lvl [0.5-1.4 mg/dL] 1.6 mg/dL *HI* (12/06/2012 03:45:00) 1.5 mg/dL *HI* (12/05/2012 04:00:00) 1.3 mg/dL (12/04/2012 04:30:00) eGFR 31 mL/min/1.73m2 4 *NA* (12/06/2012 03:45:00) 33 mL/min/1.73m2 5 *NA* (12/05/2012 04:00:00) 40 mL/min/1.73m2 6 *NA* (12/04/2012 04:30:00) BUN [7-22 mg/dL] 32 mg/dL *HI* (12/06/2012 03:45:00) 31 mg/dL *HI* (12/05/2012 04:00:00) 29 mg/dL *HI* (12/04/2012 04:30:00) B/C Ratio [6-25] 28 *HI* (12/03/2012 04:20:00) 30 *HI* (12/02/2012 21:30:22) Glucose Lvl [70-99 mg/dL] 116 mg/dL 7 *HI* (12/06/2012 03:45:00) 102 mg/dL 8 *HI* (12/05/2012 04:00:00) 81 mg/dL 9 (12/04/2012 04:30:00) Total Protein [6.4-8.4 g/dL] 6.0 g/dL *LOW* (12/03/2012 04:20:00) 6.2 g/dL *LOW* (12/02/2012 21:30:22) Albumin Lvl [3.5-5.0 g/dL] 2.6 g/dL *LOW* (12/03/2012 04:20:00) 3.0 g/dL *LOW* (12/02/2012 21:30:22) Globulin [2.0-4.0 g/dL] 3.4 g/dL (12/03/2012 04:20:00) 3.2 g/dL (12/02/2012:30:22) A/G Ratio [0.7-1.6] 0.8 (12/03/2012 04:20:00) 0.9 (12/02/2012:30:22) Calcium Lvl [8.5-10.5 mg/dL] 8.3 mg/dL *LOW* (12/06/2012 03:45:00) 8.1 mg/dL *LOW* (12/05/2012 04:00:00) 7.9 mg/dL *LOW* (12/04/2012 04:30:00) Phosphorus [2.5-4.5 mg/dL] 3.8 mg/dL (12/03/2012 04:20:00) Magnesium Lvl [1.8-2.4 mg/dL] 1.9 mg/dL (12/03/2012 04:20:00) ALT [0-65 unit/L] 36 unit/L (12/03/2012 04:20:00) 38 unit/L (12/02/2012:30:22) AST [0-37 unit/L] 25 unit/L (12/03/2012 04:20:00) 31 unit/L (12/02/2012:30:22) Alk Phos [39-136 unit/L] 120 unit/L (12/03/2012 04:20:00) 125 unit/L (12/02/2012:30:22) Bili Total [0.2-1.3 mg/dL] 0.5 mg/dL (12/03/2012 04:20:00) 0.5 mg/dL (12/02/2012 21:30:22) Vanco Tr TND 1200 *NA* (12/04/2012 11:49:29) Vanco Tr 9.6 ug/ml 10 *NA* (12/04/2012 11:49:29) 4Result Comment: The eGFR is calculated using [...] values reflect the clinical guidelines of the [place] [employer]. 8Interpretive Data: Adult reference range values reflect the clinical guidelines of the [place] [employer]. 9Interpretive Data: Adult reference range values reflect the clinical guidelines of the [place] [employer]. 10Interpretive Data: Therapeutic Range: Trough: 10 - 20 ug/mL Peak: 20 - 40 ug/mL Potential Toxicity: >80 ug/mL HEMATOLOGY Most recent to oldest [Reference Range]: 1 2 3 WBC [3.7-10.4 K/CMM] 5.4 K/CMM (12/06/2012 03:45:00) 5.6 K/CMM (12/05/2012 04:00:00) 7.0 K/CMM (12/04/2012 04:30:00) RBC [4.20-5.40 M/CMM] 3.15 M/CMM *LOW* (12/06/2012 03:45:00) 3.25 M/CMM *LOW* (12/05/2012 04:00:00) 3.19 M/CMM *LOW* (12/04/2012 04:30:00) Hgb [12.0-16.0 g/dL] 9.7 g/dL *LOW* (12/06/2012 03:45:00) 9.8 g/dL *LOW* (12/05/2012 04:00:00) 9.8 g/dL *LOW* (12/04/2012 04:30:00) Hct [36.0-48.0 %] 28.7 % *LOW* (12/06/2012 03:45:00) 30.1 % *LOW* (12/05/2012 04:00:00) 29.2 % *LOW* (12/04/2012 04:30:00) MCV [81.0-99.0 fL] 91.0 fL (12/06/2012 03:45:00) 92.5 fL (12/05/2012 04:00:00) 91.4 fL (12/04/2012 04:30:00) MCH [27.0-31.0 pg] 30.7 pg (12/06/2012 03:45:00) 30.2 pg (12/05/2012 04:00:00) 30.8 pg (12/04/2012 04:30:00) MCHC [32.0-36.0 g/dL] 33.7 g/dL (12/06/2012 03:45:00) 32.7 g/dL (12/05/2012 04:00:00) 33.7 g/dL (12/04/2012 04:30:00) RDW [11.5-14.5 %] 14.6 % *HI* (12/06/2012 03:45:00) 14.8 % *HI* (12/05/2012 04:00:00) 14.4 % (12/04/2012 04:30:00) Platelet [133-450 K/CMM] 188 K/CMM (12/06/2012 03:45:00) 192 K/CMM (12/05/2012 04:00:00) 221 K/CMM (12/04/2012 04:30:00) MPV [7.4-10.4 fL] 9.7 fL (12/06/2012 03:45:00) 10.1 fL (12/05/2012 04:00:00) 9.5 fL (12/04/2012 04:30:00) Segs [45.0-75.0 %] 64.7 % (12/06/2012 03:45:00) 67.1 % (12/05/2012 04:00:00) 72.8 % (12/04/2012 04:30:00) Lymphocytes [20.0-40.0 %] 18.4 % *LOW* (12/06/2012 03:45:00) 17.3 % *LOW* (12/05/2012 04:00:00) 13.4 % *LOW* (12/04/2012 04:30:00) Monocytes [2.0-12.0 %] 9.8 % (12/06/2012 03:45:00) 7.9 % (12/05/2012 04:00:00) 7.6 % (12/04/2012 04:30:00) Eosinophils [0.0-4.0 %] 6.2 % *HI* (12/06/2012 03:45:00) 6.8 % *HI* (12/05/2012 04:00:00) 5.4 % *HI* (12/04/2012 04:30:00) Basophils [0.0-1.0 %] 0.9 % (12/06/2012 03:45:00) 0.9 % (12/05/2012 04:00:00) 0.8 % (12/04/2012 04:30:00) Segs-Bands # [1.5-8.1 K/CMM] 3.5 K/CMM (12/06/2012 03:45:00) 3.8 K/CMM (12/05/2012 04:00:00) 5.1 K/CMM (12/04/2012 04:30:00) Lymphocytes # [1.0-5.5 K/CMM] 1.0 K/CMM (12/06/2012 03:45:00) 1.0 K/CMM (12/05/2012 04:00:00) 0.9 K/CMM *LOW* (12/04/2012 04:30:00) Monocytes # [0.0-0.8 K/CMM] 0.5 K/CMM (12/06/2012 03:45:00) 0.4 K/CMM (12/05/2012 04:00:00) 0.5 K/CMM (12/04/2012 04:30:00) Eosinophils # [0.0-0.5 K/CMM] 0.3 K/CMM (12/06/2012 03:45:00) 0.4 K/CMM (12/05/2012 04:00:00) 0.4 K/CMM (12/04/2012 04:30:00) Basophils # [0.0-0.2 K/CMM] 0.1 K/CMM (12/06/2012 03:45:00) 0.1 K/CMM (12/05/2012 04:00:00) 0.1 K/CMM (12/04/2012 04:30:00) PT [12.0-14.7 seconds] 14.7 seconds (12/02/2012 21:30:09) INR [0.85-1.17] 1.13 11 (12/02/2012 21:30:09) PTT [22.9-35.8 seconds] 32.0 seconds 12 (12/03/2012 03:00:00) 30.6 seconds 13 (12/02/2012 21:30:09) 11Interpretive Data: RECOMMENDED RANGES FOR PROTIME INR: 2.0-3.0 for most medical and surgical thromboembolic states. 2.5-3.5 for artificial heart valves and recurrent embolism. INR SHOULD BE USED ONLY FOR PATIENTS ON STABLE ANTICOAGULANT THERAPY. 12Interpretive Data: Heparin Therapeutic Range: 57 - 92 Seconds 13Interpretive Data: Heparin Therapeutic Range: 57 - 92 Seconds Microbiology Reports PROCEDURE:Culture: AFB w/Smear STATUS: In Progress BODY SITE: COLLECTED DATE/TIME: 12/03/2012 08:40:00 SOURCE: Tissue FREE TEXT SOURCE: PRELIMINARY REPORTS Preliminary Report Culture In Progress STAIN REPORTS Stain Report No Acid Fast Bacilli Seen On Smear PROCEDURE:Culture: AFB w/Smear STATUS: In Progress BODY SITE: COLLECTED DATE/TIME: 12/03/2012 08:40:00 SOURCE: Wound, Surg FREE TEXT SOURCE: PRELIMINARY REPORTS Preliminary Report Culture In Progress STAIN REPORTS Stain Report No Acid Fast Bacilli Seen On Smear PROCEDURE:Culture: Anaerobic STATUS: Auth (Verified) BODY SITE: COLLECTED DATE/TIME: 12/03/2012 08:40:00 SOURCE: Wound, Surg FREE TEXT SOURCE: rt thigh wound FINAL REPORTS Final Report No Anaerobes Isolated After 5 Days PRELIMINARY REPORTS Preliminary Report No Anaerobes Isolated After 4 Days Preliminary Report No Anaerobes Isolated After 3 Days Preliminary Report Culture In Progress PROCEDURE:Culture: Anaerobic STATUS: Auth (Verified) BODY SITE: COLLECTED DATE/TIME: 12/03/2012 08:40:00 SOURCE: Tissue FREE TEXT SOURCE: rt thigh tissu e FINAL REPORTS Final Report No Anaerobes Isolated After 5 Days PRELIMINARY REPORTS Preliminary Report No Anaerobes Isolated After 4 Days Preliminary Report No Anaerobes Isolated After 2 Days Preliminary Report Culture In Progress Preliminary Report No Anaerobes Isolated After 3 Days PROCEDURE:Culture: Wound/Abscess w/Gram Stain STATUS: Auth (Verified) BODY SITE: Wound COLLECTED DATE/TIME: 12/03/2012 08:40:00 SOURCE: Wound, Surg FREE TEXT SOURCE: rt thigh wound , non-stat or1 ([id number]), eswab FINAL REPORTS Final Report Moderate Morganella morganii PRELIMINARY REPORTS Preliminary Report Moderate Morganella morganii Further Testing In Progress Preliminary Report Moderate Gram Negative Rods, Non-Lactose Fermenters Identification And Sensitivity Pending STAIN REPORTS Stain Report Moderate WBC's No Squamous Epithelial Cells; Few Gram Negative Rods Critical Results Called To: Keena Barr R.N. (ext. [id number]) At: 12/03/2012 13:37:10 Called By: asha Read Back Ok SUSCEPTIBILITY REPORT MORMOR Antibiotic INTERP., LISA., Amikacin S <=16 Ampicillin R >16 Ampicillin/Sulbactam I 16/8 Cefepime S <=4 Ceftriaxone S <=8 Gentamicin S <=4 Levofloxacin S <=2 Meropenem S <=1 Piperacillin/Tazobactam S <=16 Tetracycline R >8 Tobramycin S <=4 Trimethoprim/Sulfamethoxazole S <=2/38 PROCEDURE:Culture: Aspirate/Body Fluid/Tissue STATUS: Auth (Verified) BODY SITE: COLLECTED DATE/TIME: 12/03/2012 08:40:00 SOURCE: Tissue FREE TEXT SOURCE: rt thigh tissu e, non-stat or1 ([id number]), port-a-cul FINAL REPORTS Final Report Moderate Gram Negative Rods, Non-Lactose Fermenters Refer To Culture # [id number] 12/03/12 For Identification And Susceptibility Results PRELIMINARY REPORTS Preliminary Report Moderate Gram Negative Rods, Non-Lactose Fermenters Subculture In Progress Preliminary Report Moderate Gram Negative Rods, Non-Lactose Fermenters STAIN REPORTS Stain Report Rare Wbc'S; Few Gram Negative Rods Critical Results Called To: Keena Barr R.N. (ext. [id number]) At: 12/03/2012 13:36:06 Called By: asha Read Back Ok PROCEDURE:Culture: Fungal w/Smear STATUS: In Progress BODY SITE: COLLECTED DATE/TIME: 12/03/2012 08:40:00 SOURCE: Wound, Surg FREE TEXT SOURCE: PRELIMINARY REPORTS Preliminary Report Culture In Progress STAIN REPORTS Stain Report No Yeast Or Fungal Elements Seen PROCEDURE:Culture: Fungal w/Smear STATUS: In Progress BODY SITE: COLLECTED DATE/TIME: 12/03/2012 08:40:00 SOURCE: Tissue FREE TEXT SOURCE: PRELIMINARY REPORTS Preliminary Report Culture In Progress STAIN REPORTS Stain Report No Yeast Or Fungal Elements Seen PROCEDURE:Culture: MRSA STATUS: Auth (Verified) BODY SITE: Nares COLLECTED DATE/TIME: 12/02/2012 22:28:54 SOURCE: Nasal Swab FREE TEXT SOURCE: FINAL REPORTS Final Report No Methicillin Resistant Staphylococcus Aureus Isolated Procedures Procedures Date Related Diagnosis Coronary artery bypass grafts x 4 11/11/2012 00:00:0 0
--- OUTSIDE RECORDS SUMMARY | 2019-11-12 22:31 | XMS REPORT | Summary of Care ---
Author Author [facility] Organization [facility] Address Unknown Phone Unavailable Encounter BRANDEN Tinajero(MICHAELA) [id number] Date(s): 09/06/15 - 09/06/15 [facility] [address] [facility], [address] Discharge Disposition: Home Attending Physician: Tristan Mcdaniels MD Referring Physician: Tristan Mcdaniels MD Vital Signs Most recent to 1 oldest [Reference Range]: Height 154.94 cm (09/06/15 10:14 AM) Temperature Oral 97.6 DegF [96.4-99.1 DegF] (09/06/15 10:14 AM) Blood Pressure 137/75 mmHg [90-140/60-90 mmHg] (09/06/15 10:14 AM) Respiratory Rate 16 BRMIN [14-20 BRMIN] (09/06/15 10:14 AM) Peripheral Pulse 79 bpm Rate [60-100 bpm] (09/06/15 10:14 AM) Weight 63.665 kg (09/06/15 10:14 AM) Body Mass Index 26.52 m2 (09/06/15 10:14 AM) Problem List Condition Effective Dates Status [...] penicillins Active sulfa drugs Active Medications benzonatate 100 mg oral capsule 100 mg = 1 cap, PO, TID, do not crush or chew, # 30 cap, 0 Refill(s) Start Date: 09/06/15 Stop Date: 09/16/15 Status: Ordered lisinopril 5 mg oral tablet 5 mg = 1 tab, PO, TID, 2 TABS QAM; 1 TAB QPM, 0 Refill(s) Start Date: 09/06/15 Status: Ordered Results No data available for [...]
--- OUTSIDE RECORDS SUMMARY | 2019-11-12 22:31 | XMS REPORT | Summary of Care ---
Author Organization Unknown Address Unknown Phone Unavailable Encounter BRANDEN Tinajero(MICHAELA) [id number] Date(s): 02/24/14 - 02/24/14 [facility] [address] Discharge Diagnosis: Sciatica Discharge Disposition: Home Physician Attending: Frank Robertson DO Reason for Visit LEFT LEG PAIN Vital Signs Most recent to 1 2 oldest [Reference Range]: Height 154.94 cm (02/24/14 3:42 PM) Temperature Oral 98 DegF 99.4 DegF [96.4-99.1 DegF] (02/24/14 7:29 PM) *HI* (02/24/14 3:42 PM) Systolic Blood 132 mmHg 126 mmHg Pressure [90-140 (02/24/14 7:29 PM) (02/24/14 3:42 PM) mmHg] Diastolic Blood 65 mmHg 60 mmHg Pressure [60-90 (02/24/14 7:29 PM) (02/24/14 3:42 PM) mmHg] Respiratory Rate 20 BRMIN 16 BRMIN [14-20 BRMIN] (02/24/14 7:29 PM) (02/24/14 3:42 PM) Peripheral Pulse 82 bpm 77 bpm Rate [60-100 bpm] (02/24/14 7:29 PM) (02/24/14 3:42 PM) Weight 65.455 kg (02/24/14 3:42 PM) Body Mass Index 27.27 m2 (02/24/14 3:42 PM) Problem List Condition Effective Dates Status [...] Status penicillins Active sulfa drugs Active Medications Tylenol 650 mg, Route: PO, Drug form: TAB, ONCE, Dosing Weight 65.455, kg, Priority: STA T, Start date: 02/24/14 17:30:00, Stop date: 02/24/14 17:30:00 Start Date: 02/24/14 Stop Date: 02/24/14 Status: Completed Results URINE AND STOOL Most recent to 1 oldest [Reference Range]: UA Turbidity [Clear] Clear (02/24/14 6:30 PM) UA Color [Yellow] Yellow *NA* (02/24/14 6:30 PM) UA pH [5.0-8.0] 5.5 (02/24/14 6:30 PM) UA Spec Grav 1.025 [<=1.030] (02/24/14 6:30 PM) UA Glucose [Negative Negative mg/dL mg/dL] (02/24/14 6:30 PM) UA Blood [Negative] Negative (02/24/14 6:30 PM) UA Ketones [Negative Negative mg/dL mg/dL] *NA* (02/24/14 6:30 PM) UA Protein [Negative Negative mg/dL mg/dL] (02/24/14 6:30 PM) UA Urobilinogen 0.2 EU/dL [0.1-1.0 EU/dL] (02/24/14 6:30 PM) UA Bili [Negative] Negative *NA* (02/24/14 6:30 PM) UA Leuk Est Negative [Negative] (02/24/14 6:30 PM) UA Nitrite Negative [Negative] (02/24/14 6:30 PM) UA WBC [None Seen 3-5 /HPF /HPF] (02/24/14 6:30 PM) UA RBC [0-2] None Seen (02/24/14 6:30 PM) UA Bacteria [None None Seen Seen] (02/24/14 6:30 PM) UA Sq Epi [Few /LPF] Few /LPF (02/24/14 6:30 PM) Medications Administered During Your Visit No data [...]
--- OUTSIDE RECORDS SUMMARY | 2019-11-12 22:31 | XMS REPORT | Summary of Care ---
Author Organization Unknown Address Unknown Phone Unavailable Encounter HQ Tanvi(MICHAELA) [id number] Date(s): 05/18/14 - 05/18/14 [facility] [address] [place] [address] Discharge Disposition: Home Physician Attending: Tristan Mcdaniels MD Physician_Referring: Tristan Mcdaniels MD Reason for Visit FOLLOW UP 3 MONTH Vital Signs Most recent to 1 oldest [Reference Range]: Height 154.94 cm (05/18/14 9:41 AM) Temperature Oral 98.1 DegF [96.4-99.1 DegF] (05/18/14 9:41 AM) Systolic Blood 150 mmHg Pressure [90-140 *HI* mmHg] (05/18/14 9:41 AM) Diastolic Blood 75 mmHg Pressure [60-90 (05/18/14 9:41 AM) mmHg] Peripheral Pulse 92 bpm Rate [60-100 bpm] (05/18/14 9:41 AM) Weight 66.108 kg (05/18/14 9:41 AM) Body Mass Index 27.54 m2 (05/18/14 9:41 AM) Problem List Condition Effective Dates Status [...] Active Medications bumetanide 1 mg oral tablet See Instructions, 1 tab PO Q AM, 0.5 tab PO IN THE EVENING, # 45 tab, 5 Refill(s ), Pharmacy: [id number] Special Instructions: 1 tab PO Q AM, 0.5 tab PO IN THE EVENING Start Date: 03/19/14 Status: Ordered Medications Administered During Your Visit [...]
--- OUTSIDE RECORDS SUMMARY | 2019-11-12 22:31 | XMS REPORT | Summary of Care ---
Author Organization Unknown Address Unknown Phone Unavailable Encounter Dates Location Diagnoses Discharge Providers Disposition 07/07/2013 [facility] Home Tristan Jones - [address] [place] [address] Tristan Mcdaniels 07/07/[address] Reason for Visit 1 WK F/U Vital Signs Most recent to 1 oldest [Reference Range]: Height 154.94 cm (07/07/2013 10:06:00 Wendy/[place]) Temperature Oral 97.6 DegF [96.4-99.1 DegF] (07/07/2013 10:06:00 Americ a/[place]) Systolic Blood 150 mmHg Pressure [90-140 *HI* mmHg] (07/07/2013 10:06:00 [place] a/[place]) Diastolic Blood 77 mmHg Pressure [60-90 (07/07/2013 10:06:00 [place] a/[place]) mmHg] Respiratory Rate 18 BRMIN [14-20 BRMIN] (07/07/2013 10:06:00 [place] a/[place]) Peripheral Pulse 88 bpm Rate [60-100 bpm] (07/07/2013 10:06:00 [place] a/[place]) Weight 64.688 kg (07/07/2013 10:06:00 Wendy/[place]) Body Mass Index 26.95 m2 (07/07/2013 10:06:00 Wendy/[place]) Problem List Condition Effective Dates Status Health [...] Medication Instructions Start Date Stop Date Status metoprolol 50 mg 50 mg, PO, Daily, # 90 tab, 3 07/07/2013 0709/2013 Ordered oral tablet, Refill(s), Pharmacy: [id number] Medications Administered During Your Visit [...]
--- OUTSIDE RECORDS SUMMARY | 2019-11-12 22:31 | XMS REPORT | Summary of Care ---
Author Organization Unknown Address Unknown Phone Unavailable Encounter HQ Tanvi(MICHAELA) [id number] Date(s): 06/04/14 - 06/05/14 [facility] [address] [facility], [address] Vital Signs No data available for [...] See Instructions, 2 tablets PO Daily, # 60 tab, 6 Refill(s), Pharmacy: [id number] Special Instructions: 2 tablets PO Daily Start Date: 06/04/14 Status: Ordered Results No data available for [...]
--- OUTSIDE RECORDS SUMMARY | 2019-11-12 22:31 | XMS REPORT | Summary of Care ---
Author Organization Unknown Address Unknown Phone Unavailable Encounter HQ Tanvi(MICHAELA) [id number] Date(s): 11/17/13 - 11/17/13 [facility] [address] [place] [address] Discharge Disposition: Home Physician Attending: Tristan Mcdaniels MD Physician_Referring: Tristan Mcdaniels MD Reason for Visit FOLLOW UP Vital Signs Most recent to 1 oldest [Reference Range]: Height 154.9 cm (11/17/13 9:54 AM) Temperature Oral 97.2 DegF [96.4-99.1 DegF] (11/17/13 9:54 AM) Systolic Blood 127 mmHg Pressure [90-140 (11/17/13 9:54 AM) mmHg] Diastolic Blood 71 mmHg Pressure [60-90 (11/17/13 9:54 AM) mmHg] Respiratory Rate 16 BRMIN [14-20 BRMIN] (11/17/13 9:54 AM) Peripheral Pulse 97 bpm Rate [60-100 bpm] (11/17/13 9:54 AM) Weight 66.818 kg (11/17/13 9:54 AM) Body Mass Index 27.85 m2 (11/17/13 9:54 AM) Problem List Condition Effective Dates Status [...] # 30 tab, 0 Refill(s) Start Date: 11/17/13 Stop Date: 11/17/13 Status: Discontinued lisinopril 5 mg oral tablet 5 mg = 1 tab, PO, Daily, # 30 tab, 6 Refill(s), Pharmacy: [id number] Start Date: 11/17/13 Status: Ordered metoprolol 25 mg oral tablet, extended release 37.5 mg = 1.5 tab, PO, Daily, # 45 tab, 3 Refill(s), Pharmacy: [facility] Start Date: 11/17/13 Status: Ordered Nasonex 50 mcg/inh nasal spray 2 spray, NASAL, Daily, for allergy symptoms, prn, # 17 gm, 0 Refill(s) Special Instructions: prn Start Date: 11/17/13 Status: Ordered pravastatin 20 mg oral tablet 20 mg = 1 tab, PO, Bedtime, # 30 tab, 0 Refill(s) Start Date: 11/17/13 Status: Ordered triamcinolone topical 0.1% ointment 1 appl, TOP, TID, prn, # 15 gm, 0 Refill(s) Special Instructions: prn Start Date: 11/17/13 Status: Ordered Medications Administered During Your Visit [...]
--- OUTSIDE RECORDS SUMMARY | 2019-11-12 22:31 | XMS REPORT | CCD ---
Author Author Auto BAIRON Crowe Organization [facility] Address Unknown Phone Unavailable Care Team Providers Care [facility] Coordinator Name Role Phone Baldo Potter RP Allergies, [...]
--- OUTSIDE RECORDS SUMMARY | 2019-11-12 22:31 | XMS REPORT | Summary of Care ---
Author Author [facility] Organization [facility] Address Unknown Phone Unavailable Encounter HQ Tanvi(FIN) [id number] Date(s): 04/02/15 - 04/03/15 [facility] [address] [facility], [address] Vital Signs No data available for [...] Active Medications pravastatin 20 mg oral tablet See Instructions, 1 tab PO Bedtime, # 90 tab, 1 Refill(s), Pharmacy: [facility] 3501 Start Date: 04/02/15 Status: Ordered Results No data available for [...]
--- OUTSIDE RECORDS SUMMARY | 2019-11-12 22:31 | XMS REPORT | CCD ---
Author Author Auto BAIRON Crowe Organization [facility] Address Unknown Phone Unavailable Care Team Providers Care Gl[place] Kiln Operator Name Role Phone Baldo Potter RP Allergies, [...]
--- OUTSIDE RECORDS SUMMARY | 2019-11-12 22:31 | XMS REPORT | Summary of Care ---
Author Author [facility] Organization [facility] Address Unknown Phone Unavailable Encounter BRANDEN Tinajero(MICHAELA) [id number] Date(s): 04/18/15 - 04/19/15 [facility] [address] [facility], [address] Vital Signs No data available for [...] bumetanide 1 mg oral tablet See Instructions, Take 1 tab in AM and take 0.5 tab in PM, # 60 tab, 5 Refill(s) , Pharmacy: [facility], PLEASE FAX ALL FUTURE REFILL REQUESTS TO: . Start Date: 04/18/15 Status: Ordered lisinopril 5 mg oral tablet See Instructions, take 2 tab in AM and 1 tab PM., # 90 tab, 5 Refill(s), Pharmac y: [facility], PLEASE FAX ALL FUTURE REFILL REQUESTS TO: . Start Date: 04/18/15 Status: Ordered Results No data available for [...]
--- OUTSIDE RECORDS SUMMARY | 2019-11-12 22:32 | XMS REPORT | Summary of Care ---
Author Author [facility] Organization [facility] Address Unknown Phone Unavailable Encounter BRANDEN Tinajero(MICHAELA) [id number] Date(s): 03/07/16 - 03/07/16 [facility] [address] [employer] [facility] [employer] [facility] [place] [address]- Discharge Disposition: Home or Self Care Attending Physician: Roscoe Siddiqui MD Admitting Physician: Tung Potts MD Referring Physician: Angela Pemberton MD Vital Signs 1 2 3 Most recent to oldest [Reference Range]: 154.94 cm (03/07/16 1:30 AM) Height 97.8 DegF (03/07/16 12:00 PM) 97.1 DegF (03/07/16 3:44 AM) 98.5 DegF (03/07/16 1:38 AM) Temperature Oral [96.4-99.1 DegF] 134/65 mmHg (03/07/16 12:00 PM) 122/64 mmHg (03/07/16 3:44 AM) 131/60 mmHg (03/07/16 1:38 AM) Blood Pressure [90-140/60-90 mmHg] 20 BRMIN (03/07/16 12:00 PM) 20 BRMIN (03/07/16 3:44 AM) 20 BRMIN (03/07/16 1:38 AM) Respiratory Rate [14-20 BRMIN] 61 bpm (03/07/16 12:00 PM) 66 bpm (03/07/16 3:44 AM) 63 bpm (03/07/16 1:38 AM) Peripheral Pulse Rate [60-100 bpm] 65.136 kg (03/07/16 1:30 AM) Weight 27.13 m2 (03/07/16 1:30 AM) Body Mass Index Problem List Condition Effective Dates Status Health [...] Status penicillins Active sulfa drugs Active Medications aspirin 81 mg, 1 tab, Route: PO, Drug form: ECTAB, Daily, Dosing Weight 65.136, kg, Star t date: 03/07/16 9:00:00 ACCOUNT DEVELOPMENT REPRESENTATIVE, Duration: 30 day, Stop date: 04/05/16 9:00:00 ACCOUNT DEVELOPMENT REPRESENTATIVE Notes: Do not crush or chew.(Same As: Ecotrin) Start Date: 03/07/16 Stop Date: 03/07/16 Status: Discontinued Lactated Ringers 1,000 mL 1,000 mL, Rate: 70 ml/hr, Infuse over: 14.3 hr, Route: IV, Dosing Weight 65.136 kg, Total Volume: 1,000, Start date: 03/07/16 5:40:00 ACCOUNT DEVELOPMENT REPRESENTATIVE, Duration: 30 day, Sto p date: 04/06/16 5:39:00 ACCOUNT DEVELOPMENT REPRESENTATIVE Start Date: 03/07/16 Stop Date: 03/07/16 Status: Discontinued lisinopril 5 mg, 1 tab, Route: PO, Drug form: TAB, Daily, Dosing Weight 65.136, kg, Start d ate: 03/08/16 9:00:00 ACCOUNT DEVELOPMENT REPRESENTATIVE, Duration: 30 day, Stop date: 04/06/16 9:00:00 ACCOUNT DEVELOPMENT REPRESENTATIVE Notes: (Same as: Prinivil, Zestril) Start Date: 03/08/16 Stop Date: 03/07/16 Status: Canceled lisinopril 5 mg oral tablet 5 mg = 1 tab, PO, Dinner, # 30 tab, 0 Refill(s) Start Date: 03/07/16 Status: Ordered lisinopril 5 mg oral tablet 10 mg = 2 tab, PO, Breakfast, # 30 tab, 0 Refill(s) Start Date: 03/07/16 Status: Ordered metoprolol extended release 50 mg, 1 tab, Route: PO, Drug form: ERTAB, Daily, Dosing Weight 65.136, kg, Star t date: 03/08/16 9:00:00 ACCOUNT DEVELOPMENT REPRESENTATIVE, Duration: 30 day, Stop date: 04/06/16 9:00:00 ACCOUNT DEVELOPMENT REPRESENTATIVE Notes: (Same as: Toprol XL) May split tab, but do not crush. Start Date: 03/08/16 Stop Date: 03/07/16 Status: Canceled metoprolol tartrate 50 mg, Route: PO, Drug form: TAB, Daily, Dosing Weight 65.136, kg, Start date: 1 05/07/15 9:00:00 ACCOUNT DEVELOPMENT REPRESENTATIVE, Duration: 30 day, Stop date: 04/05/16 9:00:00 ACCOUNT DEVELOPMENT REPRESENTATIVE Start Date: 03/07/16 Stop Date: 03/07/16 Status: Discontinued omeprazole 20 mg, Route: NG, Drug form: SUSP, BID-Before Meals, Dosing Weight 65.136, kg, S tart date: 03/07/16 16:30:00 ACCOUNT DEVELOPMENT REPRESENTATIVE, Duration: 30 day, Stop date: 04/06/16 7:30:00 ACCOUNT DEVELOPMENT REPRESENTATIVE Start Date: 03/07/16 Stop Date: 03/07/16 Status: Deleted pravastatin 20 mg, 1 tab, Route: PO, Drug form: TAB, Bedtime, Dosing Weight 65.136, kg, Star t date: 03/07/16 21:00:00 ACCOUNT DEVELOPMENT REPRESENTATIVE, Duration: 30 day, Stop date: 04/05/16 21:00:00 CS T Notes: (Same as: Pravachol) Start Date: 03/07/16 Stop Date: 03/07/16 Status: Canceled Protonix 40 mg, 1 tab, Route: PO, Drug form: ECTAB, BID-Before Meals, Start date: 6 16:30:00 ACCOUNT DEVELOPMENT REPRESENTATIVE, Duration: 30 day, Stop date: 04/06/16 7:30:00 ACCOUNT DEVELOPMENT REPRESENTATIVE Notes: Tablet should not be chewed or crushed.(Same as: Protonix) Start Date: 03/07/16 Stop Date: 03/07/16 Status: Discontinued Results CHEM PANEL Most recent to 1 oldest [Reference Range]: Amylase Lvl [25-115 68 unit/L unit/L] (03/07/16 6:50 AM) Procalcitonin Lvl 0.16 ng/mL [0.00-0.10 ng/mL] *HI* (03/07/16 6:50 AM) Immunizations Given and Recorded Vaccine Date Status [...] Smoking Cessation Counseling No Assessment and Plan Extracted from: Title: Attending Attesation Author: Roscoe Siddiqui MD Matt e: 03/07/16 Attending Attestation Note Date of encounter: [...]
--- OUTSIDE RECORDS SUMMARY | 2019-11-12 22:32 | XMS REPORT | Summary of Care ---
Author Author [facility] Organization [facility] Address Unknown Phone Unavailable Encounter HQ Tanvi(MICHAELA) [id number] Date(s): 02/21/16 - 02/21/16 [facility] [address] [facility], [address] [place], [place] [address] Discharge Disposition: Home or Self Care Attending Physician: Tristan Mcdaniels MD Vital Signs No [...]
--- OUTSIDE RECORDS SUMMARY | 2019-11-12 22:32 | XMS REPORT | Summary of Care ---
Author Author [facility] Organization [facility] Address Unknown Phone Unavailable Encounter BRANDEN Tinajero(MICHAELA) [id number] Date(s): 01/17/16 - 01/18/16 [facility] [address] [facility], [address] [place] [address]- Vital Signs No data available for this [...] QPM, # 90 tab, 5 Refill(s), Pharmacy: [facility] Start Date: 01/17/16 Stop Date: 07/15/16 Status: Ordered Results No data available for [...]
--- OUTSIDE RECORDS SUMMARY | 2019-11-12 22:32 | XMS REPORT | Summary of Care ---
Author Author [facility] Organization [facility] Address Unknown Phone Unavailable Encounter BRANDEN Tinajero(MICHAELA) [id number] Date(s): 01/13/16 - 01/13/16 [facility] [address], [place], [place] [address]- [phone] Discharge Diagnosis: Labial abscess Discharge Disposition: Home or Self Care Attending Physician: Brendan Sanchez MD Vital Signs Most recent to 1 2 oldest [Reference Range]: Height 154.94 cm (01/13/16 5:14 PM) Temperature Oral 99.9 DegF 98.1 DegF [96.4-99.1 DegF] *HI* (01/13/16 5:14 PM) (01/13/16 7:08 PM) Blood Pressure 164/84 mmHg 168/72 mmHg [90-140/60-90 mmHg] *HI* *HI* (01/13/16 7:08 PM) (01/13/16 5:14 PM) Respiratory Rate 18 BRMIN 18 BRMIN [14-20 BRMIN] (01/13/16 7:08 PM) (01/13/16 5:14 PM) Peripheral Pulse 82 bpm 82 bpm Rate [60-100 bpm] (01/13/16 7:08 PM) (01/13/16 5:14 PM) Weight 64.091 kg (01/13/16 5:14 PM) Body Mass Index 26.7 m2 (01/13/16 5:14 PM) Problem List Condition Effective Dates Status [...] Status penicillins Active sulfa drugs Active Medications doxycycline hyclate 100 mg oral tablet 100 mg = 1 tab, PO, Q12H, X 10 day, # 20 tab, 0 Refill(s) Start Date: 01/13/16 Stop Date: 01/23/16 Status: Ordered lidocaine 1 %, Route: SUB-Q, ONCE, Dosing Weight 64.091, kg, Start date: 01/13/16 18:20:00 CDT, Stop date: 01/13/16 18:20:00 CDT Start Date: 01/13/16 Stop Date: 01/13/16 Status: Completed Tylenol 650 mg, Route: PO, Drug form: TAB, ONCE, Dosing Weight 64.091, kg, Priority: STA T, Start date: 01/13/16 18:34:00 CDT, Stop date: 01/13/16 18:34:00 CDT Start Date: 01/13/16 Stop Date: 01/13/16 Status: Completed Tylenol with Codeine #3 oral tablet 1 tab, Route: PO, Drug Form: TAB, Dosing Weight 64.091, kg, ONCE, STAT, Start da te: 01/13/16 18:20:00 CDT, Stop date: 01/13/16 18:20:00 CDT Start Date: 01/13/16 Stop Date: 01/13/16 Status: Completed Results No data available for this section [...]
--- OUTSIDE RECORDS SUMMARY | 2019-11-12 22:32 | XMS REPORT | Summary of Care ---
Author Author [facility] Organization [facility] Address Unknown Phone Unavailable Encounter HQ Tanvi(FIN) [id number] Date(s): 01/07/16 - 01/08/16 [facility] Failure [address] [facility], [address] [place], [place] [address] Vital Signs No data available for this [...] physician., # 270 tab, 3 Refill(s), Pharmacy: [facility] Start Date: 01/07/16 Status: Ordered Results No data available for [...]
--- OUTSIDE RECORDS SUMMARY | 2019-11-12 22:32 | XMS REPORT | Summary of Care ---
Author Author [facility] Organization [facility] Address Unknown Phone Unavailable Encounter HQ Tanvi(FIN) [id number] Date(s): 02/10/16 - 02/11/16 [facility] [address] [facility], [address] [place] [address]- Vital Signs No data available for this [...] daily., # 180 tab, 3 Refill(s), Pharmacy: [facility] Start Date: 02/10/16 Stop Date: 02/04/17 Status: Ordered Results No data available for [...]
--- OUTSIDE RECORDS SUMMARY | 2019-11-12 22:32 | XMS REPORT | Summary of Care ---
Author Author [facility] Organization [facility] Address Unknown Phone Unavailable Encounter HQ Tanvi(MICHAELA) [id number] Date(s): 10/07/15 - 10/08/15 [facility] [address] [facility], [address] [place], [place] [address] Vital Signs No data available [...] day, # 90 tab, 3 Refill(s), Pharmacy: [facility], Please fax prescription refill requests to [phone] or call . Please do not send refill requests electronically. Start Date: 10/07/15 Stop Date: 10/01/16 Status: Ordered Results No data available for [...]
--- OUTSIDE RECORDS SUMMARY | 2019-11-12 22:32 | XMS REPORT | Summary of Care ---
Author Author [facility] Organization [facility] Address Unknown Phone Unavailable Encounter BRANDEN Tinajero(MICHAELA) [id number] Date(s): 01/21/16 - 01/22/16 [facility] Failure [address] [facility], [address] [place], [place] [address] Vital Signs No data available for this [...] Daily, # 90 tab, 1 Refill(s), [facility] , PLEASE FAX ALL FUTURE REFILL REQUESTS TO: [phone]. Start Date: 01/21/16 Stop Date: 07/19/16 Status: Ordered Results No data available for [...]
--- OUTSIDE RECORDS SUMMARY | 2019-11-12 22:32 | XMS REPORT | Summary of Care ---
Author Author [facility] Organization [facility] Address Unknown Phone Unavailable Encounter BRANDEN Tinajero(MICHAELA) [id number] Date(s): 12/06/15 - 12/06/15 [facility] [address] [facility], [address] [place], [place] [address] Discharge Disposition: Home or Self Care Attending Physician: Tristan Mcdaniels MD Referring Physician: Tristan Mcdaniels MD Vital Signs Most recent to 1 oldest [Reference Range]: Height 154.94 cm (12/06/15 1:48 PM) Temperature Oral 97.6 DegF [96.4-99.1 DegF] (12/06/15 1:48 PM) Blood Pressure 137/70 mmHg [90-140/60-90 mmHg] (12/06/15 1:48 PM) Respiratory Rate 16 BRMIN [14-20 BRMIN] (12/06/15 1:48 PM) Peripheral Pulse 76 bpm Rate [60-100 bpm] (12/06/15 1:48 PM) Weight 64.091 kg (12/06/15 1:48 PM) Body Mass Index 26.7 m2 (12/06/15 1:48 PM) Problem List Condition Effective Dates Status [...]
--- OUTSIDE RECORDS SUMMARY | 2019-11-12 22:32 | XMS REPORT | Summary of Care ---
Author Author [facility] Organization [facility] Address Unknown Phone Unavailable Encounter BRANDEN Tinajero(MICHAELA) [id number] Date(s): 03/06/16 - 03/07/16 [facility] [address], [place], [place] [address]- [phone] Discharge Disposition: Other Healthcare Facility Attending Physician: Abdi Stephens MD Vital Signs 1 2 3 Most recent to oldest [Reference Range]: 154.94 cm (03/06/16 4:12 PM) Height 98.0 DegF (03/07/16 12:17 AM) 97.7 DegF (03/06/16 4:12 PM) Temperature Oral [96.4-99.1 DegF] 141/65 mmHg *HI* (03/07/16 12:17 AM) 149/68 mmHg *HI* (03/06/16 11:00 PM) 168/72 mmHg *HI* (03/06/16 8:50 PM) Blood Pressure [90-140/60-90 mmHg] 18 BRMIN (03/07/16 12:17 AM) 18 BRMIN (03/06/16 11:00 PM) 20 BRMIN (03/06/16 8:50 PM) Respiratory Rate [14-20 BRMIN] 69 bpm (03/06/16 4:12 PM) Peripheral Pulse Rate [60-100 bpm] 64.545 kg (03/06/16 4:12 PM) Weight 26.89 m2 (03/06/16 4:12 PM) Body Mass Index Problem List Condition Effective [...] Status penicillins Active sulfa drugs Active Medications Flagyl 500 mg, 100 mL, Route: IVPB, Drug form: INJ, ONCE, Dosing Weight 64.545, kg, Jacki ority: STAT, Start date: 03/06/16 21:13:00 SENIOR ACCOUNT DIRECTOR, Stop date: 03/06/16 21:13:00 SENIOR ACCOUNT DIRECTOR Notes: (Same as: Flagyl) Avoid alcohol. Start Date: 03/06/16 Stop Date: 03/06/16 Status: Completed NS (Bolus) IV 1,000 mL, 1,000 ml/hr, Infuse Over: 1 hr, Route: IV, 1,000, Drug form: INJ, ONCE , Priority: STAT, Dosing Weight 64.545 kg, Start date: 03/06/16 19:24:00 SENIOR ACCOUNT DIRECTOR, Du ration: 1 doses or times, Stop date: 03/06/16 19:24:00 SENIOR ACCOUNT DIRECTOR Start Date: 03/06/16 Stop Date: 03/06/16 Status: Completed Reglan 5 mg, 1 mL, Route: IVP, Drug form: INJ, ONCE, Dosing Weight 64.545, kg, Priority : STAT, Start date: 03/06/16 19:24:00 SENIOR ACCOUNT DIRECTOR, Stop date: 03/06/16 19:24:00 SENIOR ACCOUNT DIRECTOR Notes: (Same as: Reglan) Start Date: 03/06/16 Stop Date: 03/06/16 Status: Completed Rocephin + sodium chloride 0.9% INJ 100 mL 1 gm, Route: IVPB, ONCE, Dosing Weight 64.545, kg, Priority: STAT, Start date: 05/06/15 21:13:00 SENIOR ACCOUNT DIRECTOR, Stop date: 03/06/16 21:13:00 SENIOR ACCOUNT DIRECTOR Notes: (Same As: Rocephin).Use with 100 mL NS and infuse over 30 min MEDICA TION WASTE Product Size: 1000 mgProduct Wasted: ___ mg Start Date: 03/06/16 Stop Date: 03/06/16 Status: Completed Saline Flush 0.9% 10 mL, Route: IVP, Drug Form: INJ, Dosing Weight 65.227, kg, PRN, PRN Line Flush , Start date: 03/06/16 16:10:00 SENIOR ACCOUNT DIRECTOR, Duration: 1 day, Stop date: 03/07/16 16:09: 00 SENIOR ACCOUNT DIRECTOR Notes: (Same as: BD Posiflush) Start Date: 03/06/16 Stop Date: 03/07/16 Status: Discontinued Results ELECTROLYTES Most recent to 1 oldest [Reference Range]: Sodium Lvl [135-145 141 mEq/L mEq/L] (03/06/16 4:34 PM) Potassium Lvl 3.9 mEq/L [3.5-5.1 mEq/L] (03/06/16 4:34 PM) Chloride Lvl [95-109 104 mEq/L mEq/L] (03/06/16 4:34 PM) CO2 [24-32 mEq/L] 30 mEq/L (03/06/16 4:34 PM) AGAP [10.0-20.0 10.9 mEq/L mEq/L] (03/06/16 4:34 PM) CHEM PANEL Most recent to 1 oldest [Reference Range]: Creatinine Lvl 1.75 mg/dL [0.50-1.40 mg/dL] *HI* (03/06/16 4:34 PM) eGFR 27 mL/min/1.73m2 1 *NA* (03/06/16 4:34 PM) BUN [7-22 mg/dL] 34 mg/dL *HI* (03/06/16 4:34 PM) B/C Ratio [6-25] 19 (03/06/16 4:34 PM) Glucose Lvl [70-99 191 mg/dL mg/dL] *HI* (03/06/16 4:34 PM) Total Protein 7.3 g/dL [6.4-8.4 g/dL] (03/06/16 4:34 PM) Albumin Lvl [3.5-5.0 3.7 g/dL g/dL] (03/06/16 4:34 PM) Globulin [2.7-4.2 3.6 g/dL g/dL] (03/06/16 4:34 PM) A/G Ratio [0.7-1.6] 1.0 (03/06/16 4:34 PM) Calcium Lvl 9.1 mg/dL [8.5-10.5 mg/dL] (03/06/16 4:34 PM) ALT [0-65 unit/L] 52 unit/L (03/06/16 4:34 PM) AST [0-37 unit/L] 30 unit/L (03/06/16 4:34 PM) Alk Phos [39-136 135 unit/L unit/L] (03/06/16 4:34 PM) Bili Total [0.2-1.3 0.4 mg/dL mg/dL] (03/06/16 4:34 PM) Lipase Lvl [73-393 1258 unit/L unit/L] *HI* (03/06/16 4:34 PM) 1Result Comment: The eGFR is calculated [...] 1 oldest [Reference Range]: Total CK [12-191 205 unit/L unit/L] *HI* (03/06/16 4:34 PM) CK MB [0.5-3.6 1.8 ng/mL ng/mL] (03/06/16 4:34 PM) CK MB Index 0.9 [0.0-2.5] (03/06/16 4:34 PM) Troponin-I <0.02 ng/mL [0.00-0.40 ng/mL] (03/06/16 4:34 PM) URINE AND STOOL Most recent to 1 oldest [Reference Range]: UA Turbidity [Clear] Clear (03/06/16 8:53 PM) UA Color [Yellow] Yellow *NA* (03/06/16 8:53 PM) UA pH [5.0-8.0] 6.0 (03/06/16 8:53 PM) UA Spec Grav 1.010 [<=1.030] (03/06/16 8:53 PM) UA Glucose [Negative Negative mg/dL mg/dL] (03/06/16 8:53 PM) UA Blood [Negative] Negative (03/06/16 8:53 PM) UA Ketones [Negative Negative mg/dL mg/dL] *NA* (03/06/16 8:53 PM) UA Protein [Negative Negative mg/dL mg/dL] (03/06/16 8:53 PM) UA Urobilinogen 0.2 EU/dL [0.1-1.0 EU/dL] (03/06/16 8:53 PM) UA Bili [Negative] Negative *NA* (03/06/16 8:53 PM) UA Leuk Est Negative [Negative] (03/06/16 8:53 PM) UA Nitrite Negative [Negative] (03/06/16 8:53 PM) UA WBC [None Seen 0-2 /HPF /HPF] (03/06/16 8:53 PM) UA RBC [0-2] None Seen (03/06/16 8:53 PM) UA Bacteria [None None Seen Seen] (03/06/16 8:53 PM) UA Sq Epi [Few /LPF] Occasional /LPF (03/06/16 8:53 PM) UA Mucus [None Seen] None Seen (03/06/16 8:53 PM) HEMATOLOGY Most recent to 1 oldest [Reference Range]: WBC [3.7-10.4 K/CMM] 7.2 K/CMM (03/06/16 4:34 PM) RBC [4.20-5.40 3.39 M/CMM M/CMM] *LOW* (03/06/16 4:34 PM) Hgb [12.0-16.0 g/dL] 10.4 g/dL *LOW* (03/06/16 4:34 PM) Hct [36.0-48.0 %] 30.7 % *LOW* (03/06/16 4:34 PM) MCV [80.0-98.0 fL] 90.6 fL (03/06/16 4:34 PM) MCH [27.0-31.0 pg] 30.8 pg (03/06/16 4:34 PM) MCHC [32.0-36.0 34.0 g/dL g/dL] (03/06/16 4:34 PM) RDW [11.5-14.5 %] 12.6 % (03/06/16 4:34 PM) Platelet [133-450 281 K/CMM K/CMM] (03/06/16 4:34 PM) MPV [7.4-10.4 fL] 9.6 fL (03/06/16 4:34 PM) Segs [45.0-75.0 %] 70.4 % (03/06/16 4:34 PM) Lymphocytes 22.3 % [20.0-40.0 %] (03/06/16 4:34 PM) Monocytes [2.0-12.0 5.2 % %] (03/06/16 4:34 PM) Eosinophils [0.0-4.0 1.4 % %] (03/06/16 4:34 PM) Basophils [0.0-1.0 0.7 % %] (03/06/16 4:34 PM) Segs-Bands # 5.0 K/CMM [1.5-8.1 K/CMM] (03/06/16 4:34 PM) Lymphocytes # 1.6 K/CMM [1.0-5.5 K/CMM] (03/06/16 4:34 PM) Monocytes # [0.0-0.8 0.4 K/CMM K/CMM] (03/06/16 4:34 PM) Eosinophils # 0.1 K/CMM [0.0-0.5 K/CMM] (03/06/16 4:34 PM) Basophils # [0.0-0.2 0.1 K/CMM K/CMM] (03/06/16 4:34 PM) Immunizations Given and Recorded Vaccine Date [...]
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
--- NOTE | 2019-11-12 22:34 | Emergency Department Note ---
History of Present Illnes History of Present Illness Chief Complaint: COVID PUI History of Present Illness This is a 84 year old female arrived to the ED at sister's request for a "choking episode". Pt states she was coughing and feels fine. Per sister pt is covid +, pt denies any complaints or SOB. 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 Any updates have been documented here. Past Medical History Recent Fever: No Clinical Suspicion of Infectio: No New/Unexplained Change in Ment: No Past Medical History: Hypertension, Diabetes, CAD, Anxiety, Depression, GERD Other Medical History: SHINGLES Past Surgical History: Cholecysctectomy, CABG Other Surgery: COLONOSCOPY Gall bladder sx bypass Social History Smoking Cessation: Never Smoker Counseling Performed: No Alcohol Use: Social Other Last Tetanus: OOD Review of Systems Review of Systems Constitutional: Reports as per HPI, Reports fever EENTM: Reports no symptoms Cardiovascular: Reports no symptoms Respiratory: Reports as per HPI, Reports cough Gastrointestinal: Reports no symptoms Genitourinary: Reports no symptoms Musculoskeletal: Reports no symptoms Integumentary: Reports no symptoms Neurological: Reports no symptoms Psychological: Reports no symptoms Endocrine: Reports no symptoms Hematological/Lymphatic: Reports no symptoms Physical Exam Related Data Allergies: Coded Allergies: vancomycin (Verified Allergy, Intermediate, ITCHING, 03/17/19) Penicillins (Verified Allergy, Mild, RASH, 03/17/19) sulfur (Verified Allergy, Mild, RASH, 03/17/19) Sulfa (Sulfonamide Antibiotics) (Verified Allergy, Unknown, 03/17/19) Uncoded Allergies: PAIN MEDICATIONS (Adverse Reaction, Unknown, "Sensitive", 05/15/18) Triage Vital Signs Vital Signs Date Time Temp Pulse Resp B/P (MAP) Pulse Ox O2 Delivery O2 Flow Rate FiO2 11/12/19 22:04 102.6 92 21 149/64 100 Room Air Vital signs reviewed: Yes Physical Exam CONSTITUTIONAL Constitutional: Present well-developed, Present well-nourished HENT HENT: Present normocephalic, Present atraumatic, Present oropharynx clear/moist, Present nose normal HENT L/R: Present left ext ear normal, Present right ext ear normal EYES Eyes: Reports PERRL, Reports conjunctivae normal NECK Neck: Present ROM normal PULMONARY Pulmonary: Present effort normal, Present breath sounds normal CARDIOVASCULAR Cardiovascular: Present regular rhythm, Present heart sounds normal, Present capillary refill normal, Present normal rate GASTROINTESTINAL Abdominal: Present soft, Present nontender, Present bowel sounds normal GENITOURINARY Genitourinary: Present exam deferred SKIN Skin: Present warm, Present dry MUSCULOSKELETAL Musculoskeletal: Present ROM normal NEUROLOGICAL Neurological: Present alert, Present oriented x 3, Present no gross motor or sensory deficits PSYCHOLOGICAL Psychological: Present mood/affect normal, Present judgement normal Assessment & Plan Medical Decision Making MDM 84-year-old well-appearing female arrived to the ED, covert positive patient well-appearing no concerns of respiratory failure. Assessment & Plan Final Impression: (1) COVID-19 Depart Disposition: HOME, SELF-CARE Last Vital Signs Date Time Temp Pulse Resp B/P (MAP) Pulse Ox O2 Delivery O2 Flow Rate FiO2 11/12/19 22:07 84 20 146/70 99 Room Air 11/12/19 22:04 102.6 Home Meds Reported Medications Diphenoxylate Hcl/Atropine (LOMOTIL TABLET) 1 Each Tablet, PO PRN 04/19/19 Omeprazole (OMEPRAZOLE) 40 Mg Capsule.dr, 40 MG PO DAILY 04/19/19 Furosemide (LASIX) 40 Mg Tablet, 40 MG PO DAILY, #30 TAB 04/19/19 [Tylenol] No Conflict Check, PO PRN 04/19/19 Buspirone Hcl (BUSPIRONE HCL) 5 Mg Tablet, 10 MG PO TID, #60 TAB 05/15/18 Calcium Carbonate/Vitamin D3 (CALCIUM 500+D TABLET CHEW) 1 Each Tab.chew, 1 TAB PO BID 03/24/16 Pravastatin Sodium (PRAVASTATIN SODIUM) 20 Mg Tablet, 20 MG PO HS 06/22/14 Aspirin (ASPIR 81) 81 Mg Tablet.dr, 81 MG PO DAILY 02/18/13 Metoprolol Succinate (TOPROL XL) 50 Mg Tab.er.24h, 50 MG PO BID 02/18/13 Glipizide (GLUCOTROL) 5 Mg Tablet, 5 MG PO BID 08/04/12 Medications in the ED Acetaminophen 975 mg ONCE ONCE PO ; Start 11/12/19 at 22:15; Stop 11/12/19 at 22:16 Acetaminophen 975 mg STK-MED ONCE .ROUTE ; Start 11/12/19 at 22:17; Stop 11/12/19 at 22:11; Status DC TADEO STARK, Nov 12, 2019 22:35
--- OUTSIDE RECORDS SUMMARY | 2019-11-12 22:34 | XMS REPORT | Continuity of Care Document ---
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 date: 01/13/16 18:20:00 CDT [facility] Acetaminophen 300 MG / Codeine Phosphate 30 MG Oral Tablet [Tylenol with Codeine #3] 2016-01-13 23:20:00 No 1 tab, Route: PO, Drug Form: TAB, Dosing Weight 64.091, kg, ONCE, STAT, Start date: 01/13/16 18:20:00 CDT, Stop date: 01/13/16 18:20:00 CDT [facility] metoprolol 25 mg oral tablet, extended release 2016-01-07 16:11: 33 Yes See Instructions, 3 tablets PO Daily (75mg) Take as directed by physician., # 270 tab, 3 Refill(s), Pharmacy: [address] pravastatin 20 mg oral tablet 2015-10-07 14:49:08 Yes 20 mg = 1 tab, PO, Bedtime, X 90 day, # 90 tab, 3 Refill(s), Pharmacy: [place] [address], Please fax prescription refill requests to [phone] or call [phone]. Please do not send refill requests electronically. [facility] iodixanol 2015-10-05 22:43:00 No 94 mL, Route: IVP, Drug Form: SOLN, Dosing Weight 63.636, kg, ONCALL, STAT, Start date: 10/05/15 17:43:00 CDT, Duration: 1 doses or times, Dose = 2.2ml/kg, Max dose = 100ml -- "To be infused by Radiology Staff ONLY" Arcadio Pedro Luis n Calcium Chloride 0.0014 MEQ/ML / Potassi um Chloride 0.004 MEQ/ML / Sodium Chloride 0.103 MEQ/ML / Sodium Lactate 0.028 MEQ/ML Injectable Solution 2015-10-05 20:51:00 No 1,000 mL, 1,000 ml/hr, Infuse Over: 1 hr, Route: IV, 1,000, Drug form: INJ, ONCE, Priority: STAT, Dosing Weight 63.636 kg, Start date: 10/05/15 15:51:00 CDT, Duration: 1 doses or times, Stop date: 15:51:00 CDT Arcadio Jasso Saline Flush 0.9% 2015-10-05 20:51:00 No Notes: (Same as: BD Posiflush) Arcadio Jasso lisinopril 5 mg oral tablet 2015-09-06 15:18:00 Yes 5 mg = 1 tab, PO, TID, 2 TABS QAM; 1 TAB QPM, 0 Refill(s) Arcadio Jasso benzonatate 100 mg oral capsule 2015-09-06 15:18:00 Yes 100 mg = 1 cap, PO, TID, do not crush or chew, # 30 cap, 0 Refill(s) Arcadio Jasso cetirizine hydrochloride 10 MG Oral Tablet [Zyrtec] 08-26 03:11:00 Yes 10 mg = 1 tab, P O, Daily, PRN for allergy symptoms, X 14 day, # 14 tab, 1 Refill(s) Arcadio Jasso Saline Flush 0.9% 2015-08-27 01:46:00 No Notes: (Same as: BD Posiflush) Arcadio Romero 120 ACTUAT Azelastine hydrochloride 0.13 7 MG/ACTUAT / Fluticasone propionate 0.05 MG/ACTUAT Nasal Inhaler [Dymista] 2015-06-14 16:11:00 Yes 1 spray, NASAL, 0 Refill(s) Arcadio Dalia nn bumetanide 1 mg oral tablet 2015-04-19 00:48:42 Yes See Instructions, Take 1 tab in AM and take 0.5 tab in PM, # 60 tab, 5 Refill(s), Pharmacy: [facility], PLEASE FAX ALL FUTURE REFILL REQUESTS TO: [phone]. Arcadio Jasso lisinopril 5 mg oral tablet 2015-04-19 00:48:13 Yes See Instructions, take 2 tab in AM and 1 tab PM., # 90 tab, 5 Refill(s), Pharmacy: [facility], PLEASE FAX ALL FUTURE REFILL REQUESTS TO: [phone]. Arcadio Jasso pravastatin 20 mg oral tablet 2015-04-02 17:44:48 Yes See Instructions, 1 tab PO Bedtime, # 90 tab, 1 Refill(s), Pharmacy: [place] [address] Arcadio Jasso lisinopril 5 mg oral tablet 2015-03-15 18:51:00 Yes See Instructions, take 2 tab in AM and 1 tab PM., # 90 tab, 3 Refill(s) Arcadio Jasso Acetaminophen 325 MG / tramadol hydrochloride 37.5 MG Oral T ablet 2015-03-15 18:10:00 Yes 1 tab, PO, Q6H, PRN Pain, # 6 0 tab, 0 Refill(s) Arcadio Jasso Calcium 600 +D oral tablet 2015-03-15 18:10:00 Yes 1 tab, PO, Daily, # 270 tab, 0 Refill(s) Arcadio Jasso metoprolol 25 mg oral tablet, extended release 2015-01-03 20:31: 36 Yes Special Instructions: 2 tablets PO Daily Arcadio Jasso lisinopril 5 mg oral tablet 2014-09-21 14:59:00 Yes 5 mg = 1 tab, PO, BID, # 60 tab, 5 Refill(s), Pharmacy: [place] [address] Arcadio Jasso benzonatate 200 mg oral capsule 2014-08-17 14:51:00 Yes 200 mg = 1 cap, PO, PRN, 0 Refill(s) Arcadio Gómez nn pantoprazole 40 mg oral enteric coated tablet 2014-08-17 14:51:0 0 Yes 40 mg = 1 tab, PO, Daily, # 30 tab, 0 Refill(s) Arcadio Jasso Acetaminophen 325 MG Oral Tablet [Tylenol] 2014-08-17 14:51:00 Yes 325 mg = 1 tab, PO, Q4H, PRN Pain, # 60 tab, 0 Refill(s) [facility] metoprol[facility] tartrate 25 mg oral tablet 2014-06-06 16:58:00 Y es 25 mg = 1 tab, PO, BID, # 60 tab, 5 Refill(s), Pharmacy: [facility] [address] [place] [address] Romero metoprolol 25 mg oral tablet, extended release 2014-06-04 20:06: 00 Yes Special Instructions: 2 tablets PO Daily [facility] bumetanide 1 mg oral tablet 2014-03-19 17:31:00 Yes Special Instructions: 1 tab PO Q AM, 0.5 tab PO IN THE EVENING Arcadio Jasso Tylenol 2014-02-24 23:30:00 No 650 mg, Route: PO, Drug form: TAB, ONCE, Dosing Weight 65.455, kg, Priority: STAT, Start date: 02/24/14 17:30:00, Stop date: 02/24/14 17:30:00 [facility] Evgeny kapoor pravastatin 20 mg oral tablet 2013-12-01 19:41:00 Yes 20 mg = 1 tab, PO, Bedtime, # 30 tab, 3 Refill(s), [facility] lisin[facility]ril 5 mg oral tablet 2013-11-17 21:04:00 Yes 5 mg = 1 tab, PO, Daily, # 30 tab, 6 Refill(s), Pharmacy: [facility] [address] [place], [place] [address] metoprolol 25 mg oral tablet, extended release 2013-11-17 21:03: 00 Yes 37.5 mg = 1.5 tab, PO, Daily , # 45 tab, 3 Refill(s), Pharmacy: [facility] [address] [place], [place] [address]ann pravastatin 20 mg oral tablet 2013-11-17 14:58:00 Yes 20 mg = 1 tab, PO, Bedtime, # 30 tab, 0 Refill(s) [facility] [place] lisinopril 5 mg oral tablet 2013-11-17 14:58:00 No 5 mg = 1 tab, PO, Daily, # 30 tab, 0 Refill(s) [facility] Stone carlson Triamcinolone Acetonide 0.001 MG/MG Topical Ointment 2 14:58:00 Yes Special Instructions: prn [facility] 120 ACTUAT mometasone furoate 0.05 MG/ACTUAT Nasal Inhaler [ Nasonex] 2013-11-17 14:58:00 Yes Special Instructio ns: prn [facility] pravastatin 20 mg oral tablet 2013-08-18 21:37:00 Yes 20 mg = 1 tab, PO, Bedtime, # 90 tab, 0 Refill(s), Pharmacy: [address] calcium carbonate 1000 mg oral tablet, chewable 2013-08-18 21:37 :00 Yes = 1,000 mg, PO, Daily, # 72 tab, 0 Refill(s), Pharmacy: [address] lisinopril 5 mg oral tablet 2013-08-18 21:17:00 Yes 5 mg = 1 tab, PO, Daily, # 90 tab, 0 Refill(s), Pharmacy: [address] Miconazole Nitrate 0.02 MG/MG Topical Ointment 2013-08-18 17:33: 00 Yes Special Instructions: apply to all itching areas, more so between your toes and left foot. [facility] metoprolol 25 mg oral tablet, extended release 2013-08-18 15:05: 00 Yes 25 mg, PO, Daily, # 30 tab, 0 Refill(s) [facility] bumetanide 1 mg oral tablet 2013-07-28 14:49:00 Yes 1 mg = 1 tab, PO, Daily, # 30 tab, 0 Refill(s) [facility] metoprolol 50 mg oral tablet, extended release 2013-07-07 18:56: 00 Yes 50 mg, PO, Daily, # 90 tab, 3 Refill(s), Pharmac y: [address] Furosemide 40 MG Oral Tablet 2013-06-16 22:37:00 Yes 40 mg = 1 tab, PO, Daily, # 30 tab, 5 Refill(s), Pharmacy: [address] lisinopril 5 mg oral tablet 2013-06-16 19:32:00 Yes 5 mg = 1 tab, PO, Daily, # 90 tab, 3 Refill(s), Pharmacy: [address] 12 HR Guaifenesin 600 MG Extended Release Tablet [Mucinex] 2013-06-15 23:11:00 Yes 600 mg = 1 tab, PO, Q12H, prn, # 20 tab, 0 Refill(s)prn [facility] Aspirin Low Dose 81 mg oral tablet 2013-06-15 23:11:00 Yes 81 mg = 1 tab, PO, Daily, 0 Refill(s) [facility] Evgeny kapoor spironolactone 50 mg oral tablet 2013-06-15 23:11:00 Yes 50 mg = 1 tab, PO, Daily, # 60 tab, 0 Refill(s) Md denilson [facility] 24 HR Glipizide 5 MG Extended Release Tablet [Glucotrol] 2013-06-15 23:11:00 Yes 5 mg = 1 tab, PO, BID, # 30 tab, 0 Refill(s) [facility] 120 ACTUAT mometasone furoate 0.05 MG/ACTUAT Nasal Inhaler [ Nasonex] 2013-06-15 23:11:00 Yes 2 spray, NASAL, Daily, for allergy symptoms, prn, # 17 gm, 0 Refill(s)prn [facility] Evgeny kapoor furosemide 80 mg oral tablet 2013-06-15 23:11:00 Yes 80 mg = 1 tab, PO, Daily, # 30 tab, 0 Refill(s) Jah lopez [facility] Levaquin 500 mg oral tablet 2012-12-06 16:30:50 Ye s Yobany Edward Manoukian 500 mg, 1 tab, PO, Q24H, 10 tab, Substitution A staceywed [facility] aspirin 81 mg tablet, enteric coated 2012-12-06 16:29:33 Yes Yobany Edward Manoukian 81 mg, 1 tab, PO, Daily, 90 tab, Sub stitution Allowed, ECTAB [facility] aspirin 2012-12-06 14:00:00 No Yobany Edward Manoukian 81 mg, 1 tab, Route: PO, Drug form: ECTAB, Daily, Dosing Weight 62.528, kg, Start date: 12/06/12 9:00:00, Duration: 30 day, Stop date: 01/04/13 9:00:00 [facility] Plavix 2012-12-06 14:00:00 No Yobany Edward Manoukian 75 mg, 1 tab, Route: PO, Drug form: TAB, Daily, Dosing Weight 62.528, kg, Start date: 12/06/12 9:00:00, Duration: 30 day, Stop date: 01/04/13 9:00:00 [facility] Levaquin 2012-12-05 23:00:00 No Yobany Butcherkian 500 mg, 1 tab, Route: PO, Drug form: TAB, [id number], Dosing Weight 62.528, kg, Start date: 12/05/12 18:00:00, Duration: 30 day, Stop date: 01/03/13 18:00:00 [facility] cefepime 2012-12-05 23:00:00 No Yobany Segura Manoukian 1 gm, Route: IVPB, Drug form: INJ, [id number], Dosing Weight 62.528, kg, (CrCl 30 - 49 ml/min), Start date: 12/05/12 18:00:00, Duration: 1 day, Stop date: 12/06/12 6:00:00 [facility] potassium chloride 2012-12-05 15:10:00 No Yobany Butcherkian 20 mEq, 1 tab, Route: PO, Drug form: ERTAB, ONCE, Dosing Weight 62.528, kg, Start date: 12/05/12 10:10:00, Stop date: 12/05/12 10:10:00 [facility] Calmoseptine topical ointment 2012-12-04 16:00:00 No Almita Villavicencio 1 appl, Route: TOP, PRN, Jimenez g form: OINT, PRN Diaper Rash, Start date: 12/04/12 11:00:00, Duration: 30 day, Stop date: 01/03/13 10:59:00, DosingNeonatal Dosing [facility] vancomycin (SCIP) 2012-12-04 02:00:00 No Baldo Potter 1 gm, Route: IVPB, Drug form: INJ, Q12H, Dosing Weight 62.528, kg, Start date: 12/03/12 21:00:00, Duration: 2 doses or times, Stop date: 12/04/12 9:00:00 [facility] cefepime 2012-12-03 20:00:00 No Yobany Segura Manoukian 1 gm, Route: IVPB, Drug form: INJ, [id number], Dosing Weight 62.528, kg, (CrCl 30 - 49 ml/min), Start date: 12/03/12 15:00:00, Duration: 30 day, Stop date: 01/02/13 3:00:00 [facility] Dextrose 50% Syringe 2012-12-03 19:26:00 No Almita Rufino ie Shiue 50 mL, Route: IVP, Dosing Weight 62.528, kg, PRN, PRN Blood Glucose Results, Start date: 12/03/12 14:26:00, Duration: 30 day, Stop date: 01/02/13 14:25:00 [facility] insulin aspart 2012-12-03 19:26:00 No Almita Ira Lynn ue 6 unit, 0.06 mL, Route: SUB-Q, Drug form: SOLN, TID-Before Meals, Dosing Weight 62.528, kg, PRN Blood Glucose Results, Start date: 12/03/12 14:26:00, Duration: 30 day, Stop date: 01/02/13 14:25:00 [facility] 2012-12-03 19:26:00 No Almita Ira Shiue 1 mg, Route: IM, Drug form: PDR/INJ, PRN, Dosing Weight 62.528, kg, PRN Blood Glucose Results, Start date: 12/03/12 14:26:00, Duration: 30 day, Stop date: 01/02/13 14:25:00 [facility] Lovenox 2012-12-03 17:00:00 No Baldo Bud Potter 30 mg, 0.3 mL, Route: SUB-Q, Drug form: INJ, Q24H, Start date: 12/03/12 12:00:00, Duration: 30 day, Stop date: 01/01/13 12:00:[facility] enox[facility]arin 2012-12-03 15:00:00 No Baldo Bud Potter 40 mg, Route: SUB-Q, Drug form: INJ, [id number], Dosing Weight 62.528, kg, Start date: 12/03/12 10:00:00, Duration: 30 day, Stop date: 01/01/13 10:00:00 [facility] flumazenil 2012-12-03 14:34:00 No Vincenzo Saroo Chap 0.2 mg, 2 mL, Route: IVP, Drug form: INJ, PRN, Dosing Weight 62.528, kg, PRN Benzodiazepine Reversal, Initial dose, Start date: 12/03/12 9:34:00, Duration: 30 day, Stop date: 01/02/13 9:33:00 [facility] hydromorphone 2012-12-03 14:34:00 No Vincenzo Bright 0.5 mg, 0.25 mL, Route: IVP, Drug form: INJ, Q5Min, Dosing Weight 62.528, kg, PRN Pain Score 7- 10, Start date: 12/03/12 9:34:00, Duration: 5 doses or times, Stop date: Limited # of times [facility] naloxone 2012-12-03 14:34:00 No Vincenzo Bright 0.04 mg, 0.1 mL, Route: IVP, Drug form: INJ, Q2MIN, Dosing Weight 62.528, kg, PRN Narcotic Reversal, Start date: 12/03/12 9:34:00, Duration: 8 doses or times, Stop date: Limited # of times [facility] ondansetron 2012-12-03 14:34:00 No Vincenzo Bright 4 mg, 2 mL, Route: IVP, Drug form: INJ, ONCE, Dosing Weight 62.528, kg, PRN Nausea & Vomiting, Start date: 12/03/12 9:34:00 [facility] Insulin regular 100 unit + Sodium Chloride 0.9% (titrate) 10 0 mL 2012-12-03 14:24:00 No Yobany Borjas 100 mL, Rate: Start Insulin Drip Per ICU Protocol, Dosing Weight 62.528, kg, Route: IVPB, Total Volume: 100, Duration: 30 day, Stop date: 01/02/13 9:23:00, Replace Every: 24 hr, Initial Insulin Drip Rate (units/hour)=(Fasting Blood Glucose-60)X0.03 "m...Initial Insulin Drip Rate (units/hour)=(Fasting Blood Glucose-60)X0.03 "multiplier". [facility] morphine Sulfate 2012-12-03 14:16:00 No Faustino Landry 2 mg, 1 mL, Route: IVP, Drug form: INJ, Q2H, Dosing Weight 62.528, kg, PRN Pain Score 1-5, Start date: 12/03/12 9:16:00, Duration: 30 day, Stop date: 01/02/13 9:15:00 [facility] docusate 2012-12-03 14:16:00 No Faustino Frantz 100 mg, 1 cap, Route: PO, Drug form: CAP, BID, Dosing Weight 62.528, kg, PRN Constipation, Start date: 12/03/12 9:16:00, Duration: 30 day, Stop date: 01/02/13 9:15:00 [facility] glucagon 2012-12-03 14:16:00 No Faustino Frantz 1 mg, Route: IM, Drug form: PDR/INJ, PRN, Dosing Weight 62.528, kg, PRN Blood Glucose Results, Start date: 12/03/12 9:16:00, Duration: 30 day, Stop date: 01/02/13 9:15:00 [facility] Dextrose 50% Syringe 2012-12-03 14:16:00 No Faustino Frantz 12.5 gm, 25 mL, Route: IVP, Drug Form: INJ, Dosing Weight 62.528, kg, PRN, PRN Blood Glucose Results, Start date: 12/03/12 9:16:00, Duration: 30 day, Stop date: 01/02/13 9:15:00 [facility] minocycline 2012-12-03 14:00:00 No Yobany Flores Burnazian 100 mg, 1 cap, Route: PO, Drug form: CAP, Q12H, Dosing Weight 62.528, kg, Start date: 12/03/12 9:00:00, Duration: 30 day, Stop date: 01/01/13 21:00:00 [facility] potassium chloride 10 mEq oral tablet, extended release 2012-12-03 14:00:00 No Nabor Heshmat 10 mEq, 1 ta b, Route: PO, Drug form: ERTAB, Daily, Dosing Weight 62.528, kg, Start date: 12/03/12 9:00:00, Duration: 30 day, Stop date: 01/01/13 9:00:00 [facility] Toprol-XL 50 mg oral tablet, extended release 2012-12-03 1 4:00:00 No Nabor Heshmat 50 mg, 1 tab, [place]: PO, Drug form: ERTAB, BID, Start date: 12/03/12 9:00:00, Duration: 30 day, Stop date: 01/01/13 17:00:00 [facility] lisinopril 2012-12-03 14:00:00 No Almita Roth Shiue 20 mg, 1 tab, Route: PO, Drug form: TAB, Q12H, Dosing Weight 62.528, kg, Start date: 12/03/12 9:00:00, Duration: 30 day, Stop date: 01/01/13 21:00:00 [facility] insulin glargine 2012-12-03 14:00:00 No Nabor Heshmat 15 unit, 0.15 mL, Route: SUB-Q, Drug form: INJ, Daily, Dosing Weight 62.528, kg, Start date: 12/03/12 9:00:00, Duration: 30 day, Stop date: 01/01/13 9:00:00 [facility] docusate sodium 100 mg oral capsule 2012-12-03 14:00:00 No Nabor Heshmat 100 mg, 1 cap, Route : PO, Drug form: CAP, Daily, Dosing Weight 62.528, kg, Start date: 12/03/12 9:00:00, Duration: 30 day, Stop date: 01/01/13 9:00:00 [facility] atorvastatin 2012-12-03 14:00:00 No Nabor Heshmat 20 mg, 1 tab, Route: PO, Drug form: TAB, Daily, Dosing Weight 62.528, kg, Start date: 12/03/12 9:00:00, Duration: 30 day, Stop date: 01/01/13 9:00:00 [facility] bumetanide 2012-12-03 14:00:00 No Nabor Heshmat 1 mg, 1 tab, Route: PO, Drug form: TAB, BID, Dosing Weight 62.528, kg, Start date: 12/03/12 9:00:00, Duration: 30 day, Stop date: 01/01/13 17:00:00 [facility] aspirin 325 mg tablet, enteric coated 2012-12-03 14:00:00 No Yobany Butcherkian 325 mg, 1 tab, R oute: PO, Drug form: ECTAB, Daily, Dosing Weight 62.528, kg, Start date: 12/03/12 9:00:00, Duration: 30 day, Stop date: 01/01/13 9:00:00 [facility] AMIODarone 2012-12-03 14:00:00 No Yobany Lozano an 200 mg, 1 tab, Route: PO, Drug form: TAB, Daily, Dosing Weight 62.528, kg, Start date: 12/03/12 9:00:00, Duration: 30 day, Stop date: 01/01/13 9:00:00 [facility] magnesium sulfate 2012-12-03 10:01:00 No Nabor Heshma t 1 gm, 50 mL, Route: IVPB, Drug form: INJ, ONCE, Dosing Weight 62.528, kg, Priority: NOW, Start date: 12/03/12 5:01:00, Stop date: 12/03/12 5:01:00 [facility] vancomycin 2012-12-03 05:10:00 No Augustine Lopez Alex 500 mg, Route: IVPB, Drug form: PDR/INJ, [id number], Dosing Weight 62.528, kg, Priority: NOW, Start date: 12/03/12 0:10:00, Duration: 30 day, Stop date: 01/01/13 12:10:00 [facility] vancomycin 2012-12-03 04:00:00 No Nabor Heshmat 1 gm, Route: IVPB, Drug form: INJ, [id number], Dosing Weight 62.528, kg, Start date: 12/02/12 23:00:00, Duration: 30 day, Stop date: 01/01/13 11:00:00 [facility] acetaminophen-hydrocodone 325 mg-10 mg oral tablet 2012-11 03:58:00 No Nabor Heshmat 1 tab, Route: PO , Drug Form: TAB, Dosing Weight 62.528, kg, Q6H, PRN as needed for pain, Start date: 12/02/12 22:58:00, Duration: 30 day, Stop date: 01/01/13 22:57:00 Donna [facility] vancomycin 2012-12-03 02:30:00 No Jules Maguire 2 gm, Route: IVPB, Drug form: INJ, ONCE, Dosing Weight 62.528, kg, Start date: 12/02/12 21:30:00, Stop date: 12/02/12 21:30:00 [facility] Sal[facility] Flush 0.9% 2012-12-03 02:00:00 No Jyoti Herrera quinton Potter 5 ml, Route: IVP, Drug Form: INJ, Dosing Weight 62.528, kg, Q12H, Start date: 12/02/12 21:00:00, Duration: 30 day, Stop date: 01/01/13 9:00:00 [facility] Top[facility]-XL 50 mg oral tablet, extended release 2012-12-03 0 1:56:56 Yes Nabor Heshmat 50 mg, 1 tab, PO , BID, 30 tab, Substitution Allowed, ERTAB [facility] potassium chloride 10 mEq oral tablet, extended release 2012-12-03 01:46:16 Yes Nabor Heshmat 10 mEq, 1 ta b, PO, Daily, 10 tab, Substitution Allowed [facility] minocycline 100 mg oral tablet 2012-12-03 01:44:51 No A lireza Heshmat 100 mg, 1 tab, PO, Q12H, 30 tab, Substitution Allowed, TAB [facility] lisinopril 20 mg oral tablet 2012-12-03 01:40:45 No Ali steven Heshmat 20 mg, 1 tab, PO, Q12H, 30 tab, Substitution Allowed, TAB [facility] bumetanide 1 mg oral tablet 2012-12-03 01:40:22 Yes Alir eza Heshmat 1 mg, 1 tab, PO, BID, 30 tab, Substitution Allowed, TAB [facility] atorvastatin 20 mg oral tablet 2012-12-03 01:40:08 Yes Nabor Heshmat 20 mg, 1 tab, PO, Daily, 30 tab, Substitution Allowed, TAB [facility] aspirin 325 mg tablet, enteric coated 2012-12-03 01:39:50 No Nabor Heshmat 325 mg, 1 tab, PO, Daily, 30 tab, Substi tution Allowed, ECTAB [facility] Glucotrol 5 mg oral tablet 2012-12-03 01:39:22 No 5 mg, 1 tab, PO, BID, 30 tab, Substitution Allowed Donna Benitez AMIODarone 200 mg oral tablet 2012-12-03 01:39:00 No Salina dimtiris Heshmat 200 mg, 1 tab, PO, Daily, 60 tab, Substitution Allowed, TAB [facility] [place] Saline Flush 0.9% 2012-12-03 01:38:00 No Jyoti Herrera quinton Potter 5 ml, Route: IVP, Drug Form: INJ, Dosing Weight 62.528, kg, PRN, PRN Line Flush, Start date: 12/02/12 20:38:00, Duration: 30 day, Stop date: 01/01/13 20:37:00 Arcadio Jasso [id number] 250 mL 2012-12-03 01:38:00 No Jyoti Carpenterind nelson Potter 250 mL, Rate: call center operations manager for use with blood product administration, Route: IV, Dosing Weight 62.528 kg, Total Volume: 250, Start date: 12/02/12 20:38:00, Duration: 1 day, Stop date: 12/03/12 20:37:00 Donna Benitez [id number] 1,000 mL 2012-12-03 01:38:00 No Yobany warren 1,000 mL, Rate: 75 ml/hr, Infuse over: 13.3 hr, Route: IV, Dosing Weight 62.528 kg, Total Volume: 1,000, Start date: 12/02/12 20:38:00, Duration: 30 day, Stop date: 01/01/13 20:37:00 [facility] Romero minocycline 100 mg oral tablet 2012-11-26 14:50:32 Yes Christina Kline 100 mg, 1 tab, PO, BID, 14 tab, Substitu tion Allowed [facility] vancomycin 2012-11-24 18:15:00 No Christina Rivas Kline 1 gm, Route: IV, Drug form: INJ, [id number], Dosing Weight 73.722, kg, Start date: 11/24/12 13:15:00, Duration: 30 day, Stop date: 12/24/12 1:15:00 Arcadio Jasso aspirin 325 mg tablet, enteric coated 2012-11-24 15:37:57 Yes Christina Evelyn Kline 325 mg, 1 tab, P O, Daily, 30 tab, 2, 2, Substitution Allowed Arcadio Jasso insulin glargine 100 units/mL subcutaneous solution 11-24 15:37:27 Yes Christina Evelyn Kline 15 unit, 0 .15 mL, SUB-Q, Daily, 1 pen(s), Substitution Allowed, SOLN [facility] Krishna schaeffer Glucotrol 5 mg oral tablet 2012-11-24 15:37:12 Yes Chin borges Evelyn Kline 5 mg, 1 tab, PO, BID-After Meals, 60 tab, 2, 2, Substitution Allowed, TAB [facility] bumetanide 1 mg oral tablet 2012-11-24 15:36:49 Yes Christina Evelyn Kline 1 mg, 1 tab, PO, BID, 60 tab, 2, 2, Substitution Allow ed, TAB [facility] [place] Bumex 2012-11-23 22:00:00 No Santana Avila Gazzala 1 mg, 1 tab, Route: PO, Drug form: TAB, BID, Dosing Weight 73.722, kg, Start date: 11/23/12 17:00:00, Duration: 30 day, Stop date: 12/23/12 9:00:00 [facility] AM[facility] 2012-11-23 14:00:00 No Christina Evelyn Kline 200 mg, 1 tab, Route: PO, Drug form: TAB, Daily, Dosing Weight 65, kg, Start date: 11/23/12 9:00:00, Duration: 30 day, Stop date: 12/22/12 9:00:00 [facility] Gluc[facility] 5 mg oral tablet 2012-11-22 22:30:00 No Alysia macdonald Avila Gazzala 5 mg, 1 tab, Route: PO, Drug form: TAB, BID-After Meals, Dosing Weight 73.722, kg, Start date: 11/22/12 17:30:00, Duration: 30 day, Stop date: 12/22/12 8:30:00 [facility] Bumex 2012-11-22 22:00:00 No Santana Avila Gazzala 1 mg, 4 mL, Route: IV, Drug form: INJ, BID, Dosing Weight 73.722, kg, Start date: 11/22/12 17:00:00, Duration: 30 day, Stop date: 12/22/12 9:00:00 [facility] Bumex 2012-11-22 14:00:00 No Santana Perez 1 mg, 4 mL, Route: IVP, Drug form: INJ, Q12H, Dosing Weight 73.722, kg, Priority: Routine, Start date: 11/22/12 9:00:00, Duration: 30 day, Stop date: 12/21/12 21:00:00 [facility] Bumex 2012-11-22 12:51:00 No Jules Francis Maguire 1 mg, 4 mL, Route: IVP, Drug form: INJ, ONCE, Dosing Weight 73.722, kg, Priority: STAT, Start date: 11/22/12 7:51:00, Stop date: 11/22/12 7:51:00 [facility] ondansetron 2012-11-21 22:57:00 No Christina Rivas Co x 4 mg, 2 mL, Route: IV, Drug form: INJ, Q6H, Dosing Weight 73.722, kg, PRN Nausea, Start date: 11/21/12 17:57:00, Duration: 30 day, Stop date: 12/21/12 17:56:00 [facility] aspirin 81 mg tablet, chewable 2012-11-21 22:25:14 No Christina Rivas Kline 81 mg, 1 tab, PO, Daily, 30 tab, 3, 3, Substitu tion Allowed, CHEWTAB [facility] acetaminophen-hydrocodone 325 mg-10 mg oral tablet 2012-11 22:24:47 Yes Jules Francis Maguire 1 tab, PO, Q4 H, PRN, 30 tab, 0, 0, Pain Score 1-3, Substitution Allowed, Maintenance, TAB [facility] [place] potassium chloride 10 mEq oral tablet, extended release 2012-11-21 22:24:28 Yes Jules Francis Maguire 10 mEq, 1 tab, PO, Daily, 30 tab, Substitution Allowed, ERTAB [facility] Toprol-XL 50 mg oral tablet, extended release 2012-11-21 2 2:24:24 Yes Jules Francis Maguire 50 mg, 1 tab, PO , BID, 60 tab, 3, 3, Substitution Allowed, ERTAB [facility] lisinopril 20 mg oral tablet 2012-11-21 22:24:20 Yes Jules Francis Maguire 20 mg, 1 tab, PO, Q12H, 30 tab, 3, 3, Substitution Allowed, TAB [facility] insulin glargine 100 units/mL subcutaneous solution 11-21 22:24:04 No Santana Avila Gazzala 15 unit, 0 .15 mL, SUB-Q, Daily, 5 mL, 3, 3, Substitution Allowed, SOLN [facility] Krishna laury furosemide 40 mg oral tablet 2012-11-21 22:23:46 No Jules Francis Maguire 40 mg, 1 tab, PO, Daily, 30 tab, 3, 3, Substitution Allowed, TAB [facility] docusate sodium 100 mg oral capsule 2012-11-21 22:23:44 Yes Jules Francis Maguire 100 mg, 1 cap, PO, Daily, 30 cap, 3, 3, Substitution Allowed, CAP [facility] atorvastatin 20 mg oral tablet 2012-11-21 22:23:40 Yes Jules Francis Maguire 20 mg, 1 tab, PO, QPM, 30 tab, 3, 3, Substitution Allo wed, TAB [facility] AMIODarone 200 mg oral tablet 2012-11-21 22:23:35 Yes Jules Francis Maguire 200 mg, 1 tab, PO, Daily, 30 tab, 3, 3, Substitution A llowed, TAB [facility] Lasix 2012-11-20 19:00:00 No Jawbrendan Avila Gazzala 40 mg, 1 tab, Route: PO, Drug form: TAB, Daily, Start date: 11/20/12 14:00:00, Duration: 30 day, Stop date: 12/20/12 9:00:00 [facility] [place] Lasix 2012-11-18 17:00:00 No Jawahar Avila Gazzala 20 mg, 1 tab, Route: PO, Drug form: TAB, Daily, Dosing Weight 65, kg, Start date: 11/18/12 12:00:00, Duration: 30 day, Stop date: 12/18/12 9:00:00 [facility] iron sucrose + Sodium Chloride 0.9% IV 95 mL 2012-11-18 02 :10:00 No Santana Perez 100 mg, 5 mL, [place]: IV, Daily, Dosing Weight 65, kg, 3 doses only, Priority: NOW, Start date: 11/17/12 21:10:00, Duration: 3 doses or times, Stop date: 11/19/12 9:00:00 Jazzmine Jasso calcium gluconate + Sodium Chloride 0.9% IV 50 mL 08:15:00 No Jules Francis Maguire 1,000 mg, 10 mL, Route: IVPB, Drug form: INJ, ONCE, Dosing Weight 65, kg, Priority: STAT, Start date: 11/16/12 3:15:00, Stop date: 11/16/12 3:15:00 Arcadio Jasso potassium chloride 20 mEq/15 mL oral liquid 2012-11-16 08: 15:00 No Jules Francis Maguire 40 mEq, 30 mL, R oute: PO, Drug form: LIQ, ONCE, Dosing Weight 65, kg, Priority: NOW, Start date: 11/16/12 3:15:00, Stop date: 11/16/12 3:15:00 [facility] Toprol-XL 50 mg oral tablet, extended release 2012-11-16 0 2:00:00 No Yobany Borjas 50 mg, 1 tab, R oute: PO, Drug form: ERTAB, BID, Start date: 11/15/12 21:00:00, Duration: 30 day, Stop date: 12/15/12 9:00:00 [facility] docusate sodium 100 mg oral capsule 2012-11-15 22:00:00 No Endyt Iain 100 mg, 1 cap, Route: PO, Drug form: CAP , BID, Start date: 11/15/12 17:00:00, Duration: 30 day, Stop date: 12/15/12 9:00:00 [facility] AMIODarone 2012-11-15 22:00:00 No Yobany Lozano an 0.5 mg/min, Route: PO, Drug form: TAB, BID, Dosing Weight 65, kg, Start date: 11/15/12 17:00:00, Stop date: 12/15/12 9:00:00 [facility] Las[facility] 2012-11-15 14:00:00 No Jyoti Soriano Pa tel 20 mg, 2 mL, Route: IVP, Drug form: INJ, ONCE, Dosing Weight 65, kg, Start date: 11/15/12 9:00:00, Stop date: 11/15/12 9:00:00 [facility] [place] calcium gluconate + Sodium Chloride 0.9% IV 50 mL 09:54:00 No Ben Fredi Koranne 1,000 mg, 10 mL, Route: IVPB, ONCE, Dosing Weight 65, kg, Priority: STAT, Start date: 11/15/12 4:54:00, Stop date: 11/15/12 4:54:00 [facility] Neutra-Phos oral powder 2012-11-15 01:00:00 No Ben Espino nikkie Joele Route: PO, Drug Form: PDR/REC, Dosing Weight 65, kg, ONCE, STAT, Start date: 11/14/12 20:00:00, Stop date: 11/14/12 20:00:00 [facility] calcium gluconate + Sodium Chloride 0.9% IV 50 mL 01:00:00 No Ben Fredi Koranne 1,000 mg, 10 mL, Route: IVPB, ONCE, Dosing Weight 65, kg, Priority: STAT, Start date: 11/14/12 20:00:00, Stop date: 11/14/12 20:00:00 [facility] AMIODarone 2012-11-14 22:00:00 No Christina Kline 200 mg, 1 tab, Route: PO, Drug form: TAB, TID, Dosing Weight 65, kg, Start date: 11/14/12 17:00:00, Duration: 30 day, Stop date: 12/14/12 13:00:00 [facility] insulin glargine 2012-11-14 18:00:00 No Stephanie Olson 15 unit, 0.15 mL, Route: SUB-Q, Drug form: INJ, Daily, Dosing Weight 65, kg, Start date: 11/14/12 13:00:00, Stop date: 12/14/12 9:00:00 [facility] insulin aspart 2012-11-14 17:02:00 No Quinton Johnleon Champagne abari 2 unit, 0.02 mL, Route: SUB-Q, Drug form: SOLN, TID-Before Meals, Dosing Weight 65, kg, PRN Blood Glucose Results, Start date: 11/14/12 12:02:00, Duration: 30 day, Stop date: 12/14/12 12:01:00 [facility] Pedro Luis n Dextrose 50% Syringe 2012-11-14 17:02:00 No Quinton Camron Josephi 12.5 gm, 25 mL, Route: IVP, Drug Form: INJ, Dosing Weight 65, kg, PRN, PRN Blood Glucose Results, Start date: 11/14/12 12:02:00, Duration: 30 day, Stop date: 12/14/12 12:01:00 [facility] glucagon 2012-11-14 17:02:00 No Quinton leon Josephi 1 mg, Route: IM, Drug form: PDR/INJ, PRN, Dosing Weight 65, kg, PRN Blood Glucose Results, Start date: 11/14/12 12:02:00, Duration: 30 day, Stop date: 12/14/12 12:01:00 [facility] AMIODarone 900 mg + Dextrose 5% in Water (Titrate) IV 482 mL 2012-11-14 13:58:00 No Quinton Raleon Josephi 482 mL, Rate: Infuse as directed, Dosing Weight 65, kg, Route: IV, Total Volume: 500 mL, Stop date: 12/14/12 8:57:00, Replace Every: 24 hr [facility] AMIODarone 150 mg + Dextrose 5% in Water IV 100 mL 2012-11 13:58:00 No Baldo Blancoubhai Potter 100 mL, Ra te: 600 ml/hr, Infuse over: 10.3 min, Route: IVPB, Dosing Weight 65 kg, Total Volume: 103, Start date: 11/14/12 8:58:00, Duration: 1 doses or times, Stop date: 11/14/12 9:07:00 [facility] metoprolol 5 mg/5 ml INJ 2012-11-14 12:08:00 No Asher Mcgarry Potter 5 mg, 5 mL, Route: IV, Drug form: INJ, ONCE, Dosing Weight 65, kg, Priority: STAT, Start date: 11/14/12 7:08:00, Stop date: 11/14/12 7:08:00 [facility] metoprolol 5 mg/5 ml INJ 2012-11-14 08:17:00 No Almita Ira Shiue 5 mg, Route: IV, ONCE, Dosing Weight 65, kg, Priority: STAT, Start date: 11/14/12 3:17:00, Stop date: 11/14/12 3:17:00 [facility] morphine Sulfate 2012-11-14 07:11:00 No Almita Ira S hiue 2 mg, 1 mL, Route: IVP, Drug form: INJ, ONCE, Dosing Weight 65, kg, Priority: NOW, Start date: 11/14/12 2:11:00, Stop date: 11/14/12 2:11:00 [facility] calcium gluconate + Sodium Chloride 0.9% IV 50 mL 05:07:00 No Almita Ira Shiue 1,000 mg, 10 mL, Route: IVPB, ONCE, Dosing Weight 65, kg, Start date: 11/14/12 0:07:00, Stop date: 11/14/12 0:07:00 [facility] potassium phosphate + Sodium Chloride 0.9% IV 250 mL 11-14 05:03:00 No Almita Ira Shiue 30 mmol, 10 mL, Route: IVPB, ONCE, Dosing Weight 65, kg, Start date: 11/14/12 0:03:00, Stop date: 11/14/12 0:03:00 [facility] potassium chloride 2012-11-14 05:00:00 No Almita Ira Shiue 10 mEq, 50 mL, Route: IVPB, Drug form: INJ, Q1H, Start date: 11/14/12 0:00:00, Duration: 3 doses or times, Stop date: 11/14/12 2:00:00 [facility] magnesium sulfate 2012-11-14 04:10:00 No Almita Ira Shiue 1 gm, 50 mL, Route: IVPB, Drug form: INJ, ONCE, Dosing Weight 65, kg, Priority: STAT, Start date: 11/13/12 23:10:00, Stop date: 11/13/12 23:10:00 [facility] potassium chloride 2012-11-14 04:10:00 No Almita Ira Shiue 30 mEq, Route: IV, ONCE, Dosing Weight 65, kg, Priority: STAT, Start date: 11/13/12 23:10:00, Stop date: 11/13/12 23:10:00 [facility] metoprolol 5 mg/5 ml INJ 2012-11-14 04:10:00 No Almita Ira Shiue 5 mg, 5 mL, Route: IV, Drug form: INJ, ONCE, Dosing Weight 65, kg, Priority: NOW, Start date: 11/13/12 23:10:00, Stop date: 11/13/12 23:10:00 [facility] metoprolol 5 mg/5 ml INJ 2012-11-14 00:41:00 No Almita Ira Shiue 5 mg, 5 mL, Route: IV, Drug form: INJ, ONCE, Dosing Weight 65, kg, Start date: 11/13/12 19:41:00, Stop date: 11/13/12 19:41:00 [facility] potassium chloride 2012-11-13 22:44:00 No Frannie Par uthi 40 mEq, Route: IV, ONCE, Dosing Weight 65, kg, Start date: 11/13/12 17:44:00, Stop date: 11/13/12 17:44:00 [facility] magnesium sulfate 2012-11-13 22:20:00 No Frannie Paru thi 2 gm, 50 mL, Route: IVPB, Drug form: INJ, ONCE, Dosing Weight 65, kg, Start date: 11/13/12 17:20:00, Duration: 1 doses or times, Stop date: 11/13/12 17:20:00, For Mg = 1.8 - 2 mg/dLFor Mg = 1.8 - 2 mg/dL [facility] potassium chloride 2012-11-13 22:20:00 No Frannie Par uthi 40 mEq, 30 mL, Route: NJ, Drug form: LIQ, ONCE, Dosing Weight 65, kg, Start date: 11/13/12 17:20:00, Duration: 1 doses or times, Stop date: 11/13/12 17:20:00, For K = 3 - 3.4 mEq/LFor K = 3 - 3.4 mEq/L [facility] vancomycin 2012-11-13 14:00:00 No Quinton Paezi Mikebar i 1 gm, Route: IVPB, Drug form: INJ, [id number], Dosing Weight 65, kg, Start date: 11/13/12 9:00:00, Duration: 30 day, Stop date: 12/12/12 21:00:00 [facility] D5W 1000 mL 2012-11-13 13:44:00 No Jyoti Lutz ai Potter 1,000 mL, Rate: 50 ml/hr, Infuse over: 20 hr, Route: IV, Dosing Weight 65 kg, Total Volume: 1,000, Start date: 11/13/12 8:44:00, Duration: 30 day, Stop date: 12/13/12 8:43:00 [facility] potassium chloride 2012-11-13 10:30:00 No Nabor Heshm at 20 mEq, 100 mL, Route: IVPB, Drug form: INJ, ONCE, Start date: 11/13/12 5:30:00, Stop date: 11/13/12 5:30:00 [facility] normal saline 0.9% IV 85 mL + potassium chloride 20 mEq + sodium bicarbonate 4% (Neut) 5 mL 2012-11-13 10:00:00 No Nabor Heshmat 85 mL, Rate: 42.5 ml/hr, Infuse over: 2 hr, Route: IVPB, Dosing Weight 65 kg, Total Volume: 85 mL, Priority: STAT, Start date: 11/13/12 5:00:00, Duration: 1 doses or times, Stop date: 11/13/12 6:59:00 [facility] Sodium Chloride 0.9% IV 1,000 mL 2012-11-13 02:15:00 No Baldo Bud Potter 1,000 mL, Rate: 50 ml/hr, Infuse over: 20 hr, Route: IV, Dosing Weight 65 kg, Total Volume: 1,000, Priority: NOW, Start date: 11/12/12 21:15:00, Duration: 10 hr, Stop date: 11/13/12 7:14:00 [facility] Merrem 2012-11-12 15:00:00 No Quinton Raissi Shabari 500 mg, Route: IV, Drug form: PDR/INJ, [id number], Dosing Weight 65, kg, Start date: 11/12/12 10:00:00, Duration: 30 day, Stop date: 12/12/12 2:00:00 [facility] pantoprazole 2012-11-12 14:00:00 No Quinton Mckeonsatya catarino 40 mg, Route: IVP, Drug form: INJ, Daily, Dosing Weight 65, kg, Start date: 11/12/12 9:00:00, Duration: 30 day, Stop date: 12/11/12 9:00:00 [facility] aspirin 300 mg rectal suppository 2012-11-12 14:00:00 No Yobany Lozanoan 300 mg, 1 supp, Route: TX, Drug form: SUPP, Daily, Dosing Weight 65, kg, Start date: 11/12/12 9:00:00, Duration: 30 day, Stop date: 12/11/12 9:00:00 [facility] aspirin 2012-11-12 14:00:00 No Colette Prescott 325 mg, 1 tab, Route: NG, Drug form: TAB, Daily, Dosing Weight 65, kg, Start date: 11/12/12 9:00:00, Duration: 30 day, Stop date: 12/11/12 9:00:00 [facility] potassium chloride 2012-11-12 11:14:00 No Baldo Blank ai Potter 20 mEq, 100 mL, Route: IVPB, Drug form: INJ, ONCE, Dosing Weight 65, kg, Total dose = 20 mEq, Start date: 11/12/12 6:14:00, Duration: 1 doses or times, Stop date: 11/12/12 6:14:00, For K = 3.5 - 3.9 mEq/LFor K = 3.5 - 3.9 mEq/L [facility] albumin human 25% intravenous solution 2012-11-12 05:22:00 No Baldo Hopehai Potter 75 gm, 300 mL, R oute: IV, Drug form: INJ, ONCE, Dosing Weight 65, kg, Priority: STAT, Start date: 11/12/12 0:22:00, Stop date: 11/12/12 0:22:00 [facility] albumin human 25% intravenous solution 2012-11-12 05:14:00 No Baldo Bud Potter 12.5 gm, 250 mL, Route: IV, Drug form: INJ, ONCE, Dosing Weight 65, kg, Start date: 11/12/12 0:14:00, Stop date: 11/12/12 0:14:00 Arcadio Jasso Lactated Ringers (Bolus) IV 250 mL 2012-11-12 05:13:00 No Baldo Bud Potter 250 mL, Rate: 25 0 ml/hr, Infuse over: 1 hr, Route: IV, Dosing Weight 65 kg, Total Volume: 250, Start date: 11/12/12 0:13:00, Duration: 1 doses or times, Stop date: 11/12/12 1:12:00 Jazzmine Jasso calcium chloride + Sodium Chloride 0.9% IV 100 mL 02:49:00 No Baldo Bud Potter 1,000 mg, 10 mL, Route: IVPB, ONCE, Dosing Weight 65, kg, Start date: 11/11/12 21:49:00, Stop date: 11/11/12 21:49:00 [facility] vancomycin (SCIP) 2012-11-12 02:00:00 No Baldo Kanubha i Potter 1 gm, Route: IVPB, Drug form: INJ, Q12H, Dosing Weight 65, kg, Start date: 11/11/12 21:00:00, Duration: 4 doses or times, Stop date: 11/13/12 9:00:00 Arcadio Jasso milrinone 20 mg in D5W 100 ml Premix (titrate) 20 mg 11-12 01:02:00 No Stephanie Whitney 20 mg, 100 mL, R ate: As directed, Dosing Weight 65, kg, Route: IV, Total Volume: 100, Start date: 11/11/12 20:02:00, Duration: 30 day, Stop date: 12/11/12 20:01:00, Replace Every: 24 hr [facility] vancomycin (SCIP) 2012-11-12 01:00:00 No Baldo Kanubha i Potter 1 gm, Route: IVPB, Drug form: INJ, [id number], Dosing Weight 65, kg, Start date: 11/11/12 20:00:00, Duration: 2 doses or times, Stop date: 11/12/12 8:00:00 [facility] potassium chloride 2012-11-12 01:00:00 No Baldo Kanubh ai Potter 20 mEq, 100 mL, Route: IVPB, Drug form: INJ, Q2H, Start date: 11/11/12 20:00:00, Duration: 2 doses or times, Stop date: 11/11/12 22:00:00 [facility] potassium chloride 2012-11-12 00:07:00 No Baldo Kanubh ai Potter 40 mEq, Route: IV, ONCE, Dosing Weight 65, kg, Priority: STAT, Start date: 11/11/12 19:07:00, Stop date: 11/11/12 19:07:00 [facility] calcium gluconate + Sodium Chloride 0.9% IV 50 mL 23:45:00 No Tristan S Arslan 1,000 mg, 10 mL, Route: IV, ONCE, Dosing Weight 65, kg, Priority: STAT, Start date: 11/11/12 18:45:00, Stop date: 11/11/12 18:45:00 [facility] labetalol 2012-11-11 23:31:00 No Baldo Bud Potter 10 mg, 2 mL, Route: IV, Drug form: INJ, ONCE, Dosing Weight 65, kg, Priority: STAT, Start date: 11/11/12 18:31:00, Stop date: 11/11/12 18:31:00 [facility] cefazolin (SCIP) 2012-11-11 23:00:00 No Stephanie Olson 1 gm, Route: IVPB, Drug form: PDR/INJ, [id number], Dosing Weight 65, kg, Start date: 11/11/12 18:00:00, Duration: 6 doses or times, Stop date: 11/14/12 6:00:00 [facility] FENTanyl 1000 mcg in 20 mL (titrate) IV 1,000 microgram 2012-11-11 22:12:00 No Baldo Bud Potter 1,000 microgram, 20 mL, Rate: Titrate as directed, Dosing Weight 65, kg, Route: IV, Total Volume: 20 ml, Duration: 30 day, Stop date: 12/11/12 17:11:00, Replace Every: 24 hr [facility] fentanyl (PF) 20 mcg/ml CONE PICKER (600 microgram /30 mL) 600 micro gram 2012-11-11 22:00:00 No Frannie Guadalupeuthroseann 60 0 microgram, 30 mL, Route: IV, CONE PICKER Dose: 10 mcg, CONE PICKER Lockout: 10 minutes, Continuous Basal Rate: 0 mg, 4 Hour Limit (In MCG): 240, Drug Form: INJ, Continuous, Start date: 11/11/12 17:00:00, Duration: 30 day, Stop date: 12/11/12 16:59:00 [facility] [place] docusate 2012-11-11 22:00:00 No Colette Prescott 100 mg, 10 mL, Route: PO, Drug form: LIQ, BID, Dosing Weight 65, kg, Start date: 11/11/12 17:00:00, Duration: 30 day, Stop date: 12/11/12 9:00:00 [facility] [place] fentanyl 2012-11-11 22:00:00 No Jyoti Soriano Potter 100 microgram, Route: IVP, ONCE, Dosing Weight 65, kg, Priority: STAT, Start date: 11/11/12 17:00:00, Stop date: 11/11/12 17:00:00 [facility] [place] Insulin regular 100 unit + Sodium Chloride 0.9% (titrate) 99 mL 2012-11-11 21:37:00 No Quinton Whyte 99 mL, Rate: Start Insulin Drip Per ICU Protocol, Dosing Weight 65, kg, Route: IVPB, Total Volume: 100, Duration: 30 day, Stop date: 12/11/12 16:36:00, Replace Every: 24 hr, Initial Insulin Drip Rate (units/hour)=(Fasting Blood Glucose-60)X0.03 "multi...Initial Insulin Drip Rate (units/hour)=(Fasting Blood Glucose-60)X0.03 "multiplier". [facility] [place] Cardene 40 mg in NS 200 ml IV 40 mg 2012-11-11 21:37:00 No Baldo Potter 40 mg, 200 mL, R ate: Titrate, Dosing Weight 65, kg, Route: IV, Total Volume: 200 mL, Duration: 30 day, Stop date: 12/11/12 16:36:00, Replace Every: 24 hr [facility] ondansetron 2012-11-11 21:35:00 No Colette Prescott 4 mg, 2 mL, Route: IVP, Drug form: INJ, ONCE, Dosing Weight 65, kg, PRN Nausea & Vomiting, Start date: 11/11/12 16:35:00 [facility] naloxone 2012-11-11 21:35:00 No Yobany Borjas 0.04 mg, 0.1 mL, Route: IVP, Drug form: INJ, Q2MIN, Dosing Weight 65, kg, PRN Narcotic Reversal, Start date: 11/11/12 16:35:00, Duration: 30 day, Stop date: 12/11/12 16:34:00 [facility] fentanyl 2012-11-11 21:35:00 No Frannie Paruthi 10 microgram, 0.2 mL, Route: IVP, Drug form: INJ, Q2H, Dosing Weight 65, kg, PRN Pain Score 1-3, Start date: 11/11/12 16:35:00, Duration: 30 day, Stop date: 12/11/12 16:34:00 [facility] nalbuphine 2012-11-11 21:35:00 No Colette Prescott 2 mg, 0.2 mL, Route: IVP, Drug form: INJ, Q2H, Dosing Weight 65, kg, PRN Itching, Start date: 11/11/12 16:35:00, Duration: 5 doses or times, Stop date: 11/12/12 0:00:00 [facility] Dextrose 50% Syringe 2012-11-11 21:35:00 No Quinton Josephi 12.5 gm, 25 mL, Route: IVP, Drug Form: INJ, Dosing Weight 65, kg, PRN, PRN Blood Glucose Results, Start date: 11/11/12 16:35:00, Duration: 30 day, Stop date: 12/11/12 16:34:00 [facility] labetalol 2012-11-11 21:35:00 No Yobany Chapin n 10 mg, 2 mL, Route: IVP, Drug form: INJ, Q4H, Dosing Weight 65, kg, PRN Hypertension, Start date: 11/11/12 16:35:00, Duration: 30 day, Stop date: 12/11/12 16:34:00 [facility] metoprolol 2012-11-11 21:35:00 No Santana Avila Gazzala 2.5 mg, 2.5 mL, Route: IVP, Drug form: INJ, Q4H, Dosing Weight 65, kg, PRN Hypertension, Start date: 11/11/12 16:35:00, Duration: 30 day, Stop date: 12/11/12 16:34:00 [facility] hydrALAZINE 2012-11-11 21:35:00 No Santana Avila Gazzal a 10 mg, 0.5 mL, Route: IVP, Drug form: INJ, Q6H, Dosing Weight 65, kg, PRN Hypertension, Start date: 11/11/12 16:35:00, Duration: 30 day, Stop date: 12/11/12 16:34:00 [facility] acetaminophen 2012-11-11 21:35:00 No Colette Prescott 650 mg, 1 supp, Route: TX, Drug form: SUPP, Q4H, Dosing Weight 65, kg, PRN Pain Score 1-3, Start date: 11/11/12 16:35:00, Duration: 30 day, Stop date: 12/11/12 16:34:00 [facility] aspirin 325 mg tablet 2012-11-11 21:35:00 No Colette valdivia 325 mg, Route: NG, ONCE, Dosing Weight 65, kg, Start date: 11/11/12 16:35:00, Stop date: 11/11/12 16:35:00 [facility] acetaminophen-hydrocodone 325 mg-10 mg oral tablet 2012-11 21:35:00 No Colette Prescott 1 tab, Route: PO , Drug Form: TAB, Dosing Weight 65, kg, Q4H, PRN Pain Score 1-3, Start date: 11/11/12 16:35:00, Duration: 30 day, Stop date: 12/11/12 16:34:00 [facility] nitroglycerin 100 mg in 250 ml [id number] Premix (titrate) 100 mg 2012-11-11 21:35:00 No Baldo Farrell Potter 100 mg, 250 mL, Rate: Infuse as directed, Dosing Weight 65, kg, Route: IV, Total Volume: 250 mL, Start date: 11/11/12 16:35:00, Duration: 30 day, Stop date: 12/11/12 16:34:00, Replace Every: 24 hr [facility] Insulin regular 2012-11-11 02:55:00 No Colton Grey i 5 unit, Route: SUB-Q, ONCE, Dosing Weight 65, kg, Start date: 11/10/12 21:55:00, Stop date: 11/10/12 21:55:00 [facility] vancomycin + Sodium Chloride 0.9% IV 250 mL 2012-11-11 00: 00:00 No Stephanie Whitney 1,500 mg, Route: IVPB, ONCALL, Dosing Weight 65, kg, Start date: 11/10/12 19:00:00, Stop date: 11/11/12 15:00:00 [facility] cefazolin 2012-11-11 00:00:00 No Stephanie Whitney 1 gm, Route: IVPB, Drug form: PDR/INJ, ONCALL, Dosing Weight 65, kg, Start date: 11/10/12 19:00:00, Stop date: 11/11/12 15:00:00 [facility] Sodium Chloride 0.9% (titrate) 250 mL 2012-11-10 23:22:00 No Stephanie Whitney 250 mL, Rate: On jimena l for use with blood product administration, Dosing Weight 65, kg, Route: IV, Total Volume: 250, Duration: 30 day, Stop date: 12/10/12 18:21:00, Replace Every: 24 hr [facility] Saline Flush 0.9% 2012-11-10 02:00:00 No Colette Prescott 5 ml, Route: IVP, Drug Form: INJ, Dosing Weight 65, kg, Q12H, Start date: 11/09/12 21:00:00, Duration: 30 day, Stop date: 12/09/12 9:00:00 [facility] Lasix 2012-11-10 02:00:00 No Jyoti Soriano Pa tel 20 mg, 2 mL, Route: IVP, Drug form: INJ, Q12H, Dosing Weight 65, kg, Start date: 11/09/12 21:00:00, Duration: 30 day, Stop date: 12/09/12 9:00:00 [facility] cefazolin 2012-11-10 00:00:00 No Colette Prescott 1 gm, Route: IVPB, Drug form: PDR/INJ, ONCALL, Dosing Weight 65, kg, Start date: 11/09/12 19:00:00, Stop date: 11/10/12 16:00:00 [facility] rmann vancomycin 2012-11-10 00:00:00 No Coeltte Presoctt 1 gm, Route: IVPB, Drug form: INJ, ONCALL, Dosing Weight 65, kg, Start date: 11/09/12 19:00:00, Stop date: 11/10/12 16:00:00 [facility] Sodium Chloride 0.9% (titrate) 250 mL 2012-11-09 23:36:00 No Colette Prescott 250 mL, Rate: On jimena l for use with blood product administration, Dosing Weight 65, kg, Route: IV, Total Volume: 250, Duration: 30 day, Stop date: 12/09/12 18:35:00, Replace Every: 24 hr [facility] Saline Flush 0.9% 2012-11-09 23:35:00 No Colette Prescott 5 ml, Route: IVP, Drug Form: INJ, Dosing Weight 65, kg, PRN, PRN Line Flush, Start date: 11/09/12 18:35:00, Duration: 30 day, Stop date: 12/09/12 18:34:00 [facility] Sodium Chloride 0.45% IV 1,000 mL 2012-11-09 23:35:00 No Stephanie Whitney 1,000 mL, Rate: 75 ml/hr, Infuse over: 1 3.3 hr, Route: IV, Dosing Weight 65 kg, Total Volume: 1,000, Start date: 11/09/12 18:35:00, Duration: 30 day, Stop date: 12/09/12 18:34:00 [facility] atorvastatin 2012-11-09 22:00:00 No Nabor Heshmat 20 mg, 1 tab, Route: PO, Drug form: TAB, QPM, Dosing Weight 65, kg, Start date: 11/09/12 17:00:00, Duration: 30 day, Stop date: 12/08/12 17:00:00 [facility] heparin 2012-11-09 21:00:00 No Khashayar Oh Vahdat 5,000 unit, 1 mL, Route: SUB-Q, Drug form: INJ, Q8H, Dosing Weight 65, kg, Start date: 11/09/12 16:00:00, Duration: 30 day, Stop date: 12/09/12 8:00:00 [facility] lisinopril 2012-11-09 19:39:00 No Khashayar Oh Vahdat 20 mg, 1 tab, Route: PO, Drug form: TAB, Q12H, Dosing Weight 65, kg, Priority: STAT, Start date: 11/09/12 14:39:00, Duration: 30 day, Stop date: 12/09/12 9:00:00 [facility] Lasix 2012-11-09 14:00:00 No Khashayar Oh Vahdat 40 mg, 4 mL, Route: IVP, Drug form: INJ, Daily, Dosing Weight 65, kg, Start date: 11/09/12 9:00:00, Duration: 30 day, Stop date: 12/08/12 9:00:00 [facility] metoprolol tartrate 2012-11-09 14:00:00 No Yobany Borjas 25 mg, 1 tab, Route: PO, Drug form: TAB, Q12H, Dosing Weight 65, kg, Start date: 11/09/12 9:00:00, Duration: 30 day, Stop date: 12/08/12 21:00:00 [facility] Klor-Con 10 2012-11-09 14:00:00 No Nabor Heshmat 10 mEq, 1 tab, Route: PO, Drug form: ERTAB, Daily, Dosing Weight 65, kg, Start date: 11/09/12 9:00:00, Duration: 30 day, Stop date: 12/08/12 9:00:00 [facility] lisinopril 2012-11-09 14:00:00 No Khashayar Oh Vahdat 20 mg, 1 tab, Route: PO, Drug form: TAB, Daily, Dosing Weight 65, kg, Start date: 11/09/12 9:00:00, Duration: 30 day, Stop date: 12/08/12 9:00:00 [facility] aspirin 2012-11-09 14:00:00 No Nabor Heshmat 81 mg, 1 tab, Route: PO, Drug form: ECTAB, Daily, Dosing Weight 65, kg, Start date: 11/09/12 9:00:00, Duration: 30 day, Stop date: 12/08/12 9:00:00 [facility] Glucotrol XL 5 mg oral tablet, extended release 2012-11-09 02:18 :59 No 5 mg, 1 tab, PO, TID, Substitution Allowed [facility] hydrochlorothiazide 2012-11-09 02:18:06 No 12.5 mg, PO, Daily, Substitution Allowed [facility] lisinopril 20 mg oral tablet 2012-11-09 02:17:24 No Ali steven Heshmat 20 mg, 1 tab, PO, Daily, 30 tab, Substitution Allowed, TAB [facility] Klor-Con 10 oral tablet, extended release 2012-11-09 02:16 :27 No Nabor Heshmat 10 mEq, 1 tab, PO, Daily, Substitution A madeline [facility] tetanus-diphtheria toxoids adult intramuscular suspension 2010-05-07 23:05:00 No Avi Cazares 0.5 ml, Rou te: IM, ONCE, STAT, Start date: 05/07/10 17:05:00, Stop date: 05/07/10 17:05:00 Laura Jasso Aspirin (Aspir 81) 81 Mg Tablet. Aspirin (Aspir 81) 81 Mg Tablet. Yes 81 Daily [facility] Bumetanide 1 Mg Tablet Bumetanide 1 Mg Tablet Yes 1 Twice A Day [facility] Buspirone Hcl 5 Mg Tablet Buspirone Hcl 5 Mg Tablet Yes 10 Three Times A Day [facility] Calcium Carbonate/Vitamin D3 (Calcium 500+D Tablet Nuvia w) 1 Each Tab.chew Calcium Carbonate/Vitamin D3 (Calcium 500+D Tablet Chew) 1 Each Tab.chew Yes 1 Twice A Day [facility] Diphenoxylate Hcl/Atropine (Lomotil Tablet) 1 Each Tab let Diphenoxylate Hcl/Atropine (Lomotil Tablet) 1 Each Tablet Yes [facility] Glipizide (Glucotrol) 5 Mg Tablet Glipizide (Glucotrol) 5 Mg Tablet Yes 5 Twice A Day [facility] Metoprolol Succinate (Toprol Xl) 50 Mg Tab.er.24h Meto prolol Succinate (Toprol Xl) 50 Mg Tab.er.24h Yes 50 Twice A Day [facility] Pravastatin Sodium 20 Mg Tablet Pravastatin Sodium 20 Mg Tablet Yes 20 Bedtime [facility] Benzonatate 200 Mg Capsule, 200 Mg Oral Benzonatate 200 Mg C apsule, 200 Mg Oral 2018-05-15 00:00:00 No 200 Three Times A Day [facility] Lisinopril 5 Mg Tablet, 5 Mg Oral Lisinopril 5 Mg Tablet, 5 Mg O ral 2018-05-15 00:00:00 No 5 Daily [facility] Mometasone Furoate (Nasonex) 17 Gm Wallace, Nasal Mome tasone Furoate (Nasonex) 17 Gm Wallace, Nasal 2018-05-15 00:00:00 No As Needed [facility] Atorvastatin Calcium 20 Mg Tablet, 20 Mg Oral Atorvast atin Calcium 20 Mg Tablet, 20 Mg Oral 2014-06-22 00:00:00 No 20 Daily [facility] Azithromycin (Z-Bobby) 250 Mg Tablet, 250 Mg Oral Azithr omycin (Z-Bobby) 250 Mg Tablet, 250 Mg Oral 2014-06-22 00:00:00 No 250 Valentin y [facility] Potassium Chloride (K Dur*) 10 Meq Tabcr, 10 Meq Oral Potassium Chloride (K Dur*) 10 Meq Tabcr, 10 Meq Oral 2014-06-22 00:00:00 No 10 Daily [facility] Spironolactone 50 Mg Tablet, 1 Tab Oral Spironolactone 50 Mg Tablet, 1 Tab Oral 2014-06-22 00:00:00 No 1 Daily [facility] Lisinopril/Hydrochlorothiazide (Lisinopr il-Hctz 10-12.5 Mg Tab) 1 Each Tablet, 20 Mg Oral Lisinopril/Hydrochlorothiazide (Lisinopr il-Hctz 10-12.5 Mg Tab) 1 Each Tablet, 20 Mg Oral 2013-02-18 00:00:00 No 20 Daily [facility] Vital Signs Vital Name Observation Time Observation Value Comments Source Systolic (mm Hg) 2019-09-08 18:57:00 [facility] Diastolic (mm Hg) 2019-09-08 18:57:00 [facility] Heart Rate 2019-09-08 18:57:00 [facility] Respitory Rate 2019-09-08 18:57:00 [facility] Temperature Oral (F) 2019-09-08 18:57:00 97.9 F [facility] Height 2019-09-08 18:57:00 148.59 cm [facility] Weight 2019-09-08 18:57:00 [facility] BMI Calculated 2019-09-08 18:57:00 [facility] Height 2019-04-14 17:02:00 154.94 cm [facility] Weight 2019-04-14 17:02:00 [facility] BMI Calculated 2019-04-14 17:02:00 [facility] Systolic (mm Hg) 2019-03-24 20:45:00 [facility] Diastolic (mm Hg) 2019-03-24 20:45:00 [facility] Heart Rate 2019-03-24 20:45:00 [facility] Respitory Rate 2019-03-24 20:45:00 [facility] Temperature Oral (F) 2019-03-24 20:45:00 98.4 F [facility] Height 2019-03-24 20:45:00 148.59 cm [facility] Weight 2019-03-24 20:45:00 [facility] BMI Calculated 2019-03-24 20:45:00 [facility] Heart Rate 2018-05-08 23:21:00 [facility] Respitory Rate 2018-05-08 23:21:00 [facility] Temperature Oral (F) 2018-05-08 23:21:00 98.0 F [facility] Systolic (mm Hg) 2018-05-08 23:21:00 [facility] Diastolic (mm Hg) 2018-05-08 23:21:00 [facility] Weight 2018-05-08 21:19:00 [facility] Height 2018-05-08 21:19:00 160.02 cm [facility] BMI Calculated 2018-05-08 21:19:00 [facility] Temperature Oral (F) 2018-05-08 21:19:00 98.0 F [facility] Heart Rate 2018-05-08 21:19:00 [facility] Respitory Rate 2018-05-08 21:19:00 [facility] Systolic (mm Hg) 2018-05-08 21:19:00 [facility] Diastolic (mm Hg) 2018-05-08 21:19:00 [facility] Height 2018-03-25 19:53:00 149.86 cm [facility] BMI Calculated 2018-03-25 19:53:00 [facility] Weight 2018-03-25 19:53:00 [facility] Heart Rate 2018-03-25 19:53:00 [facility] Temperature Oral (F) 2018-03-25 19:53:00 97.7 F [facility] Respitory Rate 2018-03-25 19:53:00 [facility] Systolic (mm Hg) 2018-03-25 19:53:00 [facility] Diastolic (mm Hg) 2018-03-25 19:53:00 [facility] Respitory Rate 2017-11-18 20:46:00 [facility] Heart Rate 2017-11-18 20:46:00 [facility] Systolic (mm Hg) 2017-11-18 20:46:00 [facility] Diastolic (mm Hg) 2017-11-18 20:46:00 [facility] Temperature Oral (F) 2017-11-18 18:10:00 97.3 F [facility] Height 2017-11-18 18:10:00 154.94 cm [facility] Weight 2017-11-18 18:10:00 [facility] BMI Calculated 2017-11-18 18:10:00 [facility] Systolic (mm Hg) 2017-11-18 18:10:00 [facility] Diastolic (mm Hg) 2017-11-18 18:10:00 [facility] Respitory Rate 2017-11-18 18:10:00 [facility] Heart Rate 2017-11-18 18:10:00 [facility] BMI Calculated 2017-10-27 19:30:00 [facility] Weight 2017-10-27 19:30:00 [facility] Temperature Oral (F) 2017-10-27 19:30:00 97.7 F [facility] Respitory Rate 2017-10-27 19:30:00 [facility] Heart Rate 2017-10-27 19:30:00 [facility] Systolic (mm Hg) 2017-10-27 19:30:00 [facility] Diastolic (mm Hg) 2017-10-27 19:30:00 [facility] Height 2017-10-27 19:30:00 146.81 cm [facility] Height 2017-07-28 19:48:00 146.81 cm [facility] BMI Calculated 2017-07-28 19:48:00 [facility] Weight 2017-07-28 19:48:00 [facility] Temperature Oral (F) 2017-07-28 19:48:00 97.4 F [facility] Respitory Rate 2017-07-28 19:48:00 [facility] Heart Rate 2017-07-28 19:48:00 [facility] Systolic (mm Hg) 2017-07-28 19:48:00 [facility] Diastolic (mm Hg) 2017-07-28 19:48:00 [facility] Height 2017-02-19 17:51:00 124.46 cm [facility] Weight 2017-02-19 17:51:00 [facility] BMI Calculated 2017-02-19 17:51:00 [facility] Systolic (mm Hg) 2017-02-19 17:51:00 [facility] Diastolic (mm Hg) 2017-02-19 17:51:00 [facility] Heart Rate 2017-02-19 17:51:00 [facility] Temperature Oral (F) 2017-02-19 17:51:00 97.6 F [facility] Systolic (mm Hg) 2016-03-07 18:00:00 [facility] Diastolic (mm Hg) 2016-03-07 18:00:00 [facility] Temperature Oral (F) 2016-03-07 18:00:00 97.8 F [facility] Respitory Rate 2016-03-07 18:00:00 [facility] Heart Rate 2016-03-07 18:00:00 [facility] Temperature Oral (F) 2016-03-07 09:44:00 97.1 F [facility] Heart Rate 2016-03-07 09:44:00 [facility] Respitory Rate 2016-03-07 09:44:00 [facility] Systolic (mm Hg) 2016-03-07 09:44:00 [facility] Diastolic (mm Hg) 2016-03-07 09:44:00 [facility] Heart Rate 2016-03-07 07:38:00 [facility] Temperature Oral (F) 2016-03-07 07:38:00 98.5 F [facility] Systolic (mm Hg) 2016-03-07 07:38:00 [facility] Diastolic (mm Hg) 2016-03-07 07:38:00 [facility] Respitory Rate 2016-03-07 07:38:00 [facility] Weight 2016-03-07 07:30:00 [facility] Height 2016-03-07 07:30:00 154.94 cm [facility] BMI Calculated 2016-03-07 07:30:00 [facility] Temperature Oral (F) 2016-03-07 06:17:00 98.0 F [facility] Respitory Rate 2016-03-07 06:17:00 [facility] Systolic (mm Hg) 2016-03-07 06:17:00 [facility] Diastolic (mm Hg) 2016-03-07 06:17:00 [facility] Respitory Rate 2016-03-07 05:00:00 [facility] Systolic (mm Hg) 2016-03-07 05:00:00 [facility] Diastolic (mm Hg) 2016-03-07 05:00:00 [facility] Systolic (mm Hg) 2016-03-07 02:50:00 [facility] Diastolic (mm Hg) 2016-03-07 02:50:00 [facility] Respitory Rate 2016-03-07 02:50:00 [facility] Temperature Oral (F) 2016-03-06 22:12:00 97.7 F [facility] Heart Rate 2016-03-06 22:12:00 [facility] Height 2016-03-06 22:12:00 154.94 cm [facility] BMI Calculated 2016-03-06 22:12:00 [facility] Weight 2016-03-06 22:12:00 [facility] Temperature Oral (F) 2016-01-14 00:08:00 99.9 F [facility] Respitory Rate 2016-01-14 00:08:00 [facility] Systolic (mm Hg) 2016-01-14 00:08:00 [facility] Diastolic (mm Hg) 2016-01-14 00:08:00 [facility] Heart Rate 2016-01-14 00:08:00 [facility] Systolic (mm Hg) 2016-01-13 22:14:00 [facility] Diastolic (mm Hg) 2016-01-13 22:14:00 [facility] Heart Rate 2016-01-13 22:14:00 [facility] Height 2016-01-13 22:14:00 154.94 cm [facility] BMI Calculated 2016-01-13 22:14:00 [facility] Respitory Rate 2016-01-13 22:14:00 [facility] Temperature Oral (F) 2016-01-13 22:14:00 98.1 F [facility] Weight 2016-01-13 22:14:00 [facility] BMI Calculated 2015-12-06 18:48:00 [facility] Weight 2015-12-06 18:48:00 [facility] Height 2015-12-06 18:48:00 154.94 cm [facility] Systolic (mm Hg) 2015-12-06 18:48:00 [facility] Diastolic (mm Hg) 2015-12-06 18:48:00 [facility] Temperature Oral (F) 2015-12-06 18:48:00 97.6 F [facility] Respitory Rate 2015-12-06 18:48:00 [facility] Heart Rate 2015-12-06 18:48:00 [facility] Respitory Rate 2015-10-06 00:10:00 [facility] Systolic (mm Hg) 2015-10-06 00:10:00 [facility] Diastolic (mm Hg) 2015-10-06 00:10:00 [facility] Heart Rate 2015-10-06 00:10:00 [facility] Heart Rate 2015-10-05 23:01:00 [facility] Systolic (mm Hg) 2015-10-05 23:01:00 [facility] Diastolic (mm Hg) 2015-10-05 23:01:00 [facility] Respitory Rate 2015-10-05 23:01:00 [facility] Temperature Oral (F) 2015-10-05 23:01:00 97.4 F [facility] Respitory Rate 2015-10-05 20:29:00 [facility] Heart Rate 2015-10-05 20:29:00 [facility] Temperature Oral (F) 2015-10-05 20:29:00 98.8 F [facility] Systolic (mm Hg) 2015-10-05 20:29:00 [facility] Diastolic (mm Hg) 2015-10-05 20:29:00 [facility] Weight 2015-10-05 20:29:00 [facility] Temperature Oral (F) 2015-09-06 15:14:00 97.6 F [facility] Height 2015-09-06 15:14:00 154.94 cm [facility] Weight 2015-09-06 15:14:00 [facility] BMI Calculated 2015-09-06 15:14:00 [facility] Heart Rate 2015-09-06 15:14:00 [facility] Respitory Rate 2015-09-06 15:14:00 [facility] Systolic (mm Hg) 2015-09-06 15:14:00 [facility] Diastolic (mm Hg) 2015-09-06 15:14:00 [facility] Respitory Rate 2015-08-27 03:22:00 [facility] Systolic (mm Hg) 2015-08-27 03:22:00 [facility] Diastolic (mm Hg) 2015-08-27 03:22:00 [facility] Heart Rate 2015-08-27 03:22:00 [facility] Weight 2015-08-27 00:57:00 [facility] Height 2015-08-27 00:57:00 154.94 cm [facility] BMI Calculated 2015-08-27 00:57:00 [facility] Respitory Rate 2015-08-27 00:57:00 [facility] Heart Rate 2015-08-27 00:57:00 [facility] Systolic (mm Hg) 2015-08-27 00:57:00 [facility] Diastolic (mm Hg) 2015-08-27 00:57:00 [facility] Temperature Oral (F) 2015-08-27 00:57:00 98.2 F [facility] BMI Calculated 2015-06-14 16:06:00 [facility] Weight 2015-06-14 16:06:00 [facility] Height 2015-06-14 16:06:00 154.94 cm [facility] Respitory Rate 2015-06-14 16:06:00 [facility] Heart Rate 2015-06-14 16:06:00 [facility] Temperature Oral (F) 2015-06-14 16:06:00 96.4 F [facility] Systolic (mm Hg) 2015-06-14 16:06:00 [facility] Diastolic (mm Hg) 2015-06-14 16:06:00 [facility] Temperature Oral (F) 2015-03-15 22:12:00 97.8 F [facility] Respitory Rate 2015-03-15 22:12:00 [facility] Heart Rate 2015-03-15 22:12:00 [facility] Height 2015-03-15 22:12:00 154.94 cm [facility] BMI Calculated 2015-03-15 22:12:00 [facility] Weight 2015-03-15 22:12:00 [facility] Systolic (mm Hg) 2015-03-15 22:12:00 [facility] Diastolic (mm Hg) 2015-03-15 22:12:00 [facility] Height 2014-11-23 17:06:00 154.94 cm [facility] BMI Calculated 2014-11-23 17:06:00 [facility] Weight 2014-11-23 17:06:00 [facility] Temperature Oral (F) 2014-11-23 17:06:00 97.5 F [facility] Heart Rate 2014-11-23 17:06:00 [facility] Systolic (mm Hg) 2014-11-23 17:06:00 [facility] Diastolic (mm Hg) 2014-11-23 17:06:00 [facility] Weight 2014-09-26 17:08:00 [facility] Heart Rate 2014-09-26 17:08:00 [facility] Temperature Oral (F) 2014-09-26 17:08:00 98.0 F [facility] Respitory Rate 2014-09-26 17:08:00 [facility] Systolic (mm Hg) 2014-09-26 17:08:00 [facility] Diastolic (mm Hg) 2014-09-26 17:08:00 [facility] Temperature Oral (F) 2014-08-17 14:46:00 95.6 F [facility] Systolic (mm Hg) 2014-08-17 14:46:00 [facility] Diastolic (mm Hg) 2014-08-17 14:46:00 [facility] Weight 2014-08-17 14:46:00 [facility] BMI Calculated 2014-08-17 14:46:00 [facility] Height 2014-08-17 14:46:00 154.94 cm [facility] Heart Rate 2014-08-17 14:46:00 [facility] Weight 2014-05-18 15:41:00 [facility] Heart Rate 2014-05-18 15:41:00 [facility] Systolic (mm Hg) 2014-05-18 15:41:00 [facility] Temperature Oral (F) 2014-05-18 15:41:00 98.1 F [facility] Diastolic (mm Hg) 2014-05-18 15:41:00 [facility] BMI Calculated 2014-05-18 15:41:00 [facility] Height 2014-05-18 15:41:00 154.94 cm [facility] Diastolic (mm Hg) 2014-02-25 01:29:00 [facility] Systolic (mm Hg) 2014-02-25 01:29:00 [facility] Respitory Rate 2014-02-25 01:29:00 [facility] Heart Rate 2014-02-25 01:29:00 [facility] Temperature Oral (F) 2014-02-25 01:29:00 98 F [facility] Height 2014-02-24 21:42:00 154.94 cm [facility] BMI Calculated 2014-02-24 21:42:00 [facility] Weight 2014-02-24 21:42:00 [facility] Systolic (mm Hg) 2014-02-24 21:42:00 [facility] Diastolic (mm Hg) 2014-02-24 21:42:00 [facility] Temperature Oral (F) 2014-02-24 21:42:00 99.4 F [facility] Respitory Rate 2014-02-24 21:42:00 [facility] Heart Rate 2014-02-24 21:42:00 [facility] Height 2014-02-16 15:24:00 154.94 cm [facility] BMI Calculated 2014-02-16 15:24:00 [facility] Weight 2014-02-16 15:24:00 [facility] Diastolic (mm Hg) 2014-02-16 15:24:00 [facility] Heart Rate 2014-02-16 15:24:00 [facility] Temperature Oral (F) 2014-02-16 15:24:00 97.7 F [facility] Systolic (mm Hg) 2014-02-16 15:24:00 [facility] Respitory Rate 2014-02-16 15:24:00 [facility] Systolic (mm Hg) 2013-11-17 14:54:00 [facility] Respitory Rate 2013-11-17 14:54:00 [facility] Diastolic (mm Hg) 2013-11-17 14:54:00 [facility] Weight 2013-11-17 14:54:00 [facility] Heart Rate 2013-11-17 14:54:00 [facility] Temperature Oral (F) 2013-11-17 14:54:00 97.2 F [facility] Height 2013-11-17 14:54:00 154.9 cm [facility] BMI Calculated 2013-11-17 14:54:00 [facility] Diastolic (mm Hg) 2013-08-18 14:56:00 [facility] Temperature Oral (F) 2013-08-18 14:56:00 97.9 F [facility] Heart Rate 2013-08-18 14:56:00 [facility] Systolic (mm Hg) 2013-08-18 14:56:00 [facility] Weight 2013-08-18 14:56:00 [facility] BMI Calculated 2013-08-18 14:56:00 [facility] Height 2013-08-18 14:56:00 154.94 cm [facility] Diastolic (mm Hg) 2013-07-28 14:40:00 [facility] Temperature Oral (F) 2013-07-28 14:40:00 97.4 F [facility] Systolic (mm Hg) 2013-07-28 14:40:00 [facility] Heart Rate 2013-07-28 14:40:00 [facility] Respitory Rate 2013-07-28 14:40:00 [facility] BMI Calculated 2013-07-28 14:40:00 [facility] Weight 2013-07-28 14:40:00 [facility] Height 2013-07-28 14:40:00 154.94 cm [facility] BMI Calculated 2013-07-21 15:08:00 [facility] Weight 2013-07-21 15:08:00 [facility] Height 2013-07-21 15:08:00 157.48 cm [facility] Diastolic (mm Hg) 2013-07-21 15:08:00 [facility] Systolic (mm Hg) 2013-07-21 15:08:00 [facility] Heart Rate 2013-07-21 15:08:00 [facility] Temperature Oral (F) 2013-07-21 15:08:00 98.2 F [facility] Temperature Oral (F) 2013-07-07 15:06:00 97.6 F [facility] Height 2013-07-07 15:06:00 154.94 cm [facility] BMI Calculated 2013-07-07 15:06:00 [facility] Systolic (mm Hg) 2013-07-07 15:06:00 [facility] Diastolic (mm Hg) 2013-07-07 15:06:00 [facility] Respitory Rate 2013-07-07 15:06:00 [facility] Weight 2013-07-07 15:06:00 [facility] Heart Rate 2013-07-07 15:06:00 [facility] Heart Rate 2013-06-23 15:02:00 [facility] BMI Calculated 2013-06-23 15:02:00 [facility] Weight 2013-06-23 15:02:00 [facility] Height 2013-06-23 15:02:00 154.94 cm [facility] Diastolic (mm Hg) 2013-06-23 15:02:00 [facility] Respitory Rate 2013-06-23 15:02:00 [facility] Systolic (mm Hg) 2013-06-23 15:02:00 [facility] Temperature Oral (F) 2013-06-23 15:02:00 97.1 F [facility] Temperature Oral (F) 2013-06-16 15:54:00 97.2 F [facility] Respitory Rate 2013-06-16 15:54:00 [facility] Heart Rate 2013-06-16 15:54:00 [facility] Diastolic (mm Hg) 2013-06-16 15:54:00 [facility] Systolic (mm Hg) 2013-06-16 15:54:00 [facility] Heart Rate 2013-06-15 22:51:00 [facility] Systolic (mm Hg) 2013-06-15 22:51:00 [facility] Temperature Oral (F) 2013-06-15 22:51:00 97.6 F [facility] BMI Calculated 2013-06-15 22:51:00 [facility] Weight 2013-06-15 22:51:00 [facility] Height 2013-06-15 22:51:00 154.94 cm [facility] Respitory Rate 2013-06-15 22:51:00 [facility] Diastolic (mm Hg) 2013-06-15 22:51:00 [facility] Diastolic (mm Hg) 2012-12-18 01:14:00 [facility] Systolic (mm Hg) 2012-12-18 01:14:00 [facility] Heart Rate 2012-12-18 01:14:00 [facility] Respitory Rate 2012-12-18 01:14:00 [facility] Temperature Oral (F) 2012-12-18 01:14:00 98.1 F [facility] Temperature Oral (F) 2012-12-17 22:53:00 98.0 F [facility] Systolic (mm Hg) 2012-12-17 22:53:00 [facility] Diastolic (mm Hg) 2012-12-17 22:53:00 [facility] Heart Rate 2012-12-17 22:53:00 [facility] Respitory Rate 2012-12-17 22:53:00 [facility] Height 2012-12-17 22:53:00 154.94 cm [facility] Weight 2012-12-17 22:53:00 [facility] Systolic (mm Hg) 2012-12-06 23:00:00 [facility] Diastolic (mm Hg) 2012-12-06 23:00:00 [facility] Temperature Oral (F) 2012-12-06 22:20:00 98.4 F [facility] Diastolic (mm Hg) 2012-12-06 22:00:00 [facility] Systolic (mm Hg) 2012-12-06 22:00:00 [facility] Systolic (mm Hg) 2012-12-06 21:00:00 [facility] Diastolic (mm Hg) 2012-12-06 21:00:00 [facility] [place] Temperature Oral (F) 2012-12-06 17:13:00 98 F [facility] [place] Temperature Oral (F) 2012-12-06 13:07:00 98 F [facility] Weight 2012-12-06 11:38:00 [facility] Respitory Rate 2012-12-06 02:41:00 [facility] [place] Respitory Rate 2012-12-06 00:00:00 [facility] Respitory Rate 2012-12-05 23:00:00 [facility] [place] Height 2012-12-02 23:11:00 154.94 cm [facility] [place] Weight 2012-12-02 23:11:00 [facility] Systolic (mm Hg) 2012-11-26 17:27:00 [facility] [facility] [place] Diastolic (mm Hg) 2012-11-26 17:27:00 [facility] [place] Temperature Oral (F) 2012-11-26 17:27:00 99.2 F [facility] [place] Systolic (mm Hg) 2012-11-26 14:25:00 [facility] Temperature Oral (F) 2012-11-26 14:25:00 99.0 F [facility] [place] Diastolic (mm Hg) 2012-11-26 14:25:00 [facility] Heart Rate 2012-11-26 03:55:00 [facility] [place] Systolic (mm Hg) 2012-11-26 03:55:00 [facility] [place] Respitory Rate 2012-11-26 03:55:00 [facility] Temperature Oral (F) 2012-11-26 03:55:00 98.8 F [facility] [place] Diastolic (mm Hg) 2012-11-26 03:55:00 [facility] Respitory Rate 2012-11-26 01:34:00 [facility] [place] Heart Rate 2012-11-26 01:34:00 [facility] Heart Rate 2012-11-25 22:11:00 [facility] Respitory Rate 2012-11-24 05:00:00 [facility] Weight 2012-11-19 11:58:00 [facility] [place] Height 2012-11-13 22:04:00 160.02 cm [facility] Weight 2012-11-09 02:12:00 [facility] Height 2012-11-09 02:12:00 154.94 cm [facility] [place] Procedures Procedure Date / Time Performed Performing Clinician [facility] e Computed tomography of brain without radiopaque contrast 201 12-18-28 00:00:00 ISAAC UMANZOR [facility] CT maxillofacial area wo contrast 2018-12-08 00:00:00 LYNETTE UMANZOR [facility] Computed tomography of cervical spine without contrast 12-08 00:00:00 ISAAC UMANZOR [facility] CABG - Coronary artery bypass graft 2012-11-27 05:00:00 [facility] [place] Coronary artery bypass grafts x 4 2012-11-11 05:00:00 [facility] [place] Coronary artery bypass grafts x 4 2012-11-11 05:00:00 [facility] Angiogram 2012-11-08 05:00:00 [facility] Angiogram 2012-11-08 05:00:00 [facility] Colonoscopy 2012-08-10 05:00:00 [facility] Colonoscopy 2012-08-10 05:00:00 [facility] golden Hemorrhoidectomy [facility] Pedro Luis n Hemorrhoidectomy [facility] Pedro Luis n Encounters Start Date/Time End Date/Time Encounter Type Admission Type Attendi [facility] Care Department Encounter ID Source 2019-09-08 13:32:00 2019-09-08 23:59:00 Outpatient Tristan Mcdaniels [facility] [id number] 2019-09-08 13:32:00 2019-09-08 13:32:00 Outpatient [facility] CAR [id number] [facility] 2019-04-14 10:54:00 2019-04-14 23:59:00 Outpatient Tristan Mcdaniels [facility] [id number] 2019-04-14 10:54:00 2019-04-14 10:54:00 Outpatient [facility] CAR 0003 [facility] 2019-03-24 14:09:00 2019-03-24 23:59:00 Outpatient Tristan Mcdaniels [facility] [id number] 2019-03-24 14:09:00 2019-03-24 14:09:00 Outpatient [facility] CAR [id number] [facility] 2019-02-13 15:26:00 2019-02-13 19:26:00 Departed Emergency Room 1 TADEO STARK [facility] [id number] [facility] 2018-12-08 17:57:00 2018-12-08 19:55:00 Departed Emergency Room 1 MATTMADHURIY [facility] [id number] [facility] 2018-07-10 19:04:00 2018-07-10 19:27:00 Departed Emergency Room [facility] [id number] [facility] 2018-05-15 08:44:00 2018-05-17 21:52:00 Discharged Inpatient (obs) 1 HEIDI GARRETT [facility] [id number] [facility] 2018-05-08 15:14:00 2018-05-08 17:17:00 Outpatient Eng, Robe rt Getyee [facility] [id number] 2018-05-08 15:14:00 2018-05-08 17:17:00 Outpatient Eng, Robe rt Getyee [facility] [id number] 2018-04-19 12:36:00 2018-04-19 12:36:00 Registered Clinic 3 HEIDI GARRETT [facility] [id number] [facility] 2018-03-25 13:36:00 2018-03-25 23:59:00 Outpatient Tristan Mcdaniels [facility] [id number] 2018-03-22 16:31:00 2018-03-22 23:54:00 Departed Emergency Room 1 TOMMY URENA [facility] [id number] [facility] 2018-01-26 13:20:00 2018-01-26 13:20:00 Outpatient Tristan Mcdaniels [facility] [id number] 2017-11-18 13:05:00 2017-11-18 15:48:00 Outpatient Patricia Roldan [facility] [id number] 2017-10-27 14:08:00 2017-10-27 23:59:00 Outpatient Tristan Mcdaniels [facility] [id number] 2017-10-27 14:08:00 2017-10-27 23:59:00 Outpatient Tristan Mcdaniels [facility] [id number] 2017-07-28 11:42:00 2017-07-28 23:59:00 Outpatient Tristan Mcdaniels [facility] [id number] 2017-02-19 10:58:00 2017-02-19 23:59:00 Outpatient Tristan Mcdaniels [facility] [id number] 2016-08-27 09:56:00 2016-08-28 23:59:59 Outpatient [id number] [id number] 2016-08-25 11:30:00 2016-08-26 23:59:59 Outpatient [id number] [id number] [id number] 2016-03-07 01:03:00 2016-03-07 18:00:00 Outpatient Cisco Siddiqui [facility] [id number] 2016-03-06 14:46:00 2016-03-07 00:59:00 Outpatient Jessica Stephens [facility] [id number] 2016-02-21 10:50:00 2016-02-21 23:59:00 Outpatient Tristan Mcdaniels [facility] [id number] 2016-02-10 10:44:00 2016-02-11 23:59:59 Outpatient [id number] [id number] [id number] 2016-01-21 14:16:00 2016-01-22 23:59:59 Outpatient [id number] [id number] [id number] 2016-01-17 14:56:00 2016-01-18 23:59:59 Outpatient [id number] 2.16.840.1.887050.3.615.91 [id number] 2016-01-13 16:51:00 2016-01-13 19:08:00 Outpatient Brendan Wilson [facility] [id number] 2016-01-07 11:10:00 2016-01-08 23:59:59 Outpatient [id number] [id number] [id number] 2015-12-06 11:26:00 2015-12-06 23:59:00 Outpatient Tristan Mcdaniels [facility] [id number] 2015-10-07 09:48:00 2015-10-08 23:59:59 Outpatient [id number] 2.16.840.1.358724.3.615.91 [id number] 2015-10-05 15:22:00 2015-10-05 20:52:00 Outpatient Jj Galindo [facility] [id number] 2015-09-06 10:04:00 2015-09-06 23:59:00 Outpatient Tristan Mcdaniels [facility] [id number] 2015-08-26 19:41:00 2015-08-26 22:29:00 Outpatient John Pemberton [facility] [id number] 2015-06-14 09:48:00 2015-06-14 23:59:00 Outpatient Tristan Mcdaniels [facility] [id number] 2015-04-18 18:44:00 2015-04-19 23:59:59 Outpatient [id number] [id number] [id number] 2015-04-02 11:43:00 2015-04-03 23:59:59 Outpatient [id number] 2.16.840.1.874785.3.615.91 [id number] 2015-04-02 11:41:00 2015-04-03 23:59:59 Outpatient 2.16.840.1.276050.3.615.91 2.16.840.1.388401.3.615.91 [id number] 2015-03-15 10:52:00 2015-03-15 23:59:00 Outpatient Tristan Mcdaniels [facility] [id number] 2015-01-03 15:30:00 2015-01-04 23:59:59 Outpatient [id number] 2.16.840.1.976526.3.615.91 [id number] 2014-11-23 09:33:00 2014-11-23 23:59:00 Outpatient Tristan Mcdaniels [facility] [id number] 2014-09-26 10:54:00 2014-09-26 23:59:00 Outpatient Tristan Mcdaniels [facility] [id number] 2014-09-21 09:57:00 2014-09-22 23:59:59 Outpatient [facility] [id number] 2014-08-17 09:22:00 2014-08-17 23:59:00 Outpatient Oly Mcdanielsram Malachi [facility] [id number] 2014-06-06 10:57:00 2014-06-07 23:59:59 Outpatient MHIE [facility] [id number] 2014-06-04 14:05:00 2014-06-05 23:59:59 Outpatient MHIE [facility] [id number] 2014-05-18 09:21:00 2014-05-18 23:59:00 Outpatient Tristan Mcdaniels [facility] [id number] 2014-02-24 14:28:00 2014-02-24 19:31:00 Outpatient Frank Robertson [facility] [id number] 2014-02-16 09:05:00 2014-02-16 23:59:00 Outpatient Percy Mcdaniels [facility] [id number] 2013-12-01 14:39:00 2013-12-02 23:59:59 Outpatient MHIE [facility] [id number] 2013-11-17 09:34:00 2013-11-17 23:59:00 Outpatient Percy Mcdaniels [facility] [id number] 2013-08-18 09:48:00 2013-08-18 23:59:00 Outpatient Percy Mcdaniels [facility] [id number] 2013-07-28 09:35:00 2013-07-28 23:59:00 Outpatient Percy Mcdaniels [facility] [id number] 2013-07-21 09:49:00 2013-07-21 23:59:00 Outpatient Percy Mcdaniels [facility] [id number] 2013-07-07 09:44:00 2013-07-07 23:59:00 Outpatient Percy Mcdaniels [facility] [id number] 2013-06-26 10:21:00 2013-06-27 23:59:59 Outpatient MHIE [facility] [id number] 2013-06-23 09:43:00 2013-06-23 23:59:00 Outpatient Percy Mcdaniels IE [id number] 2013-06-16 09:39:00 2013-06-16 23:59:00 Outpatient Percy Mcdaniels [facility] [id number] 2013-06-15 13:32:00 2013-06-15 23:59:00 Outpatient Baldo Potter [facility] [place] [id number] 2013-01-17 14:56:00 2013-01-17 23:59:00 Outpatient STEVO STEVO [id number] [facility] 2013-01-17 14:56:00 2013-01-17 23:59:00 Outpatient STEVO STEVO [id number] [facility] 2013-01-17 14:56:00 2013-01-17 23:59:00 Outpatient [facility] [id number] [facility] Results Test Description Test Time Test Comments Results Result Comments Source CHEST 2 VIEWS 2019-04-19 13:54:00 [place] [address] Patient Name: BAIRON ELLISON MR #: [id number] : 1935 Age/Sex: 84/F Req #: [id number] Adm Physician: Ordered by: KAREN KEY MD Report #: [id number] Location: OR Room/Bed: Procedure: [id number] DX/CHEST 2 VIEWS Exam Date: Exam Time: REPORT STATUS: Signed Chest, PA and lateral. History: Preoperative evaluation for scalp surgery. Comparison: None available. Discussion: The cardiac silhouette is mildly enlarged, stable. Patient is status post median sternotomy. No focal consolidation, sizable pleural effusion, or pneumothorax. IMPRESSION: No radiographic evidence of acute cardiopulmonary abnormality. Signed by: Richard Rolle MD on 04/19/2019 1:55 PM Dictated By: RICHARD ROLLE MD 1359 Transcribed By: DARSHAN on 04/19/19 1355 COPY TO: KAREN KEY MD CARDIAC ENZYMES 2019-03-24 23:06:15 743 [facility] ELECTROLYTES 2019-03-24 23:06:15 8.8 [facility] ELECTROLYTES 2019-03-24 23:06:15 Test Item B/C Ratio (test code = B/C Ratio) 15 1 6-25 [facility] QnpkovsBSONXHWGEXBT3257-52-91 23:06:153.3[facility]ann[facility]LECTROLYTES 2019-03-24 23:06:15* Test Item Value Reference Range Interpretation Comments A/G Ratio (test code = A/G Ratio) 1.2 1 0.7-1.6 [facility] NzsngzeFAFTTKYSUWUV3192-11-19 23:06:99225Unqdmjoq HermannELECTROLYTES 2019-03-24 23:06:1530[facility] ElfctpkCIPJOXHUQOMN8737-20-59 23:06:152.00[facility] UvvjutiONWAIHBXPQAM7580-95-37 23:06:38943Vjkatftc AacccuvBFSLDIEHHXVJ3631-12-55 23:06:153.8[facility] NyuuaorJHDNUTVNSVGW0902-59-06 23:06:55499Hjkuacrf [place] RNWOBXVHURNR6785-88-86 23:06:1529[facility] BvwzejrWKJYMNFKLZPD5790-13-96 23:06:15 9.3[facility] HngqqqeSMJCIGVEIJWZ0698-79-52 23:06:157.3[facility] [place] SJRHFQQUHNSJ5394-85-84 23:06:154.0[facility] MrafqsfMJBCGOVGNSJN4288-92-65 23:06:1524[facility] EsqvpvmJPSKXQPYDYAV0374-49-54 23:06:1535[facility] [place] ELMOCLJYDJNG9257-73-32 23:06:1563[facility] ArdtzouAMXWBBVAXTXO6098-63-40 23:06:15 0.5[facility] BwuhjcwFLERRSIQVTBL7939-04-76 23:06:1522[facility] HermannHEMATOLOGY 2019-03-24 23:06:1567.5[facility] PkuvlqsLKCIJUHRYU0000-10-20 23:06:1522.4[facility] WflmtgdETULELXLRY0311-67-16 23:06:157.0[facility] VbqfodxHVBQKTKDSM9323-41-38 23:06:152.0[facility] NggiugyANMNHMZFNW9831-01-75 23:06:151.1[facility] [place] NGWXJCKMVP5882-51-96 23:06:155.3[facility] IpcysbbFMIAHRSZOT5999-77-83 23:06:151.8 [facility] IgjcwemNQTFUFZEEP0432-78-52 23:06:150.5[facility] HermannHEMATOLOGY 2019-03-24 23:06:150.2[facility] EbowsvhDMLOBZIARR8370-39-59 23:06:150.1[facility] KgxqwqxZFMNVLFPZX6521-00-62 23:06:157.9[facility] SrxsqubDPEVIFMBSY1546-12-68 23:06:153.74[facility] JqzixyzZZOEUSMAUN5301-10-48 23:06:1511.6[facility] ZHYSPOUFOI4299-80-70 23:06:1534.7[facility] GgxwrzyNQPEIVHKDS0995-26-40 23:06:15 92.7[facility] OlotkddQPLJFUNJQL5541-92-17 23:06:15* Test Item Value Reference Range Interpretation Comments MCH (test code = MCH) 31.1 pg 27.0-31.0 [facility] TuiktsmLTIJFZHUWR8905-60-70 23:06:1533.6[facility] HermannHEMATOLOGY 2019-03-24 23:06:1514.2[facility] LjkysuuIHSKPHYDPW4672-24-72 23:06:33586Wddkpape BbdopfcTVPSAUROIH9039-53-92 23:06:1510.0[facility] HermannRIBS UNILAT W/CXR 2019-02-13 17:27:00 [facility] [address] [address] Patient Name: BAIRON ELLISON MR #: [id number] : 1935 Age/Sex: 84/F Req #: [id number] Adm Physician: Ordered by: TADEO STARK DO Report #: [id number] Location: ER Room/Bed: Procedure: 1104-00 78 DX/RIBS UNILAT W/CXR Exam Date: 02/13/19 Exam Yan e: 1658 REPORT STATUS: Signed EX AMINATION: RIBS UNILAT W/CXR INDICATION: Trauma, Right rib pain C OMPARISON: None FINDINGS: LINES/TUBES:None LUNGS:The lungs a re moderately inflated. No focal consolidation or pulmonary edema. PLEURA :No pleural effusion or pneumothorax. MEDIASTINUM:The heart is mildly enlar ged. Postoperative findings of prior CABG. BONES/SOFT TISSUES:No displaced rib fracture. Sternotomy wires intact. ABDOMEN:No free air under the diaphr agm. Status post cholecystectomy. IMPRESSION: No displaced rib fractu res. No focal pneumonia or pulmonary edema. Mild cardiomegaly Sig prerna by: Shola Khan MD on 02/13/2019 5:30 PM Dictated By: SHOLA KHAN MD E lectronically Signed By: SHOLA KHAN MD on 02/13/191729 Transcribed By: DARSHAN on 02/13/191729 COPY TO: TADEO STARK DO CT MAXIO FAC/ELSA [id number] 19:57:00 [facility] [address] [place], [place] [address] Patient Name: BAIRON ELLISON MR #: [id number] : 1935 Age/Sex: 83/F Req #: [id number] Adm Physician: Ordered by: ISAAC UMANZOR INCIDENT RESPONSE LEAD Report #: [id number] Location: ER Room/Bed: Procedure: [id number]/CT MAXIO FAC/LOUISEAS WO Exam Date: 12/08/18 Sabino juárez Time: 1846 REPORT STATUS: Signed History:Fall. Comparison studies: None Technique: Axial images we re obtained through the maxillofacial region. Coronal and sagittal images bob nstructed from the axial data. Dose modulation, iterative reconstruction, and/ or weight based adjustment of the mA/kV was utilized to reduce the radiation d ose to as low as reasonably achievable. Intravenous contrast: None Find ings: Soft tissues: No abnormalities. Bones: No fractures or bon y abnormalities. Orbits: Globes: Intact Extra or intraconal abnormalit ies: None. Paranasal sinuses: Clear Incidental finding: Multiple missing teeth, multifocal dental caries and endodontal disease, the activity o f which is to be determined clinically. Bilateral fatty atrophy of the parotid glands. IMPRESSION: No acute posttraumatic abnormality. Signed by: Dr. Rom Hernandez M.D. on 12/08/2018 8:01 PM Dictated By: ROM CISNEROS MD 00 Transcrib ed By: DARSHAN on 12/08/182000 COPY TO: ISAAC UMANZOR INCIDENT [employer]PONSE LEAD CT CERVICAL SPINE [id number] 19:51:00 [place] [address] Patient Name: BAIRON ELLISON MR #: [id number] : 1935 Age/Sex: 83/F Req #: [id number] Adm Physician: Ordered by: ISAAC UMANZOR INCIDENT RESPONSE LEAD Report #: [id number] Location: ER Room/Bed: Procedure: 0829-[address]/CT CERVICAL SPINE WO Exam Date: 12/08/18 Exam T temi: 1847 REPORT STATUS: Signed History: Fall. Comparison studies: None Technique: Axial images wer e obtained through the cervical region.. Coronal and sagittal images reconstru cted from the axial data. Dose modulation, iterative reconstruction, and/or we ight based adjustment of the mA/kV was utilized to reduce the radiation dose t o as low as reasonably achievable. Intravenous contrast: None Findin gs: Fractures: None. Soft tissue injuries: None. Atlantoaxial articu lation: Intact. Alignment: Loss of normal cervical lordosis is either position al or due to muscle spasm.. No scoliosis. 2 mm grade 1 anterolisthesis at C3-C 4, likely degenerative. Cervicomedullary junction: No abnormalities. The for amen magnum is patent. Soft tissues: Atherosclerotic calcification in bilatera l carotid bulb. Vertebrae: No fractures, infection or neoplasm. Deg enerative changes: C2-C3: Posterior disc osteophyte complex without significa nt canal stenosis. Mild right foraminal stenosis due to facet and uncovertebra l arthrosis. C3-C4: Moderate right foraminal stenosis due to facet and uncover tebral arthrosis. C5-C6: Mild degenerative disc disease. Posterior disc os teophyte complex results in mild canal stenosis. Mild right foraminal stenosis due to facet and uncovertebral arthrosis. C6-C7: Moderate degenerative disc d isease. Posterior disc osteophyte complex results in moderate canal stenosis. Mild right foraminal stenosis due to facet and uncovertebral arthrosis. I MPRESSION: 1. No acute cervical spine fracture or dislocation. Loss of nor mal cervical lordosis is either positional or due to muscle spasm. 2. Li gament, spinal cord and or vascular abnormalities cannot be excluded on the ba sis of this examination. 3. Cervical spondylosis as detailed above. Signed by: Dr. Rom Hernandez M.D. on 12/08/2018 7:57 PM Talib Denney y: ROM HERNANDEZ MD 56 Transcribed By: DARSHAN on 12/08/181956 COPY TO: ISAAC UMANZOR INCIDENT RESPONSE LEAD CT BRAIN [id number] 19:46:00 [place] [address] Patient Name: BAIRON ELLISON MR #: [id number] : 1935 Age/Sex: 83/F Req #: [id number] Adm Physician: Ordered by: ISAAC UMANZOR INCIDENT RESPONSE LEAD Report #: [id number] Location: ER Room/Bed: Procedure: 0829-[address]/CT BRAIN WO Exam Date: 12/08/18 Exam Time: 1847 REPORT STATUS: Signed EXAMINATI ON: Head CT without contrast. HISTORY:Fall. COMPARISON:None. TE CHNIQUE: Multidetector axial images were obtained from the foramen magnum to t he vertex without contrast. The images were reconstructed using brain and bone algorithms. Thin section brain images were reformatted into coronal and sagi ttal planes. Dose modulation, iterative reconstruction, and/or weight based ad justment of the mA/kV was utilized to reduce the radiation dose to as low as r easonably achievable. Intravenous contrast: None IMAGE QUALITY: Ac ceptable. FINDINGS: Skull/scalp: Incidental 1.8 x 0.4 cm nodular supe rficial soft tissue lesion in left parietal scalp near the vertex may represen t an epidermal inclusion cyst. No lytic or blastic. lesions. No surgical freeman ges. No acute fracture. Parenchyma: Nonspecific bilateral frontoparietal c onfluent periventricular, subcortical and deep white matter hypodensity are li delisa related to small vessel ischemic changes. No acute hemorrhage, mass or acute major vascular territorial infarct. Arteries: No density suggestive of thrombosis. Atherosclerotic calcification in bilateral carotid siphon and i n vertebral basilar system. Dural sinuses: No abnormal density suggestive of thrombosis. Ventricles: No hydrocephalus or displacement. Extra- axial spaces: No abnormal density. Brain volume: Generalized age-related cerebral volume loss. Craniocervical junction: No mass, Chiari malformati on, or basilar invagination. Sella: Partial empty sella. Paranasa l/mastoid sinuses: Imaged portions unremarkable. IMPRESSION: 1. No acute intracranial abnormality. 2. Moderate to severe supratentorial white matter microvascular ischemic changes. 3. Generalized age-related cerebra l volume loss. Signed by: Dr. Rom Hernandez M.D. on 12/08/2018 7:51 PM Dictated By: ROM HERNANDEZ MD 50 Transcribed By: DARSHAN on 12/08/181950 COPY TO: ISAAC KAPOOR INCIDENT RESPONSE LEAD KNEE THREE VIEWS [id number] 19:21:00 [place] [address] Patient Name: BAIRON ELLISON MR #: [id number] : 1935 Age/Sex: 83/F Req #: [id number] Adm Physician: Ordered by: ISAAC UMANZOR NP Report #: [id number] Location: ER Room/Bed: Procedure: 006 2 DX/KNEE THREE VIEWS BILATERAL Exam Date: 12/08/18 Exam Time: 1851 REPORT STATUS: Sign ed BILATERAL KNEES - 3 Image(s) EACH HISTORY: Fall, bilateral anterior knee pain COMPARISON: None available. FINDINGS: Bones: Diffu sely decreased mineralization of the osseous structures limits bone detail. No aggressive osseous lesion. Joints: Bilateral medial and patellofe moral compartment predominant degenerative changes. Trace bilateral effusion s. Soft tissues: Bilateral metallic surgical clips. Mild right anterior and medial nonspecific soft tissue swelling. IMPRESSION: 1. No acut e displaced fracture. 2. Diffuse osseous demineralization. 3. Trace bilate ral effusions. 4. Nonspecific right soft tissue swelling. Signed by: Dr. Alejandro Abdalla DJemO., M.M.M. on 12/08/2018 7:25 PM Dictated By: ALEJANDRO BRENNAN DO 24 Transcribed By : DARSHAN on 12/08/181924 COPY TO: ISAAC UMANZOR INCIDENT RESPONSE LEAD Bedside [id number] 20:40:00* Test Item Value Reference Range Interpretation Comments Bedside Glucose (test code = 86354-0) 122 70-120 H Meter ID: [id number] L. [facility] Glucose 2018-05-17 20:40:00* Test Item Value Reference Range Interpretation Comments Bedside Glucose (test code = 49202-2) 122 70-120 H Meter ID: [id number] L. [facility] Glucose 2018-05-17 20:40:00* Test Item Value Reference Range Interpretation Comments Bedside Glucose (test code = 44516-8) 122 70-120 H Meter ID: [id number] L. [facility] Glucose 2018-05-17 20:40:00* Test Item Value Reference Range Interpretation Comments Bedside Glucose (test code = 38523-7) 122 70-120 H Meter ID: [id number] Blood 2018-05-16 13:00:00* Test Item Value Reference Range Interpretation Comments Stool Occult Blood (test code = 2335-8) POSITIVE NEGATIVE H [facility] Occult Snwxs7597-84-22 13:00:00* Test Item Value Reference Range Interpretation Comments Stool Occult Blood (test code = 2335-8) POSITIVE NEGATIVE [facility] Occult [id number] 13:00:00* Test Item Value Reference Range Interpretation Comments Stool Occult Blood (test code = 2335-8) POSITIVE NEGATIVE [facility] Occult [id number] 13:00:00* Test Item Value Reference Range Interpretation Comments Stool Occult Blood (test code = 2335-8) POSITIVE NEGATIVE [facility] SINGLE (PORTABLE)2018-05-16 06:43:00 [place] [address] Patient Name: BAIRON ELLISON MR #: [id number] : 1935 Age/Sex: 83/F Req #: [id number] Adm Physician: HEIDI GARRETT MD Ordered by: CHLOE NIELSON MD Report #: [id number] Location: [facility] Room/Bed: [place] [address] Procedure: 0204-000 2 DX/CHEST SINGLE (PORTABLE) Exam Date: 05/16/18 Sabino juárez Time: 0620 REPORT STATUS: Signed CHEST SINGLE (PORTABLE), 05/16/2018 7:00 AM Technique: CHEST SINGLE (MICHELE BLE) Comparison: 05/15/2018 Clinical history: Congestive heart failure Fi ndings: See Impression Impression: 1. Lines/Tubes: None 2. Stable enl arged cardiomediastinal silhouette post sternotomy. 3. Central vascular conges tion and/or mild edema and small effusions. Left greater than right bibasilar opacity, presumed atelectasis. Signed by: Dr Calvin Franz MD on 05/16/2018 6:45 AM Dictated By: CALVIN FRANZ MD 4 Transcribed By: DARSHAN on 05/16/18644 CO PY TO: CHLOE NIELSON MD Thyroid Stimulating Hormone (TSH)2018-05-16 06:41:00* Test Item Value Reference Range Interpretation Comments Thyroid Stimulating Hormone (TSH) (test code = 14718-0) 1.796 0.350-4.940 [facility] 2018-05-16 06:41:00* Test Item Value Reference Range Interpretation Comments Thyroid Stimulating Hormone (TSH) (test code = 61499-2) 1.796 0.350-4.940 [facility]ormone (TSH) 2018-05-16 06:41:00* Test Item Value Reference Range Interpretation Comments Thyroid Stimulating Hormone (TSH) (test code = 54198-4) 1.796 0.350-4.940 [facility] Hormone (TSH) 2018-05-16 06:41:00* Test Item Value Reference Range Interpretation Comments Thyroid Stimulating Hormone (TSH) (test code = 49238-1) 1.796 0.350-4.940 [facility]Triglycerides Bxktw7720-48-65 06:26:00* Test Item Value Reference Range Interpretation Comments Triglycerides Level (test code = 2571-8) 82 0-149 [facility]Cholesterol Hbcdx1031-15-25 06:26:00* Test Item Value Reference Range Interpretation Comments Cholesterol Level (test code = 2093-3) 128 0-199 Less than 200 mg/dL Low Mvrw290 - 239 mg/dL Borderline Acrg986 m g/dl and greater High Risk [facility]anoLDL Ppzzugwcadl3714-79-06 06:26:00* Test Item Value Reference Range Interpretation Comments LDL Cholesterol (test code = 2089-1) 52 60-130 L [facility]anoHDL Vxphqjgzaew2915-02-29 06:26:00* Test Item Value Reference Range Interpretation Comments HDL Cholesterol (test code = 2085-9) 60 40-60 [facility]anoCholesterol/HDL Utuax2185-46-22 06:26:00 * Test Item Value Reference Range Interpretation Comments Cholesterol/HDL Ratio (test code = 9830-1) 2.1 3.0-3.6 L [facility]anoTriglycerides Xclxc5260-11-51 06:26:00* Test Item Value Reference Range Interpretation Comments Triglycerides Level (test code = 2571-8) 82 0-149 [facility]anoCholesterol Bljha0010-30-39 06:26:00* Test Item Value Reference Range Interpretation Comments Cholesterol Level (test code = 2093-3) 128 0-199 Less than 200 mg/dL Low Uqrk958 - 239 mg/dL Borderline Bbsp144 m g/dl and greater High Risk [facility]LDL Gmsccspdrcz3438-51-14 06:26:00* Test Item Value Reference Range Interpretation Comments LDL Cholesterol (test code = 2089-1) 52 60-130 L [facility]anoHDL Pvasmzrctih6499-80-34 06:26:00* Test Item Value Reference Range Interpretation Comments HDL Cholesterol (test code = 2085-9) 60 40-60 [facility]anoCholesterol/HDL Wehal7823-73-75 06:26:00 * Test Item Value Reference Range Interpretation Comments Cholesterol/HDL Ratio (test code = 9830-1) 2.1 3.0-3.6 L [facility]anoTriglycerides Dnjxh3093-87-72 06:26:00* Test Item Value Reference Range Interpretation Comments Triglycerides Level (test code = 2571-8) 82 0-149 [facility]anoCholesterol Gevbu2334-44-74 06:26:00* Test Item Value Reference Range Interpretation Comments Cholesterol Level (test code = 2093-3) 128 0-199 Less than 200 mg/dL Low Wjze135 - 239 mg/dL Borderline Cuwv547 m g/dl and greater High Risk [facility]LDL Wnofhemiezn2188-89-06 06:26:00* Test Item Value Reference Range Interpretation Comments LDL Cholesterol (test code = 2089-1) 52 60-130 L [facility]anoHDL Ssedvcjezpq9415-51-74 06:26:00* Test Item Value Reference Range Interpretation Comments HDL Cholesterol (test code = 2085-9) 60 40-60 [facility]Cholesterol/HDL Hfqhu6579-33-65 06:26:00 * Test Item Value Reference Range Interpretation Comments Cholesterol/HDL Ratio (test code = 9830-1) 2.1 3.0-3.6 L [facility]anoTriglycerides Dyfws7366-20-41 06:26:00* Test Item Value Reference Range Interpretation Comments Triglycerides Level (test code = 2571-8) 82 0-149 [facility]Cholesterol Pbdbo4083-17-78 06:26:00* Test Item Value Reference Range Interpretation Comments Cholesterol Level (test code = 2093-3) 128 0-199 Less than 200 mg/dL Low Pero098 - 239 mg/dL Borderline Hkbj225 m g/dl and greater High Risk [facility]anoLDL Zguxltmlgbi3662-07-02 06:26:00* Test Item Value Reference Range Interpretation Comments LDL Cholesterol (test code = 2089-1) 52 60-[address] [facility] Zxisrweldez8116-20-63 06:26:00* Test Item Value Reference Range Interpretation Comments HDL Cholesterol (test code = 2085-9) 60 40-60 [facility]Cholesterol/HDL Nsogl8439-20-64 06:26:00 * Test Item Value Reference Range Interpretation Comments Cholesterol/HDL Ratio (test code = 9830-1) 2.1 3.0-3.6 L [facility]anoB-Type Natriuretic Ljmgnhe7278-92-50 06:00:00* Test Item Value Reference Range Interpretation Comments B-Type Natriuretic Peptide (test code = 30815-1) 2933.2 0-100 H [facility]anoCreatine Kinase CB5863-80-66 06:00:00* Test Item Value Reference Range Interpretation Comments Creatine Kinase MB (test code = 96825-3) 1.20 0-5.[address] [place] 06:00:00* Test Item Value Reference Range Interpretation Comments Troponin I (test code = VXH1458) 0.226 0-0.300 [facility]2019-02-04 06:00:00* Test Item Value Reference Range Interpretation Comments B-Type Natriuretic Peptide (test code = 96247-6) 2933.2 0-100 H [facility]anoCreatine Kinase HW3979-39-60 06:00:00* Test Item Value Reference Range Interpretation Comments Creatine Kinase MB (test code = 93055-3) 1.20 0-5.0 [place] 89799019-02-04 06:00:00* Test Item Value Reference Range Interpretation Comments Troponin I (test code = LIQ1825) 0.226 0-0.300 [facility]2019-02-04 06:00:00* Test Item Value Reference Range Interpretation Comments B-Type Natriuretic Peptide (test code = 47760-0) 2933.2 0-100 H [facility]anoCreatine Kinase YA3513-10-91 06:00:00* Test Item Value Reference Range Interpretation Comments Creatine Kinase MB (test code = 01673-7) 1.20 0-5.0 [place] 89799019-02-04 06:00:00* Test Item Value Reference Range Interpretation Comments Troponin I (test code = FGJ1290) 0.226 0-0.300 [facility]2019-02-04 06:00:00* Test Item Value Reference Range Interpretation Comments B-Type Natriuretic Peptide (test code = 26114-4) 2933.2 0-100 H [facility]anoCreatine Kinase ZP3099-94-05 06:00:00* Test Item Value Reference Range Interpretation Comments Creatine Kinase MB (test code = 26197-1) 1.20 0-5.0 [place] 89799019-02-04 06:00:00* Test Item Value Reference Range Interpretation Comments Troponin I (test code = CUZ9353) 0.226 0-0.300 [facility]anoCreatine Yrdhnv7388-77-92 05:56:00* Test Item Value Reference Range Interpretation Comments Creatine Kinase (test code = 2157-6) 223 29-168 [facility] Ecdplw2862-31-06 05:56:00* Test Item Value Reference Range Interpretation Comments Creatine Kinase (test code = 2157-6) 223 29-168 H [facility]anoCreatine Xwbrfc0153-12-75 05:56:00* Test Item Value Reference Range Interpretation Comments Creatine Kinase (test code = 2157-6) 223 29-168 H [facility]anoCreatine Kqqiic8370-88-40 05:56:00* Test Item Value Reference Range Interpretation Comments Creatine Kinase (test code = 2157-6) 223 29-168 [facility] Eahvp4645-37-69 05:55:00* Test Item Value Reference Range Interpretation Comments Sodium Level (test code = 2951-2) 139 136-145 [facility]anoPotassium Ileva6532-70-64 05:55:00* Test Item Value Reference Range Interpretation Comments Potassium Level (test code = 2823-3) 4.1 3.5-5.1 [facility]anoChloride Yvivy2091-69-66 05:55:00* Test Item Value Reference Range Interpretation Comments Chloride Level (test code = 2075-0) 105 98-107 [facility] PlanoCarbon Dioxide Ktlyp9467-58-23 05:55:00* Test Item Value Reference Range Interpretation Comments Carbon Dioxide Level (test code = 2028-9) 24 22-29 [facility] PlanoAnion Qdc5083-92-77 05:55:00* Test Item Value Reference Range Interpretation Comments Anion Gap (test code = 10264-6) 14.1 8-16 [facility]anoBlood Urea Gszcdznw7366-98-98 05:55:00* Test Item Value Reference Range Interpretation Comments Blood Urea Nitrogen (test code = 3094-0) 27 7-26 H [facility] PlanoCreatinine2019-02-04 05:55:00* Test Item Value Reference Range Interpretation Comments Creatinine (test code = 2160-0) 1.71 0.57-1.11 H [facility]anoBUN/Creatinine Qfsvw5416-95-13 05:55:00* Test Item Value Reference Range Interpretation Comments BUN/Creatinine Ratio (test code = 3097-3) 16 6-25 [facility] PlanoEstimat Glomerular Filtration Rate 2018-05-16 05:55:00* Test Item Value Reference Range Interpretation Comments Estimat Glomerular Filtration Rate (test code = 083814355) 29 >60 L Ranges were taken from the National Kidney Disease Education Program and the [facility] Kidney Foundation literature.Reference ranges:60 or greater: Rczgmj03-59 ( for 3 consecutive months): Chronic kidney disease 15 or less: Kidney failureBaylor Scott & [facility] – PlanoGlucose Wdejy7622-47-44 05:55:00* Test Item Value Reference Range Interpretation Comments Glucose Level (test code = KGV7992) 115 74-118 [facility]anoCalcium Dhtkd6088-68-90 05:55:00* Test Item Value Reference Range Interpretation Comments Calcium Level (test code = 16896-9) 8.9 8.4-10.2 [facility] PlanoTotal Zxzhvskxo8517-20-70 05:55:00* Test Item Value Reference Range Interpretation Comments Total Bilirubin (test code = 1975-2) 0.7 0.2-1.2 [facility] PlanoAspartate Amino Transf (AST/SGOT) 2018-05-16 05:55:00* Test Item Value Reference Range Interpretation Comments Aspartate Amino Transf (AST/SGOT) (test code = Aspartate Amino Transf (AST/SGOT)) 18 5-34 [facility] PlanoAlanine Aminotransferase (ALT/SGPT) 2018-05-16 05:55:00* Test Item Value Reference Range Interpretation Comments Alanine Aminotransferase (ALT/SGPT) (test code = 1742-6) 12 0-55 [facility] PlanoTotal Jxdjxtc1817-53-01 05:55:00* Test Item Value Reference Range Interpretation Comments Total Protein (test code = 2885-2) 5.8 6.5-8.1 L [facility] PlanoAlbumin2019-02-04 05:55:00* Test Item Value Reference Range Interpretation Comments Albumin (test code = 1751-7) 3.7 3.5-5.0 [facility] PlanoGlobulin2019-02-04 05:55:00* Test Item Value Reference Range Interpretation Comments Globulin (test code = 31435-5) 2.1 2.3-3.5 L [facility] PlanoAlbumin/Globulin Ayzej9401-58-36 05:55:00 * Test Item Value Reference Range Interpretation Comments Albumin/Globulin Ratio (test code = 1759-0) 1.8 0.8-2.0 [facility] PlanoAlkaline Amakkyyqqco6648-15-10 05:55:00* Test Item Value Reference Range Interpretation Comments Alkaline Phosphatase (test code = 6768-6) 55 40-150 [facility] Yjgik6419-91-42 05:55:00* Test Item Value Reference Range Interpretation Comments Sodium Level (test code = 2951-2) 139 136-145 [facility]anoPotassium Pulab7770-63-59 05:55:00* Test Item Value Reference Range Interpretation Comments Potassium Level (test code = 2823-3) 4.1 3.5-5.1 [facility]anoChloride Xhohb8679-43-88 05:55:00* Test Item Value Reference Range Interpretation Comments Chloride Level (test code = 2075-0) 105 98-107 [facility] PlanoCarbon Dioxide Vrqct5355-03-75 05:55:00* Test Item Value Reference Range Interpretation Comments Carbon Dioxide Level (test code = 2028-9) 24 22-29 [facility] PlanoAnion Roy7203-90-98 05:55:00* Test Item Value Reference Range Interpretation Comments Anion Gap (test code = 90230-5) 14.1 8-16 [facility] PlanoBlood Urea Nooezxiv4735-43-31 05:55:00* Test Item Value Reference Range Interpretation Comments Blood Urea Nitrogen (test code = 3094-0) 27 7-26 H [facility] PlanoCreatinine2019-02-04 05:55:00* Test Item Value Reference Range Interpretation Comments Creatinine (test code = 2160-0) 1.71 0.57-1.11 H [facility]anoBUN/Creatinine Budel8822-94-71 05:55:00* Test Item Value Reference Range Interpretation Comments BUN/Creatinine Ratio (test code = 3097-3) 16 6-25 [facility] PlanoEstimat Glomerular Filtration Rate 2018-05-16 05:55:00* Test Item Value Reference Range Interpretation Comments Estimat Glomerular Filtration Rate (test code = 219132678) 29 >60 L Ranges were taken from the National Kidney Disease Education Program and the [facility] Kid[facility] Foundation literature.Reference ranges:60 or greater: Pazivp53-17 ( for 3 consecutive months): Chronic kidney disease 15 or less: Kidney failureBaylor Scott & White Medical Center – PlanoGlucose Lkbsv5299-47-70 05:55:00* Test Item Value Reference Range Interpretation Comments Glucose Level (test code = OXD2651) 115 74-118 [facility] PlanoCalcium Lsgfr3496-70-32 05:55:00* Test Item Value Reference Range Interpretation Comments Calcium Level (test code = 33269-9) 8.9 8.4-10.2 [facility] PlanoTotal Qmhwhnrvi8959-51-22 05:55:00* Test Item Value Reference Range Interpretation Comments Total Bilirubin (test code = 1975-2) 0.7 0.2-1.2 [facility] PlanoAspartate Amino Transf (AST/SGOT) 2018-05-16 05:55:00* Test Item Value Reference Range Interpretation Comments Aspartate Amino Transf (AST/SGOT) (test code = Aspartate Amino Transf (AST/SGOT)) 18 5-34 [facility] PlanoAlanine Aminotransferase (ALT/SGPT) 2018-05-16 05:55:00* Test Item Value Reference Range Interpretation Comments Alanine Aminotransferase (ALT/SGPT) (test code = 1742-6) 12 0-55 [facility] PlanoTotal Xqpouzc6336-63-93 05:55:00* Test Item Value Reference Range Interpretation Comments Total Protein (test code = 2885-2) 5.8 6.5-8.1 L [facility] PlanoAlbumin2019-02-04 05:55:00* Test Item Value Reference Range Interpretation Comments Albumin (test code = 1751-7) 3.7 3.5-5.0 [facility] PlanoGlobulin2019-02-04 05:55:00* Test Item Value Reference Range Interpretation Comments Globulin (test code = 14288-8) 2.1 2.3-3.5 L [facility] PlanoAlbumin/Globulin Xrsof4192-66-48 05:55:00 * Test Item Value Reference Range Interpretation Comments Albumin/Globulin Ratio (test code = 1759-0) 1.8 0.8-2.0 [facility] PlanoAlkaline Rqkiydwrmkn9679-60-01 05:55:00* Test Item Value Reference Range Interpretation Comments Alkaline Phosphatase (test code = 6768-6) 55 40-150 [facility] Centerodium Bdvnz4310-50-61 05:55:00* Test Item Value Reference Range Interpretation Comments Sodium Level (test code = 2951-2) 139 136-145 [facility] PlanoPotassium Ubuli6991-61-55 05:55:00* Test Item Value Reference Range Interpretation Comments Potassium Level (test code = 2823-3) 4.1 3.5-5.1 [facility] PlanoChloride Noilf6353-32-11 05:55:00* Test Item Value Reference Range Interpretation Comments Chloride Level (test code = 2075-0) 105 98-107 [facility] PlanoCarbon Dioxide Ppviv0062-16-44 05:55:00* Test Item Value Reference Range Interpretation Comments Carbon Dioxide Level (test code = 2028-9) 24 22-29 [facility] PlanoAnion Bsh4250-43-10 05:55:00* Test Item Value Reference Range Interpretation Comments Anion Gap (test code = 38110-9) 14.1 8-16 [facility] PlanoBlood Urea Zxszkhpn6540-65-12 05:55:00* Test Item Value Reference Range Interpretation Comments Blood Urea Nitrogen (test code = 3094-0) 27 7-26 H [facility] PlanoCreatinine2019-02-04 05:55:00* Test Item Value Reference Range Interpretation Comments Creatinine (test code = 2160-0) 1.71 0.57-1.11 H [facility] PlanoBUN/Creatinine Xqing7955-11-63 05:55:00* Test Item Value Reference Range Interpretation Comments BUN/Creatinine Ratio (test code = 3097-3) 16 6-25 [facility] PlanoEstimat Glomerular Filtration Rate 2018-05-16 05:55:00* Test Item Value Reference Range Interpretation Comments Estimat Glomerular Filtration Rate (test code = 365245623) 29 >60 L Ranges were taken from the National Kidney Disease Education Program and the [facility] Kidney Foundation literature.Reference ranges:60 or greater: Oiewuy03-89 ( for 3 consecutive months): Chronic kidney disease 15 or less: Kidney failureBaylor Scott & [facility] Center – PlanoGlucose Qlksv4378-74-19 05:55:00* Test Item Value Reference Range Interpretation Comments Glucose Level (test code = CQC5097) 115 74-118 [facility] PlanoCalcium Hhpzq6044-96-81 05:55:00* Test Item Value Reference Range Interpretation Comments Calcium Level (test code = 36384-9) 8.9 8.4-10.2 [facility] PlanoTotal Apqbqldyq4503-33-89 05:55:00* Test Item Value Reference Range Interpretation Comments Total Bilirubin (test code = 1975-2) 0.7 0.2-1.2 [facility] PlanoAspartate Amino Transf (AST/SGOT) 2018-05-16 05:55:00* Test Item Value Reference Range Interpretation Comments Aspartate Amino Transf (AST/SGOT) (test code = Aspartate Amino Transf (AST/SGOT)) 18 5-34 [facility] PlanoAlanine Aminotransferase (ALT/SGPT) 2018-05-16 05:55:00* Test Item Value Reference Range Interpretation Comments Alanine Aminotransferase (ALT/SGPT) (test code = 1742-6) 12 0-55 [facility] PlanoTotal Nbiapco6018-77-44 05:55:00* Test Item Value Reference Range Interpretation Comments Total Protein (test code = 2885-2) 5.8 6.5-8.1 L [facility] PlanoAlbumin2019-02-04 05:55:00* Test Item Value Reference Range Interpretation Comments Albumin (test code = 1751-7) 3.7 3.5-5.0 [facility] PlanoGlobulin2019-02-04 05:55:00* Test Item Value Reference Range Interpretation Comments Globulin (test code = 35739-2) 2.1 2.3-3.5 L [facility] PlanoAlbumin/Globulin Kjocq4274-52-23 05:55:00 * Test Item Value Reference Range Interpretation Comments Albumin/Globulin Ratio (test code = 1759-0) 1.8 0.8-2.0 [facility] PlanoAlkaline Lzcjyfnpkcq6976-18-40 05:55:00* Test Item Value Reference Range Interpretation Comments Alkaline Phosphatase (test code = 6768-6) 55 40-150 [facility] Centerodium Eevgv1550-58-75 05:55:00* Test Item Value Reference Range Interpretation Comments Sodium Level (test code = 2951-2) 139 136-145 [facility] PlanoPotassium Ajwts1975-83-70 05:55:00* Test Item Value Reference Range Interpretation Comments Potassium Level (test code = 2823-3) 4.1 3.5-5.1 [facility] PlanoChloride Fefhh9877-13-16 05:55:00* Test Item Value Reference Range Interpretation Comments Chloride Level (test code = 2075-0) 105 98-107 [facility] PlanoCarbon Dioxide Sdmww2895-41-56 05:55:00* Test Item Value Reference Range Interpretation Comments Carbon Dioxide Level (test code = 2028-9) 24 22-29 [facility] PlanoAnion Icw4165-12-18 05:55:00* Test Item Value Reference Range Interpretation Comments Anion Gap (test code = 86165-5) 14.1 8-16 [facility] PlanoBlood Urea Arqdlocz7811-10-20 05:55:00* Test Item Value Reference Range Interpretation Comments Blood Urea Nitrogen (test code = 3094-0) 27 7-26 H [facility] PlanoCreatinine2019-02-04 05:55:00* Test Item Value Reference Range Interpretation Comments Creatinine (test code = 2160-0) 1.71 0.57-1.11 H [facility] PlanoBUN/Creatinine Prcow5329-35-49 05:55:00* Test Item Value Reference Range Interpretation Comments BUN/Creatinine Ratio (test code = 3097-3) 16 6-25 [facility] PlanoEstimat Glomerular Filtration Rate 2018-05-16 05:55:00* Test Item Value Reference Range Interpretation Comments Estimat Glomerular Filtration Rate (test code = 565960973) 29 >60 L Ranges were taken from the National Kidney Disease Education Program and the [facility] Kid[facility] Foundation literature.Reference ranges:60 or greater: Xnisuu99-54 ( for 3 consecutive months): Chronic kidney disease 15 or less: Kidney failureBaylor Scott & [facility] – PlanoGlucose Nmoyr2855-37-01 05:55:00* Test Item Value Reference Range Interpretation Comments Glucose Level (test code = WKN5991) 115 74-118 [facility] PlanoCalcium Wpnaw0054-55-65 05:55:00* Test Item Value Reference Range Interpretation Comments Calcium Level (test code = 75674-7) 8.9 8.4-10.2 [facility] PlanoTotal Icgzcmyyz8646-80-02 05:55:00* Test Item Value Reference Range Interpretation Comments Total Bilirubin (test code = 1975-2) 0.7 0.2-1.2 [facility] PlanoAspartate Amino Transf (AST/SGOT) 2018-05-16 05:55:00* Test Item Value Reference Range Interpretation Comments Aspartate Amino Transf (AST/SGOT) (test code = Aspartate Amino Transf (AST/SGOT)) 18 5-34 [facility] PlanoAlanine Aminotransferase (ALT/SGPT) 2018-05-16 05:55:00* Test Item Value Reference Range Interpretation Comments Alanine Aminotransferase (ALT/SGPT) (test code = 1742-6) 12 0-55 [facility] PlanoTotal Mklkfdz4042-55-36 05:55:00* Test Item Value Reference Range Interpretation Comments Total Protein (test code = 2885-2) 5.8 6.5-8.1 L [facility] PlanoAlbumin2019-02-04 05:55:00* Test Item Value Reference Range Interpretation Comments Albumin (test code = 1751-7) 3.7 3.5-5.0 [facility] PlanoGlobulin2019-02-04 05:55:00* Test Item Value Reference Range Interpretation Comments Globulin (test code = 75539-0) 2.1 2.3-3.5 L [facility] PlanoAlbumin/Globulin Ttywk0949-97-39 05:55:00 * Test Item Value Reference Range Interpretation Comments Albumin/Globulin Ratio (test code = 1759-0) 1.8 0.8-2.0 [facility] PlanoAlkaline Peddfqnhhga6028-73-25 05:55:00* Test Item Value Reference Range Interpretation Comments Alkaline Phosphatase (test code = 6768-6) 55 40-150 [facility] PlanoWhite Blood Alfoc3504-04-58 05:33:00* Test Item Value Reference Range Interpretation Comments White Blood Count (test code = 6690-2) 5.47 4.8-10.8 [facility] PlanoRed Blood Apneg2308-53-86 05:33:00* Test Item Value Reference Range Interpretation Comments Red Blood Count (test code = 789-8) 3.13 3.6-5.1 L [facility] PlanoHemoglobin2019-02-04 05:33:00* Test Item Value Reference Range Interpretation Comments Hemoglobin (test code = 85837-1) 10.3 12.0-16.0 L [facility] PlanoHematocrit2019-02-04 05:33:00* Test Item Value Reference Range Interpretation Comments Hematocrit (test code = 4544-3) 28.7 34.2-44.1 L [facility] PlanoMean Corpuscular Gifjyo9574-62-39 05:33:00* Test Item Value Reference Range Interpretation Comments Mean Corpuscular Volume (test code = 787-2) 91.7 81-99 [facility] PlanoMean Corpuscular Ftuzmjsojj9291-93-95 05:33:00* Test Item Value Reference Range Interpretation Comments Mean Corpuscular Hemoglobin (test code = 785-6) 32.9 28-32 H [facility]anoMean Corpuscular Hemoglobin Concent 2018-05-16 05:33:00* Test Item Value Reference Range Interpretation Comments Mean Corpuscular Hemoglobin Concent (test code = 786-4) 35.9 31-35 H [facility]anoRed Cell Distribution Rcgtp9681-89-15 05:33:00* Test Item Value Reference Range Interpretation Comments Red Cell Distribution Width (test code = 83794-5) 13.9 11.7 -14.4 [facility]anoPlatelet Eoxuy7778-32-72 05:33:00* Test Item Value Reference Range Interpretation Comments Platelet Count (test code = 777-3) 183 140-360 [facility]anoNeutrophils (%) (Auto)2018-05-16 05:33:00 * Test Item Value Reference Range Interpretation Comments Neutrophils (%) (Auto) (test code = 26008-8) 66.7 38.7-80.0 [facility]anoLymphocytes (%) (Auto)2018-05-16 05:33:00 * Test Item Value Reference Range Interpretation Comments Lymphocytes (%) (Auto) (test code = 736-9) 20.7 18.0-39.1 [facility]anoMonocytes (%) (Auto)2018-05-16 05:33:00* Test Item Value Reference Range Interpretation Comments Monocytes (%) (Auto) (test code = 5905-5) 9.5 4.4-11.3 [facility]anoEosinophils (%) (Auto)2018-05-16 05:33:00 * Test Item Value Reference Range Interpretation Comments Eosinophils (%) (Auto) (test code = 713-8) 1.6 0.0-6.0 [facility]anoBasophils (%) (Auto)2018-05-16 05:33:00* Test Item Value Reference Range Interpretation Comments Basophils (%) (Auto) (test code = 706-2) 1.1 0.0-1.0 H [facility]anoIM GRANULOCYTES %2018-05-16 05:33:00* Test Item Value Reference Range Interpretation Comments IM GRANULOCYTES % (test code = IM GRANULOCYTES %) 0.4 0.0- 1.0 [facility]anoNeutrophils # (Auto)2018-05-16 05:33:00* Test Item Value Reference Range Interpretation Comments Neutrophils # (Auto) (test code = 751-8) 3.7 2.1-6.9 [facility]anoLymphocytes # (Auto)2018-05-16 05:33:00* Test Item Value Reference Range Interpretation Comments Lymphocytes # (Auto) (test code = 04302-8) 1.1 1.0-3.2 [facility]anoMonocytes # (Auto)2018-05-16 05:33:00* Test Item Value Reference Range Interpretation Comments Monocytes # (Auto) (test code = 742-7) 0.5 0.2-0.8 [facility]anoEosinophils # (Auto)2018-05-16 05:33:00* Test Item Value Reference Range Interpretation Comments Eosinophils # (Auto) (test code = 711-2) 0.1 0.0-0.4 [facility]anoBasophils # (Auto)2018-05-16 05:33:00* Test Item Value Reference Range Interpretation Comments Basophils # (Auto) (test code = 704-7) 0.1 0.0-0.1 [facility]anoAbsolute Immature Granulocyte (auto 2018-05-16 05:33:00* Test Item Value Reference Range Interpretation Comments Absolute Immature Granulocyte (auto (valerie t code = Absolute Immature Granulocyte (auto) 0.02 0-0.1 [facility]anoWhite Blood Nswcj4135-87-45 05:33:00* Test Item Value Reference Range Interpretation Comments White Blood Count (test code = 6690-2) 5.47 4.8-10.8 [facility]anoRed Blood Ktsna6415-91-82 05:33:00* Test Item Value Reference Range Interpretation Comments Red Blood Count (test code = 789-8) 3.13 3.6-5.1 L [facility]anoHemoglobin2019-02-04 05:33:00* Test Item Value Reference Range Interpretation Comments Hemoglobin (test code = 47601-2) 10.3 12.0-16.0 L [facility]anoHematocrit2019-02-04 05:33:00* Test Item Value Reference Range Interpretation Comments Hematocrit (test code = 4544-3) 28.7 34.2-44.1 L [facility]anoMean Corpuscular Nfaftd5063-01-61 05:33:00* Test Item Value Reference Range Interpretation Comments Mean Corpuscular Volume (test code = 787-2) 91.7 81-99 [facility]anoMean Corpuscular Fhotldvfjq6804-23-42 05:33:00* Test Item Value Reference Range Interpretation Comments Mean Corpuscular Hemoglobin (test code = 785-6) 32.9 28-32 H [facility]anoMean Corpuscular Hemoglobin Concent 2018-05-16 05:33:00* Test Item Value Reference Range Interpretation Comments Mean Corpuscular Hemoglobin Concent (test code = 786-4) 35.9 31-35 [facility]anoRed Cell Distribution Gqddk7259-17-40 05:33:00* Test Item Value Reference Range Interpretation Comments Red Cell Distribution Width (test code = 73545-5) 13.9 11.7 -14.4 [facility] PlanoPlatelet Rwppl1500-27-07 05:33:00* Test Item Value Reference Range Interpretation Comments Platelet Count (test code = 777-3) 183 140-360 [facility]anoNeutrophils (%) (Auto)2018-05-16 05:33:00 * Test Item Value Reference Range Interpretation Comments Neutrophils (%) (Auto) (test code = 35823-4) 66.7 38.7-80.0 [facility]anoLymphocytes (%) (Auto)2018-05-16 05:33:00 * Test Item Value Reference Range Interpretation Comments Lymphocytes (%) (Auto) (test code = 736-9) 20.7 18.0-39.1 [facility]anoMonocytes (%) (Auto)2018-05-16 05:33:00* Test Item Value Reference Range Interpretation Comments Monocytes (%) (Auto) (test code = 5905-5) 9.5 4.4-11.3 [facility]anoEosinophils (%) (Auto)2018-05-16 05:33:00 * Test Item Value Reference Range Interpretation Comments Eosinophils (%) (Auto) (test code = 713-8) 1.6 0.0-6.0 [facility]anoBasophils (%) (Auto)2018-05-16 05:33:00* Test Item Value Reference Range Interpretation Comments Basophils (%) (Auto) (test code = 706-2) 1.1 0.0-1.0 H [facility]anoIM GRANULOCYTES %2018-05-16 05:33:00* Test Item Value Reference Range Interpretation Comments IM GRANULOCYTES % (test code = IM GRANULOCYTES %) 0.4 0.0- 1.0 [facility]anoNeutrophils # (Auto)2018-05-16 05:33:00* Test Item Value Reference Range Interpretation Comments Neutrophils # (Auto) (test code = 751-8) 3.7 2.1-6.9 [facility] PlanoLymphocytes # (Auto)2018-05-16 05:33:00* Test Item Value Reference Range Interpretation Comments Lymphocytes # (Auto) (test code = 39761-1) 1.1 1.0-3.2 [facility]anoMonocytes # (Auto)2018-05-16 05:33:00* Test Item Value Reference Range Interpretation Comments Monocytes # (Auto) (test code = 742-7) 0.5 0.2-0.8 [facility]anoEosinophils # (Auto)2018-05-16 05:33:00* Test Item Value Reference Range Interpretation Comments Eosinophils # (Auto) (test code = 711-2) 0.1 0.0-0.4 [facility]anoBasophils # (Auto)2018-05-16 05:33:00* Test Item Value Reference Range Interpretation Comments Basophils # (Auto) (test code = 704-7) 0.1 0.0-0.1 [facility]anoAbsolute Immature Granulocyte (auto 2018-05-16 05:33:00* Test Item Value Reference Range Interpretation Comments Absolute Immature Granulocyte (auto (valerie t code = Absolute Immature Granulocyte (auto) 0.02 0-0.1 [facility]anoWhite Blood Baxse3988-42-00 05:33:00* Test Item Value Reference Range Interpretation Comments White Blood Count (test code = 6690-2) 5.47 4.8-10.8 [facility]anoRed Blood Ngqtu2729-61-88 05:33:00* Test Item Value Reference Range Interpretation Comments Red Blood Count (test code = 789-8) 3.13 3.6-5.1 L [facility]anoHemoglobin2019-02-04 05:33:00* Test Item Value Reference Range Interpretation Comments Hemoglobin (test code = 22601-2) 10.3 12.0-16.0 L [facility]anoHematocrit2019-02-04 05:33:00* Test Item Value Reference Range Interpretation Comments Hematocrit (test code = 4544-3) 28.7 34.2-44.1 L [facility]anoMean Corpuscular Dfnott8055-97-38 05:33:00* Test Item Value Reference Range Interpretation Comments Mean Corpuscular Volume (test code = 787-2) 91.7 81-99 [facility]anoMean Corpuscular Upeuhvjzxz4002-58-40 05:33:00* Test Item Value Reference Range Interpretation Comments Mean Corpuscular Hemoglobin (test code = 785-6) 32.9 28-32 H [facility]anoMean Corpuscular Hemoglobin Concent 2018-05-16 05:33:00* Test Item Value Reference Range Interpretation Comments Mean Corpuscular Hemoglobin Concent (test code = 786-4) 35.9 31-35 H [facility]anoRed Cell Distribution Zehht9081-87-78 05:33:00* Test Item Value Reference Range Interpretation Comments Red Cell Distribution Width (test code = 34041-7) 13.9 11.7 -14.4 [facility] PlanoPlatelet Jbdjo9937-15-63 05:33:00* Test Item Value Reference Range Interpretation Comments Platelet Count (test code = 777-3) 183 140-360 [facility]anoNeutrophils (%) (Auto)2018-05-16 05:33:00 * Test Item Value Reference Range Interpretation Comments Neutrophils (%) (Auto) (test code = 90273-2) 66.7 38.7-80.0 [facility] PlanoLymphocytes (%) (Auto)2018-05-16 05:33:00 * Test Item Value Reference Range Interpretation Comments Lymphocytes (%) (Auto) (test code = 736-9) 20.7 18.0-39.1 [facility]anoMonocytes (%) (Auto)2018-05-16 05:33:00* Test Item Value Reference Range Interpretation Comments Monocytes (%) (Auto) (test code = 5905-5) 9.5 4.4-11.3 [facility]anoEosinophils (%) (Auto)2018-05-16 05:33:00 * Test Item Value Reference Range Interpretation Comments Eosinophils (%) (Auto) (test code = 713-8) 1.6 0.0-6.0 [facility]anoBasophils (%) (Auto)2018-05-16 05:33:00* Test Item Value Reference Range Interpretation Comments Basophils (%) (Auto) (test code = 706-2) 1.1 0.0-1.0 H [facility]anoIM GRANULOCYTES %2018-05-16 05:33:00* Test Item Value Reference Range Interpretation Comments IM GRANULOCYTES % (test code = IM GRANULOCYTES %) 0.4 0.0- 1.0 [facility]anoNeutrophils # (Auto)2018-05-16 05:33:00* Test Item Value Reference Range Interpretation Comments Neutrophils # (Auto) (test code = 751-8) 3.7 2.1-6.9 [facility] PlanoLymphocytes # (Auto)2018-05-16 05:33:00* Test Item Value Reference Range Interpretation Comments Lymphocytes # (Auto) (test code = 13025-9) 1.1 1.0-3.2 [facility]anoMonocytes # (Auto)2018-05-16 05:33:00* Test Item Value Reference Range Interpretation Comments Monocytes # (Auto) (test code = 742-7) 0.5 0.2-0.8 [facility]anoEosinophils # (Auto)2018-05-16 05:33:00* Test Item Value Reference Range Interpretation Comments Eosinophils # (Auto) (test code = 711-2) 0.1 0.0-0.4 [facility]anoBasophils # (Auto)2018-05-16 05:33:00* Test Item Value Reference Range Interpretation Comments Basophils # (Auto) (test code = 704-7) 0.1 0.0-0.1 [facility]anoAbsolute Immature Granulocyte (auto 2018-05-16 05:33:00* Test Item Value Reference Range Interpretation Comments Absolute Immature Granulocyte (auto (valerie t code = Absolute Immature Granulocyte (auto) 0.02 0-0.1 [facility]anoWhite Blood Whctv3060-15-05 05:33:00* Test Item Value Reference Range Interpretation Comments White Blood Count (test code = 6690-2) 5.47 4.8-10.8 [facility]anoRed Blood Yqxzh3756-21-34 05:33:00* Test Item Value Reference Range Interpretation Comments Red Blood Count (test code = 789-8) 3.13 3.6-5.1 L [facility]anoHemoglobin2019-02-04 05:33:00* Test Item Value Reference Range Interpretation Comments Hemoglobin (test code = 14519-6) 10.3 12.0-16.0 L [facility]anoHematocrit2019-02-04 05:33:00* Test Item Value Reference Range Interpretation Comments Hematocrit (test code = 4544-3) 28.7 34.2-44.1 L [facility]anoMean Corpuscular Qwzaph9114-09-26 05:33:00* Test Item Value Reference Range Interpretation Comments Mean Corpuscular Volume (test code = 787-2) 91.7 81-99 [facility]anoMean Corpuscular Epizwcnobw2486-56-70 05:33:00* Test Item Value Reference Range Interpretation Comments Mean Corpuscular Hemoglobin (test code = 785-6) 32.9 28-32 H [facility]anoMean Corpuscular Hemoglobin Concent 2018-05-16 05:33:00* Test Item Value Reference Range Interpretation Comments Mean Corpuscular Hemoglobin Concent (test code = 786-4) 35.9 31-35 H [facility]anoRed Cell Distribution Dyyku4846-79-22 05:33:00* Test Item Value Reference Range Interpretation Comments Red Cell Distribution Width (test code = 17519-1) 13.9 11.7 -14.4 [facility] PlanoPlatelet Xzoos1126-47-95 05:33:00* Test Item Value Reference Range Interpretation Comments Platelet Count (test code = 777-3) 183 140-360 [facility]anoNeutrophils (%) (Auto)2018-05-16 05:33:00 * Test Item Value Reference Range Interpretation Comments Neutrophils (%) (Auto) (test code = 44653-9) 66.7 38.7-80.0 [facility] PlanoLymphocytes (%) (Auto)2018-05-16 05:33:00 * Test Item Value Reference Range Interpretation Comments Lymphocytes (%) (Auto) (test code = 736-9) 20.7 18.0-39.1 [facility]anoMonocytes (%) (Auto)2018-05-16 05:33:00* Test Item Value Reference Range Interpretation Comments Monocytes (%) (Auto) (test code = 5905-5) 9.5 4.4-11.3 [facility]anoEosinophils (%) (Auto)2018-05-16 05:33:00 * Test Item Value Reference Range Interpretation Comments Eosinophils (%) (Auto) (test code = 713-8) 1.6 0.0-6.0 [facility]anoBasophils (%) (Auto)2018-05-16 05:33:00* Test Item Value Reference Range Interpretation Comments Basophils (%) (Auto) (test code = 706-2) 1.1 0.0-1.0 H [facility]anoIM GRANULOCYTES %2018-05-16 05:33:00* Test Item Value Reference Range Interpretation Comments IM GRANULOCYTES % (test code = IM GRANULOCYTES %) 0.4 0.0- 1.0 [facility]anoNeutrophils # (Auto)2018-05-16 05:33:00* Test Item Value Reference Range Interpretation Comments Neutrophils # (Auto) (test code = 751-8) 3.7 2.1-6.9 [facility] PlanoLymphocytes # (Auto)2018-05-16 05:33:00* Test Item Value Reference Range Interpretation Comments Lymphocytes # (Auto) (test code = 70028-2) 1.1 1.0-3.2 [facility]anoMonocytes # (Auto)2018-05-16 05:33:00* Test Item Value Reference Range Interpretation Comments Monocytes # (Auto) (test code = 742-7) 0.5 0.2-0.8 [facility]anoEosinophils # (Auto)2018-05-16 05:33:00* Test Item Value Reference Range Interpretation Comments Eosinophils # (Auto) (test code = 711-2) 0.1 0.0-0.4 [facility]anoBasophils # (Auto)2018-05-16 05:33:00* Test Item Value Reference Range Interpretation Comments Basophils # (Auto) (test code = 704-7) 0.1 0.0-0.1 [facility]anoAbsolute Immature Granulocyte (auto 2018-05-16 05:33:00* Test Item Value Reference Range Interpretation Comments Absolute Immature Granulocyte (auto (valerie t code = Absolute Immature Granulocyte (auto) 0.02 0-0.1 [facility] PlanoCHEST SINGLE (PORTABLE)2018-05-15 08:29:00 [facility] [address] [place] [address] Patient Name: BAIRON ELLISON MR #: [id number] : 1935 Age/Sex: 83/F Req #: [id number] Adm Physician: Ordered by: TADEO DOTSON MD Report #: [id number] Location: ER Room/Bed: Procedure: [id number] 1 DX/CHEST SINGLE (PORTABLE) Exam Date: 05/15/18 Sabino juárez Time: 814 REPORT STATUS: Signed EXAM: XR CHEST 1 VIEW DATE: 05/15/2018 7:39 AM INDICATION: Shortness of breath COMPARISON: None FINDINGS: Lines and Tubes: None Heart and Mediastinum: Enlarged. Sternotomy wires. Lungs and Pleura: Mild i nterstitial prominence with small effusions. Bones and Soft Tissues: No acu te findings. IMPRESSION: 1. Volume overload with small effusions. Super imposed infectious process difficult to exclude. Signed by: Dr. Aries queen MD on 05/15/2018 8:30 AM Dictated By: ARIES KELLER MD [facility] Signed By: ARIES KELLER MD on 05/15/18829 Transcribed By: DARSHAN on 06/28 COPY TO: TADEO DOTSON MD Prothrombin Qwpt0800-27-78 08:08:00* Test Item Value Reference Range Interpretation Comments Prothrombin Time (test code = 5902-2) 13.8 11.9-14.5 [facility] PlanoProthromb Time International Ratio 2018-05-15 08:08:00* Test Item Value Reference Range Interpretation Comments Prothromb Time International Ratio (test code = 6301-6) 0.97 Oral Anticoagulant Therapy INR Values:1. Low Intensity Therapy 1.5 - 2.02 . Moderate Intensity Therapy 2.0 - 3.03. High Intensity Therapy(1) 2.5 - 3. 54. High Intensity Therapy(2) 3.0 - 4.05. Panic Value INR > 5.0 [facility] PlanoActivated Partial Thromboplast Time 2018-05-15 08:08:00* Test Item Value Reference Range Interpretation Comments Activated Partial Thromboplast Time (test code = 38027-8) 33.7 23.8-35.5 [facility] PlanoProthrombin Fsxg1870-11-69 08:08:00* Test Item Value Reference Range Interpretation Comments Prothrombin Time (test code = 5902-2) 13.8 11.9-14.5 [facility] PlanoProthromb Time International Ratio 2018-05-15 08:08:00* Test Item Value Reference Range Interpretation Comments Prothromb Time International Ratio (test code = 6301-6) 0.97 Oral Anticoagulant Therapy INR Values:1. Low Intensity Therapy 1.5 - 2.02 . Moderate Intensity Therapy 2.0 - 3.03. High Intensity Therapy(1) 2.5 - 3. 54. High Intensity Therapy(2) 3.0 - 4.05. Panic Value INR > 5.0 [facility] PlanoActivated Partial Thromboplast Time 2018-05-15 08:08:00* Test Item Value Reference Range Interpretation Comments Activated Partial Thromboplast Time (test code = 53849-4) 33.7 23.8-35.5 [facility] PlanoProthrombin Qhbm7952-63-15 08:08:00* Test Item Value Reference Range Interpretation Comments Prothrombin Time (test code = 5902-2) 13.8 11.9-14.5 [facility] PlanoProthromb Time International Ratio 2018-05-15 08:08:00* Test Item Value Reference Range Interpretation Comments Prothromb Time International Ratio (test code = 6301-6) 0.97 Oral Anticoagulant Therapy INR Values:1. Low Intensity Therapy 1.5 - 2.02 . Moderate Intensity Therapy 2.0 - 3.03. High Intensity Therapy(1) 2.5 - 3. 54. High Intensity Therapy(2) 3.0 - 4.05. Panic Value INR > 5.0 [facility] PlanoActivated Partial Thromboplast Time 2018-05-15 08:08:00* Test Item Value Reference Range Interpretation Comments Activated Partial Thromboplast Time (test code = 27796-7) 33.7 23.8-35.5 [facility] PlanoProthrombin Pdeh9063-38-10 08:08:00* Test Item Value Reference Range Interpretation Comments Prothrombin Time (test code = 5902-2) 13.8 11.9-14.5 [facility] PlanoProthromb Time International Ratio 2018-05-15 08:08:00* Test Item Value Reference Range Interpretation Comments Prothromb Time International Ratio (test code = 6301-6) 0.97 Oral Anticoagulant Therapy INR Values:1. Low Intensity Therapy 1.5 - 2.02 . Moderate Intensity Therapy 2.0 - 3.03. High Intensity Therapy(1) 2.5 - 3. 54. High Intensity Therapy(2) 3.0 - 4.05. Panic Value INR > 5.0 [facility] PlanoActivated Partial Thromboplast Time 2018-05-15 08:08:00* Test Item Value Reference Range Interpretation Comments Activated Partial Thromboplast Time (test code = 56518-4) 33.7 23.8-35.5 [facility] PlanoCARDIAC FRYUUVZ1403-36-39 21:37:4910923 [facility] HermannCARDIAC KEHYABA0073-92-99 21:37:2684574Ovxcisci HermannCARDIAC JWGTGHZ7051-66-97 21:37:000.09[facility]ivt HermannCHEM TWXGP2306-33-01 21:37:003.1 [facility] HermannCHEM IKJSH6695-64-73 21:37:00* Test Item Value Reference Range Interpretation Comments A/G Ratio (test code = A/G Ratio) 1.1 1 0.7-1.6 [facility] HermannCHEM LVLFG1659-71-36 21:37:0012.6[facility] HermannCHEM PANEL 2018-05-08 21:37:00* Test Item Value Reference Range Interpretation Comments B/C Ratio (test code = B/C Ratio) 16 10-04 [facility] HermannCHEM AHBMB3773-25-90 21:37:0027[facility] HermannCHEM PANEL 2018-05-08 21:37:99639Odadeihy HermannCHEM ZBWDQ8231-61-93 21:37:000.3[facility] HermannCHEM MPRYM1143-15-94 21:37:008.7[facility] HermannCHEM MHUWY9984-93-79 21:37:006.6[facility] HermannCHEM TGOVR1503-33-39 21:37:003.5[facility] HermannCHEM WGLTX8278-40-51 21:37:0049[facility] HermannCHEM QXJHJ1310-49-25 21:37:0035 [facility] HermannCHEM LYCQX5139-16-36 21:37:0028[facility] HermannCHEM PANEL 2018-05-08 21:37:45780Jdrxusmx HermannCHEM TDUHH6724-71-63 21:37:0024[facility] HermannCHEM RGPXA6263-06-02 21:37:004.emorial HermannCHEM AVATE0130-47-79 21:37:81070Iubcyweu HermannCHEM GLCQR8517-54-62 21:37:001.74[facility] HermannCHEM SPXPJ9742-57-13 21:37:90980Rtntyeou TpsnggyUNYWPMGMYDTX7675-78-43 21:37:0012.6 [facility] KxczjogZPNGOYKGOFWH7422-94-82 21:37:00* Test Item Value Reference Range Interpretation Comments B/C Ratio (test code = B/C Ratio) 16 10-04 [facility] PosjiyuWNWSVHXQGJLR4279-05-70 21:37:003.1[facility] HermannELECTROLYTES 2018-05-08 21:37:00* Test Item Value Reference Range Interpretation Comments A/G Ratio (test code = A/G Ratio) 1.1 1 0.7-1.6 [facility] GhwjrwqWQHDARNJRWBE3989-60-23 21:37:47749Egdotemu HermannELECTROLYTES 2018-05-08 21:37:0028[facility] JljzypgVOGVWYTIGBBT9553-93-55 21:37:001.74[facility] TjhbcpyHBRYTMPZEBJL8066-51-39 21:37:15449Bbfbsqlp SozzuyjJHSBDOUBUGSS8741-83-24 21:37:004.6[facility] YngzzksCIYAKUHVCANX4700-86-36 21:37:60077Rokndybl Romero PIBKZSRDNUEA7527-38-31 21:37:0024[facility] EkxycwlTCDXIEMGUOER2748-11-99 21:37:00 8.7[facility] HuixlltDTZHUETQZHKF5757-22-34 21:37:006.6[facility] OMGDAQHOOQGY3205-51-14 21:37:003.5[facility] WzztcdqKNJKWUPCHQDU6067-25-20 21:37:0049[facility] DxndjomCIJROBDYWNRE9078-66-09 21:37:0035[facility] OTFYBSZNJDCG1216-86-82 21:37:03917Gfvrfxen IrqapduQEINLLWPZWPL3534-01-25 21:37:000.3[facility] VtflzzuZIFBTEYHEDRY3622-66-71 21:37:0027[facility] OPLPDYGAZA5018-16-55 21:37:00* Test Item Value Reference Range Interpretation Comments PTT (test code = PTT) 31.8 s 22.9-35.8 [facility] QhklczfUESOWDRTJT0865-43-44 21:37:00* Test Item Value Reference Range Interpretation Comments PT (test code = PT) 13.8 s 12.0-14.7 [facility] VnywwxbALYQAKSJOC4167-60-59 21:37:00* Test Item Value Reference Range Interpretation Comments INR (test code = INR) 1.08 1 0.85-1.17 [facility] KugopgcJBTXJIYHKP7307-45-62 21:37:0012.9[facility] HermannHEMATOLOGY 2018-05-08 21:37:00932Zixmtiiu GftkuwuNXPFBQXWWK9637-25-67 21:37:009.4[facility] OhodnsePYYXXVNTFQ1942-15-24 21:37:0092.2[facility] JzelvcmDSNAHGFGPI6964-16-55 21:37:00* Test Item Value Reference Range Interpretation Comments MCH (test code = MCH) 31.5 pg 27.0-31.0 [facility] CbosgbdPUPPTUKLWZ1793-02-94 21:37:0029.8[facility] HermannHEMATOLOGY 2018-05-08 21:37:0034.2[facility] BtmdvezGIDGAXNGIX7526-08-91 21:37:0010.2[facility] LzufdkcEVHMPSLJOZ2114-24-04 21:37:003.23[facility] JzqmgdqEKUHGYOMWB4095-80-49 21:37:006.2[facility] MomcebbVKSVZPKWBL4001-02-60 21:37:000.1[facility] DYALDNJJKL0236-47-25 21:37:000.4[facility] WdxufclJJWLLFRSVW3232-78-77 21:37:001.3 [facility] ZgvzokvXXVOLUXRIV6482-87-46 21:37:001.7[facility] HermannHEMATOLOGY 2018-05-08 21:37:000.7[facility] KmhrnhgHFOAERUKAN5288-59-53 21:37:004.4[facility] OuhkqhgDBEHZFQBBH6543-02-51 21:37:0070.2[facility] GwthbstPQUJLWGGRM0744-42-26 21:37:0020.7[facility] VtkdzgpPPIGOQKOVR1377-35-81 21:37:006.7[facility]annFOOT RIGHT LLNWOKFP5634-73-09 13:14:00 [place] [address] Patient Name: BAIRON ELLISON MR #: [id number] : 1935 Age/Sex: 83/F Req #: [id number] Adm Physician: Ordered by: HEIDI GARRETT MD Report #: [id number] Location: RAD Room/Bed: Procedure: [id number] DX/FOOT RIGHT COMPLETE Exam Date: 04/19/18 Exam Yan e: 1236 REPORT STATUS: Signed FO OT RIGHT COMPLETE HISTORY: Right foot pain status post fall. COMPARIS ON: Right foot radiograph report from 04/02/2016, no images were available for review at the time of dictation. FINDINGS: No displaced fracture. Mild widening of the Lis Franc interval between the medial cuneiform and the second metatarsal base measuring 4 mm. There are moderate to severe de generative most pronounced in the medial intertarsal joints and first through third tarso-tarsal joints with joint space narrowing and subchondral sclerosis and cystic changes. Severe degenerative changes at the second metatarsophalan geal joint. There is a lytic appearance of the navicular with possible erosion s. IMPRESSION: No evidence of acute fracture. 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 Mild widening of the Lis Franc interval, of uncertain chronicity. In the chronic setting, this may represent prior trauma or early neuropathic joint. In the acute setting, this could represent ligamentous injury. Superimposed osteomyelitis is also no t excluded given the lytic appearance of the navicular. MRI is suggested for f urther evaluation. Signed by: Dr. Wilton Ordaz MD on 04/19/2018 1:25 PM Dictated By: WILTON ORDAZ MD 1325 COPY TO: HEIDI GARRETT MD KNEE RIGHT THREE IMLHK3693-62-88 20:00:00 [place] [address] Patient Name: BAIRON ELLISON MR #: [id number] : 1935 Age/Sex: 83/F Req #: [id number] Adm Physician: Ordered by: TOMMY URENA MD Report #: [id number] Location: ER Room/Bed: Procedure: 1211-0 069 DX/KNEE RIGHT THREE VIEWS Exam Date: 03/22/18 Ex am Time: 1814 REPORT STATUS: Signed RIGHT KNEE X-RAY - 3 VIEWS HISTORY: s/p fall [id number] COMPARISON: None available. FINDINGS: Bones: No acut e displaced fracture. Osseous alignment is within normal limits. Joints : Mild tricompartmental degenerative changes. Soft tissues: Surgical cl ips in the soft tissues of the posterior knee and adjacent to the mid femur. IMPRESSION: No acute radiographic abnormality. Signed by: Dr. Farhana Delaney M.D. on 03/22/2018 8:02 PM Dictated By: ANTONELLA DELANEY MD 01 COPY TO: JOSEMANUEL URENA MD/AOG8082-21-73 19:58:00 [place] [address] Patient Name: BAIRON ELLISON MR #: [id number] : 1935 Age/Sex: 83/F Req #: [id number] Adm Physician: Ordered by: TOMMY URENA MD Report #: [id number] Location: ER Room/Bed: Procedure: 1211-0 070 DX/RIBS BILAT W/CXR Exam Date: 03/22/18 Exam Yan e: 1814 REPORT STATUS: Signed BI LATERAL RIB SERIES INCLUDING PA CHEST - 5 VIEWS HISTORY: s/p fall [id number] COMPARISON: None available. FINDINGS: Bones: No acute displaced fracture. Intact median sternotomy wires. [place] us alignment is within normal limits. Joints: The joint spaces are well-m aintained. Soft tissues: The soft tissues appear unremarkable. Right uppe r quadrant cholecystectomy clips. Small calcification overlying the right uppe r quadrant may represent a gallstone. The lungs are clear. The cardiac si lhouette is mildly enlarged without pulmonary decompensation. IMPRESSI ON: No acute radiographic abnormality. Signed by: Dr. Antonella Delaney M.D. on 03/22/2018 8:00 PM Dictated By: ANTONELLA DELANEY MD 99 Transcr ibed By: DARSHAN on 03/22/181999 COPY TO: TOMMY URENA MD CARDIAC NHCGGRZ5722-66-09 18:30:001.8[facility]annCARDIAC XTGGQDL3041-82-63 18:30:53977Usnwhaiq HermannCARDIAC UPDNDKG8356-66-78 18:30:00<0.02[facility]annCARDIAC HYILWUG4324-68-48 18:30:00* Test Item Value Reference Range Interpretation Comments CK MB Index (test code = CK MB Index) 1.6 1 <=2.5 [facility]annCHEM JHLYJ0688-20-01 18:30:0032[facility]annCHEM PANEL 2017-11-18 18:30:0025[facility] HermannCHEM UGZFI9945-93-77 18:30:0049[facility]annCHEM SBAGI3962-70-10 18:30:000.5[facility]annCHEM GPRLM4541-53-25 18:30:003.2[facility]annCHEM LAERI2570-55-66 18:30:00* Test Item Value Reference Range Interpretation Comments A/G Ratio (test code = A/G Ratio) 1.2 1 0.7-1.6 [facility]annCHEM ESMFR7102-67-44 18:30:0013.3[facility]annCHEM PANEL 2017-11-18 18:30:00* Test Item Value Reference Range Interpretation Comments B/C Ratio (test code = B/C Ratio) 17 1 6-25 [facility]annCHEM RKTSB6738-93-20 18:30:003.8[facility]annCHEM PANEL 2017-11-18 18:30:0024[facility]annCHEM XCYRL0693-22-13 18:30:009.3[facility]annCHEM IHEZV1639-99-78 18:30:007.0[facility]annCHEM ZHIQM2889-94-66 18:30:30612Quivynuc HermannCHEM VKYJY6278-31-01 18:30:0025[facility]annCHEM HMUOY8661-61-73 18:30:94683Unbxtued HermannCHEM LBMRO8784-44-87 18:30:004.3 [facility]annCHEM NVCSC8701-65-24 18:30:90738Renroqnc HermannCHEM PANEL 2017-11-18 18:30:0025[facility]annCHEM MXPAF1911-75-60 18:30:001.49[facility] PjglaipSMRVIVZQIB5559-50-11 18:30:008.1[facility] TzymsuaGQGCNTIMML6099-32-42 18:30:003.42[facility] FpcyrjjLBZZZUJDHF2607-73-32 18:30:009.7[facility] LTBLQZRXUI8464-95-69 18:30:0033.5[facility] MwatbovFLRHIBAMTH0265-26-83 18:30:00 10.6[facility] EbfwvasNNFDDMNKEB4558-12-22 18:30:76754Gjkrjnyq HermannHEMATOLOGY 2017-11-18 18:30:0012.7[facility] QhpllwpTGHJGBCYJX5300-89-48 18:30:0092.0[facility] KmanjdaTLMBIAZMKS1487-86-13 18:30:00* Test Item Value Reference Range Interpretation Comments MCH (test code = MCH) 30.9 pg 27.0-31.0 [facility] TcgashyZVGGFAPPBK5323-46-35 18:30:0031.5[facility] HermannHEMATOLOGY 2017-11-18 18:30:00* Test Item Value Reference Range Interpretation Comments PTT (test code = PTT) 31.6 s 22.9-35.8 [facility] GhjeingONPGFKCHBP6020-18-74 18:30:00* Test Item Value Reference Range Interpretation Comments INR (test code = INR) 1.03 1 0.85-1.17 [facility] BmddbqxRBUSCHFKOC4534-30-21 18:30:00* Test Item Value Reference Range Interpretation Comments PT (test code = PT) 13.5 s 12.0-14.7 [facility] HxhkolwFKYVMOCRKJ1147-12-43 18:30:000.4[facility] HermannHEMATOLOGY 2017-11-18 18:30:000.8[facility] MuxckisTCJJVEQQQU4397-54-12 18:30:006.3[facility] NsydkanAVPPLSETKT7882-72-23 18:30:0078.5[facility] QtgdtyhFYLUNPTQZO7539-82-70 18:30:001.2[facility] YcdmbtdTGJJKEORMW5440-07-52 18:30:005.2[facility] GWAUEAXONO2023-13-48 18:30:0014.4[facility] YcpyyrvBPQWPGHHJV1413-94-52 18:30:00 1.1[facility] DemcsfjIAKBMTOTBG1171-37-98 18:30:000.1[facility] HermannHEMATOLOGY 2017-11-18 18:30:000.1[facility] HermannCHEM QTZNC8003-38-51 12:50:000.16[facility]annCHEM WOUWQ1268-50-83 12:50:0068[facility]URINE AND MPSXL4661-00-79 02:53:00None Seen (03/06/16 8:53 PM)[facility] HJJSV0873-29-94 02:53:00None Seen (03/06/16 8:53 PM)[facility] XOXJL7922-12-70 02:53:00None Seen (03/06/16 8:53 PM)[facility] PQNCP3804-67-03 02:53:00Negative *NA*(03/06/16 8:53 PM)[facility] IJWOQ0665-30-60 02:53:00Negative (03/06/16 8:53 PM)[facility] FXHKM9430-98-90 02:53:000.2[facility] ONUHL8535-81-86 02:53:00Negative (03/06/16 8:53 PM)[facility] BMDJV4600-86-37 02:53:00Negative (03/06/16 8:53 PM)[facility] JDXVO8308-64-17 02:53:00Clear (03/06/16 8:53 PM)[facility] MJJJX2566-27-98 02:53:00Yellow *NA*(03/06/16 8:53 PM)[facility] XJCTS0733-09-84 02:53:00* Test Item Value Reference Range Interpretation Comments UA Spec Grav (test code = UA Spec Grav) 1.010 1 [facility] VRNYW1201-65-67 02:53:00* Test Item Value Reference Range Interpretation Comments UA pH (test code = UA pH) 6.0 1 5.0-8.0 [facility]annCARDIAC GYGXFDI1027-93-11 22:34:00<0.02[facility]annCARDIAC IBPATGX6464-76-52 22:34:97511Zgzvtucj HermannCARDIAC SGRJMIN4871-01-41 22:34:00 1.8[facility]annCARDIAC CAOULQB1499-78-56 22:34:000.9[facility] HermannCHEM TICSB7369-45-28 22:34:290231Srfiloyl HermannCHEM VWUHG2208-42-75 22:34:0027 [facility]annCHEM DXTLG6109-82-33 22:34:001.0[facility] HermannCHEM PANEL 2016-03-06 22:34:0030[facility]annCHEM PXFCN8446-49-17 22:34:0019[facility] HermannCHEM ZOLRX5400-37-89 22:34:003.6[facility] HermannCHEM KPUTO7980-94-31 22:34:0010.9[facility]annCHEM DTRWX1143-09-76 22:34:009.1[facility]annCHEM UYWBY3216-39-66 22:34:000.4[facility] HermannCHEM NPWHF7172-22-37 22:34:007.3 [facility]annCHEM FBQUV8376-13-01 22:34:0030[facility]annCHEM PANEL 2016-03-06 22:34:001.75[facility] HermannCHEM UORVC2958-31-07 22:34:52814Jafjwdat HermannCHEM ULPRY9994-99-46 22:34:003.9[facility]annCHEM FGQFS3926-60-91 22:34:0052[facility]annCHEM VQGRG9905-00-20 22:34:003.7[facility] HermannCHEM OAPQY0034-34-02 22:34:82623Bjyxqiqi HermannCHEM CCVJR4061-65-21 22:34:77513 [facility]annCHEM QUHUD7158-40-91 22:34:41013Pzqvvyuq HermannCHEM PANEL 2016-03-06 22:34:0034[facility] LyjzzqqXZDBAZMUXU9701-11-43 22:34:009.6[facility] AkhjotjSSAPJQSGXB4152-48-20 22:34:82086Jyddckdf JozfqjgISKFCCRVSZ5957-45-48 22:34:0012.6[facility] NkhfzhsCQYBEVMQJL5975-11-63 22:34:00* Test Item Value Reference Range Interpretation Comments MCH (test code = MCH) 30.8 pg 27.0-31.0 [facility] SfzyptiKEYBBHUTWV4933-22-88 22:34:0090.6[facility] HermannHEMATOLOGY 2016-03-06 22:34:0034.0[facility] HeoofkvBVTPCCPEPO6570-18-80 22:34:0030.7[facility] YmpghvaZGJQBCKQNR7459-64-48 22:34:0010.4[facility] CfnukreZGNQUHJLEQ6280-70-92 22:34:003.39[facility] UfhqwknMXWNJJXILV0456-06-05 22:34:007.2[facility] BKTKJFADUD1575-87-36 22:34:0070.4[facility] WdnttupUDLWIYBIFI4393-54-03 22:34:00 5.2[facility] YysfoakWQLKJFFLLR2045-33-27 22:34:0022.3[facility] HermannHEMATOLOGY 2016-03-06 22:34:000.1[facility] SpdskbrFTMCUKJGHV3852-04-92 22:34:000.1[facility] RljrzbfHGJNTZGVNK5651-67-70 22:34:000.4[facility] DpcalcaBSPROSIVWR3508-24-19 22:34:000.7[facility] EyjpvgvUJYUYVDAPZ8781-48-18 22:34:001.4[facility] MKWAHWURQN9841-92-93 22:34:005.0[facility] CpgswkkXZDDFULPAT6563-82-33 22:34:001.6 [facility] HermannCHEM EWFYO7142-76-11 01:13:001.7[facility] HermannDRUG SCREEN 2015-10-05 23:00:00Negative *NA*(10/05/15 6:00 PM)[facility]annDRUG SCREEN 2015-10-05 23:00:00Negative *NA*(10/05/15 6:00 PM)[facility]annDRUG SCREEN 2015-10-05 23:00:00Negative *NA*(10/05/15 6:00 PM)[facility]annDRUG SCREEN 2015-10-05 23:00:00Negative *NA*(10/05/15 6:00 PM)[facility]annDRUG SCREEN 2015-10-05 23:00:00Negative *NA*(10/05/15 6:00 PM)[facility]annDRUG SCREEN 2015-10-05 23:00:00Negative *NA*(10/05/15 6:00 PM)[facility]annDRUG SCREEN 2015-10-05 23:00:00Negative *NA*(10/05/15 6:00 PM)[facility]annDRUG SCREEN 2015-10-05 23:00:00See Note *NA*(10/05/15 6:00 PM)[facility] STOOL 2015-10-05 23:00:00Negative (10/05/15 6:00 PM)[facility] STOOL 2015-10-05 23:00:00Negative (10/05/15 6:00 PM)[facility] STOOL 2015-10-05 23:00:000.2[facility] AND NCAVU1941-37-02 23:00:00Yellow *NA*(10/05/15 6:00 PM)[facility] CUOUA0122-82-05 23:00:00Trace *ABN*(10/05/15 6:00 PM)[facility] GNNXE1934-96-01 23:00:00Negative *NA*(10/05/15 6:00 PM)[facility] FRUKK4496-31-46 23:00:00Negative *NA*(10/05/15 6:00 PM)[facility] NHPDW6642-67-09 23:00:00Negative (10/05/15 6:00 PM)[facility] LFGBS5299-36-68 23:00:00Trace *ABN*(10/05/15 6:00 PM)[facility] HUCZL1552-76-27 23:00:00* Test Item Value Reference Range Interpretation Comments UA pH (test code = UA pH) 7.0 1 5.0-8.0 [facility] FKBOI1393-84-71 23:00:00* Test Item Value Reference Range Interpretation Comments UA Spec Grav (test code = UA Spec Grav) 1.015 1 [facility] DWXNN1215-67-99 23:00:00Clear (10/05/15 6:00 PM) [facility] WHUJA5059-95-77 23:00:00None Seen (10/05/15 6:00 PM) [facility] IITUM0378-88-15 23:00:00None Seen (10/05/15 6:00 PM) [facility] JOCDD1103-03-95 23:00:001[facility]annBLOOD BANK YRSISDQ7877-74-40 21:03:00Negative (10/05/15 4:03 PM)[facility]annCARDIAC SQKYBBI0235-33-73 21:03:00<0.02[facility] HermannCHEM ZDUAX7475-27-60 21:03:007.3 [facility]annCHEM DKJIH8571-44-98 21:03:004.0[facility] HermannCHEM PANEL 2015-10-05 21:03:000.1[facility] HermannCHEM PNOXQ0600-22-06 21:03:000.5[facility] HermannCHEM YZTHG5933-58-18 21:03:0065[facility] HermannCHEM QEOMR8798-10-97 21:03:0031[facility]annCHEM NYJZO5680-50-26 21:03:0025[facility]annCHEM QTXBR3468-27-26 21:03:000.4[facility] HermannCHEM MAVAC3067-00-12 21:03:001.2 [facility]annCHEM WVFJB9466-88-15 21:03:003.3[facility] HermannCHEM PANEL 2015-10-05 21:03:002.9[facility] KnjsmzxKGPNHHCAFNVO2909-70-66 21:03:0016.3 [facility] KliauuuOYTKAYXCLBPN4312-45-04 21:03:0024[facility] HermannELECTROLYTES 2015-10-05 21:03:001.96[facility] BlkahipMXXGRCSMNQSM4050-36-29 21:03:58435 [facility] YwqbhugRZDCXPUQQSNP2710-61-47 21:03:19413Nzqdibpv HermannELECTROLYTES 2015-10-05 21:03:0025[facility] HcnjfhyUEWMKLUYBJKP0645-39-50 21:03:0033[facility] HvkbrknIOPUOAQNRXEJ1880-26-57 21:03:75484Jqwuqclv OwommgsWSCKYCPOAZSS7165-91-44 21:03:004.3[facility] JjpoqiwAWJXTGWOKQVW8543-47-47 21:03:009.1[facility] QCRGMACMFB4826-16-00 21:03:001.4[facility] ZklwsttABZVYMYOXX5874-89-17 21:03:000.1 [facility] ItjizotARCUKPKBGI3946-19-31 21:03:008.0[facility] HermannHEMATOLOGY 2015-10-05 21:03:000.2[facility] KnwlnyiEOMOCZDAOJ9392-42-44 21:03:000.4[facility] RfpuclaAJFHOACUAD3654-18-35 21:03:000.8[facility] PabbxaoCMWMXNBQPP7951-48-77 21:03:0014.1[facility] JgdmmgbLZIFFGAZOX6570-73-97 21:03:0079.0[facility] FHBBXSYTSG3976-91-94 21:03:002.0[facility] QkvqwkuRVKSDXHKPM7605-31-49 21:03:004.1 [facility]wrbBZQIYFMMUU9575-72-47 21:03:00* Test Item Value Reference Range Interpretation Comments Angle Rapid (test code = Angle Rapid) 79 degrees 64-80 [facility]RaqzcjqPCRSZWOBVX2936-05-95 21:03:00* Test Item Value Reference Range Interpretation Comments Max Amplitude Rapid (test code = Max Amplitude Rapid) 67 mm 52-71 [facility] HospitalCfocrwtKBFNMAVZCR8871-05-97 21:03:0010.2[facility]annHEMATOLOGY 2015-10-05 21:03:00* Test Item Value Reference Range Interpretation Comments K-time Rapid (test code = K-time Rapid) 0.9 min 0.6-2.3 [facility] HospitalGejgiqqDTCXCJHFFQ4956-65-33 21:03:00* Test Item Value Reference Range Interpretation Comments R-time Rapid (test code = R-time Rapid) 0.5 min 0.4-0.7 [facility] HospitalMyvskriGTOQLMSMTA0340-21-68 21:03:00* Test Item Value Reference Range Interpretation Comments ACT (TEG) Rapid (test code = ACT (TEG) Rapid) 97 s 86-118 [facility] HospitalOdcgbnrJIJXJJZQOV6967-68-18 21:03:00* Test Item Value Reference Range Interpretation Comments [place] Rapid (test code = [place] Rapid) 0.4 min [facility] HospitalTytozhrJIHIWBDGXN3945-21-27 21:03:003.3[facility] HermannHEMATOLOGY 2015-10-05 21:03:0091.3[facility] XrymhmgPOPIGHYGVH0296-01-55 21:03:0032.1[facility] UtekwbpOEUIOAKZZX7394-26-78 21:03:39463Ewikwedp BerkwotJTBJTYUVVG1020-24-51 21:03:0013.1[facility] WxzgqmwLYGLKMATEM7040-92-85 21:03:0011.0[facility] NXIDFFFGWJ4582-25-90 21:03:0034.2[facility] KtsxsylFJQVTAGBWB8987-35-58 21:03:00* Test Item Value Reference Range Interpretation Comments MCH (test code = MCH) 31.2 pg 27.0-31.0 [facility] QhtdanmKYGDNHPWER5662-15-72 21:03:003.51[facility] HermannHEMATOLOGY 2015-10-05 21:03:0010.1[facility] NgbvgrwPMXRKIPWCU4187-93-55 21:03:009.3[facility] HermannCARDIAC TFIFCYB5849-43-11 02:01:61019Tizkzprz HermannCARDIAC ENZYMES 2015-08-27 02:01:001.1[facility]annCARDIAC DRQAIWY5808-30-86 02:01:000.03 [facility]annCARDIAC QFHLYKX9325-26-32 02:01:000.7[facility] HermannCHEM PANEL 2015-08-27 02:01:003.4[facility] HermannCHEM ZSZRX7246-75-95 02:01:001.3[facility] HermannCHEM QMWJV6862-99-66 02:01:009.9[facility] HermannCHEM HMGSY5708-38-55 02:01:0018[facility] HermannCHEM ENSDR5718-45-94 02:01:0024[facility] HermannCHEM ZIXZR6272-72-96 02:01:007.7[facility] HermannCHEM FVWJQ2386-88-55 02:01:0029 [facility]annCHEM MNSNA1858-60-12 02:01:004.3[facility] HermannCHEM PANEL 2015-08-27 02:01:0051[facility] HermannCHEM MUMPS9003-67-64 02:01:62266Atlkzbzx HermannCHEM WAXWW7254-80-18 02:01:0025[facility] HermannCHEM WFJYD9494-86-04 02:01:009.4[facility] HermannCHEM EPBIZ9132-52-22 02:01:000.4[facility] HermannCHEM PDFMB6356-90-75 02:01:99628Afwkzbge HermannCHEM LTHPM4983-04-61 02:01:0031 [facility]annCHEM CMQKU1823-62-95 02:01:003.9[facility] HermannCHEM PANEL 2015-08-27 02:01:001.65[facility] HermannCHEM WHSOY5035-91-05 02:01:76215Ofataklw HermannCHEM IMYAM3349-58-83 02:01:0030[facility] ZfeoflfWSFYYIACIK9802-63-34 02:01:003.77[facility] VrvksvrRBXSHKTOKY8052-73-48 02:01:007.4[facility] FDCUHCCHXO5274-50-65 02:01:0034.5[facility] XagkrbdJKHJMGISEG9402-70-04 02:01:00 12.4[facility] LklfsbbONIAWPAJXM5768-27-69 02:01:0032.8[facility] HermannHEMATOLOGY 2015-08-27 02:01:009.6[facility] PomwacqAENIOASBJS3863-45-19 02:01:0011.3[facility] WxezewsCZCXEYHSUY8220-63-44 02:01:08201Llumjezk FbdigqdEEPGYRWIPO9180-52-10 02:01:00* Test Item Value Reference Range Interpretation Comments MCH (test code = MCH) 30.0 pg 27.0-31.0 [facility] RfkopibFQGGWWRXAM3211-11-35 02:01:0091.5[facility] HermannHEMATOLOGY 2015-08-27 02:01:0059.7[facility] RieotuqDBSLZWKUTK1255-09-74 02:01:007.6[facility] XdncfleQMHBFFZRNG1652-58-62 02:01:0027.3[facility] AdejvrmWCIUQJBXTC3488-27-52 02:01:004.4[facility] WelznclIUUOOLNHJC0652-78-49 02:01:002.3[facility] XFQIJNTZNJ2780-07-65 02:01:003.1[facility] FdedgjgOOTDVDSGPI5285-93-47 02:01:000.6 [facility] UcozzhiSSUMREWPMJ4266-07-71 02:01:002.0[facility] HermannHEMATOLOGY 2015-08-27 02:01:000.2[facility] OeizhogVITTMFZZHH7659-67-28 02:01:000.2[facility] HermannVIRAL - GCXQAYRT2816-80-44 01:17:00Negative (08/26/15 8:17 PM)[facility] HermannVIRAL - PBFMFPGB1226-41-68 01:17:00Negative (08/26/15 8:17 PM)[facility]UR[facility] AND SSUYK6773-79-43 00:30:00Negative *NA*(02/24/14 6:30 PM)[facility] AND HWKZT0107-08-21 00:30:00Negative (02/24/14 6:30 PM)[facility] BDLBR2580-89-23 00:30:00Clear (02/24/14 6:30 PM)[facility] AND LKJAU3611-01-85 00:30:00Yellow *NA*(02/24/14 6:30 PM)[facility] AND TYZAN3773-37-40 00:30:00Negative (02/24/14 6:30 PM)[facility] AND FBCYO4290-34-69 00:30:000.2[facility]UR[facility] AND STOOL 2014-02-25 00:30:00Negative (02/24/14 6:30 PM)[facility] STOOL 2014-02-25 00:30:00* Test Item Value Reference Range Interpretation Comments UA Spec Grav (test code = UA Spec Grav) 1.025 1 [facility] HYNIG8098-19-50 00:30:00* Test Item Value Reference Range Interpretation Comments UA pH (test code = UA pH) 5.5 1 5.0-8.0 [facility] GYLNB3070-87-15 00:30:00None Seen (02/24/14 6:30 PM) [facility] QZYPC3630-55-79 00:30:00None Seen (02/24/14 6:30 PM) [facility] HermannBEDSIDE GLUCOSE QGPGUYY1142-20-54 21:59:62854Uzwnxlpe Romero BEDSIDE GLUCOSE AEPKCDA1281-11-30 16:36:29522Fmekdfhx HermannBEDSIDE GLUCOSE SHEFVRM3669-48-83 10:41:78219Vycvwbny MssgrblHFEVLLXKF5233-66-39 08:45:56458 [facility] AzqbyhkYRAFCIVKS2893-69-57 08:45:003.9[facility] HermannCHEMISTRY 2012-12-06 08:45:04511Vdeajtmj DkrkzojEVNDJNQVD3970-36-03 08:45:0026[facility] DngjernHAUDKIZSX3817-80-10 08:45:008.3[facility] OhgwkndBPVZRXTBV6789-67-95 08:45:001.6[facility] YkyavpyRYFFHCFXA9812-67-83 08:45:80347Fgjrvhre Romero OLKCKRFEB6749-97-43 08:45:0032[facility] EjgjpgePZPKRDESS8865-61-08 08:45:0031 [facility] PpirjxcJEFTPRRPT2596-25-09 08:45:0016.9[facility] HermannHEMATOLOGY 2012-12-06 08:45:009.7[facility] SrnirpvDOQDRFCCYL2042-92-89 08:45:0028.7[facility] UgjsjeiKIWIBNMFDG5444-00-17 08:45:19590Ozehvdut IluywxpREXBWHZVCJ7778-01-24 08:45:0014.6[facility] GoqcqlvMOGZSAMGZF3303-53-24 08:45:0033.7[facility] KWADRMAKKK5915-07-78 08:45:00* Test Item Value Reference Range Interpretation Comments MCH (test code = MCH) 30.7 pg 27.0-31.0 N [facility] JaypsieQUTWTZDSBX6957-40-84 08:45:0091.0[facility]annHEMATOLOGY 2012-12-06 08:45:003.15[facility] MylzubxDWKZCVQZFW7158-35-04 08:45:005.4[facility] VdyrbrfIONGCJYHKJ1676-41-26 08:45:009.7[facility] LnkbyntTXCZDOKOWK0907-84-59 08:45:000.5[facility] PdkniagFYPVXWCGRZ5186-88-43 08:45:001.0[facility] [place] WXCKVVORCZ1970-31-53 08:45:003.5[facility] GbwcebhZNSJAJLIKO9983-92-90 08:45:000.9 [facility] VzbbhzfNGLGIJQNOY5482-26-61 08:45:006.2[facility]annHE[facility]OLOGY 2012-12-06 08:45:009.8[facility] YmcluyxEXGIAKDEBM5198-05-04 08:45:0018.4[facility] GvtjkkkSLIGAXGUHI9628-46-90 08:45:000.3[facility] LgsxeuwRAZOOGLAUO7746-10-61 08:45:000.1[facility] VaoaztbAUMFNOAJCX6420-70-39 08:45:0064.7[facility] MSYHIQWPX3168-53-37 09:00:0018.6[facility] OcmspwuKDRQCIGEL2051-54-03 09:00:0033 [facility] KfykkuiJQEYMWODD8322-66-33 09:00:008.1[facility]annCHEMISTRY 2012-12-05 09:00:0023[facility] JszvhlgPYEMNWGDU0474-07-22 09:00:58977Hebpuhoq RlnbeywLOWTPLHCI4074-15-22 09:00:003.6[facility] HkigdzjDVPUBVTGG8828-82-42 09:00:29971Cdhdzgbd ZzgudccIRYWFDRRZ0588-78-84 09:00:80386Tzgvnpsp [place] MGVYMYHYD5702-39-98 09:00:001.5[facility] MemgbzuQCTSNWMBO2011-72-75 09:00:0031 [facility] ZggnnoaPWBWAXLBCC1916-49-96 09:00:0010.1[facility]annHEMATOLOGY 2012-12-05 09:00:0014.8[facility] DvdfqsgJTVQDYFNWZ5610-62-53 09:00:00* Test Item Value Reference Range Interpretation Comments MCH (test code = MCH) 30.2 pg 27.0-31.0 N [facility] QealbpxYBTYMPZZIW6818-47-47 09:00:0092.5[facility]annHEMATOLOGY 2012-12-05 09:00:57601Pczctbxl NvduyxbXYQNSTNZZA7312-26-49 09:00:0032.7[facility] ClbrtjvHMXOPDQJJK2085-71-46 09:00:005.[facility]orial BxbxtolDHVEXVIGCI6218-54-69 09:00:003.25[facility] DybhwuzFRUBNACHBS8252-18-60 09:00:009.8[facility] XBHMKLYXTO1566-26-94 09:00:0030.1[facility] UkdkatsDMQRVWZXAF3153-96-69 09:00:00 0.1[facility] YygaupuMNVTWTJKJS7754-09-53 09:00:000.4[facility]annHEMATOLOGY 2012-12-05 09:00:001.0[facility] IeexcafCHKQHAVACZ9238-96-80 09:00:000.9[facility] AmgfbxvMWHKNUKCXR8735-44-26 09:00:007.9[facility] AylmywhMVNLTQFLYQ9219-62-58 09:00:0017.3[facility] VkyjqjwLOLBGTOGKO5718-01-82 09:00:003.8[facility] [place] CVOOOGXYOK8838-70-65 09:00:000.4[facility] VvbdmuwBLKVIHXQEC6732-77-94 09:00:00 67.1[facility] YqmtfhyUGGQJDRKAE3140-65-25 09:00:006.8[facility]annCHEMISTRY 2012-12-04 16:49:244784Vgakzxfl KgffwpzGTJGRXGJT4325-14-37 16:49:299.6[facility] KibliqtHXQEOCXPL4642-43-53 09:30:0018.0[facility] LfvvuykKMABIHOYF5044-74-48 09:30:004.0[facility] EsiizcmQMGJYGGFM5758-64-00 09:30:14081Xtyosrjk [facility] YWUNVYFGD6960-75-31 09:30:61809Wlqjqtjz NydtelbKEUJYAOPT4151-46-16 09:30:0040 [facility] RrxeaomMOHPVBRXF0789-15-39 09:30:0081[facility]annCHEMISTRY 2012-12-04 09:30:0029[facility] HwwskrtPNPVMXJVX9220-08-80 09:30:001.3[facility] LvehvxmXJVUNDSTW5856-47-58 09:30:007.9[facility] AylxxbbOTLQOOSXX4017-12-84 09:30:0022[facility] AvqbcspHEXBAZOYVO3738-56-25 09:30:0072.8[facility] VTCECARFEA6545-78-81 09:30:007.6[facility] HmjgqpmETWBCDWPAY7975-75-49 09:30:000.8 [facility] MlnhjdxQHGVEDJAFC7170-77-42 09:30:005.4[facility]annHEMATOLOGY 2012-12-04 09:30:0013.4[facility] MdsbqpnRJSGJESODX2608-24-24 09:30:000.5[facility] NjkdrtdZVVSAJBLTK0939-59-17 09:30:000.9[facility] NgdtlyzLVSENMNWWZ7585-00-87 09:30:000.1[facility] AgxiindHBLCPEIQFZ2260-10-48 09:30:000.4[facility] [place] KPXCFKJQLC8067-77-42 09:30:005.1[facility] LopijhrXZZOFCESZO1694-61-02 09:30:007.0 [facility] XbqhsdxLYIEZCVGNW8514-11-16 09:30:003.19[facility]annHEMATOLOGY 2012-12-04 09:30:009.8[facility] ZwgyfrnRCDCTJMQQR3790-19-22 09:30:0029.2[facility] StalfvoJWIJLSOVNB9403-84-32 09:30:65636Etrznfec OdomjxqAHHCIAUFLI4021-29-85 09:30:0014.4[facility] XtagodhLRTMLXGLYC4103-25-21 09:30:0091.4[facility] EXMSDQWQON1381-61-41 09:30:0033.7[facility] KtjcwozZDKKWGMLYQ1365-97-71 09:30:00* Test Item Value Reference Range Interpretation Comments MCH (test code = MCH) 30.8 pg 27.0-31.0 N [facility] DcfdhqgOIMGOSXZON8145-21-91 09:30:009.5[facility]annCHEMISTRY 2012-12-03 09:20:001.9[facility] TqtqlxiYRADZMPGN3662-78-49 09:20:003.8[facility] OmxpuajFYJQXSQXL7747-89-25 09:20:006.0[facility] XughdwbGUQBFCQRC8141-35-35 09:20:000.5[facility] AbaupobQVMTEKNPY5645-35-80 09:20:0025[facility] [place] PFAPNVIRM4615-75-71 09:20:000.8[facility] PocfhrbAJWZABVLZ0602-85-28 09:20:003.4 [facility] KqxioxcAKCFVIFBU6868-52-23 09:20:0028[facility]annCHEMISTRY 2012-12-03 09:20:0036[facility] HpnhndxVHUVNZQXN7977-71-21 09:20:16180Qhdnwjng ZwdreebSOIXUUDFC5289-96-05 09:20:002.6[facility] KsgvobsWQAAJYTTEC7403-03-98 08:00:00* Test Item Value Reference Range Interpretation Comments PTT (test code = PTT) 32.0 s 22.9-35.8 N [facility] IcmchsnRKRZULQMP6156-06-67 02:30:220.9[facility]annCHEMISTRY 2012-12-03 02:30:223.2[facility] MfnndhhZYUEFVZHV9187-48-88 02:30:2231[facility] AthuwrtDEOWKHAOL7919-65-74 02:30:220.5[facility] MrqsqkcGWVOOJIQY9227-89-37 02:30:226.2[facility] IqsopxqOFHTECPQV2864-71-04 02:30:2230[facility] CPDMWHFEV7528-81-98 02:30:29109Ratswhfn TvynkqmVWNTZMOJT3053-14-20 02:30:223.0 [facility] ZlkwgqvCABNWOHBU5386-25-95 02:30:2238[facility]annHEMATOLOGY 2012-12-03 02:30:09* Test Item Value Reference Range Interpretation Comments PTT (test code = PTT) 30.6 s 22.9-35.8 N [facility] FyqalaxLCXJATJGQI3322-85-82 02:30:09* Test Item Value Reference Range Interpretation Comments PT (test code = PT) 14.7 s 12.0-14.7 N [facility] AsepvadNWNXLZFYRH7299-10-64 02:30:091.13[facility]BL[facility] B[facility] TSRIZOU9769-14-30 01:39:00Negative (12/02/2012 20:39:00) [facility] LIZLHOL2664-21-05 01:39:00Product available (12/02/2012 20:39:00) [facility]BLO[facility] BANK OMTVBCA9382-52-84 01:39:00Product available (12/02/2012 20:39:00) [facility] NPQWRYV0470-93-35 01:39:00Product available (12/02/2012 20:39:00) [facility] HermannBEDSIDE GLUCOSE TESTING 2012-11-26 16:56:86910Rfathhom HermannBEDSIDE GLUCOSE URDUPLI1617-99-49 14:13:00 252[facility] HermannBEDSIDE GLUCOSE BOZDBJH9827-11-63 03:57:92280Gzxezqwe [facility] TURPCHNNE5576-92-72 09:00:0040[facility] LjdoasnOIBDQXOQM5003-53-34 09:00:16303 [facility] IluaddfBOVOAUDUJ2527-62-60 09:00:008.3[facility] HermannCHEMISTRY 2012-11-25 09:00:004.2[facility] DfjnvrnYGKZBWTKY0068-73-97 09:00:09085Qlekiwaz XwktgwoHATWNFTFK3590-82-62 09:00:0029[facility] QqzmkquWJJYAFMWT1734-78-95 09:00:001.3[facility] DoglfjtQLICFVKPC0691-89-68 09:00:0016[facility] TLWHCAUYQ7508-56-65 09:00:45450Joixvvmm TvjvsdqAEQNUMNFS5393-35-23 09:00:0017.2 [facility] JpdigtcAXYQDNXVRO1293-16-13 09:00:000.7[facility] HermannHEMATOLOGY 2012-11-25 09:00:000.1[facility] HzdbzooPIITYNOCRY8457-12-57 09:00:000.1[facility] MgnbeyqORJFBTRPAB0470-73-83 09:00:001.2[facility] OqqyfcuKCRXAINZTR3737-68-65 09:00:0074.8[facility] DhkuxplIBWOAULUQQ2775-80-05 09:00:009.0[facility] YBXYAAYDMX2826-69-38 09:00:001.3[facility] PduhzpeAYZAYTQUTP5769-36-06 09:00:000.8 [facility] QoarqroWPVAGGNQAI6205-16-52 09:00:006.2[facility] HermannHEMATOLOGY 2012-11-25 09:00:0014.1[facility] RrfwrxmRSRDAYTPOF4563-87-61 09:00:008.3[facility] WgntuonUZIJTSITWA1282-35-68 09:00:0014.6[facility] OyqgabsJEHLOWEYDA5507-66-18 09:00:0033.6[facility] ZrzmylpGXEGHCCSUT1808-61-55 09:00:0010.1[facility] TOVGIRWWVR8004-26-57 09:00:0030.2[facility] GhjhtiwDKLKWLOAGA1758-67-75 09:00:00 3.27[facility] KagurkgOHPFJHQTQO0356-92-25 09:00:00* Test Item Value Reference Range Interpretation Comments MCH (test code = MCH) 31.0 pg 27.0-31.0 N [facility] BplcrswVPAOWNTYVY0002-55-87 09:00:0092.3[facility] HermannHEMATOLOGY 2012-11-25 09:00:009.5[facility] WhvwwvzQVSBOHVTBW0856-67-36 09:00:85845Fuuavnro ZowplyoTSQIHYDKO1377-75-31 05:15:001.03[facility] LnejpwsMCTEQHLKD0122-89-08 05:15:001.08[facility] YrgjyftXVDVEBYNA2374-31-83 05:15:003.2[facility] UFWZKOUCX5081-93-57 05:15:001.7[facility] GmekwqxREIVKGXGT3866-04-22 05:15:0014.2 [facility] NoxkuqsSUGBGIMYU9633-22-88 05:15:0036[facility] HermannCHEMISTRY 2012-11-24 05:15:24654Uhakenis DbcrgkbUQRGQNFNQ2019-53-96 05:15:20320Dgctlvva CpchhhpTIYZUOEHY5433-42-48 05:15:0030[facility] CoowqvaBJFRGYCKS2701-79-05 05:15:008.5[facility] HkdddbkEHVBNXXJX0243-88-28 05:15:001.4[facility] ILHRKYYCJ2694-01-63 05:15:63486Ydbowtjv PynekczPYEKLABXQ3510-08-38 05:15:004.2 [facility] QjinfaoVVTESBQET3754-03-88 05:15:0017[facility] HermannHEMATOLOGY 2012-11-24 05:15:0010.5[facility] IwtdwmwILKODLUPHL0115-25-94 05:15:009.4[facility] HmqvymsZRUKLANBIA1590-63-90 05:15:0031.7[facility] XfoevqfUNTECKNAXJ2455-73-53 05:15:003.47[facility] FfuhxycPRBZEVLLTQ1064-94-84 05:15:0091.4[facility] SWUMSCTOBS2597-10-86 05:15:00* Test Item Value Reference Range Interpretation Comments MCH (test code = MCH) 30.2 pg 27.0-31.0 N [facility] LhilhyvJUEXIKKTWZ0542-13-37 05:15:50169Qaplsbbu HermannHEMATOLOGY 2012-11-24 05:15:0033.0[facility] EteamwaJHIPSOZLZJ4344-17-41 05:15:0014.8[facility] PjnlhdmSLZPTTFVJG8861-29-58 05:15:009.3[facility] GwiyyrsGBATURMHWW1337-61-01 05:15:0018.1[facility] ItrxgiyEGXWKPPEKX8551-09-04 05:15:000.9[facility] ZRHXDDTSOO2775-95-47 05:15:009.5[facility] EcabcnoCNMWKVDQHF8568-69-66 05:15:006.6 [facility] LflzpctQDYXSDHFZI8946-03-87 05:15:001.7[facility] HermannHEMATOLOGY 2012-11-24 05:15:000.8[facility] RsmdtfjZECMLHVKLM5293-67-35 05:15:0070.7[facility] NztikvuJWLDWLAVMB9296-66-15 05:15:000.9[facility] WeqqiviKFZORINDYN5770-89-97 05:15:000.1[facility] OuraivsYCBMYEMBFH4630-70-59 05:15:000.1[facility] EDDMKIYQX7125-16-92 10:15:0044[facility] UyoalplLXCQHSLRZ5605-11-81 10:15:06608 [facility] NtqvzqqDEHUSTPRQ7630-49-22 10:15:0014[facility] HermannCHEMISTRY 2012-11-23 10:15:0024[facility] DfcasteGTVEBYDZI2466-46-49 10:15:005.8[facility] PnqkmylFXNFKJKJY0714-99-90 10:15:007.2[facility] CngevytIKDPMGROV1202-80-07 10:15:002.6[facility] JdllxutZUOVVEZSJ1048-02-33 10:15:0012[facility] MVLTLXUBI0016-97-61 10:15:001.2[facility] JxbhsbrMKNNSNRFC5908-36-43 10:15:004.2 [facility] XefuujhJMUQXWAFO7695-88-36 10:15:65785Xolemrxq HermannCHEMISTRY 2012-11-23 10:15:0032[facility] VfikamvFBDXYMIIV0982-38-75 10:15:30553Nsoodjnt JzampfvYRAATISAL5839-94-11 10:15:001.0[facility] FnqqsgjRXDISQXUN2295-95-10 10:15:008.2[facility] VkuiqfuRCSTBPQKA4050-03-77 10:15:003.2[facility] QLTSKUHZD6607-11-58 10:15:0025[facility] NxenifuPQKJTCZTU8709-34-85 10:15:000.8 [facility] JuznzwpEIXUXNMXW6048-59-93 10:15:55080Kdkjpres HermannHEMATOLOGY 2012-11-23 10:15:000.1[facility] DpxyeylZQVTSPXJRK5964-72-71 10:15:000.7[facility] WfwkpnwVGKUYTLMAJ1184-09-27 10:15:001.2[facility] DhjyivsDRUKFDBTGN4156-25-62 10:15:000.1[facility] AvlyemiFBQFPDODXM2186-32-18 10:15:005.7[facility] XOGRLMUZOL1542-85-74 10:15:000.8[facility] SemloqdAHRBMXMQUY0448-05-34 10:15:000.7 [facility] FubwvsbCKVSVSVAMV7672-01-37 10:15:009.1[facility] HermannHEMATOLOGY 2012-11-23 10:15:0073.8[facility] WupbttbBYASCLMUML5457-07-66 10:15:0015.6[facility] FbdtqjbURHMLXKDSG5439-83-08 10:15:0032.0[facility] SlgtotkMNYTUSLDXA4038-19-97 10:15:0014.7[facility] IodgnafAOQEVHYRZF5307-38-65 10:15:0090.5[facility] JIOLZERQTP3045-00-30 10:15:00* Test Item Value Reference Range Interpretation Comments MCH (test code = MCH) 30.1 pg 27.0-31.0 N [facility] JauxmnsZJUKCTJLYP9347-16-71 10:15:0010.7[facility] HermannHEMATOLOGY 2012-11-23 10:15:0033.3[facility] McxsxmjETPDTHCGXX1754-47-39 10:15:007.7[facility] MigtkxpKRJFVQNVSE4551-86-48 10:15:003.54[facility] HmhynixEMLXAXPFUA5565-25-85 10:15:94351Pwhnedba YpnzcfaYVHRZXWZMP3090-79-06 10:15:009.4[facility] ZJWDOXJFQS0092-54-11 10:15:001.13[facility] MoxzasqORCXJVSCUF2233-19-54 10:15:00* Test Item Value Reference Range Interpretation Comments PT (test code = PT) 14.7 s 12.0-14.7 N [facility] ZmpwjopIWTPXKSTKG4773-82-23 10:15:00* Test Item Value Reference Range Interpretation Comments PTT (test code = PTT) 47.6 s 22.9-35.8 H [facility] GjkkzyfXYATXSERWJ5432-20-75 10:15:0011.8[facility] HermannCHEMISTRY 2012-11-22 16:26:28234Ixxbfcbm XczmwxsKGTBTVWDF1722-64-64 16:26:0028[facility] VlidzdlBBYTOBKEK8798-72-38 16:26:084471Essqtldh OmvoskbHMSAZMVIU6574-20-04 16:26:30304Bbumayfu DngzxewVQMGHJLQT7198-03-21 16:26:0038[facility] OTXINSJTQ5307-81-00 16:26:0022[facility] EzqazzkMLXJUYWPN6994-48-45 16:26:34859 [facility] DefucnfCHNOQPJDM5598-88-84 16:26:003.4[facility] HermannCHEMISTRY 2012-11-22 16:26:006.3[facility] PpxjlvoXFKXBXDFG3473-49-58 16:26:0027[facility] HejlurpOVQBEGOAI8714-60-27 16:26:000.9[facility] GnmpypaOLMPWVCAI8507-85-50 16:26:000.4[facility] CnwvwicAZPACULTU8258-54-48 16:26:001.1[facility] CIICEFHIR0511-96-44 16:26:002.9[facility] MgfluycSSGTFNOTS8762-54-97 16:26:59546 [facility] QvxynwsXNXHIVTBX7627-63-93 16:26:000.7[facility] HermannCHEMISTRY 2012-11-22 16:26:0022[facility] RtfzowrSUIYPKAKIU4341-85-51 16:26:0015.2[facility] FynegfaKNKBKPWPT0015-02-09 16:25:003.7[facility] EwrbfexEEBCPKKJA7011-32-11 16:25:001.8[facility] YpjmdtuLATBMLEFM5177-51-74 09:20:001.9[facility] ILWOZOGZR7110-41-14 09:20:003.6[facility] BqvamvuGTQBKJRGKX1400-92-74 09:20:00* Test Item Value Reference Range Interpretation Comments PT (test code = PT) 14.7 s 12.0-14.7 N [facility] ObvcobtDIJTGTADMG2045-95-00 09:20:001.13[facility] HermannCHEMISTRY 2012-11-16 06:55:341.03[facility] WtuseqwWLXYZJONI9710-16-71 06:55:341.01[facility] HermannBLOOD BANK KVQOXPL7698-04-60 06:55:00Negative (11/16/2012 01:55:00) [facility] GxcuewiCWWYEEQMAU2613-57-16 06:55:00Normal (11/16/2012 01:55:00) [facility] HidunskBOXXPBUBXE0537-75-65 06:55:00Normal (11/16/2012 01:55:00) [facility] XeptzkqQOLRLQMLK7584-91-51 06:45:071.05[facility] HermannCHEMISTRY 2012-11-15 06:45:071.05[facility] EhlgbpbEJGYSCOMSS6401-66-16 06:44:00Normal (11/15/2012 01:44:00) [facility] WgewnhrNUPSREADIQ6120-52-14 06:44:00Normal (11/15/2012 01:44:00) [facility] XlbzvdmCNQWNBORO9826-03-06 13:34:890995Kvlszwfd WktvpcgGZPDORFUZ3874-31-38 13:34:0016.7[facility] TxloznwWGVLTZHCR2119-19-11 12:57:000.8[facility] BtqpwegKERMFCFTT5774-06-65 12:57:83241Qbzsjgzs [place] QZFSLLVQW0327-31-43 12:57:007.46[facility] VwuiggvNCFSBTXVY7751-30-27 12:57:0037.0 [facility] TxharuvZKHWHDLJO3388-96-36 12:57:0082[facility] HermannCHEMISTRY 2012-11-14 12:57:0026[facility] ByvbkjsQJZSYCKNS2119-89-11 12:57:0036[facility] OprnbhnZNSGBDTSW6758-11-64 12:57:002[facility] QxqonggBFRBYLUEK5797-81-64 12:57:00 33.0[facility] LiiqtcmGMUNTFONW9960-68-15 12:57:0097.0[facility] HermannCHEMISTRY 2012-11-14 12:57:004.4[facility] YlhkoruQBYLJAWDF6683-40-76 12:57:34323Patkhfkj XrfhlnwZWUYLYIXD6946-51-53 12:57:001.06[facility] HermannBLOOD BANK RESULTS 2012-11-14 10:18:00Product available (11/14/2012 05:18:00) [facility] FVOYHZDFO1608-10-08 10:02:22012Tkfgdijw VfwrxppPYCQTSSNV8300-77-47 10:02:000.7 [facility] RwqeclbTXBCTWKAX7731-69-57 10:02:001.08[facility] HermannCHEMISTRY 2012-11-14 10:02:004.1[facility] AfyhhbfOTSODKVAW9947-15-03 10:02:91049Rwnckxlj BqeqfjoMEKYNEZYT3354-19-41 10:02:0027.0[facility] BgdtgytKXOWRZLJB7184-18-91 10:02:0097.0[facility] QjbtrwwNJNZSGEIK1010-03-59 10:02:003[facility] EWGAAEKSC3236-01-88 10:02:0027[facility] GwqdlhbHGMHNSDOW5138-16-08 10:02:0040 [facility] QwarsxrXQYODBVMH7380-51-46 10:02:0087[facility] HermannCHEMISTRY 2012-11-14 10:02:007.44[facility] CwlraxwZVYUIMZQO4602-41-17 10:02:0037.0[facility] MpqmzshRUUCUHHCKL4773-38-15 09:00:00* Test Item Value Reference Range Interpretation Comments PT (test code = PT) 16.3 s 12.0-14.7 H [facility] EoduyfeYDZPGRCHSN0750-85-76 09:00:001.29[facility] HermannHEMATOLOGY 2012-11-14 09:00:00* Test Item Value Reference Range Interpretation Comments PTT (test code = PTT) 41.2 s 22.9-35.8 H [facility] ZtkiqkpZCTOJAVJAN2277-22-95 09:00:000.88[facility]t HermannHEMATOLOGY 2012-11-14 09:00:00* Test Item Value Reference Range Interpretation Comments Thrombin Time (test code = Thrombin Time) 15.2 s 15.0-21.2 N [facility] CweseeuLLYCIQXWRI2987-94-97 09:00:33520Twpbbrmd HermannHEMATOLOGY 2012-11-14 09:00:00Slight *ABN*(11/14/2012 04:00:00) [facility] HermannHEMATOLOGY 2012-11-14 09:00:00Slight *ABN*(11/14/2012 04:00:00) [facility]annCHEMISTRY 2012-11-14 03:55:0092[facility] RoprauoLISUSRBPB0685-36-32 03:55:007.48[facility] EyxopzlRMQUHRTPI6760-46-84 03:55:000.9[facility] ZyycdrfKNVGLFXFX8121-35-05 03:55:95260Punobsmp CganeqoMQUFRKHDS4633-38-65 03:55:003.7[facility] DGNMGNPYN2852-67-27 03:55:001.08[facility] HjlrhrdDTPZUDWFL8299-70-43 03:55:0037.0 [facility] NdkotwuLTJNYBHXM2464-21-54 03:55:0028.0[facility] HermannCHEMISTRY 2012-11-14 03:55:0098.0[facility] OdqtwraBMIDQGSLH6644-24-60 03:55:0039[facility] KcgzhptGYKVNJEWZ6568-20-29 03:55:0029[facility] FqvuhizROUGIFGVB1136-40-66 03:55:005[facility] XxwbzgbAIRMGYCKH7313-82-68 03:55:74416Lnvdbxkv [place] LJSJSMQPZ5953-73-53 13:07:0027.0[facility] UinzhddIJXBUZMYO6789-31-07 13:07:001.11 [facility] MtwbuauNXHCMLKGF0806-21-89 13:07:0037.0[facility] HermannCHEMISTRY 2012-11-13 13:07:0082[facility] VslqzpeQTOVVVDXA9696-19-97 13:07:0038[facility] ZxdemvnTEPPQIPYF3770-09-94 13:07:007.46[facility] LqmcpmwXPGXBYQFZ4160-09-93 13:07:000.8[facility] CgpsnyvUSRZGQYKR1275-16-38 13:07:003.8[facility] ATWITSKAZ5951-41-27 13:07:79948Seyvxlsg GnlmndtEDPNQMPQT7204-68-85 13:07:77417 [facility] PobbdhrZOTBSREAT4682-47-08 13:07:0097.0[facility] HermannCHEMISTRY 2012-11-13 13:07:003[facility] MtpxrpiZHTRTTMJK1644-82-23 13:07:0027[facility] UtukljuQXXGSIYRL5974-57-19 09:23:000.5[facility] EaazgzsCZZDZEAUD9448-76-82 09:23:0050[facility] QvkywezZXXFVQOLX8483-68-26 09:23:007.38[facility] CGDZVCDGT5997-91-90 09:23:0030[facility] XpavjtyEGCDJQLZE5288-38-70 09:23:004 [facility] LicimnjWGKJTWQEU9704-58-91 09:23:0035[facility] HermannCHEMISTRY 2012-11-13 09:23:0066.0[facility] AhycjonMEKTYRRKE8345-37-28 09:23:78815Bfcemdmk LpmvmgaADFKKKZJK6035-63-23 09:23:07546Dozjqjas ChtadgcVWPUAEKFL4072-36-82 09:23:003.2[facility] TezqrtlZJMNXYZPT7970-85-29 09:23:001.13[facility] UNVWGYJLJ0011-25-10 09:23:0037.0[facility] HumsdfgXOGRLXYIU1665-67-12 09:23:0027.0 [facility] HkuzvwvQKNLBIGLP6305-02-19 07:05:001.5[facility] HermannCHEMISTRY 2012-11-13 07:05:004.9[facility] EcknlhvAGOQXYMPC3669-80-79 07:05:0047[facility] AfwxmtjBLVWCGKUG7367-00-59 07:05:003.1[facility] JvuqiggBQLYXYQQS5789-25-39 07:05:0015[facility] FbmzekmIAOVTXTBV8514-94-95 07:05:0047[facility] SSSNJAZZJ2119-37-23 07:05:001.7[facility] LrzxizlIBDYIVXPU4156-32-43 07:05:001.8 [facility] KjoyalaHAYDUOQVD2756-28-14 07:05:0025[facility] HermannHEMATOLOGY 2012-11-13 07:05:00* Test Item Value Reference Range Interpretation Comments PTT (test code = PTT) 38.8 s 22.9-35.8 H [facility] PejornaUFBOIQAXTD7870-95-73 07:05:000.69[facility] HermannHEMATOLOGY 2012-11-13 07:05:00* Test Item Value Reference Range Interpretation Comments Thrombin Time (test code = Thrombin Time) 14.5 s 15.0-21.2 L [facility] ApholjfQTGIEFPCKK4217-87-06 07:05:52363Mfowhurj HermannHEMATOLOGY 2012-11-13 00:55:000.37[facility] XzuadfjYVZYWZYQHI8759-60-27 00:55:65566Qwjppecc HfiddwzKBJGVPTHRS0834-09-00 00:55:00* Test Item Value Reference Range Interpretation Comments Thrombin Time (test code = Thrombin Time) 14.6 s 15.0-21.2 L [facility] WozrhaeUXYBAFPYY5135-64-31 17:01:[facility].0[facility] 2012-11-12 17:01:000.8[facility] PfnwblsAOFWTRGGDM8874-66-45 17:01:00Normal (11/12/2012 12:01:00) [facility] QfrtsuyODSSYHYLEP1939-79-36 17:01:00Normal (11/12/2012 12:01:00) [facility] PfhuwurZDQXRYCRDI0714-56-70 15:38:27Occasional /HPF (11/12/2012 10:38:27) [facility] DnvvufjKROCHUXKLC4936-27-01 15:38:27 Negative (11/12/2012 10:38:27) [facility] IarqpweVXZUYQCAOL9171-20-43 15:38:270.2 [facility] GcoyrtmIHYXZSEYQM6567-28-39 15:38:27Performed (11/12/2012 10:38:27) [facility] SxihopaRUTABCQNRN3475-52-51 15:38:270-2 /HPF (11/12/2012 10:38:27) [facility] GtdtkgaYIFWZMIEBS5697-95-92 15:38:27None Seen (11/12/2012 10:38:27) [facility] TzrhttuCSSYTTRGGN8042-05-24 15:38:27None Seen (11/12/2012 10:38:27) [facility] AsqvmlqNRYCTVDATO9171-66-97 15:38:27Negative (11/12/2012 10:38:27) [facility] JqdowehQEZQIZMHCY5092-42-31 15:38:27Negative (11/12/2012 10:38:27) [facility]UUHTIBYNAJ5842-31-89 15:38:27* Test Item Value Reference Range Interpretation Comments UA pH (test code = UA pH) 5.5 1 5.0-8.0 N [facility] HospitalQucppwcKAAZSYZKNA8697-89-12 15:38:27Clear (11/12/2012 10:38:27) [facility] HospitalVirybwyOIXWURVTMW1163-45-06 15:38:27* Test Item Value Reference Range Interpretation Comments UA Spec Grav (test code = UA Spec Grav) 1.025 1 N [facility] HospitalKtscidbJGGNPBXEDL0362-39-74 15:38:27Yellow *NA*(11/12/2012 10:38:27) [facility]HitskxmGCXQCVLXFJ2881-66-12 15:38:27Trace *ABN*(11/12/2012 10:38:27) [facility] SouthXgjwrsrQAXEGEITGP8442-82-72 15:38:27Negative (11/12/2012 10:38:27) [facility] SouthIsbgdtjFZGJMEVBTK5803-89-64 15:38:27Negative *NA*(11/12/2012 10:38:27) [facility] HospitalUnmqxtxHSHVRIBYQD0832-75-29 15:38:27Negative *NA*(11/12/2012 10:38:27) [facility] SouthXdxaggjZMVNTTPOHC7857-74-10 15:15:45See Note 21(11/12/2012 10:15:45) [facility] SouthFdqvtuaOGBMLRRXAD7887-11-95 15:15:456.5[facility]HE[facility] 2012-11-12 15:15:45* Test Item Value Reference Range Interpretation Comments Max Amp Hep (test code = Max Amp Hep) 56.5 mm 50.0-70.0 N [facility] HospitalNumonjzGOHJMHPHYL7317-61-47 15:15:45* Test Item Value Reference Range Interpretation Comments Angle Hep (test code = Angle Hep) 60.6 degrees 53.0-72.0 N [facility] HospitalLlkohehROGXYJSHHV4506-67-59 15:15:45* Test Item Value Reference Range Interpretation Comments K-Time Hep (test code = K-Time Hep) 2.2 min 1.0-3.0 N [facility]XokmjnuMLOUMNACYY0676-23-92 15:15:45* Test Item Value Reference Range Interpretation Comments R-Time Hep (test code = R-Time Hep) 6.1 min 5.0-10.0 N [facility] NuwgiskEGFIYXWDQL1403-31-92 15:15:45-1.1[facility] HermannHEMATOLOGY 2012-11-12 15:15:453.8[facility] FwplxyzXZZARVREE5565-45-68 15:10:0023[facility] MfextakWMMQWHIFN0489-79-12 15:10:67527Dhrbqxzv CjezcxqUDDTEKUGMR1869-15-14 15:10:001.4[facility] AxhsmdwNSCGRILAGA2901-62-77 15:10:0035[facility]BL[facility] FQYGRYH5707-68-39 14:40:00Product available (11/12/2012 09:40:00) [facility] HermannBLOOD BANK GRXJPZX6180-63-09 14:40:00Product available (11/12/2012 09:40:00) [facility] Hermann[facility] WKUAGGC3242-92-64 13:31:00Product available (11/12/2012 08:31:00) [facility] BpctxwtDUHGOXVKS7562-09-74 12:36:005 [facility] IvuysjeCNBTEQQRA4432-69-38 12:36:0061.0[facility] HermannCHEMISTRY 2012-11-12 12:36:60018Hekboxwe VjeryycNWGDGEECQ0061-74-61 12:36:003.7[facility] GwiawpkGGMIQRJOS3017-98-85 12:36:50979Mylkyxxh SkibrqvAIFBMTGAN8473-47-15 12:36:001.20[facility] OqpabdhHCTNUVUZV0569-16-42 12:36:003.3[facility] IKFUQVXYQ0208-02-23 12:36:0030[facility] KxwditdXOGSDTLVL1297-18-45 12:36:0029 [facility] OwbizdiMOZDYGRMV6109-98-25 12:36:007.45[facility]annCHEMISTRY 2012-11-12 12:36:0042[facility] VjvkxutDVPLXSUTI9072-13-93 12:36:0037.0[facility] ZdbnluqMGXUIBVXQ3584-04-47 12:36:0020.0[facility] PurtdiuROFXPXGDYM0866-98-59 11:38:12Slight *ABN*(11/12/2012 06:38:12) [facility] TjmujafMPRUOYHSXC9078-80-71 11:38:12Slight *ABN*(11/12/2012 06:38:12) [facility] YigdghcHNIYOCCJNF9572-63-81 11:38:12Slight *ABN*(11/12/2012 06:38:12) [facility] WwrnbbqQIUROWGGWB0142-24-55 11:38:12* Test Item Value Reference Range Interpretation Comments Tot Cell Ct (test code = Tot Cell Ct) 100 1 [facility] QfydpjcDUWLPIPQJW7062-11-39 11:38:12Slight (11/12/2012 06:38:12) [facility] VkeqnbbWPTJVJSJVF5184-96-83 11:38:1210.0[facility]annHEMATOLOGY 2012-11-12 11:38:120.0[facility] IozxoxkESJQLIFRSB3828-33-86 06:16:36Slight *ABN*(11/12/2012 01:16:36) [facility] NpmxsxtKRRLNKVIHI0751-80-98 06:16:36Slight *ABN*(11/12/2012 01:16:36) [facility] TsnxjxwBDSUKVAZOU2398-04-64 06:16:36Slight *ABN*(11/12/2012 01:16:36) [facility] DutxcqoIYIGRAYEWW7348-23-66 06:16:367.0 [facility] ImvflnbNTCNMWZXVO2948-87-17 06:16:360.0[facility]annHEMATOLOGY 2012-11-12 06:16:361+ *ABN*(11/12/2012 01:16:36) [facility]annHEMATOLOGY 2012-11-12 06:16:361+ *ABN*(11/12/2012 01:16:36) [facility]annHEMATOLOGY 2012-11-12 06:16:36Slight (11/12/2012 01:16:36) [facility]annHEMATOLOGY 2012-11-12 06:16:36Slight *ABN*(11/12/2012 01:16:36) [facility]annHEMATOLOGY 2012-11-12 06:16:36Slight (11/12/2012 01:16:36) [facility] DTIQCSD7177-19-53 06:00:00Negative (11/12/2012 01:00:00) [facility] OGQJFWK6361-42-98 06:00:00Negative (11/12/2012 01:00:00) [facility] UCJEZIZ7964-01-74 06:00:00Negative (11/12/2012 01:00:00) [facility] JvfayvyOACSAAKDJ9191-85-19 22:00:595.7[facility]BL[facility] RESULTS 2012-11-10 23:22:00Product available (11/10/2012 18:22:00) [facility] CZBOWUU1921-84-28 23:22:00Product available (11/10/2012 18:22:00) [facility] MvilozkVMCSHPAEA1762-26-45 07:40:002.280[facility] IXVRDUN4886-43-51 23:36:00Product available (11/09/2012 18:36:00) [facility] MWZIRZA0982-07-05 23:36:00Product available (11/09/2012 18:36:00) [facility] PrxybldKNORLQSAG2768-39-72 06:30:4746[facility] LOJTXBQCV3322-77-32 06:30:473.68[facility] YlsbbqkFSNOAUCSR4210-87-64 06:30:4777 [facility] TblfeypCHCICZFJF9163-48-69 06:30:4737[facility]annCHEMISTRY 2012-11-09 06:30:18444Ojahxjqq YzkhxkdOGEUWZQLE3927-52-69 06:30:10152Msdgyast VwextzvACNOVCOYF0744-68-23 06:30:476.2[facility]BL[facility] RESULTS 2012-11-09 06:30:00Negative (11/09/2012 01:30:00) [facility]
[2019-11-12 22:58] VITALS: BP 122/58
== END 2019-11-12 23:23 | disposition home or self-care (01) ==
LOC: ER 22:03
DX: U07.1 COVID-19 (principal); R50.9 Fever, unspecified; R05 Cough; E11.9 Type 2 diabetes mellitus without complications; I10 Essential (primary) hypertension; I25.10 Atherosclerotic heart disease of native coronary artery without angina pectoris; F41.9 Anxiety disorder, unspecified; F32.9 Major depressive disorder, single episode, unspecified; K21.9 Gastro-esophageal reflux disease without esophagitis; Z95.1 Presence of aortocoronary bypass graft
CPT/HCPCS: 99283

== ENCOUNTER 2019-11-13 19:25 | Emergency (ER) | payer MEDICARE, OTHER ==
[~2019-11-13] VITALS: Ht 154.9 cm; Wt 64.9 kg
[2019-11-13] MEDS ORDERED: ACETAMINOPHEN 325 MG TAB ONE (19:43)
[2019-11-13] MEDS ORDERED: ACETAMINOPHEN 325 MG TAB PO ONE (19:45)
--- NOTE | 2019-11-13 21:03 | Diagnostic Imaging Report ---
Examination: Single AP view of the chest. COMPARISON: April 19, 2019 INDICATION: Cough DISCUSSION: Lines/tubes: Sternotomy wires. Lungs: Central venous congestion. No pneumonia. Pleura: No pleural effusion or pneumothorax. Heart and mediastinum: Cardiomegaly. Bones and soft tissues: No acute bony abnormalities. IMPRESSION: 1. Cardiomegaly with central venous congestion. Signed by: Dr. Glenroy Ching M.D. on 11/13/2019 9:00 PM
--- OUTSIDE RECORDS SUMMARY | 2019-11-13 21:24 | XMS REPORT | Continuity of Care Document ---
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 times IVP No Longer Active [facility] 12/03/2012 [facility] ondansetron 4 mg, 2 mL, Route: IVP, Drug form: INJ, ONCE, Dosing Weight 62.528, kg, PRN Nausea & Vomiting, Start date: 12/03/12 9:34:00 IVP No Longer Active [facility] 12/03/2012 [facility] Insulin regular 100 unit + Sodium Chlori de 0.9% (titrate) 100 mL 100 mL, Rate: Start Insulin Drip Per ICU Protocol, Dosing Weight 62.528, kg, Route: IVPB, Total Volume: 100, Duration: 30 day, Stop date: 01/02/13 9:23:00, Replace Every: 24 hr, Initial Insulin Drip Rate (units/hour)=(Fasting Blood Glucose-60)X0.03 "m...Initial Insulin Drip Rate (units/hour)=(Fasting Blood Glucose-60)X0.03 "multiplier". IVPB No Longer Active [place] 12/03/2012 [facility] morphine Sulfate 2 mg, 1 mL, R oute: IVP, Drug form: INJ, Q2H, Dosing Weight 62.528, kg, PRN Pain Score 1-5, Start date: 12/03/12 9:16:00, Duration: 30 day, Stop date: 01/02/13 9:15:00 IVP No Longer Active 12/03/2012 [facility] docusate 100 mg, 1 cap, Route: PO, Drug form: CAP, BID, Dosing Weight 62.528, kg, PRN Constipation, Start date: 12/03/12 9:16:00, Duration: 30 day, Stop date: 01/02/13 9:15:00 PO No Longer Active 12/03/2012 [facility] glucagon 1 mg, Route: IM, Drug form: PDR/INJ, PRN, Dosing Weight 62.528, kg, PRN Blood Glucose Results, Start date: 12/03/12 9:16:00, Duration: 30 day, Stop date: 01/02/13 9:15:00 IM No Longer Active 12/03/2012 [facility] Dextrose 50% Syringe 12.5 gm, 25 mL, Route: IVP, Drug Form: INJ, Dosing Weight 62.528, kg, PRN, PRN Blood Glucose Results, Start date: 12/03/12 9:16:00, Duration: 30 day, Stop date: 01/02/13 9:15:00 IVP No Longer Active Frantz 12/03/2012 [facility] minocycline 100 mg, 1 cap, Rou te: PO, Drug form: CAP, Q12H, Dosing Weight 62.528, kg, Start date: 12/03/12 9:00:00, Duration: 30 day, Stop date: 01/01/13 21:00:00 PO No Longer Active Burnazian 12/03/2012 [facility] nter potassium chloride 10 mEq oral tablet, extended releas e 10 mEq, 1 tab, Route: PO, Drug form: ERTAB, Daily, Dosing Weight 62.528, kg, Start date: 12/03/12 9:00:00, Duration: 30 day, Stop date: 01/01/13 9:00:00 PO No Longer Active Heshmat [facility] Toprol-XL 50 mg oral tablet, extended release 50 mg, 1 tab, Route: PO, Drug form: ERTAB, BID, Start date: 12/03/12 9:00:00, Duration: 30 day, Stop date: 01/01/13 17:00:00 PO No Longer Active Heshmat 12/03/2012 [facility] lisinopril 20 mg, 1 tab, Route : PO, Drug form: TAB, Q12H, Dosing Weight 62.528, kg, Start date: 12/03/12 9:00:00, Duration: 30 day, Stop date: 01/01/13 21:00:00 PO No Longer Active Shiue 12/03/2012 [facility] nter insulin glargine 15 unit, 0.15 mL, Route: SUB-Q, Drug form: INJ, Daily, Dosing Weight 62.528, kg, Start date: 12/03/12 9:00:00, Duration: 30 day, Stop date: 01/01/13 9:00:00 SUB-Q No Longer Active Heshmat 12/03/2012 [facility] docusate sodium 100 mg oral capsule 100 mg, 1 cap, Route: PO, Drug form: CAP, Daily, Dosing Weight 62.528, kg, Start date: 12/03/12 9:00:00, Duration: 30 day, Stop date: 01/01/13 9:00:00 [facility] atorvastatin 20 mg, 1 tab, Rou te: PO, Drug form: TAB, Daily, Dosing Weight 62.528, kg, Start date: 12/03/12 9:00:00, Duration: 30 day, Stop date: 01/01/13 9:00:00 [facility] nt bumetanide 1 mg, 1 tab, Route: PO, Drug form: TAB, BID, Dosing Weight 62.528, kg, Start date: 12/03/12 9:00:00, Duration: 30 day, Stop date: 01/01/13 17:00:00 [facility] nter aspirin 325 mg tablet, enteric coated 325 mg, 1 tab, Route: PO, Drug form: ECTAB, Daily, Dosing Weight 62.528, kg, Start date: 12/03/12 9:00:00, Duration: 30 day, Stop date: 01/01/13 9:00:00 PO [facility]2012 [facility] AMIODarone 200 mg, 1 tab, Rout e: PO, Drug form: TAB, Daily, Dosing Weight 62.528, kg, Start date: 12/03/12 9:00:00, Duration: 30 day, Stop date: 01/01/13 9:00:00 PO No Longer Active Manoukian 12/03/2012 [facility] nter magnesium sulfate 1 gm, 50 mL, Route: IVPB, Drug form: INJ, ONCE, Dosing Weight 62.528, kg, Priority: NOW, Start date: 12/03/12 5:01:00, Stop date: 12/03/12 5:01:00 IVPB No Longer Active [facility] 12/03/2012 [facility] vancomycin 500 mg, Route: IVPB , Drug form: PDR/INJ, [id number], Dosing Weight 62.528, kg, Priority: NOW, Start date: 12/03/12 0:10:00, Duration: 30 day, Stop date: 01/01/13 12:10:00 IVPB No Longer Active Alex 12/03/2012 [facility] vancomycin 1 gm, Route: IVPB, Drug form: INJ, [id number], Dosing Weight 62.528, kg, Start date: 12/02/12 23:00:00, Duration: 30 day, Stop date: 01/01/13 11:00:00 IVPB [facility] acetaminophen-hydrocodone 325 mg-10 mg oral tablet 1 tab, Route: PO, Drug Form: TAB, Dosing Weight 62.528, kg, Q6H, PRN as needed for pain, Start date: 12/02/12 22:58:00, Duration: 30 day, Stop date: 01/01/13 22:57:00 [facility] vancomycin 2 gm, Route: IVPB, Drug form: INJ, ONCE, Dosing Weight 62.528, kg, Start date: 12/02/12 21:30:00, Stop date: 12/02/12 21:30:00 IVPB No Longer Active Maguire 12/03/2012 [facility] Saline Flush 0.9% 5 ml, Route: IVP, Drug Form: INJ, Dosing Weight 62.528, kg, Q12H, Start date: 12/02/12 21:00:00, Duration: 30 day, Stop date: 01/01/13 9:00:00 IVP No Longer Active Potter 12/03/2012 [facility] Toprol-XL 50 mg oral tablet, extended release 50 mg, 1 tab, PO, BID, 30 tab, Substitution Allowed, ERTAB [facility] potassium chloride 10 mEq oral tablet, extended releas e 10 mEq, 1 tab, PO, Daily, 10 tab, Substitution Allowed PO Active Hesat 12/03/2012 [facility] minocycline 100 mg oral tablet 100 mg, 1 tab, PO, Q12H, 30 tab, Substitution Allowed, TAB PO No Longer Active [facility] 12/03/2012 [facility] lisinopril 20 mg oral tablet 2 0 mg, 1 tab, PO, Q12H, 30 tab, Substitution Allowed, TAB PO No Longer Active [facility] 12/03/2012 [facility] nter bumetanide 1 mg oral tablet 1 mg, 1 tab, PO, BID, 30 tab, Substitution Allowed, TAB PO Active [facility] 12/03/2012 [facility] n[facility] atorvastatin 20 mg oral tablet 20 mg, 1 tab, PO, Daily, 30 tab, Substitution Allowed, TAB PO Active [facility] 12/03/2012 [facility] nter aspirin 325 mg tablet, enteric coated 325 mg, 1 tab, PO, Daily, 30 tab, Substitution Allowed, ECTAB PO No Longer Active [facility] 12/03/2012 [facility] Glucotrol 5 mg oral tablet 5 m g, 1 tab, PO, BID, 30 tab, Substitution Allowed PO No Longer Active 12/03/2012 [facility] nter AMIODarone 200 mg oral tablet 200 mg, 1 tab, PO, Daily, 60 tab, Substitution Allowed, TAB PO No Longer Active [facility] 12/03/2012 [facility] Saline Flush 0.9% 5 ml, Route: IVP, Drug Form: INJ, Dosing Weight 62.528, kg, PRN, PRN Line Flush, Start date: 12/02/12 20:38:00, Duration: 30 day, Stop date: 01/01/13 20:37:00 IVP No Longer Active [facility] 12/03/2012 [facility] [id number] 250 mL 250 mL, Rate: residential treatment specialist for use with blood product administration, Route: IV, Dosing Weight 62.528 kg, Total Volume: 250, Start date: 12/02/12 20:38:00, Duration: 1 day, Stop date: 12/03/12 20:37:00 IV No Longer Active [facility] 12/03 [facility] [id number] 1,000 mL 1,000 mL, Rate : 75 ml/hr, Infuse over: 13.3 hr, Route: IV, Dosing Weight 62.528 kg, Total Volume: 1,000, Start date: 12/02/12 20:38:00, Duration: 30 day, Stop date: 01/01/13 20:37:00 IV No Longer Active Blakeadilson 12/03/2012 [facility] minocycline 100 mg oral tablet 100 mg, 1 tab, PO, BID, 14 tab, Substitution Allowed PO Active Kline 11/26/2012 [facility] nter vancomycin 1 gm, Route: IV, Dr james form: INJ, [id number], Dosing Weight 73.722, kg, Start date: 11/24/12 13:15:00, Duration: 30 day, Stop date: 12/24/12 1:15:00 IV No Longer Active Kline 11/24/2012 [facility] aspirin 325 mg tablet, enteric coated 325 mg, 1 tab, PO, Daily, 30 tab, 2, 2, Substitution Allowed PO Active Kline 11/24/2012 [facility] nter insulin glargine 100 units/mL subcutaneous solution 15 unit, 0.15 mL, SUB-Q, Daily, 1 pen(s), Substitution Allowed, SOLN SUB-Q Active Kline 11/24/2012 [facility] Glucotrol 5 mg oral tablet 5 m g, 1 tab, PO, BID-After Meals, 60 tab, 2, 2, Substitution Allowed, TAB PO Active Kline 11/24/2012 [facility] nter bumetanide 1 mg oral tablet 1 mg, 1 tab, PO, BID, 60 tab, 2, 2, Substitution Allowed, TAB PO Active Kline 11/24/2012 [facility] nter Bumex 1 mg, 1 tab, Route: PO, Drug form: TAB, BID, Dosing Weight 73.722, kg, Start date: 11/23/12 17:00:00, Duration: 30 day, Stop date: 12/23/12 9:00:00 PO No Longer Active Gazzala 11/23/2012 [facility] nter AMIODarone 200 mg, 1 tab, Rout e: PO, Drug form: TAB, Daily, Dosing Weight 65, kg, Start date: 11/23/12 9:00:00, Duration: 30 day, Stop date: 12/22/12 9:00:00 PO No Longer Active Kline 11/23/2012 [facility] nter Glucotrol 5 mg oral tablet 5 m g, 1 tab, Route: PO, Drug form: TAB, BID-After Meals, Dosing Weight 73.722, kg, Start date: 11/22/12 17:30:00, Duration: 30 day, Stop date: 12/22/12 8:30:00 [facility] Bumex 1 mg, 4 mL, Route: IV, D rug form: INJ, BID, Dosing Weight 73.722, kg, Start date: 11/22/12 17:00:00, Duration: 30 day, Stop date: 12/22/12 9:00:00 [facility] n[facility] Bumex 1 mg, 4 mL, Route: IVP, Drug form: INJ, Q12H, Dosing Weight 73.722, kg, Priority: Routine, Start date: 11/22/12 9:00:00, Duration: 30 day, Stop date: 12/21/12 21:00:00 IVP No Longer Active [facility] 11/22/2012 [facility] Bumex 1 mg, 4 mL, Route: IVP, Drug form: INJ, ONCE, Dosing Weight 73.722, kg, Priority: STAT, Start date: 11/22/12 7:51:00, Stop date: 11/22/12 7:51:00 IVP No Longer Active [facility] 11/22/2012 [facility] nter ondansetron 4 mg, 2 mL, Route: IV, Drug form: INJ, Q6H, Dosing Weight 73.722, kg, PRN Nausea, Start date: 11/21/12 17:57:00, Duration: 30 day, Stop date: 12/21/12 17:56:00 IV No Longer Active Kline 11/21/2012 [facility] nter aspirin 81 mg tablet, chewable 81 mg, 1 tab, PO, Daily, 30 tab, 3, 3, Substitution Allowed, CHEWTAB PO No Longer Active Kline 11/21/2012 [facility] acetaminophen-hydrocodone 325 mg-10 mg oral tablet 1 tab, PO, Q4H, PRN, 30 tab, 0, 0, Pain Score 1-3, Substitution Allowed, Maintenance, TAB PO Active Maguire 11/21/2012 [facility] potassium chloride 10 mEq oral tablet, extended releas e 10 mEq, 1 tab, PO, Daily, 30 tab, Substitution Allowed, ERTAB PO Active 11/21/2012 [facility] Toprol-XL 50 mg oral tablet, extended release 50 mg, 1 tab, PO, BID, 60 tab, 3, 3, Substitution Allowed, ERTAB PO Active 11/21/2012 [facility] lisinopril 20 mg oral tablet 2 0 mg, 1 tab, PO, Q12H, 30 tab, 3, 3, Substitution Allowed, TAB PO Active 11/21/2012 [facility] nter insulin glargine 100 units/mL subcutaneous solution 15 unit, 0.15 mL, SUB-Q, Daily, 5 mL, 3, 3, Substitution Allowed, SOLN SUB-Q No Longer Active 03/2013 [facility] furosemide 40 mg oral tablet 4 0 mg, 1 tab, PO, Daily, 30 tab, 3, 3, Substitution Allowed, TAB PO No Longer Active Maguire 11/21/2012 [facility] docusate sodium 100 mg oral capsule 100 mg, 1 cap, PO, Daily, 30 cap, 3, 3, Substitution Allowed, CAP PO Active 11/21/2012 [facility] atorvastatin 20 mg oral tablet 20 mg, 1 tab, PO, QPM, 30 tab, 3, 3, Substitution Allowed, TAB PO Active 11/21/2012 [facility] nter AMIODarone 200 mg oral tablet 200 mg, 1 tab, PO, Daily, 30 tab, 3, 3, Substitution Allowed, TAB PO Active 11/21/2012 [facility] nter Lasix 40 mg, 1 tab, Route: PO, Drug form: TAB, Daily, Start date: 11/20/12 14:00:00, Duration: 30 day, Stop date: 12/20/12 9:00:00 PO No Longer Active 02/2013 [facility] Lasix 20 mg, 1 tab, Route: PO, Drug form: TAB, Daily, Dosing Weight 65, kg, Start date: 11/18/12 12:00:00, Duration: 30 day, Stop date: 12/18/12 9:00:00 [facility] iron sucrose + Sodium Chloride 0.9% IV 95 mL 100 mg, 5 mL, Route: IV, Daily, Dosing Weight 65, kg, 3 doses only, Priority: NOW, Start date: 11/17/12 21:10:00, Duration: 3 doses or times, Stop date: 11/19/12 9:00:00 IV No Longer Active Gazzala 12/2012 [facility] calcium gluconate + Sodium Chloride 0.9% IV 50 mL 1,000 mg, 10 mL, Route: IVPB, Drug form: INJ, ONCE, Dosing Weight 65, kg, Priority: STAT, Start date: 11/16/12 3:15:00, Stop date: 11/16/12 3:15:00 IVPB No Longer Active Maguire 11/16/2012 [facility] potassium chloride 20 mEq/15 mL oral liquid 40 mEq, 30 mL, Route: PO, Drug form: LIQ, ONCE, Dosing Weight 65, kg, Priority: NOW, Start date: 11/16/12 3:15:00, Stop date: 11/16/12 3:15:00 PO No Longer Active Maguire 11/16/2012 [facility] Toprol-XL 50 mg oral tablet, extended release 50 mg, 1 tab, Route: PO, Drug form: ERTAB, BID, Start date: 11/15/12 21:00:00, Duration: 30 day, Stop date: 12/15/12 9:00:00 PO No Longer Active Indio 11/16/2012 [facility] docusate sodium 100 mg oral capsule 100 mg, 1 cap, Route: PO, Drug form: CAP, BID, Start date: 11/15/12 17:00:00, Duration: 30 day, Stop date: 12/15/12 9:00:00 PO No Longer Active Harjeet 11/15/2012 [facility] nter AMIODarone 0.5 mg/min, Route: PO, Drug form: TAB, BID, Dosing Weight 65, kg, Start date: 11/15/12 17:00:00, Stop date: 12/15/12 9:00:00 PO No Longer Active Indio 11/15/2012 [facility] Lasix 20 mg, 2 mL, Route: IVP, Drug form: INJ, ONCE, Dosing Weight 65, kg, Start date: 11/15/12 9:00:00, Stop date: 11/15/12 9:00:00 IVP No Longer Active Potter 11/15 [facility] calcium gluconate + Sodium Chloride 0.9% IV 50 mL 1,000 mg, 10 mL, Route: IVPB, ONCE, Dosing Weight 65, kg, Priority: STAT, Start date: 11/15/12 4:54:00, Stop date: 11/15/12 4:54:00 IVPB No Longer Active Joele 11/15/2012 [facility] Neutra-Phos oral powder Route: PO, Drug Form: PDR/REC, Dosing Weight 65, kg, ONCE, STAT, Start date: 11/14/12 20:00:00, Stop date: 11/14/12 20:00:00 PO No Longer Active Eli 11/15/2012 [facility] nter calcium gluconate + Sodium Chloride 0.9% IV 50 mL 1,000 mg, 10 mL, Route: IVPB, ONCE, Dosing Weight 65, kg, Priority: STAT, Start date: 11/14/12 20:00:00, Stop date: 11/14/12 20:00:00 IVPB No Longer Active [facility] 11/15/2012 [facility] AMIODarone 200 mg, 1 tab, Rout e: PO, Drug form: TAB, TID, Dosing Weight 65, kg, Start date: 11/14/12 17:00:00, Duration: 30 day, Stop date: 12/14/12 13:00:00 PO No Longer Active Kline 11/14/2012 [facility] nter insulin glargine 15 unit, 0.15 mL, Route: SUB-Q, Drug form: INJ, Daily, Dosing Weight 65, kg, Start date: 11/14/12 13:00:00, Stop date: 12/14/12 9:00:00 SUB-Q No Longer Active Whitney 11/14/2012 [facility] nter insulin aspart 2 unit, 0.02 mL , Route: SUB-Q, Drug form: SOLN, TID-Before Meals, Dosing Weight 65, kg, PRN Blood Glucose Results, Start date: 11/14/12 12:02:00, Duration: 30 day, Stop date: 12/14/12 12:01:00 [facility] Dextrose 50% Syringe 12.5 gm, 25 mL, Route: IVP, Drug Form: INJ, Dosing Weight 65, kg, PRN, PRN Blood Glucose Results, Start date: 11/14/12 12:02:00, Duration: 30 day, Stop date: 12/14/12 12:01:00 IVP No Longer Active [facility] 11/14/2012 [facility] glucagon 1 mg, Route: IM, Drug form: PDR/INJ, PRN, Dosing Weight 65, kg, PRN Blood Glucose Results, Start date: 11/14/12 12:02:00, Duration: 30 day, Stop date: 12/14/12 12:01:00 IM No Longer Active [facility] 11/14/2012 [facility] AMIODarone 900 mg + Dextrose 5% in Water (Titrate) IV 482 mL 482 mL, Rate: Infuse as directed, Dosing Weight 65, kg, Route: IV, Total Volume: 500 mL, Stop date: 12/14/12 8:57:00, Replace Every: 24 hr IV No Longer Active [facility] 11/14/2012 [facility] AMIODarone 150 mg + Dextrose 5% in Water IV 100 mL 100 mL, Rate: 600 ml/hr, Infuse over: 10.3 min, Route: IVPB, Dosing Weight 65 kg, Total Volume: 103, Start date: 11/14/12 8:58:00, Duration: 1 doses or times, Stop date: 11/14/12 9:07:00 IVPB No Longer Active Potter 11/14/2012 [facility] nt metoprolol 5 mg/5 ml INJ 5 mg, 5 mL, Route: IV, Drug form: INJ, ONCE, Dosing Weight 65, kg, Priority: STAT, Start date: 11/14/12 7:08:00, Stop date: 11/14/12 7:08:00 IV No Longer Active Potter 11/14/2012 [facility] metoprolol 5 mg/5 ml INJ 5 mg, Route: IV, ONCE, Dosing Weight 65, kg, Priority: STAT, Start date: 11/14/12 3:17:00, Stop date: 11/14/12 3:17:00 IV No Longer Active Shiue 11/14/2012 [facility] morphine Sulfate 2 mg, 1 mL, R oute: IVP, Drug form: INJ, ONCE, Dosing Weight 65, kg, Priority: NOW, Start date: 11/14/12 2:11:00, Stop date: 11/14/12 2:11:00 IVP No Longer Active Shiue 11/14/2012 [facility] nter calcium gluconate + Sodium Chloride 0.9% IV 50 mL 1,000 mg, 10 mL, Route: IVPB, ONCE, Dosing Weight 65, kg, Start date: 11/14/12 0:07:00, Stop date: 11/14/12 0:07:00 IVPB No Longer Active Shiue 11/14/2012 [facility] potassium phosphate + Sodium Chloride 0.9% IV 250 mL 30 mmol, 10 mL, Route: IVPB, ONCE, Dosing Weight 65, kg, Start date: 11/14/12 0:03:00, Stop date: 11/14/12 0:03:00 IVPB No Longer Active Shiue 11/14/2012 [facility] potassium chloride 10 mEq, 50 mL, Route: IVPB, Drug form: INJ, Q1H, Start date: 11/14/12 0:00:00, Duration: 3 doses or times, Stop date: 11/14/12 2:00:00 IVPB No Longer Active Shiue 11/14/2012 [facility] nter magnesium sulfate 1 gm, 50 mL, Route: IVPB, Drug form: INJ, ONCE, Dosing Weight 65, kg, Priority: STAT, Start date: 11/13/12 23:10:00, Stop date: 11/13/12 23:10:00 IVPB No Longer Active Shiue 11/14/2012 [facility] nter potassium chloride 30 mEq, Rou te: IV, ONCE, Dosing Weight 65, kg, Priority: STAT, Start date: 11/13/12 23:10:00, Stop date: 11/13/12 23:10:00 IV No Longer Active Shiue 11/14/2012 [facility] nter metoprolol 5 mg/5 ml INJ 5 mg, 5 mL, Route: IV, Drug form: INJ, ONCE, Dosing Weight 65, kg, Priority: NOW, Start date: 11/13/12 23:10:00, Stop date: 11/13/12 23:10:00 IV No Longer Active Shiue 11/14/2012 [facility] metoprolol 5 mg/5 ml INJ 5 mg, 5 mL, Route: IV, Drug form: INJ, ONCE, Dosing Weight 65, kg, Start date: 11/13/12 19:41:00, Stop date: 11/13/12 19:41:00 IV No Longer Active Shiue 11/14/2012 [facility] nter potassium chloride 40 mEq, Rou te: IV, ONCE, Dosing Weight 65, kg, Start date: 11/13/12 17:44:00, Stop date: 11/13/12 17:44:00 IV No Longer Active [facility] 07/2012 [facility] magnesium sulfate 2 gm, 50 mL, Route: IVPB, Drug form: INJ, ONCE, Dosing Weight 65, kg, Start date: 11/13/12 17:20:00, Duration: 1 doses or times, Stop date: 11/13/12 17:20:00, For Mg = 1.8 - 2 mg/dLFor Mg = 1.8 - 2 mg/dL IVPB No Longer Active Collinscox bransoni 11/13/2012 [facility] nter potassium chloride 40 mEq, 30 mL, Route: NJ, Drug form: LIQ, ONCE, Dosing Weight 65, kg, Start date: 11/13/12 17:20:00, Duration: 1 doses or times, Stop date: 11/13/12 17:20:00, For K = 3 - 3.4 mEq/LFor K = 3 - 3.4 mEq/L NJ No Longer Active [facility] 11/13/2012 [facility] vancomycin 1 gm, Route: IVPB, Drug form: INJ, [id number], Dosing Weight 65, kg, Start date: 11/13/12 9:00:00, Duration: 30 day, Stop date: 12/12/12 21:00:00 IVPB No Longer Active Shawn Whyte 11/13/2012 [facility] nter D5W 1000 mL 1,000 mL, Rate: 50 ml/hr, Infuse over: 20 hr, Route: IV, Dosing Weight 65 kg, Total Volume: 1,000, Start date: 11/13/12 8:44:00, Duration: 30 day, Stop date: 12/13/12 8:43:00 IV No Longer Active Potter 11/13/2012 [facility] potassium chloride 20 mEq, 100 mL, Route: IVPB, Drug form: INJ, ONCE, Start date: 11/13/12 5:30:00, Stop date: 11/13/12 5:30:00 [facility] normal saline 0.9% IV 85 mL + potassium chloride 20 mEq + sodium bicarbonate 4% (Neut) 5 mL 85 mL, Rate: 42.5 ml/hr, Infuse over: 2 hr, Route: IVPB, Dosing Weight 65 kg, Total Volume: 85 mL, Priority: STAT, Start date: 11/13/12 5:00:00, Duration: 1 doses or times, Stop date: 11/13/12 6:59:00 IVPB No Longer Active [facility] 11/13/2012 [facility] Sodium Chloride 0.9% IV 1,000 mL 1,000 mL, Rate: 50 ml/hr, Infuse over: 20 hr, Route: IV, Dosing Weight 65 kg, Total Volume: 1,000, Priority: NOW, Start date: 11/12/12 21:15:00, Duration: 10 hr, Stop date: 11/13/12 7:14:00 IV No Longer Active Potter 11/13/2012 [facility] nter Merrem 500 mg, Route: IV, Drug form: PDR/INJ, [id number], Dosing Weight 65, kg, Start date: 11/12/12 10:00:00, Duration: 30 day, Stop date: 12/12/12 2:00:00 IV No Longer Active leon Whyte 11/12/2012 [facility] nter pantoprazole 40 mg, Route: IVP , Drug form: INJ, Daily, Dosing Weight 65, kg, Start date: 11/12/12 9:00:00, Duration: 30 day, Stop date: 12/11/12 9:00:00 IVP No Longer Active Shawn Whyte 11/12/2012 [facility] nter aspirin 300 mg rectal suppository 300 mg, 1 supp, Route: CA, Drug form: SUPP, Daily, Dosing Weight 65, kg, Start date: 11/12/12 9:00:00, Duration: 30 day, Stop date: 12/11/12 9:00:00 CA No Longer Active Indio 11/12/2012 [facility] aspirin 325 mg, 1 tab, Route: NG, Drug form: TAB, Daily, Dosing Weight 65, kg, Start date: 11/12/12 9:00:00, Duration: 30 day, Stop date: 12/11/12 9:00:00 NG No Longer Active Prescott 11/12/2012 [facility] nter potassium chloride 20 mEq, 100 mL, Route: IVPB, Drug form: INJ, ONCE, Dosing Weight 65, kg, Total dose = 20 mEq, Start date: 11/12/12 6:14:00, Duration: 1 doses or times, Stop date: 11/12/12 6:14:00, For K = 3.5 - 3.9 mEq/LFor K = 3.5 - 3.9 mEq/L IVPB No Longer Active [facility] 11/12/2012 [facility] albumin human 25% intravenous solution 75 gm, 300 mL, Route: IV, Drug form: INJ, ONCE, Dosing Weight 65, kg, Priority: STAT, Start date: 11/12/12 0:22:00, Stop date: 11/12/12 0:22:00 IV No Longer Active [facility] 11/12/2012 [facility] albumin human 25% intravenous solution 12.5 gm, 250 mL, Route: IV, Drug form: INJ, ONCE, Dosing Weight 65, kg, Start date: 11/12/12 0:14:00, Stop date: 11/12/12 0:14:00 IV No Longer Active [facility] 11/12/2012 [facility] Lactated Ringers (Bolus) IV 250 mL 250 mL, Rate: 250 ml/hr, Infuse over: 1 hr, Route: IV, Dosing Weight 65 kg, Total Volume: 250, Start date: 11/12/12 0:13:00, Duration: 1 doses or times, Stop date: 11/12/12 1:12:00 IV No Longer Active [facility] 11/12/2012 [facility] calcium chloride + Sodium Chloride 0.9% IV 100 mL 1,000 mg, 10 mL, Route: IVPB, ONCE, Dosing Weight 65, kg, Start date: 11/11/12 21:49:00, Stop date: 11/11/12 21:49:00 IVPB No Longer Active Potter 11/12/2012 [facility] vancomycin (SCIP) 1 gm, Route: IVPB, Drug form: INJ, Q12H, Dosing Weight 65, kg, Start date: 11/11/12 21:00:00, Duration: 4 doses or times, Stop date: 11/13/12 9:00:00 IVPB No Longer Active Potter 11/12/2012 [facility] milrinone 20 mg in D5W 100 ml Premix (titrate) 20 mg 20 mg, 100 mL, Rate: As directed, Dosing Weight 65, kg, Route: IV, Total Volume: 100, Start date: 11/11/12 20:02:00, Duration: 30 day, Stop date: 12/11/12 20:01:00, Replace Every: 24 hr IV No Longer Active Whitney 11/12/2012 [facility] nter vancomycin (SCIP) 1 gm, Route: IVPB, Drug form: INJ, [id number], Dosing Weight 65, kg, Start date: 11/11/12 20:00:00, Duration: 2 doses or times, Stop date: 11/12/12 8:00:00 IVPB No Longer Active Potter 11/12/2012 [facility] potassium chloride 20 mEq, 100 mL, Route: IVPB, Drug form: INJ, Q2H, Start date: 11/11/12 20:00:00, Duration: 2 doses or times, Stop date: 11/11/12 22:00:00 IVPB No Longer Active Potter 11/12/2012 [facility] nter potassium chloride 40 mEq, Rou te: IV, ONCE, Dosing Weight 65, kg, Priority: STAT, Start date: 11/11/12 19:07:00, Stop date: 11/11/12 19:07:00 IV No Longer Active Potter 11/12/2012 [facility] nter calcium gluconate + Sodium Chloride 0.9% IV 50 mL 1,000 mg, 10 mL, Route: IV, ONCE, Dosing Weight 65, kg, Priority: STAT, Start date: 11/11/12 18:45:00, Stop date: 11/11/12 18:45:00 IV No Longer Active Arslan 11/11/2012 [facility] labetalol 10 mg, 2 mL, Route: IV, Drug form: INJ, ONCE, Dosing Weight 65, kg, Priority: STAT, Start date: 11/11/12 18:31:00, Stop date: 11/11/12 18:31:00 IV No Longer Active Potter 11/11/2012 [facility] nter cefazolin (SCIP) 1 gm, Route: IVPB, Drug form: PDR/INJ, [id number], Dosing Weight 65, kg, Start date: 11/11/12 18:00:00, Duration: 6 doses or times, Stop date: 11/14/12 6:00:00 IVPB No Longer Active Whitney 11/11/2012 [facility] FENTanyl 1000 mcg in 20 mL (titrate) IV 1,000 microgra m 1,000 microgram, 20 mL, Rate: Titrate as directed, Dosing Weight 65, kg, Route: IV, Total Volume: 20 ml, Duration: 30 day, Stop date: 12/11/12 17:11:00, Replace Every: 24 hr IV No Longer Active Potter 11/11/2012 [facility] nter fentanyl (PF) 20 mcg/ml [employer] (600 microgr am /30 mL) 600 microgram 600 microgram, 30 mL, Route: IV, [employer] Dos e: 10 mcg, [employer] Lockout: 10 minutes, Continuous Basal Rate: 0 mg, 4 Hour Limit (In MCG): 240, Drug Form: INJ, Continuous, Start date: 11/11/12 17:00:00, Duration: 30 day, Stop date: 12/11/12 16:59:00 IV No Longer Active Collinsuthi 11/11/2012 [facility] nter docusate 100 mg, 10 mL, Route: PO, Drug form: LIQ, BID, Dosing Weight 65, kg, Start date: 11/11/12 17:00:00, Duration: 30 day, Stop date: 12/11/12 9:00:00 PO No Longer Active Prescott 11/11/2012 [facility] nter fentanyl 100 microgram, Route: IVP, ONCE, Dosing Weight 65, kg, Priority: STAT, Start date: 11/11/12 17:00:00, Stop date: 11/11/12 17:00:00 IVP No Longer Active Potter 11/11/2012 [facility] Insulin regular 100 unit + Sodium Chlori de 0.9% (titrate) 99 mL 99 mL, Rate: Start Insulin Drip Per ICU Protocol, Dosing Weight 65, kg, Route: IVPB, Total Volume: 100, Duration: 30 day, Stop date: 12/11/12 16:36:00, Replace Every: 24 hr, Initial Insulin Drip Rate (units/hour)=(Fasting Blood Glucose-60)X0.03 "multi...Initial Insulin Drip Rate (units/hour)=(Fasting Blood Glucose-60)X0.03 "multiplier". IVPB No Longer Active Shawn Whyte 11/11/2012 [facility] Cardene 40 mg in NS 200 ml IV 40 mg 40 mg, 200 mL, Rate: Titrate, Dosing Weight 65, kg, Route: IV, Total Volume: 200 mL, Duration: 30 day, Stop date: 12/11/12 16:36:00, Replace Every: 24 hr IV No Longer Active Potter 11/11/2012 [facility] ondansetron 4 mg, 2 mL, Route: IVP, Drug form: INJ, ONCE, Dosing Weight 65, kg, PRN Nausea & Vomiting, Start date: 11/11/12 16:35:00 IVP No Longer Active Kneyon 2012 [facility] naloxone 0.04 mg, 0.1 mL, Rout e: IVP, Drug form: INJ, Q2MIN, Dosing Weight 65, kg, PRN Narcotic Reversal, Start date: 11/11/12 16:35:00, Duration: 30 day, Stop date: 12/11/12 16:34:00 IVP No Longer Active Indio 11/11/2012 [facility] fentanyl 10 microgram, 0.2 mL, Route: IVP, Drug form: INJ, Q2H, Dosing Weight 65, kg, PRN Pain Score 1-3, Start date: 11/11/12 16:35:00, Duration: 30 day, Stop date: 12/11/12 16:34:00 IVP No Longer Active Amy 11/11/2012 [facility] nalbuphine 2 mg, 0.2 mL, Route : IVP, Drug form: INJ, Q2H, Dosing Weight 65, kg, PRN Itching, Start date: 11/11/12 16:35:00, Duration: 5 doses or times, Stop date: 11/12/12 0:00:00 IVP No Longer Active Kenyon 11/11/2012 [facility] Dextrose 50% Syringe 12.5 gm, 25 mL, Route: IVP, Drug Form: INJ, Dosing Weight 65, kg, PRN, PRN Blood Glucose Results, Start date: 11/11/12 16:35:00, Duration: 30 day, Stop date: 12/11/12 16:34:00 IVP No Longer Active Shawn Whyte 11/11/2012 [facility] labetalol 10 mg, 2 mL, Route: IVP, Drug form: INJ, Q4H, Dosing Weight 65, kg, PRN Hypertension, Start date: 11/11/12 16:35:00, Duration: 30 day, Stop date: 12/11/12 16:34:00 IVP No Longer Active Indio 11/11/2012 [facility] metoprolol 2.5 mg, 2.5 mL, Rou te: IVP, Drug form: INJ, Q4H, Dosing Weight 65, kg, PRN Hypertension, Start date: 11/11/12 16:35:00, Duration: 30 day, Stop date: 12/11/12 16:34:00 IVP No Longer Active Chris 11/11/2012 [facility] hydrALAZINE 10 mg, 0.5 mL, Rou te: IVP, Drug form: INJ, Q6H, Dosing Weight 65, kg, PRN Hypertension, Start date: 11/11/12 16:35:00, Duration: 30 day, Stop date: 12/11/12 16:34:00 IVP No Longer Active Chris 11/11/2012 [facility] acetaminophen 650 mg, 1 supp, Route: CA, Drug form: SUPP, Q4H, Dosing Weight 65, kg, PRN Pain Score 1-3, Start date: 11/11/12 16:35:00, Duration: 30 day, Stop date: 12/11/12 16:34:00 CA No Longer Active Kenyon 11/11/2012 [facility] aspirin 325 mg tablet 325 mg, Route: NG, ONCE, Dosing Weight 65, kg, Start date: 11/11/12 16:35:00, Stop date: 11/11/12 16:35:00 NG No Longer Active Kenyon 2012 [facility] acetaminophen-hydrocodone 325 mg-10 mg oral tablet 1 tab, Route: PO, Drug Form: TAB, Dosing Weight 65, kg, Q4H, PRN Pain Score 1-3, Start date: 11/11/12 16:35:00, Duration: 30 day, Stop date: 12/11/12 16:34:00 PO No Longer Active Prescott 2012 [facility] nitroglycerin 100 mg in 250 ml [id number] Premi x (titrate) 100 mg 100 mg, 250 mL, Rate: Infuse as directed , Dosing Weight 65, kg, Route: IV, Total Volume: 250 mL, Start date: 11/11/12 16:35:00, Duration: 30 day, Stop date: 12/11/12 16:34:00, Replace Every: 24 hr IV No Longer Active Tariq 11/11/2012 [facility] Insulin regular 5 unit, Route: SUB-Q, ONCE, Dosing Weight 65, kg, Start date: 11/10/12 21:55:00, Stop date: 11/10/12 21:55:00 SUB-Q No Longer Active Hari 013 [facility] vancomycin + Sodium Chloride 0.9% IV 250 mL 1,500 mg, Route: IVPB, ONCALL, Dosing Weight 65, kg, Start date: 11/10/12 19:00:00, Stop date: 11/11/12 15:00:00 IVPB No Longer Active Whitney 11/11/2012 [facility] nter cefazolin 1 gm, Route: IVPB, D rug form: PDR/INJ, ONCALL, Dosing Weight 65, kg, Start date: 11/10/12 19:00:00, Stop date: 11/11/12 15:00:00 IVPB No Longer Active Whitney 11/11/2012 [facility] nter Sodium Chloride 0.9% (titrate) 250 mL 250 mL, Rate: residential treatment specialist for use with blood product administration, Dosing Weight 65, kg, Route: IV, Total Volume: 250, Duration: 30 day, Stop date: 12/10/12 18:21:00, Replace Every: 24 hr IV No Longer Active Whitney 11/10/2012 [facility] nter Saline Flush 0.9% 5 ml, Route: IVP, Drug Form: INJ, Dosing Weight 65, kg, Q12H, Start date: 11/09/12 21:00:00, Duration: 30 day, Stop date: 12/09/12 9:00:00 IVP No Longer Active Prescott 11/10/2012 [facility] nter Lasix 20 mg, 2 mL, Route: IVP, Drug form: INJ, Q12H, Dosing Weight 65, kg, Start date: 11/09/12 21:00:00, Duration: 30 day, Stop date: 12/09/12 9:00:00 IVP No Longer Active Tariq 11/10/2012 [facility] nter cefazolin 1 gm, Route: IVPB, D rug form: PDR/INJ, ONCALL, Dosing Weight 65, kg, Start date: 11/09/12 19:00:00, Stop date: 11/10/12 16:00:00 IVPB No Longer Active Prescott 11/10/2012 [facility] vancomycin 1 gm, Route: IVPB, Drug form: INJ, ONCALL, Dosing Weight 65, kg, Start date: 11/09/12 19:00:00, Stop date: 11/10/12 16:00:00 IVPB No Longer Active Prescott 11/10/2012 [facility] Sodium Chloride 0.9% (titrate) 250 mL 250 mL, Rate: residential treatment specialist for use with blood product administration, Dosing Weight 65, kg, Route: IV, Total Volume: 250, Duration: 30 day, Stop date: 12/09/12 18:35:00, Replace Every: 24 hr IV No Longer Active Prescott 11/09/2012 [facility] Saline Flush 0.9% 5 ml, Route: IVP, Drug Form: INJ, Dosing Weight 65, kg, PRN, PRN Line Flush, Start date: 11/09/12 18:35:00, Duration: 30 day, Stop date: 12/09/12 18:34:00 IVP No Longer Active Prescott 11/09/2012 [facility] Sodium Chloride 0.45% IV 1,000 mL 1,000 mL, Rate: 75 ml/hr, Infuse over: 13.3 hr, Route: IV, Dosing Weight 65 kg, Total Volume: 1,000, Start date: 11/09/12 18:35:00, Duration: 30 day, Stop date: 12/09/12 18:34:00 IV No Longer Active Whitney 11/09/2012 [facility] atorvastatin 20 mg, 1 tab, Rou te: PO, Drug form: TAB, QPM, Dosing Weight 65, kg, Start date: 11/09/12 17:00:00, Duration: 30 day, Stop date: 12/08/12 17:00:00 PO No Longer Active Heshmat 11/09/2012 [facility] nter heparin 5,000 unit, 1 mL, Rout e: SUB-Q, Drug form: INJ, Q8H, Dosing Weight 65, kg, Start date: 11/09/12 16:00:00, Duration: 30 day, Stop date: 12/09/12 8:00:00 SUB-Q No Longer Active Vaat 11/09/2012 [facility] nter lisinopril 20 mg, 1 tab, Route : PO, Drug form: TAB, Q12H, Dosing Weight 65, kg, Priority: STAT, Start date: 11/09/12 14:39:00, Duration: 30 day, Stop date: 12/09/12 9:00:00 PO No Longer Active Vaat 11/09/2012 [facility] Lasix 40 mg, 4 mL, Route: IVP, Drug form: INJ, Daily, Dosing Weight 65, kg, Start date: 11/09/12 9:00:00, Duration: 30 day, Stop date: 12/08/12 9:00:00 [facility] n[facility] metoprolol tartrate 25 mg, 1 t ab, Route: PO, Drug form: TAB, Q12H, Dosing Weight 65, kg, Start date: 11/09/12 9:00:00, Duration: 30 day, Stop date: 12/08/12 21:00:00 PO No Longer Active Manoukian 11/09/2012 [facility] nter Klor-Con 10 10 mEq, 1 tab, Rou te: PO, Drug form: ERTAB, Daily, Dosing Weight 65, kg, Start date: 11/09/12 9:00:00, Duration: 30 day, Stop date: 12/08/12 9:00:00 PO No Longer Active [facility] 11/09/2012 [facility] nter lisinopril 20 mg, 1 tab, Route : PO, Drug form: TAB, Daily, Dosing Weight 65, kg, Start date: 11/09/12 9:00:00, Duration: 30 day, Stop date: 12/08/12 9:00:00 PO No Longer Active [facility] 11/09/2012 [facility] nter aspirin 81 mg, 1 tab, Route: P O, Drug form: ECTAB, Daily, Dosing Weight 65, kg, Start date: 11/09/12 9:00:00, Duration: 30 day, Stop date: 12/08/12 9:00:00 PO No Longer Active [facility] 11/09/2012 [facility] nter Glucotrol XL 5 mg oral tablet, extended release 5 mg, 1 tab, PO, TID, Substitution Allowed PO No Longer Active 11/09/2012 [facility] nter hydrochlorothiazide 12.5 mg, P O, Daily, Substitution Allowed PO No Longer Active 11/09/2012 [facility] lisinopril 20 mg oral tablet 2 0 mg, 1 tab, PO, Daily, 30 tab, Substitution Allowed, TAB PO No Longer Active [facility] 11/09/2012 [facility] [facility] Klor-Con 10 oral tablet, extended release 10 mEq, 1 tab, PO, Daily, Substitution Allowed PO No Longer Active [facility] 11/09/2012 [facility] nter tetanus-diphtheria toxoids adult intramu scular suspension 0.5 ml, Route: IM, ONCE, STAT, Start denisse e: 05/07/10 17:05:00, Stop date: 05/07/10 17:05:00 Inactive [place] 05/07/2010 [facility] Allergies, Adverse Reactions, Alerts Substance Category Reaction Severity Reaction type Status Date Reported Comments Source penicillins Assertion Drug allergy Active [facility] sulfa drugs Assertion Drug allergy Active [facility] codeine Assertion Drug allergy Active [facility] Immunizations Immunization Date Given Site Status Last Updated Comments Source tetanus-diphtheria toxoids Right Deltoid completed [facility] tetanus-diphtheria toxoids Right Deltoid completed [facility] tetanus-diphtheria toxoids completed H anjelica [facility] Results Order Name Results Value Reference Range Date Interpretation Comments Source CARDIAC ENZYMES BNP 743 <=100 pg/mL 03/24/2019 [facility] ELECTROLYTES AGAP 8.8 10.0 - 20.0 03/24/2019 [facility] ELECTROLYTES B/C Ratio 15 6 - 25 03/24/2019 [facility] ELECTROLYTES Globulin 3.3 2.7 - 4.2 03/24/2019 [facility] ELECTROLYTES A/G Ratio 1.2 0.7 - 1.6 03/24/2019 [facility] ELECTROLYTES Glucose Lvl 202 70 - 99 03/24/2019 [facility] ELECTROLYTES BUN 30 7 - 22 03/24/2019 [facility] ELECTROLYTES Creatinine Lvl 2.0 0 0.50 - 1.40 03/24/2019 [facility] ELECTROLYTES Sodium Lvl 139 135 - 145 03/24/2019 [facility] ELECTROLYTES Potassium Lvl 3.8 3.5 - 5.1 03/24/2019 [facility] ELECTROLYTES Chloride Lvl 105 95 - 109 03/24/2019 [facility] ELECTROLYTES CO2 29 24 - 32 03/24/2019 [facility] ELECTROLYTES Calcium Lvl 9.3 8.5 - 10.5 03/24/2019 [facility] ELECTROLYTES Total Protein 7.3 6.4 - 8.4 03/24/2019 [facility] ELECTROLYTES Albumin Lvl 4.0 3.5 - 5.0 03/24/2019 [facility] ELECTROLYTES ALT 24 0 - 65 03/24/2019 [facility] ELECTROLYTES AST 35 0 - 37 03/24/2019 [facility] ELECTROLYTES Alk Phos 63 39 - 136 03/24/2019 [facility] ELECTROLYTES Bili Total 0.5 0.2 - 1.3 03/24/2019 [facility] ELECTROLYTES eGFR 22 03/24/2019 Result Comment: The [...] should be multiplied by the estimated BMI. [facility] HEMATOLOGY Segs 67.5 45.0 - 75.0 03/24/2019 [facility] HEMATOLOGY Lymphocytes 22.4 20.0 - 40.0 03/24/2019 [facility] HEMATOLOGY Monocytes 7.0 2.0 - 12.0 03/24/2019 [facility] HEMATOLOGY Eosinophils 2.0 0.0 - 4.0 03/24/2019 [facility] HEMATOLOGY Basophils 1.1 0.0 - 1.0 03/24/2019 [facility] HEMATOLOGY Neutrophils # 5.3 1.5 - 8.1 03/24/2019 [facility] HEMATOLOGY Lymphocytes # 1.8 1.0 - 5.5 03/24/2019 [facility] HEMATOLOGY Monocytes # 0.5 0.0 - 0.8 03/24/2019 [facility] HEMATOLOGY Eosinophils # 0.2 0.0 - 0.5 03/24/2019 [facility] HEMATOLOGY Basophils # 0.1 0.0 - 0.2 03/24/2019 [facility] HEMATOLOGY WBC 7.9 3.7 - 10.4 03/24/2019 [facility] HEMATOLOGY RBC 3.74 4.20 - 5.40 03/24/2019 [facility] HEMATOLOGY Hgb 11.6 12.0 - 16.0 03/24/2019 [facility] HEMATOLOGY Hct 34.7 36.0 - 48.0 03/24/2019 [facility] HEMATOLOGY MCV 92.7 80.0 - 98.0 03/24/2019 [facility] HEMATOLOGY MCH 31.1 27.0 - 31.0 03/24/2019 [facility] HEMATOLOGY MCHC 33.6 32.0 - 36.0 03/24/2019 [facility] HEMATOLOGY RDW 14.2 11.5 - 14.5 03/24/2019 [facility] HEMATOLOGY Platelet 231 133 - 450 03/24/2019 [facility] HEMATOLOGY MPV 10.0 7.4 - 10.4 03/24/2019 [facility] CARDIAC ENZYMES proBNP 26005 0 - 450 05/08/2018 [facility] CARDIAC ENZYMES proBNP [id number] 0 - 450 05/08/2018 [facility] CARDIAC ENZYMES Troponin-I 0.09 0.00 - 0.40 05/08/2018 [facility] CHEM PANEL Globulin 3.1 2.7 - 4.2 05/08/2018 [facility] CHEM PANEL A/G Ratio 1.1 0.7 - 1.6 05/08/2018 [facility] CHEM PANEL AGAP 12.6 10.0 - 20.0 05/08/2018 [facility] CHEM PANEL B/C Ratio 16 6 - 25 05/08/2018 [facility] CHEM PANEL eGFR 27 05/08/2018 Result [...] should be multiplied by the estimated BMI. [facility] CHEM PANEL Alk Phos 105 39 - 136 05/08/2018 [facility] CHEM PANEL Bili Total 0.3 0.2 - 1.3 05/08/2018 [facility] CHEM PANEL Calcium Lvl 8.7 8.5 - 10.5 05/08/2018 [facility] CHEM PANEL Total Protein 6.6 6.4 [...] should be multiplied by the estimated BMI. [facility] HEMATOLOGY PTT 31.8 22.9 - 35.8 05/08/2018 [facility] HEMATOLOGY PT 13.8 12.0 - 14.7 05/08/2018 [facility] INR 1.08 0.85 - 1.17 05/08/2018 [facility] RDW 12.9 11.5 - 14.5 05/08/2018 [facility] Platelet 211 133 - 450 05/08/2018 [facility] MPV 9.4 7.4 - 10.4 05/08/2018 [facility] MCV 92.2 80.0 - 98.0 05/08/2018 [facility] MCH 31.5 27.0 - 31.0 05/08/2018 [facility] Hct 29.8 36.0 - 48.0 05/08/2018 [facility] MCHC 34.2 32.0 - 36.0 05/08/2018 [facility] Hgb 10.2 12.0 - 16.0 05/08/2018 [facility] RBC 3.23 4.20 - 5.40 05/08/2018 [facility] WBC 6.2 3.7 - 10.4 05/08/2018 [facility] Eosinophils # 0.1 0.0 - 0.5 05/08/2018 [facility] Monocytes # 0.4 0.0 - 0.8 05/08/2018 [facility] Lymphocytes # 1.3 1.0 - 5.5 05/08/2018 [facility] Eosinophils 1.7 0.0 - 4.0 05/08/2018 [facility] HEMATOLOGY Basophils 0.7 0.0 - 1.0 05/08/2018 [facility] HEMATOLOGY Neutrophils # 4.4 1.5 - 8.1 05/08/2018 [facility] HEMATOLOGY Segs 70.2 45.0 - 75.0 05/08/2018 [facility] HEMATOLOGY Lymphocytes 20.7 20.0 - 40.0 05/08/2018 [facility] HEMATOLOGY Monocytes 6.7 2.0 - 12.0 05/08/2018 [facility] CARDIAC ENZYMES CK MB 1.8 0.5 - 3.6 11/18/2017 [facility] CARDIAC ENZYMES Total CK 112 12 - 191 11/18/2017 [facility] CARDIAC ENZYMES Troponin-I <0.02 0.00 - 0.40 11/18/2017 [facility] CARDIAC ENZYMES CK MB Index 1.6 0.0 - 2.5 11/18/2017 [facility] CHEM PANEL eGFR 32 11/18/2017 Result [...] should be multiplied by the estimated BMI. [facility] CHEM PANEL AST 25 0 - 37 11/18/2017 [facility] CHEM PANEL Alk Phos 49 39 - 136 11/18/2017 [facility] CHEM PANEL Bili Total 0.5 0.2 - 1.3 11/18/2017 [facility] CHEM PANEL Globulin 3.2 2.7 - 4.2 11/18/2017 [facility] CHEM PANEL A/G Ratio 1.2 0.7 - 1.6 11/18/2017 [facility] CHEM PANEL AGAP 13.3 10.0 - 20.0 11/18/2017 [facility] CHEM PANEL B/C Ratio 17 6 - 25 11/18/2017 [facility] CHEM PANEL Albumin Lvl 3.8 3.5 - 5.0 11/18/2017 [facility] CHEM PANEL ALT 24 0 - 65 11/18/2017 [facility] CHEM PANEL Calcium Lvl 9.3 8.5 - 10.5 11/18/2017 [facility] CHEM PANEL Total Protein 7.0 6.4 - 8.4 11/18/2017 [facility] CHEM PANEL Chloride Lvl 109 95 - 109 11/18/2017 [facility] CHEM PANEL CO2 25 24 - 32 11/18/2017 [facility] CHEM PANEL Sodium Lvl 143 135 - 145 11/18/2017 [facility] CHEM PANEL Potassium Lvl 4.3 3.5 - 5.1 11/18/2017 [facility] CHEM PANEL Glucose Lvl 153 70 - 99 11/18/2017 [facility] CHEM PANEL BUN 25 7 - 22 11/18/2017 [facility] CHEM PANEL Creatinine Lvl 1.49 0.50 - 1.40 11/18/2017 [facility] HEMATOLOGY WBC 8.1 3.7 - 10.4 11/18/2017 [facility] HEMATOLOGY RBC 3.42 4.20 - 5.40 11/18/2017 [facility] HEMATOLOGY MPV 9.7 7.4 - 10.4 11/18/2017 [facility] MCHC 33.5 32.0 - 36.0 11/18/2017 [facility] HEMATOLOGY Hgb 10.6 12.0 - 16.0 11/18/2017 [facility] HEMATOLOGY Platelet 234 133 - 450 11/18/2017 [facility] HEMATOLOGY RDW 12.7 11.5 - 14.5 11/18/2017 [facility] HEMATOLOGY MCV 92.0 80.0 - 98.0 11/18/2017 [facility] HEMATOLOGY MCH 30.9 27.0 - 31.0 11/18/2017 [facility] HEMATOLOGY Hct 31.5 36.0 - 48.0 11/18/2017 [facility] HEMATOLOGY PTT 31.6 22.9 - 35.8 11/18/2017 [facility] HEMATOLOGY INR 1.03 0.85 - 1.17 11/18/2017 [facility] HEMATOLOGY PT 13.5 12.0 - 14.7 11/18/2017 [facility] HEMATOLOGY Monocytes # 0.4 0.0 - 0.8 11/18/2017 [facility] HEMATOLOGY Basophils 0.8 0.0 - 1.0 11/18/2017 [facility] HEMATOLOGY Neutrophils # 6.3 1.5 - 8.1 11/18/2017 [facility] HEMATOLOGY Segs 78.5 45.0 - 75.0 11/18/2017 [facility] HEMATOLOGY Lymphocytes # 1.2 1.0 - 5.5 11/18/2017 [facility] HEMATOLOGY Monocytes 5.2 2.0 - 12.0 11/18/2017 [facility] HEMATOLOGY Lymphocytes 14.4 20.0 - 40.0 11/18/2017 [facility] HEMATOLOGY Eosinophils 1.1 0.0 - 4.0 11/18/2017 [facility] HEMATOLOGY Eosinophils # 0.1 0.0 - 0.5 11/18/2017 [facility] HEMATOLOGY Basophils # 0.1 0.0 - 0.2 11/18/2017 [facility] CHEM PANEL Procalcitonin Lvl 0.16 0.00 - 0.10 03/07/2016 [facility] CHEM PANEL Amylase Lvl 68 25 - 115 03/07/2016 [facility] URINE AND STOOL UA Bacteria None Seen (03/06/16 8:53 PM) None Seen 03/07/2016 [facility] URINE AND STOOL UA RBC None Seen (03/06/16 8:53 PM) 0 - 2 03/07/2016 [facility] URINE AND STOOL UA Mucus None Seen (03/06/16 8:53 PM) None Seen 03/07/2016 [facility] URINE AND STOOL UA WBC 0-2 /HPF None Seen /HPF 03/07/2016 [facility] URINE AND STOOL UA Sq Epi Occasional /LPF Few /LPF 03/07/2016 [facility] URINE AND STOOL UA Protein Negative mg/dL Negative mg/dL 03/07/2016 [facility] URINE AND STOOL UA Bili Negative *NA* (03/06/16 8:53 PM) Negative 03/07/2016 [facility] URINE AND STOOL UA Glucose Negative mg/dL Negative mg/dL 03/07/2016 [facility] [address] URINE AND STOOL UA Ketones Negative mg/dL Negative mg/dL 03/07/2016 [facility] [address] URINE AND STOOL UA Leuk Est Negative (03/06/16 8:53 PM) Negative 03/07/2016 [facility] URINE AND STOOL UA Urobilinogen 0.2 0.1 - 1.0 03/07/2016 [facility] URINE AND STOOL UA Blood Negative (03/06/16 8:53 PM) Negative 03/07/2016 [facility] URINE AND STOOL UA Nitrite Negative (03/06/16 8:53 PM) Negative 03/07/2016 [facility] URINE AND STOOL UA Turbidity Clear (03/06/16 8:53 PM) Clear 03/07/2016 [facility] URINE AND STOOL UA Color Yellow *NA* (03/06/16 8:53 PM) Yellow 03/07/2016 [facility] URINE AND STOOL UA Spec Grav 1.010 <=1.030 03/07/2016 [facility] URINE AND STOOL UA pH 6.0 5.0 - 8.0 03/07/2016 [facility] CARDIAC ENZYMES Troponin-I <0.02 0.00 - 0.40 03/06/2016 [facility] CARDIAC ENZYMES Total CK 205 12 - 191 03/06/2016 [facility] CARDIAC ENZYMES CK MB 1.8 0.5 - 3.6 03/06/2016 [facility] CARDIAC ENZYMES CK MB Index 0.9 0.0 - 2.5 03/06/2016 [facility] CHEM PANEL Lipase Lvl 1258 73 - 393 03/06/2016 [facility] CHEM PANEL eGFR 27 03/06/2016 Result [...] should be multiplied by the estimated BMI. [facility] CHEM PANEL A/G Ratio 1.0 0.7 - 1.6 03/06/2016 [facility] CHEM PANEL AST 30 0 - 37 03/06/2016 [facility] CHEM PANEL B/C Ratio 19 6 - 25 03/06/2016 [facility] CHEM PANEL Globulin 3.6 2.7 - 4.2 03/06/2016 [facility] CHEM PANEL AGAP 10.9 10.0 - [...] PANEL BUN 34 7 - 22 03/06/2016 [facility] HEMATOLOGY MPV 9.6 7.4 - 10.4 03/06/2016 [facility] HEMATOLOGY Platelet 281 133 - 450 03/06/2016 [facility] HEMATOLOGY RDW 12.6 11.5 - 14.5 03/06/2016 [facility] HEMATOLOGY MCH 30.8 27.0 - 31.0 03/06/2016 [facility] HEMATOLOGY MCV 90.6 80.0 - 98.0 03/06/2016 [facility] HEMATOLOGY MCHC 34.0 32.0 - 36.0 03/06/2016 [facility] HEMATOLOG[facility] Hct 30.7 36.0 - 48.0 03/06/2016 [facility] HEMATOLOGY Hgb 10.4 12.0 - 16.0 03/06/2016 [facility] HEMATOLOGY RBC 3.39 4.20 - 5.40 03/06/2016 [facility] HEMATOLOGY WBC 7.2 3.7 - 10.4 03/06/2016 [facility] HEMATOLOGY Segs 70.4 45.0 - 75.0 03/06/2016 [facility] HEMATOLOGY Monocytes 5.2 2.0 - 12.0 03/06/2016 [facility] HEMATOLOGY Lymphocytes 22.3 20.0 - 40.0 03/06/2016 [facility] HEMATOLOGY Eosinophils # 0.1 0.0 - 0.5 03/06/2016 [facility] HEMATOLOGY Basophils # 0.1 0.0 - 0.2 03/06/2016 [facility] HEMATOLOGY Monocytes # 0.4 0.0 - 0.8 03/06/2016 [facility] HEMATOLOGY Basophils 0.7 0.0 - 1.0 03/06/2016 [facility] HEMATOLOGY Eosinophils 1.4 0.0 - 4.0 03/06/2016 [facility] HEMATOLOGY Segs-Bands # 5.0 1.5 - 8.1 03/06/2016 [facility] HEMATOLOGY Lymphocytes # 1.6 1.0 - 5.5 03/06/2016 [facility] CHEM PANEL Lactic Acid WB 1.7 0.5 - 2.2 10/06/2015 [facility] DRUG SCREEN U Phencyc Scr Nega tive *NA* (10/05/15 6:00 PM) Negative 10/05/2015 [facility] DRUG SCREEN U Benzodia Scr Nega tive *NA* (10/05/15 6:00 PM) Negative 10/05/2015 [facility] DRUG SCREEN U Cocaine Scr Nega tive *NA* (10/05/15 6:00 PM) Negative 10/05/2015 [facility] DRUG SCREEN U Cannab Scr Nega tive *NA* (10/05/15 6:00 PM) Negative 10/05/2015 [facility] DRUG SCREEN U Opiate Scr Nega tive *NA* (10/05/15 6:00 PM) Negative 10/05/2015 [facility] DRUG SCREEN U Amph Scr Nega tive *NA* (10/05/15 6:00 PM) Negative 10/05/2015 [facility] DRUG SCREEN U Aleida Scr Nega tive *NA* (10/05/15 6:00 PM) Negative 10/05/2015 [facility] DRUG SCREEN UDS Note See Note *NA* (10/05/15 6:00 PM) 10/05/2015 [facility] URINE AND STOOL UA Leuk Est Negative (10/05/15 6:00 PM) Negative 10/05/2015 [facility] URINE AND STOOL UA Nitrite Negative (10/05/15 6:00 PM) Negative 10/05/2015 [facility] URINE AND STOOL UA Urobilinogen 0.2 0.1 - 1.0 10/05/2015 [facility] URINE AND STOOL UA Color Yellow *NA* (10/05/15 6:00 PM) Yellow 10/05/2015 [facility] URINE AND STOOL UA Blood Trace *ABN* (10/05/15 6:00 PM) Negative 10/05/2015 [facility] URINE AND STOOL UA Bili Negative *NA* (10/05/15 6:00 PM) Negative 10/05/2015 [facility] URINE AND STOOL UA Ketones Negative *NA* (10/05/15 6:00 PM) Negative 10/05/2015 [facility] URINE AND STOOL UA Glucose Negative (10/05/15 6:00 PM) Negative 10/05/2015 [facility] URINE AND STOOL UA Protein Trace *ABN* (10/05/15 6:00 PM) Negative 10/05/2015 [facility] URINE AND STOOL UA pH 7.0 5.0 - 8.0 10/05/2015 [facility] URINE AND STOOL UA Spec Grav 1.015 <=1.030 10/05/2015 [facility] URINE AND STOOL UA Turbidity Clear (10/05/15 6:00 PM) Clear 10/05/2015 [facility] URINE AND STOOL UA Sq Epi Rare /LPF Few /LPF 10/05/2015 [facility] URINE AND STOOL UA WBC None Seen (10/05/15 6:00 PM) None Seen 10/05/2015 [facility] URINE AND STOOL UA Bacteria None Seen (10/05/15 6:00 PM) None Seen 10/05/2015 [facility] URINE AND STOOL UA RBC 1 10/05/2015 [facility] BLOOD BANK RESULTS Antibody Scrn Negative (10/05/15 4:03 PM) 10/05/2015 [facility] BLOOD BANK RESULTS ABO/Rh O POS 10/05/2015 [facility] CARDIAC ENZYMES Troponin-I <0.02 0.00 - 0.40 10/05/2015 [facility] CHEM PANEL Total Protein 7.3 6.4 - 8.4 10/05/2015 [facility] CHEM PANEL Albumin Lvl 4.0 3.5 - 5.0 10/05/2015 [facility] CHEM PANEL Bili Direct 0.1 0.0 - 0.3 10/05/2015 [facility] CHEM PANEL Bili Total 0.5 0.2 - 1.3 10/05/2015 [facility] CHEM PANEL Alk Phos 65 39 - 136 10/05/2015 [facility] CHEM PANEL AST 31 0 - 37 10/05/2015 [facility] CHEM PANEL ALT 25 0 - 65 10/05/2015 [facility] CHEM PANEL Bili Indirect 0.4 0.0 - 1.0 10/05/2015 [facility] CHEM PANEL A/G Ratio 1.2 0.7 - 1.6 10/05/2015 [facility] CHEM PANEL Globulin 3.3 2.0 - 4.0 10/05/2015 [facility] CHEM PANEL Lactic Acid Lvl 2.9 0.5 - 2.2 10/05/2015 [facility] ELECTROLYTES AGAP 16.3 10.0 - 20.0 10/05/2015 [facility] ELECTROLYTES eGFR 24 10/05/2015 Result Comment: The [...] should be multiplied by the estimated BMI. [facility] ELECTROLYTES Creatinine Lvl 1.9 6 0.50 - 1.40 10/05/2015 [facility] ELECTROLYTES Sodium Lvl 138 135 - 145 10/05/2015 [facility] ELECTROLYTES Chloride Lvl 101 95 - 109 10/05/2015 [facility] ELECTROLYTES CO2 25 24 - 32 10/05/2015 [facility] ELECTROLYTES BUN 33 7 - 22 10/05/2015 [facility] ELECTROLYTES Glucose Lvl 248 70 - 99 10/05/2015 [facility] ELECTROLYTES Potassium Lvl 4.3 3.5 - 5.1 10/05/2015 [facility] ELECTROLYTES Calcium Lvl 9.1 8.5 - 10.5 10/05/2015 [facility] HEMATOLOGY Lymphocytes # 1.4 1.0 - 5.5 10/05/2015 [facility] HEMATOLOGY Basophils # 0.1 0.0 - 0.2 10/05/2015 [facility] HEMATOLOGY Segs-Bands # 8.0 1.5 - 8.1 10/05/2015 [facility] HEMATOLOGY Eosinophils # 0.2 0.0 - 0.5 10/05/2015 [facility] HEMATOLOGY Monocytes # 0.4 0.0 - 0.8 10/05/2015 [facility] HEMATOLOGY Basophils 0.8 0.0 - 1.0 10/05/2015 [facility] HEMATOLOGY Lymphocytes 14.1 20.0 - 40.0 10/05/2015 [facility] HEMATOLOGY Segs 79.0 45.0 - 75.0 10/05/2015 [facility] HEMATOLOGY Eosinophils 2.0 0.0 - 4.0 10/05/2015 [facility] HEMATOLOGY Monocytes 4.1 2.0 - 12.0 10/05/2015 [facility] HEMATOLOGY Angle Rapid 79 64 - 80 10/05/2015 [facility] HEMATOLOGY Max Amplitude Rapid 67 52 - 71 10/05/2015 [facility] HEMATOLOGY G-value Rapid 10.2 5.0 - 11.6 10/05/2015 [facility] HEMATOLOGY K-time Rapid 0.9 0.6 - 2.3 10/05/2015 [facility] HEMATOLOGY R-time Rapid 0.5 0.4 - 0.7 10/05/2015 [facility] HEMATOLOGY ACT (TEG) Rapid 97 86 - 118 10/05/2015 [facility] HEMATOLOGY Split Point Rapid 0.4 10/05/2015 [facility] HEMATOLOGY Estimated % Lysis Rapid 3 .3 0.0 - 7.5 10/05/2015 Result Comment: "Significant Findings ca lled to Esteban Mackey_at 10/05/2015 17:23__by GD__.Read Back OK." [facility] HEMATOLOGY MCV 91.3 80.0 - 98.0 10/05/2015 [facility] HEMATOLOGY Hct 32.1 36.0 - 48.0 10/05/2015 [facility] HEMATOLOGY Platelet 209 133 - 450 10/05/2015 [facility] HEMATOLOGY RDW 13.1 11.5 - 14.5 10/05/2015 [facility] HEMATOLOGY Hgb 11.0 12.0 - 16.0 10/05/2015 [facility] HEMATOLOGY MCHC 34.2 32.0 - 36.0 10/05/2015 [facility] HEMATOLOGY MCH 31.2 27.0 - 31.0 10/05/2015 [facility] HEMATOLOGY RBC 3.51 4.20 - 5.40 10/05/2015 [facility] HEMATOLOGY WBC 10.1 3.7 - 10.4 10/05/2015 [facility] HEMATOLOGY MPV 9.3 7.4 - 10.4 10/05/2015 [facility] TOXICOLOGY Etoh (%) <0.003 % 10/05/2015 [facility] [place] TOXICOLOGY Ethanol Lvl <3.0 mg/dL 10/05/2015 [facility] [place] CARDIAC ENZYMES Total CK 161 12 - 191 08/27/2015 [facility] CARDIAC ENZYMES CK MB 1.1 0.5 - 3.6 08/27/2015 [facility] CARDIAC ENZYMES Troponin-I 0.03 0.00 - 0.40 08/27/2015 [facility] CARDIAC ENZYMES CK MB Index 0.7 0.0 - 2.5 08/27/2015 [facility] CHEM PANEL Globulin 3.4 2.0 - 4.0 08/27/2015 [facility] CHEM PANEL A/G Ratio 1.3 0.7 - 1.6 08/27/2015 [facility] CHEM PANEL AGAP 9.9 10.0 - 20.0 08/27/2015 [facility] CHEM PANEL B/C Ratio 18 6 - 25 08/27/2015 [facility] CHEM PANEL AST 24 0 - 37 08/27/2015 [facility] CHEM PANEL Total Protein 7.7 6.4 - 8.4 08/27/2015 [facility] CHEM PANEL eGFR 29 08/27/2015 Result [...] should be multiplied by the estimated BMI. [facility] CHEM PANEL Albumin Lvl 4.3 3.5 - 5.0 08/27/2015 [facility] CHEM PANEL Alk Phos 51 39 - 136 08/27/2015 [facility] CHEM PANEL Glucose Lvl 128 70 - 99 08/27/2015 [facility] CHEM PANEL ALT 25 0 - 65 08/27/2015 [facility] CHEM PANEL Calcium Lvl 9.4 8.5 - 10.5 08/27/2015 [facility] CHEM PANEL Bili Total 0.4 0.2 - 1.3 08/27/2015 [facility] CHEM PANEL Chloride Lvl 104 95 - 109 08/27/2015 [facility] CHEM PANEL CO2 31 24 - 32 08/27/2015 [facility] CHEM PANEL Potassium Lvl 3.9 3.5 - 5.1 08/27/2015 [facility] CHEM PANEL Creatinine Lvl 1.65 0.50 - 1.40 08/27/2015 [facility] CHEM PANEL Sodium Lvl 141 135 - 145 08/27/2015 [facility] CHEM PANEL BUN 30 7 - 22 08/27/2015 [facility] HEMATOLOGY RBC 3.77 4.20 - 5.40 08/27/2015 [facility] HEMATOLOGY WBC 7.4 3.7 - 10.4 08/27/2015 [facility] HEMATOLOGY Hct 34.5 36.0 - 48.0 08/27/2015 [facility] HEMATOLOGY RDW 12.4 11.5 - 14.5 08/27/2015 [facility] HEMATOLOGY MCHC 32.8 32.0 - 36.0 08/27/2015 [facility] HEMATOLOGY MPV 9.6 7.4 - 10.4 08/27/2015 [facility] HEMATOLOGY Hgb 11.3 12.0 - 16.0 08/27/2015 [facility] HEMATOLOGY Platelet 228 133 - 450 08/27/2015 [facility] MCH 30.0 27.0 - 31.0 08/27/2015 [facility] HEMATOLOGY MCV 91.5 80.0 - 98.0 08/27/2015 [facility] HEMATOLOGY Segs 59.7 45.0 - 75.0 08/27/2015 [facility] HEMATOLOGY Monocytes 7.6 2.0 - 12.0 08/27/2015 [facility] HEMATOLOGY Lymphocytes 27.3 20.0 - 40.0 08/27/2015 [facility] HEMATOLOGY Segs-Bands # 4.4 1.5 - 8.1 08/27/2015 [facility] HEMATOLOGY Basophils 2.3 0.0 - 1.0 08/27/2015 [facility] HEMATOLOGY Eosinophils 3.1 0.0 - 4.0 08/27/2015 [facility] HEMATOLOGY Monocytes # 0.6 0.0 - 0.8 08/27/2015 [facility] HEMATOLOGY Lymphocytes # 2.0 1.0 - 5.5 08/27/2015 [facility] HEMATOLOGY Basophils # 0.2 0.0 - 0.2 08/27/2015 [facility] HEMATOLOGY Eosinophils # 0.2 0.0 - 0.5 08/27/2015 [facility] VIRAL - SEROLOGY Influ B Negative (08/26/15 8:17 PM) Negative 08/27/2015 [facility] VIRAL - SEROLOGY Influ A Negative (08/26/15 8:17 PM) Negative 08/27/2015 [facility] URINE AND STOOL UA Protein Negative mg/dL Negative mg/dL 02/25/2014 [facility] URINE AND STOOL UA Ketones Negative mg/dL Negative mg/dL 02/25/2014 [facility] URINE AND STOOL UA Glucose Negative mg/dL Negative mg/dL 02/25/2014 [facility] URINE AND STOOL UA Bili Negative *NA* (02/24/14 6:30 PM) Negative 02/25/2014 [facility] URINE AND STOOL UA Blood Negative (02/24/14 6:30 PM) Negative 02/25/2014 [facility] URINE AND STOOL UA Turbidity Clear (02/24/14 6:30 PM) Clear 02/25/2014 [facility] URINE AND STOOL UA Color Yellow *NA* (02/24/14 6:30 PM) Yellow 02/25/2014 [facility] URINE AND STOOL UA Nitrite Negative (02/24/14 6:30 PM) Negative 02/25/2014 [facility] URINE AND STOOL UA Urobilinogen 0.2 0.1 - 1.0 02/25/2014 [facility] URINE AND STOOL UA Leuk Est Negative (02/24/14 6:30 PM) Negative 02/25/2014 [facility] URINE AND STOOL UA Spec Grav 1.025 <=1.030 02/25/2014 [facility] URINE AND STOOL UA pH 5.5 5.0 - 8.0 02/25/2014 [facility] URINE AND STOOL UA Bacteria None Seen (02/24/14 6:30 PM) None Seen 02/25/2014 [facility] URINE AND STOOL UA WBC 3-5 /HPF None Seen /HPF 02/25/2014 [facility] URINE AND STOOL UA RBC None Seen (02/24/14 6:30 PM) 0 - 2 02/25/2014 [facility] URINE AND STOOL UA Sq Epi Few /LPF Few /LPF 02/25/2014 [facility] Microbiology Culture: Wound/Abscess w/Gram Stain 12/18/2012 [facility] BEDSIDE GLUCOSE TESTING Gluc POC Lif scn 127 70 - 99 12/06/2012 [place] <sup>1</sup>Interpretive Data: Upper Reportable Limit: 200 mg/dL. [facility] [place] BEDSIDE GLUCOSE TESTING Gluc POC Lif scn 248 70 - 99 12/06/2012 [place] <sup>2</sup>Interpretive Data: Upper Reportable Limit: 200 mg/dL. [facility] [place] BEDSIDE GLUCOSE TESTING Comment1 Notify RN/MD 12/06/2012 NA [facility] [place] BEDSIDE GLUCOSE TESTING Gluc POC Lif scn 135 70 - 99 12/06/2012 [place] <sup>3</sup>Interpretive Data: Upper Reportable Limit: 200 mg/dL. [facility] [place] CHEMISTRY Sodium Lvl 145 135 - 145 12/06/2012 Normal [facility] [place] CHEMISTRY Potassium Lvl 3.9 3.5 - 5.1 12/06/2012 Normal [facility] [place] CHEMISTRY Chloride Lvl 106 95 - 109 12/06/2012 Normal [facility] [place] CHEMISTRY CO2 26 24 - 32 12/06/2012 Normal [facility] [place] CHEMISTRY Calcium Lvl 8.3 8.5 - 10.5 12/06/2012 LOW [facility] [place] CHEMISTRY Creatinine Lvl 1.6 0.5 - 1.4 12/06/2012 HI [facility] [place] CHEMISTRY Glucose Lvl 116 70 - 99 12/06/2012 [place] <sup>7</sup>Interpretive Data: Adult ref erence range values reflect the clinical guidelines
of the [place] [employer]. [facility] [place] CHEMISTRY BUN 32 7 - 22 12/06/2012 HI [facility] [place] CHEMISTRY eGFR 31 12/06/2012 NA <sup>4</sup>Result Comment: [...] should be multiplied by the estimated BMI. [facility] [place] CHEMISTRY AGAP 16.9 10.0 - 20.0 12/06/2012 [facility] HEMATOLOGY MPV 9.7 7.4 - 10.4 12/06/2012 [facility] HEMATOLOGY Hct 28.7 36.0 - 48.0 12/06/2012 [facility] HEMATOLOGY Platelet 188 133 - 450 12/06/2012 [facility] HEMATOLOGY RDW 14.6 11.5 - 14.5 12/06/2012 [facility] [place] HEMATOLOGY MCHC 33.7 32.0 - 36.0 12/06/2012 [facility] HEMATOLOGY MCH 30.7 27.0 - 31.0 12/06/2012 [facility] HEMATOLOGY MCV 91.0 81.0 - 99.0 12/06/2012 [facility] HEMATOLOGY RBC 3.15 4.20 - 5.40 12/06/2012 [facility] HEMATOLOGY WBC 5.4 3.7 - 10.4 12/06/2012 [facility] HEMATOLOGY Hgb 9.7 12.0 - 16.0 12/06/2012 [facility] HEMATOLOGY Monocytes # 0.5 0.0 - 0.8 12/06/2012 [facility] HEMATOLOGY Lymphocytes # 1.0 1.0 - 5.5 12/06/2012 [facility] HEMATOLOGY Segs-Bands # 3.5 1.5 - 8.1 12/06/2012 [facility] HEMATOLOGY Basophils 0.9 0.0 - 1.0 12/06/2012 Normal [facility] [place] HEMATOLOGY Eosinophils 6.2 0.0 - 4.0 12/06/2012 HI [facility] [place] HEMATOLOGY Monocytes 9.8 2.0 - 12.0 12/06/2012 Normal [facility] [place] HEMATOLOGY Lymphocytes 18.4 20.0 - 40.0 12/06/2012 LOW [facility] [place] HEMATOLOGY Eosinophils # 0.3 0.0 - 0.5 12/06/2012 Normal [facility] [place] HEMATOLOGY Basophils # 0.1 0.0 - 0.2 12/06/2012 [facility] HEMATOLOGY Segs 64.7 45.0 - 75.0 12/06/2012 Normal [facility] [place] BEDSIDE GLUCOSE TESTING Comment1 Notify RN/MD 12/06/2012 NA [facility] [place] BEDSIDE GLUCOSE TESTING Comment1 Notify RN/MD 12/05/2012 [facility] CHEMISTRY AGAP 18.6 10.0 - 20.0 12/05/2012 Normal [facility] [place] CHEMISTRY eGFR 33 12/05/2012 NA <sup>5</sup>Result Comment: [...] should be multiplied by the estimated BMI. [facility] [place] CHEMISTRY Calcium Lvl 8.1 8.5 - 10.5 12/05/2012 [facility] CHEMISTRY CO2 23 24 - 32 12/05/2012 [facility] CHEMISTRY Chloride Lvl 105 95 - 109 12/05/2012 Normal [facility] [place] CHEMISTRY Potassium Lvl 3.6 3.5 - 5.1 12/05/2012 [facility] CHEMISTRY Glucose Lvl 102 70 - 99 12/05/2012 [place] <sup>8</sup>Interpretive Data: Adult ref erence range values reflect the clinical guidelines
of the [place] [employer]. [facility] [place] CHEMISTRY Sodium Lvl 143 135 - 145 12/05/2012 [facility] CHEMISTRY Creatinine Lvl 1.5 0.5 - 1.4 12/05/2012 [facility] [place] CHEMISTRY BUN 31 7 - 22 12/05/2012 [facility] [place] HEMATOLOGY MPV 10.1 7.4 - 10.4 12/05/2012 [facility] HEMATOLOGY RDW 14.8 11.5 - 14.5 12/05/2012 [facility] [place] HEMATOLOGY MCH 30.2 27.0 - 31.0 12/05/2012 [facility] HEMATOLOGY MCV 92.5 81.0 - 99.0 12/05/2012 [facility] HEMATOLOGY Platelet 192 133 - 450 12/05/2012 [facility] HEMATOLOGY MCHC 32.7 32.0 - 36.0 12/05/2012 [facility] HEMATOLOGY WBC 5.6 3.7 - 10.4 12/05/2012 [facility] HEMATOLOGY RBC 3.25 4.20 - 5.40 12/05/2012 [facility] HEMATOLOGY Hgb 9.8 12.0 - 16.0 12/05/2012 [facility] HEMATOLOGY Hct 30.1 36.0 - 48.0 12/05/2012 [facility] HEMATOLOGY Basophils # 0.1 0.0 - 0.2 12/05/2012 [facility] HEMATOLOGY Eosinophils # 0.4 0.0 - 0.5 12/05/2012 [facility] HEMATOLOGY Lymphocytes # 1.0 1.0 - 5.5 12/05/2012 [facility] HEMATOLOGY Basophils 0.9 0.0 - 1.0 12/05/2012 [facility] HEMATOLOGY Monocytes 7.9 2.0 - 12.0 12/05/2012 [facility] HEMATOLOGY Lymphocytes 17.3 20.0 - 40.0 12/05/2012 [facility] HEMATOLOGY Segs-Bands # 3.8 1.5 - 8.1 12/05/2012 [facility] HEMATOLOGY Monocytes # 0.4 0.0 - 0.8 12/05/2012 Normal [facility] [place] HEMATOLOGY Segs 67.1 45.0 - 75.0 12/05/2012 Normal [facility] [place] HEMATOLOGY Eosinophils 6.8 0.0 - 4.0 12/05/2012 HI [facility] [place] CHEMISTRY Vanco Tr TND 1200 12/04/2012 NA [facility] [place] CHEMISTRY Vanco Tr 9.6 12/04/2012 NA <sup>10</sup>Interpretive Data: Therapeutic Range:
Trough: 10 - 20 ug/mL
Peak: 20 - 40 ug/mL
Potential Toxicity: >80 ug/mL [facility] [place] CHEMISTRY AGAP 18.0 10.0 - 20.0 12/04/2012 Normal [facility] [place] CHEMISTRY Potassium Lvl 4.0 3.5 - 5.1 12/04/2012 Normal [facility] [place] CHEMISTRY Chloride Lvl 109 95 - 109 12/04/2012 Normal [facility] [place] CHEMISTRY Sodium Lvl 145 135 - 145 12/04/2012 Normal [facility] [place] CHEMISTRY eGFR 40 12/04/2012 NA <sup>6</sup>Result Comment: [...] should be multiplied by the estimated BMI. [facility] [place] CHEMISTRY Glucose Lvl 81 70 - 99 12/04/2012 Normal <sup>9</sup>Interpretive Data: Adult ref erence range values reflect the clinical guidelines
of the [place] [employer]. [facility] [place] CHEMISTRY BUN 29 7 - 22 12/04/2012 [facility] [place] CHEMISTRY Creatinine Lvl 1.3 0.5 - 1.4 12/04/2012 [facility] CHEMISTRY Calcium Lvl 7.9 8.5 - 10.5 12/04/2012 [facility] CHEMISTRY CO2 22 24 - 32 12/04/2012 [facility] HEMATOLOGY Segs 72.8 45.0 - 75.0 12/04/2012 [facility] HEMATOLOGY Monocytes 7.6 2.0 - 12.0 12/04/2012 [facility] HEMATOLOGY Basophils 0.8 0.0 - 1.0 12/04/2012 [facility] HEMATOLOGY Eosinophils 5.4 0.0 - 4.0 12/04/2012 [facility] [place] HEMATOLOGY Lymphocytes 13.4 20.0 - 40.0 12/04/2012 [facility] HEMATOLOGY Monocytes # 0.5 0.0 - 0.8 12/04/2012 [facility] HEMATOLOGY Lymphocytes # 0.9 1.0 - 5.5 12/04/2012 [facility] HEMATOLOGY Basophils # 0.1 0.0 - 0.2 12/04/2012 [facility] HEMATOLOGY Eosinophils # 0.4 0.0 - 0.5 12/04/2012 [facility] HEMATOLOGY Segs-Bands # 5.1 1.5 - 8.1 12/04/2012 [facility] HEMATOLOGY WBC 7.0 3.7 - 10.4 12/04/2012 [facility] HEMATOLOGY RBC 3.19 4.20 - 5.40 12/04/2012 [facility] HEMATOLOGY Hgb 9.8 12.0 - 16.0 12/04/2012 [facility] HEMATOLOGY Hct 29.2 36.0 - 48.0 12/04/2012 [facility] HEMATOLOGY Platelet 221 133 - 450 12/04/2012 [facility] HEMATOLOGY RDW 14.4 11.5 - 14.5 12/04/2012 [facility] HEMATOLOGY MCV 91.4 81.0 - 99.0 12/04/2012 [facility] HEMATOLOGY MCHC 33.7 32.0 - 36.0 12/04/2012 [facility] HEMATOLOGY MCH 30.8 27.0 - 31.0 12/04/2012 [facility] HEMATOLOGY MPV 9.5 7.4 - 10.4 12/04/2012 Normal [facility] [place] Microbiology Culture: AFB w/Smear 12/03/2012 [facility] [place] Microbiology Culture: Anaerobic 12/03/2012 [facility] [place] Microbiology Culture: Wound/Abscess w/Gram Stain 12/03/2012 [facility] [place] Microbiology Culture: Aspirate/Body Fluid/Tissue 12/03/2012 [facility] [place] Microbiology Culture: Fungal w/Smear 12/03/2012 [facility] [place] CHEMISTRY Magnesium Lvl 1.9 1.8 - 2.4 12/03/2012 Normal [facility] [place] CHEMISTRY Phosphorus 3.8 2.5 - 4.5 12/03/2012 Normal [facility] [place] CHEMISTRY Total Protein 6.0 6.4 - 8.4 12/03/2012 LOW [facility] [place] CHEMISTRY Bili Total 0.5 0.2 - 1.3 12/03/2012 Normal [facility] [place] CHEMISTRY AST 25 0 - 37 12/03/2012 Normal [facility] [place] CHEMISTRY A/G Ratio 0.8 0.7 - 1.6 12/03/2012 Normal [facility] [place] CHEMISTRY Globulin 3.4 2.0 - 4.0 12/03/2012 Normal [facility] [place] CHEMISTRY B/C Ratio 28 6 - 25 12/03/2012 HI [facility] [place] CHEMISTRY ALT 36 0 - 65 12/03/2012 Normal [facility] [place] CHEMISTRY Alk Phos 120 39 - 136 12/03/2012 Normal [facility] [place] CHEMISTRY Albumin Lvl 2.6 3.5 - 5.0 12/03/2012 LOW [facility] [place] HEMATOLOGY PTT 32.0 22.9 - 35.8 12/03/2012 Normal <sup>12</sup>Interpretive Data: Heparin Therapeutic Range: 57 - 92 Seconds [facility] [place] Microbiology Culture: MRSA 12/03/2012 [facility] [place] CHEMISTRY A/G Ratio 0.9 0.7 - 1.6 12/03/2012 Normal [facility] [place] CHEMISTRY Globulin 3.2 2.0 - 4.0 12/03/2012 Normal [facility] [place] CHEMISTRY AST 31 0 - 37 12/03/2012 Normal [facility] [place] CHEMISTRY Bili Total 0.5 0.2 - 1.3 12/03/2012 Normal [facility] [place] CHEMISTRY Total Protein 6.2 6.4 - 8.4 12/03/2012 LOW [facility] [place] CHEMISTRY B/C Ratio 30 6 - 25 12/03/2012 HI [facility] [place] CHEMISTRY Alk Phos 125 39 - 136 12/03/2012 Normal [facility] [place] CHEMISTRY Albumin Lvl 3.0 3.5 - 5.0 12/03/2012 LOW [facility] [place] CHEMISTRY ALT 38 0 - 65 12/03/2012 Normal [facility] [place] HEMATOLOGY PTT 30.6 22.9 - 35.8 12/03/2012 Normal <sup>13</sup>Interpretive Data: Heparin Therapeutic Range: 57 - 92 Seconds [facility] [place] HEMATOLOGY PT 14.7 12.0 - 14.7 12/03/2012 Normal [facility] [place] HEMATOLOGY INR 1.13 0.85 - 1.17 12/03/2012 Normal <sup>11</sup>Interpretive Data: RECOMMEN DED RANGES FOR PROTIME INR:
2.0-3.0 for most medical and surgical thromboembolic states.
2.5-3.5 for artificial heart valves and recurrent embolism.

INR SHOULD BE USED ONLY FOR PATIENTS ON STABLE ANTICOAGULANT THERAPY. [facility] [place] BLOOD BANK RESULTS ABO/Rh O POS 12/03/2012 Unknown [facility] [place] BLOOD BANK RESULTS Antibody Scrn Negative (12/02/2012 20:39:00) 12/03/2012 Normal [facility] [place] BLOOD BANK RESULTS RBC product Product available (12/02/2012 20:39:00) 12/03/2012 Normal [facility] [place] BLOOD BANK RESULTS Platelet product Product available (12/02/2012 20:39:00) 12/03/2012 Normal [facility] [place] BLOOD BANK RESULTS FFP product Product available (12/02/2012 20:39:00) 12/03/2012 Normal [facility] [place] BEDSIDE GLUCOSE TESTING Comment1 Notify RN/ 11/26/2012 NA [facility] [place] BEDSIDE GLUCOSE TESTING Gluc POC Lif scn 207 70 - 99 11/26/2012 [place] <sup>1</sup>Interpretive Data: Upper Reportable Limit: 200 mg/dL. [facility] [place] BEDSIDE GLUCOSE TESTING Gluc POC Lif scn 252 70 - 99 11/26/2012 [place] <sup>2</sup>Interpretive Data: Upper Reportable Limit: 200 mg/dL. [facility] [place] BEDSIDE GLUCOSE TESTING Comment1 Notify RN/ 11/26/2012 NA [facility] [place] BEDSIDE GLUCOSE TESTING Gluc POC Lif scn 180 70 - 99 11/26/2012 [place] <sup>3</sup>Interpretive Data: Upper Reportable Limit: 200 mg/dL. [facility] [place] BEDSIDE GLUCOSE TESTING Comment1 Notify RN/ 11/26/2012 NA [facility] [place] CHEMISTRY eGFR 40 11/25/2012 NA <sup>4</sup>Result Comment: [...] should be multiplied by the estimated BMI. [facility] [place] CHEMISTRY Chloride Lvl 102 95 - 109 11/25/2012 Normal [facility] [place] CHEMISTRY Calcium Lvl 8.3 8.5 - 10.5 11/25/2012 LOW [facility] [place] CHEMISTRY Potassium Lvl 4.2 3.5 - 5.1 11/25/2012 Normal [facility] [place] CHEMISTRY Sodium Lvl 144 135 - 145 11/25/2012 Normal [facility] [place] CHEMISTRY CO2 29 24 - 32 11/25/2012 Normal [facility] [place] CHEMISTRY Creatinine Lvl 1.3 0.5 - 1.4 11/25/2012 Normal [facility] [place] CHEMISTRY BUN 16 7 - 22 11/25/2012 Normal [facility] [place] CHEMISTRY Glucose Lvl 127 70 - 99 11/25/2012 [place] <sup>7</sup>Interpretive Data: Adult ref erence range values reflect the clinical guidelines
of the [place] [employer]. [facility] [place] CHEMISTRY AGAP 17.2 10.0 - 20.0 11/25/2012 Normal [facility] [place] HEMATOLOGY Monocytes # 0.7 0.0 - 0.8 11/25/2012 [facility] HEMATOLOGY Eosinophils # 0.1 0.0 - 0.5 11/25/2012 [facility] HEMATOLOGY Basophils # 0.1 0.0 - 0.2 11/25/2012 [facility] HEMATOLOGY Lymphocytes # 1.2 1.0 - 5.5 11/25/2012 [facility] HEMATOLOGY Segs 74.8 45.0 - 75.0 11/25/2012 [facility] HEMATOLOGY Monocytes 9.0 2.0 - 12.0 11/25/2012 [facility] HEMATOLOGY Eosinophils 1.3 0.0 - 4.0 11/25/2012 [facility] HEMATOLOGY Basophils 0.8 0.0 - 1.0 11/25/2012 [facility] HEMATOLOGY Segs-Bands # 6.2 1.5 - 8.1 11/25/2012 [facility] HEMATOLOGY Lymphocytes 14.1 20.0 - 40.0 11/25/2012 [facility] HEMATOLOGY WBC 8.3 3.7 - 10.4 11/25/2012 [facility] HEMATOLOGY RDW 14.6 11.5 - 14.5 11/25/2012 [facility] [place] HEMATOLOGY MCHC 33.6 32.0 - 36.0 11/25/2012 [facility] HEMATOLOGY Hgb 10.1 12.0 - 16.0 11/25/2012 [facility] HEMATOLOGY Hct 30.2 36.0 - 48.0 11/25/2012 [facility] HEMATOLOGY RBC 3.27 4.20 - 5.40 11/25/2012 [facility] HEMATOLOGY MCH 31.0 27.0 - 31.0 11/25/2012 [facility] HEMATOLOGY MCV 92.3 81.0 - 99.0 11/25/2012 [facility] HEMATOLOGY MPV 9.5 7.4 - 10.4 11/25/2012 [facility] HEMATOLOGY Platelet 251 133 - 450 11/25/2012 [facility] CHEMISTRY Ca Ion WB 1.03 1.05 - 1.25 11/24/2012 [facility] CHEMISTRY Ca Norm WB 1.08 1.05 - 1.25 11/24/2012 [facility] CHEMISTRY Phosphorus 3.2 2.5 - 4.5 11/24/2012 [facility] CHEMISTRY Magnesium Lvl 1.7 1.8 - 2.4 11/24/2012 LOW [facility] [place] CHEMISTRY AGAP 14.2 10.0 - 20.0 11/24/2012 Normal [facility] [place] CHEMISTRY eGFR 36 11/24/2012 NA <sup>5</sup>Result Comment: [...] should be multiplied by the estimated BMI. [facility] [place] CHEMISTRY Glucose Lvl 118 70 - 99 11/24/2012 [place] <sup>8</sup>Interpretive Data: Adult ref erence range values reflect the clinical guidelines
of the [place] [employer]. [facility] [place] CHEMISTRY Chloride Lvl 102 95 - 109 11/24/2012 Normal [facility] [place] CHEMISTRY CO2 30 24 - 32 11/24/2012 Normal [facility] [place] CHEMISTRY Calcium Lvl 8.5 8.5 - 10.5 11/24/2012 Normal [facility] [place] CHEMISTRY Creatinine Lvl 1.4 0.5 - 1.4 11/24/2012 Normal [facility] [place] CHEMISTRY Sodium Lvl 142 135 - 145 11/24/2012 Normal [facility] [place] CHEMISTRY Potassium Lvl 4.2 3.5 - 5.1 11/24/2012 Normal [facility] [place] CHEMISTRY BUN 17 7 - 22 11/24/2012 Normal [facility] HEMATOLOGY Hgb 10.5 12.0 - 16.0 11/24/2012 LOW [facility] HEMATOLOGY WBC 9.4 3.7 - 10.4 11/24/2012 Normal [facility] HEMATOLOGY Hct 31.7 36.0 - 48.0 11/24/2012 [facility] HEMATOLOGY RBC 3.47 4.20 - 5.40 11/24/2012 [facility] HEMATOLOGY MCV 91.4 81.0 - 99.0 11/24/2012 [facility] HEMATOLOGY MCH 30.2 27.0 - 31.0 11/24/2012 [facility] HEMATOLOGY Platelet 284 133 - 450 11/24/2012 [facility] HEMATOLOGY MCHC 33.0 32.0 - 36.0 11/24/2012 [facility] HEMATOLOGY RDW 14.8 11.5 - 14.5 11/24/2012 [facility] HEMATOLOGY MPV 9.3 7.4 - 10.4 11/24/2012 [facility] HEMATOLOGY Lymphocytes 18.1 20.0 - 40.0 11/24/2012 [facility] HEMATOLOGY Eosinophils 0.9 0.0 - 4.0 11/24/2012 [facility] HEMATOLOGY Monocytes 9.5 2.0 - 12.0 11/24/2012 [facility] HEMATOLOGY Segs-Bands # 6.6 1.5 - 8.1 11/24/2012 [facility] HEMATOLOGY Lymphocytes # 1.7 1.0 - 5.5 11/24/2012 [facility] HEMATOLOGY Basophils 0.8 0.0 - 1.0 11/24/2012 [facility] HEMATOLOGY Segs 70.7 45.0 - 75.0 11/24/2012 [facility] HEMATOLOGY Monocytes # 0.9 0.0 - 0.8 11/24/2012 [facility] HEMATOLOGY Basophils # 0.1 0.0 - 0.2 11/24/2012 [facility] HEMATOLOGY Eosinophils # 0.1 0.0 - 0.5 11/24/2012 [facility] CHEMISTRY eGFR 44 11/23/2012 NA <sup>6</sup>Result Comment: [...] should be multiplied by the estimated BMI. [facility] CHEMISTRY Glucose Lvl 123 70 - 99 11/23/2012 HI <sup>9</sup>Interpretive Data: Adult ref erence range values reflect the clinical guidelines
of the [place] [employer]. [facility] CHEMISTRY BUN 14 7 - 22 11/23/2012 Normal [facility] CHEMISTRY ALT 24 0 - 65 11/23/2012 Normal [facility] CHEMISTRY Total Protein 5.8 6.4 - 8.4 11/23/2012 LOW [facility] CHEMISTRY AGAP 7.2 10.0 - 20.0 11/23/2012 LOW [facility] CHEMISTRY Albumin Lvl 2.6 3.5 - 5.0 11/23/2012 LOW [facility] CHEMISTRY B/C Ratio 12 6 - 25 11/23/2012 Normal [facility] CHEMISTRY Creatinine Lvl 1.2 0.5 - 1.4 11/23/2012 Normal [facility] CHEMISTRY Potassium Lvl 4.2 3.5 - 5.1 11/23/2012 Normal [facility] CHEMISTRY Sodium Lvl 140 135 - 145 11/23/2012 Normal [facility] CHEMISTRY CO2 32 24 - 32 11/23/2012 Normal [facility] CHEMISTRY Chloride Lvl 105 95 - 109 11/23/2012 Normal [facility] CHEMISTRY Bili Total 1.0 0.2 - 1.3 11/23/2012 Normal [facility] CHEMISTRY Calcium Lvl 8.2 8.5 - 10.5 11/23/2012 LOW [facility] CHEMISTRY Globulin 3.2 2.0 - 4.0 11/23/2012 Normal [facility] CHEMISTRY AST 25 0 - 37 11/23/2012 Normal [facility] CHEMISTRY A/G Ratio 0.8 0.7 - 1.6 11/23/2012 Normal [facility] CHEMISTRY Alk Phos 134 39 - 136 11/23/2012 [facility] HEMATOLOGY Eosinophils # 0.1 0.0 - 0.5 11/23/2012 [facility] HEMATOLOGY Monocytes # 0.7 0.0 - 0.8 11/23/2012 [facility] HEMATOLOGY Lymphocytes # 1.2 1.0 - 5.5 11/23/2012 [facility] HEMATOLOGY Basophils # 0.1 0.0 - 0.2 11/23/2012 [facility] HEMATOLOGY Segs-Bands # 5.7 1.5 - 8.1 11/23/2012 [facility] HEMATOLOGY Basophils 0.8 0.0 - 1.0 11/23/2012 [facility] HEMATOLOGY Eosinophils 0.7 0.0 - 4.0 11/23/2012 [facility] HEMATOLOGY Monocytes 9.1 2.0 - 12.0 11/23/2012 [facility] HEMATOLOGY Segs 73.8 45.0 - 75.0 11/23/2012 [facility] HEMATOLOGY Lymphocytes 15.6 20.0 - 40.0 11/23/2012 [facility] HEMATOLOGY Hct 32.0 36.0 - 48.0 11/23/2012 [facility] HEMATOLOGY RDW 14.7 11.5 - 14.5 11/23/2012 [facility] HEMATOLOGY MCV 90.5 81.0 - 99.0 11/23/2012 [facility] HEMATOLOGY MCH 30.1 27.0 - 31.0 11/23/2012 [facility] HEMATOLOGY Hgb 10.7 12.0 - 16.0 11/23/2012 [facility] HEMATOLOGY MCHC 33.3 32.0 - 36.0 11/23/2012 [facility] HEMATOLOGY WBC 7.7 3.7 - 10.4 11/23/2012 [facility] HEMATOLOGY RBC 3.54 4.20 - 5.40 11/23/2012 [facility] HEMATOLOGY Platelet 284 133 - 450 11/23/2012 [facility] HEMATOLOGY MPV 9.4 7.4 - 10.4 11/23/2012 [facility] HEMATOLOGY INR 1.13 0.85 - 1.17 11/23/2012 Normal <sup>12</sup>Interpretive Data: RECOMMEN DED RANGES FOR PROTIME INR:
2.0-3.0 for most medical and surgical thromboembolic states.
2.5-3.5 for artificial heart valves and recurrent embolism.

INR SHOULD BE USED ONLY FOR PATIENTS ON STABLE ANTICOAGULANT THERAPY. [facility] HEMATOLOGY PT 14.7 12.0 - 14.7 11/23/2012 Normal [facility] HEMATOLOGY PTT 47.6 22.9 - 35.8 11/23/2012 HI <sup>18</sup>Interpretive Data: Heparin Therapeutic Range: 57 - 92 Seconds [facility] IMMUNOLOGY Prealbumin 11.8 18.0 - 45.0 11/23/2012 LOW [facility] BEDSIDE GLUCOSE TESTING Comment2 Verify w/Lab 11/22/2012 NA [facility] CHEMISTRY Lipase Lvl 186 73 - 393 11/22/2012 Normal [facility] CHEMISTRY Amylase Lvl 28 25 - 115 11/22/2012 Normal [facility] CHEMISTRY Ferritin Lvl 1205 5 - 204 11/22/2012 [facility] CHEMISTRY TIBC 176 228 - 428 11/22/2012 LOW [facility] CHEMISTRY Iron 38 30 - 160 11/22/2012 Normal [facility] CHEMISTRY % Satur Fe 22 12 - 57 11/22/2012 Normal [facility] CHEMISTRY UIBC 138 110 - 370 11/22/2012 Normal [facility] CHEMISTRY Globulin 3.4 2.0 - 4.0 11/22/2012 Normal [facility] CHEMISTRY Total Protein 6.3 6.4 - 8.4 11/22/2012 LOW [facility] CHEMISTRY AST 27 0 - 37 11/22/2012 Normal [facility] CHEMISTRY A/G Ratio 0.9 0.7 - 1.6 11/22/2012 Normal [facility] CHEMISTRY Bili Direct 0.4 0.0 - 0.3 11/22/2012 [facility] CHEMISTRY Bili Total 1.1 0.2 - 1.3 11/22/2012 Normal [facility] CHEMISTRY Albumin Lvl 2.9 3.5 - 5.0 11/22/2012 LOW [facility] CHEMISTRY Alk Phos 145 39 - 136 11/22/2012 [facility] CHEMISTRY Bili Indirect 0.7 0.0 - 1.0 11/22/2012 Normal [facility] CHEMISTRY ALT 22 0 - 65 11/22/2012 Normal [facility] IMMUNOLOGY Prealbumin 15.2 18.0 - 45.0 11/22/2012 LOW [facility] CHEMISTRY Phosphorus 3.7 2.5 - 4.5 11/22/2012 Normal [facility] CHEMISTRY Magnesium Lvl 1.8 1.8 - 2.4 11/22/2012 Normal [facility] CHEMISTRY Magnesium Lvl 1.9 1.8 - 2.4 11/21/2012 Normal [facility] CHEMISTRY Phosphorus 3.6 2.5 - 4.5 11/21/2012 Normal [facility] HEMATOLOGY PT 14.7 12.0 - 14.7 11/21/2012 Normal [facility] HEMATOLOGY INR 1.13 0.85 - 1.17 11/21/2012 Normal <sup>13</sup>Interpretive Data: RECOMMEN DED RANGES FOR PROTIME INR:
2.0-3.0 for most medical and surgical thromboembolic states.
2.5-3.5 for artificial heart valves and recurrent embolism.

INR SHOULD BE USED ONLY FOR PATIENTS ON STABLE ANTICOAGULANT THERAPY. [facility] CHEMISTRY Ca Ion WB 1.03 1.05 - 1.25 11/16/2012 LOW [facility] CHEMISTRY Ca Norm WB 1.01 1.05 - 1.25 11/16/2012 LOW [facility] BLOOD BANK RESULTS Antibody Scrn Negative (11/16/2012 01:55:00) 11/16/2012 Normal [facility] BLOOD BANK RESULTS ABO/Rh O POS 11/16/2012 Unknown [facility] HEMATOLOGY RBC Morph Linda l (11/16/2012 01:55:00) 11/16/2012 Normal [facility] HEMATOLOGY Plt Morph Linda l (11/16/2012 01:55:00) 11/16/2012 Normal [facility] CHEMISTRY Ca Ion WB 1.05 1.05 - 1.25 11/15/2012 Normal [facility] CHEMISTRY Ca Norm WB 1.05 1.05 - 1.25 11/15/2012 Normal [facility] HEMATOLOGY RBC Morph Linda l (11/15/2012 01:44:00) 11/15/2012 Normal [facility] HEMATOLOGY Plt Morph Linda l (11/15/2012 01:44:00) 11/15/2012 Normal [facility] CHEMISTRY Vanco Tr TND 0900 11/14/2012 NA [facility] CHEMISTRY Vanco Tr 16.7 11/14/2012 NA <sup>11</sup>Interpretive Data: Therapeutic Range:
Trough: 10 - 20 ug/mL
Peak: 20 - 40 ug/mL
Potential Toxicity: >80 ug/mL [facility] CHEMISTRY POC A LA 0.8 0.5 - 2.2 11/14/2012 Normal [facility] CHEMISTRY POC A Glu 146 70 - 99 11/14/2012 [facility] CHEMISTRY POC A Source ART 11/14/2012 NA [facility] CHEMISTRY POC A pH 7.46 7.35 - 7.45 11/14/2012 [facility] CHEMISTRY POC A Temp 37.0 11/14/2012 NA [facility] CHEMISTRY POC A PO2 82 80 - 100 11/14/2012 Normal [facility] CHEMISTRY POC A HCO3 26 22 - 26 11/14/2012 Normal [facility] CHEMISTRY POC A PCO2 36 35 - 45 11/14/2012 Normal [facility] CHEMISTRY POC A BE 2 -2-2 - 2 11/14/2012 Normal [facility] CHEMISTRY POC A Hct 33.0 36.0 - 48.0 11/14/2012 LOW [facility] CHEMISTRY POC A O2 Sat 97.0 95.0 - 100.0 11/14/2012 Normal [facility] CHEMISTRY POC A K 4.4 3.5 - 5.1 11/14/2012 Normal [facility] CHEMISTRY POC A Na 138 135 - 145 11/14/2012 Normal [facility] CHEMISTRY POC A Ca Ion 1.06 1.05 - 1.25 11/14/2012 Normal [facility] BLOOD BANK RESULTS RBC product Product available (11/14/2012 05:18:00) 11/14/2012 Normal [facility] CHEMISTRY POC A Glu 132 70 - 99 11/14/2012 [facility] CHEMISTRY POC A LA 0.7 0.5 - 2.2 11/14/2012 Normal [facility] CHEMISTRY POC A Ca Ion 1.08 1.05 - 1.25 11/14/2012 Normal [facility] CHEMISTRY POC A K 4.1 3.5 - 5.1 11/14/2012 Normal [facility] CHEMISTRY POC A Na 139 135 - 145 11/14/2012 [facility] CHEMISTRY POC A Hct 27.0 36.0 - 48.0 11/14/2012 LOW [facility] CHEMISTRY POC A O2 Sat 97.0 95.0 - 100.0 11/14/2012 Normal [facility] CHEMISTRY POC A Source ART 11/14/2012 NA [facility] CHEMISTRY POC A BE 3 -2-2 - 2 11/14/2012 HI [facility] CHEMISTRY POC A HCO3 27 22 - 26 11/14/2012 HI [facility] CHEMISTRY POC A PCO2 40 35 - 45 11/14/2012 Normal [facility] CHEMISTRY POC A PO2 87 80 - 100 11/14/2012 Normal [facility] CHEMISTRY POC A pH 7.44 7.35 - 7.45 11/14/2012 Normal [facility] CHEMISTRY POC A Temp 37.0 11/14/2012 NA [facility] HEMATOLOGY PT 16.3 12.0 - 14.7 11/14/2012 HI [facility] HEMATOLOGY INR 1.29 0.85 - 1.17 11/14/2012 HI <sup>14</sup>Interpretive Data: RECOMMEN DED RANGES FOR PROTIME INR:
2.0-3.0 for most medical and surgical thromboembolic states.
2.5-3.5 for artificial heart valves and recurrent embolism.

INR SHOULD BE USED ONLY FOR PATIENTS ON STABLE ANTICOAGULANT THERAPY. [facility] HEMATOLOGY PTT 41.2 22.9 - 35.8 11/14/2012 HI <sup>19</sup>Interpretive Data: Heparin Therapeutic Range: 57 - 92 Seconds [facility] HEMATOLOGY D-Dimer 0.88 11/14/2012 NA <sup>15</sup>Interpretive Data: In DIC, quantitative D-Dimer is generally greater than
0.66 ug/mL FEU. Values of quantitative D-Dimer less than
0.40 ug/mL FEU have been reported to be associated with a low
probability of deep vein thrombosis/pulmonary embolism.
This test alone should not be used to rule out DVT/PE. [facility] HEMATOLOGY Thrombin Time 15.2 15.0 - 21.2 11/14/2012 Normal [facility] HEMATOLOGY Fibrinogen Lvl 462 230 - 510 11/14/2012 Normal [facility] HEMATOLOGY Elliptocyte Sligh t *ABN* (11/14/2012 04:00:00) None S een 11/14/2012 [facility] HEMATOLOGY Large Plt Sligh t *ABN* (11/14/2012 04:00:00) None S een 11/14/2012 ABN [facility] CHEMISTRY POC A PO2 92 80 - 100 11/14/2012 Normal [facility] CHEMISTRY POC A pH 7.48 7.35 - 7.45 11/14/2012 [facility] CHEMISTRY POC A LA 0.9 0.5 - 2.2 11/14/2012 Normal [facility] CHEMISTRY POC A Na 143 135 - 145 11/14/2012 [facility] CHEMISTRY POC A K 3.7 3.5 - 5.1 11/14/2012 Normal [facility] CHEMISTRY POC A Ca Ion 1.08 1.05 - 1.25 11/14/2012 Normal [facility] CHEMISTRY POC A Temp 37.0 11/14/2012 NA [facility] CHEMISTRY POC A Hct 28.0 36.0 - 48.0 11/14/2012 LOW [facility] CHEMISTRY POC A O2 Sat 98.0 95.0 - 100.0 11/14/2012 Normal [facility] CHEMISTRY POC A PCO2 39 35 - 45 11/14/2012 Normal [facility] CHEMISTRY POC A HCO3 29 22 - 26 11/14/2012 [facility] CHEMISTRY POC A BE 5 -2-2 - 2 11/14/2012 [facility] CHEMISTRY POC A Glu 149 70 - 99 11/14/2012 [facility] CHEMISTRY POC A Source ART 11/14/2012 NA [facility] CHEMISTRY POC V Hct 27.0 36.0 - 48.0 11/13/2012 LOW [facility] CHEMISTRY POC V Ion Ca 1.11 1.05 - 1.25 11/13/2012 [facility] CHEMISTRY POC V Temp 37.0 11/13/2012 NA [facility] CHEMISTRY POC V PO2 82 20 - 49 11/13/2012 [facility] CHEMISTRY POC V PCO2 38 38 - 52 11/13/2012 Normal [facility] CHEMISTRY POC V pH 7.46 7.28 - 7.42 11/13/2012 [facility] CHEMISTRY POC V LA 0.8 0.5 - 2.2 11/13/2012 Normal [facility] CHEMISTRY POC V K 3.8 3.5 - 5.1 11/13/2012 Normal [facility] CHEMISTRY POC V Na 145 135 - 145 11/13/2012 Normal [facility] CHEMISTRY POC V Glu 117 70 - 99 11/13/2012 [facility] CHEMISTRY POC V O2 Sat 97.0 40.0 - 70.0 11/13/2012 [facility] CHEMISTRY POC V BE 3 -2-2 - 2 11/13/2012 [facility] CHEMISTRY POC V HCO3 27 22 - 26 11/13/2012 [facility] CHEMISTRY POC V Source ROMULO 11/13/2012 NA [facility] CHEMISTRY POC V Mode NC 11/13/2012 NA [facility] CHEMISTRY POC V LA 0.5 0.5 - 2.2 11/13/2012 Normal [facility] CHEMISTRY POC V PCO2 50 38 - 52 11/13/2012 Normal [facility] CHEMISTRY POC V pH 7.38 7.28 - 7.42 11/13/2012 Normal [facility] CHEMISTRY POC V HCO3 30 22 - 26 11/13/2012 [facility] CHEMISTRY POC V BE 4 -2-2 - 2 11/13/2012 [facility] CHEMISTRY POC V PO2 35 20 - 49 11/13/2012 Normal [facility] CHEMISTRY POC V O2 Sat 66.0 40.0 - 70.0 11/13/2012 Normal [facility] CHEMISTRY POC V Glu 101 70 - 99 11/13/2012 [facility] CHEMISTRY POC V Na 146 135 - 145 11/13/2012 [facility] CHEMISTRY POC V K 3.2 3.5 - 5.1 11/13/2012 LOW [facility] CHEMISTRY POC V Source ROMULO 11/13/2012 [facility] CHEMISTRY POC V Ion Ca 1.13 1.05 - 1.25 11/13/2012 Normal [facility] CHEMISTRY POC V Temp 37.0 11/13/2012 [facility] CHEMISTRY POC V Hct 27.0 36.0 - 48.0 11/13/2012 [facility] CHEMISTRY Bili Total 1.5 0.2 - 1.3 11/13/2012 [facility] CHEMISTRY Total Protein 4.9 6.4 - 8.4 11/13/2012 LOW [facility] CHEMISTRY AST 47 0 - 37 11/13/2012 HI [facility] CHEMISTRY Albumin Lvl 3.1 3.5 - 5.0 11/13/2012 LOW [facility] CHEMISTRY ALT 15 0 - 65 11/13/2012 Normal [facility] CHEMISTRY Alk Phos 47 39 - 136 11/13/2012 Normal [facility] CHEMISTRY A/G Ratio 1.7 0.7 - 1.6 11/13/2012 HI [facility] CHEMISTRY Globulin 1.8 2.0 - 4.0 11/13/2012 LOW [facility] CHEMISTRY B/C Ratio 25 6 - 25 11/13/2012 Normal [facility] HEMATOLOGY PTT 38.8 22.9 - 35.8 11/13/2012 HI <sup>20</sup>Interpretive Data: Heparin Therapeutic Range: 57 - 92 Seconds [facility] HEMATOLOGY D-Dimer 0.69 11/13/2012 NA <sup>16</sup>Interpretive Data: In DIC, quantitative D-Dimer is generally greater than
0.66 ug/mL FEU. Values of quantitative D-Dimer less than
0.40 ug/mL FEU have been reported to be associated with a low
probability of deep vein thrombosis/pulmonary embolism.
This test alone should not be used to rule out DVT/PE. [facility] HEMATOLOGY Thrombin Time 14.5 15.0 - 21.2 11/13/2012 LOW [facility] HEMATOLOGY Fibrinogen Lvl 342 230 - 510 11/13/2012 Normal [facility] HEMATOLOGY D-Dimer 0.37 11/13/2012 NA <sup>17</sup>Interpretive Data: In DIC, quantitative D-Dimer is generally greater than
0.66 ug/mL FEU. Values of quantitative D-Dimer less than
0.40 ug/mL FEU have been reported to be associated with a low
probability of deep vein thrombosis/pulmonary embolism.
This test alone should not be used to rule out DVT/PE. [facility] HEMATOLOGY Fibrinogen Lvl 325 230 - 510 11/13/2012 Normal [facility] HEMATOLOGY Thrombin Time 14.6 15.0 - 21.2 11/13/2012 LOW [facility] CHEMISTRY Bili Indirect 2.0 0.0 - 1.0 11/12/2012 HI [facility] CHEMISTRY Bili Direct 0.8 0.0 - 0.3 11/12/2012 HI [facility] HEMATOLOGY RBC Morph Linda l (11/12/2012 12:01:00) 11/12/2012 Normal [facility] HEMATOLOGY Plt Morph Linda l (11/12/2012 12:01:00) 11/12/2012 Normal [facility] URINALYSIS UA Bacteria Occas ional /HPF (11/12/2012 10:38:27) None S een 11/12/2012 Normal [facility] URINALYSIS UA Nitrite Negat shaan (11/12/2012 10:38:27) Negati ve 11/12/2012 Normal [facility] URINALYSIS UA Urobilinogen 0.2 0.1 - 1.0 11/12/2012 Normal [facility] URINALYSIS Micro? Perfo rmed (11/12/2012 10:38:27) 11/12/2012 Normal [facility] URINALYSIS UA RBC 0-2 / HPF (11/12/2012 10:38:27) 0 - 2 11/12/2012 Normal [facility] URINALYSIS UA Sq Epi None Seen (11/12/2012 10:38:27) Few 11/12/2012 Normal [facility] URINALYSIS UA WBC None Seen (11/12/2012 10:38:27) 0 - 5 11/12/2012 Normal [facility] URINALYSIS UA Leuk Est Negat shaan (11/12/2012 10:38:27) Negati ve 11/12/2012 Normal [facility] URINALYSIS UA Protein Negat shaan (11/12/2012 10:38:27) Negati ve 11/12/2012 Normal [facility] URINALYSIS UA pH 5.5 5.0 - 8.0 11/12/2012 Normal [facility] URINALYSIS UA Turbidity Clear (11/12/2012 10:38:27) Clear 11/12/2012 Normal [facility] URINALYSIS UA Spec Grav 1.025 <=1.030 11/12/2012 Normal [facility] URINALYSIS UA Color Yello w *NA* (11/12/2012 10:38:27) Yellow 11/12/2012 NA [facility] URINALYSIS UA Blood Trace *ABN* (11/12/2012 10:38:27) Negati ve 11/12/2012 ABN [facility] URINALYSIS UA Glucose Negat shaan (11/12/2012 10:38:27) Negati ve 11/12/2012 Normal [facility] URINALYSIS UA Bili Negat shaan *NA* (11/12/2012 10:38:27) Negati ve 11/12/2012 NA [facility] URINALYSIS UA Ketones Negat shaan *NA* (11/12/2012 10:38:27) Negati ve 11/12/2012 NA [facility] HEMATOLOGY TEG Data See N ote 21 [...] correlated with clinical evaluation for patient management. [facility] HEMATOLOGY G-Value Hep 6.5 4.5 - 11.0 11/12/2012 Normal [facility] HEMATOLOGY Max Amp Hep 56.5 50.0 - 70.0 11/12/2012 Normal [facility] HEMATOLOGY Angle Hep 60.6 53.0 - 72.0 11/12/2012 Normal [facility] HEMATOLOGY K-Time Hep 2.2 1.0 - 3.0 11/12/2012 Normal [facility] HEMATOLOGY R-Time Hep 6.1 5.0 - 10.0 11/12/2012 Normal [facility] HEMATOLOGY Coag Index Hep -1.1 -3.0-3.0 - 3.0 11/12/2012 Normal [facility] HEMATOLOGY LY30 Hep 3.8 0.0 - 7.5 11/12/2012 Normal [facility] CHEMISTRY B/C Ratio 23 6 - 25 11/12/2012 Normal [facility] CHEMISTRY LDH 321 98 - 192 11/12/2012 HI [facility] HEMATOLOGY Retic Auto 1.4 0.5 - 1.5 11/12/2012 Normal [facility] HEMATOLOGY PB Smear Path 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 Impression: (1) no evidence of microangiopathic hemolysis, (2) RBC morphology is sugestive of liver disease. CPT: 97507 11/12/2012 NA [facility] IMMUNOLOGY Haptoglobin 35 16 - 200 11/12/2012 Normal [facility] BLOOD BANK RESULTS FFP product Product available (11/12/2012 09:40:00) 11/12/2012 Normal [facility] BLOOD BANK RESULTS RBC product Product available (11/12/2012 09:40:00) 11/12/2012 Normal [facility] BLOOD BANK RESULTS RBC product Product available (11/12/2012 08:31:00) 11/12/2012 Normal [facility] Microbiology Culture: Blood 11/12/2012 [facility] Microbiology Culture: Urine 11/12/2012 [facility] CHEMISTRY POC V BE 5 -2-2 - 2 11/12/2012 [facility] CHEMISTRY POC V O2 Sat 61.0 40.0 - 70.0 11/12/2012 Normal [facility] CHEMISTRY POC V Glu 123 70 - 99 11/12/2012 [facility] CHEMISTRY POC V K 3.7 3.5 - 5.1 11/12/2012 Normal [facility] CHEMISTRY POC V Na 145 135 - 145 11/12/2012 Normal [facility] CHEMISTRY POC V Ion Ca 1.20 1.05 - 1.25 11/12/2012 Normal [facility] CHEMISTRY POC V LA 3.3 0.5 - 2.2 11/12/2012 [facility] CHEMISTRY POC V PO2 30 20 - 49 11/12/2012 Normal [facility] CHEMISTRY POC V HCO3 29 22 - 26 11/12/2012 [facility] CHEMISTRY POC V pH 7.45 7.28 - 7.42 11/12/2012 [facility] CHEMISTRY POC V PCO2 42 38 - 52 11/12/2012 Normal [facility] CHEMISTRY POC V Temp 37.0 11/12/2012 NA [facility] CHEMISTRY POC V Source ROMULO 11/12/2012 NA [facility] CHEMISTRY POC V Hct 20.0 36.0 - 48.0 11/12/2012 CRIT [facility] HEMATOLOGY Large Plt Sligh t *ABN* (11/12/2012 06:38:12) None S een 11/12/2012 ABN [facility] HEMATOLOGY Neut Vac Sligh t *ABN* (11/12/2012 06:38:12) None S een 11/12/2012 ABN [facility] HEMATOLOGY Toxic Gran Sligh t *ABN* (11/12/2012 06:38:12) None S een 11/12/2012 ABN [facility] HEMATOLOGY Tot Cell Ct 100 11/12/2012 NA [facility] HEMATOLOGY Hypochrom Sligh t (11/12/2012 06:38:12) None S een 11/12/2012 Normal [facility] HEMATOLOGY Bands 10.0 0.0 - 11.0 11/12/2012 Normal [facility] HEMATOLOGY Atypical Lymphs 0.0 <=0.0 11/12/2012 Normal [facility] HEMATOLOGY Toxic Gran Sligh t *ABN* (11/12/2012 01:16:36) None S een 11/12/2012 ABN [facility] HEMATOLOGY Elliptocyte Sligh t *ABN* (11/12/2012 01:16:36) None S een 11/12/2012 ABN [facility] HEMATOLOGY Large Plt Sligh t *ABN* (11/12/2012 01:16:36) None S een 11/12/2012 ABN [facility] HEMATOLOGY Bands 7.0 0.0 - 11.0 11/12/2012 Normal [facility] HEMATOLOGY Atypical Lymphs 0.0 <=0.0 11/12/2012 Normal [facility] HEMATOLOGY Anisocyte 1+ *ABN* (11/12/2012 01:16:36) None S een 11/12/2012 ABN [facility] HEMATOLOGY Microcyte 1+ *ABN* (11/12/2012 01:16:36) None S een 11/12/2012 ABN [facility] HEMATOLOGY Polychrom Sligh t (11/12/2012 01:16:36) None S een 11/12/2012 Normal [facility] HEMATOLOGY Tear Cell Sligh t *ABN* (11/12/2012 01:16:36) None S een 11/12/2012 ABN [facility] HEMATOLOGY Hypochrom Sligh t (11/12/2012 01:16:36) None S een 11/12/2012 Normal [facility] BLOOD BANK RESULTS C3 Int Negative (11/12/2012 01:00:00) 11/12/2012 Normal [facility] BLOOD BANK RESULTS DENISSE Gel Int Negative (11/12/2012 01:00:00) 11/12/2012 Normal [facility] BLOOD BANK RESULTS Antibody Scrn Negative (11/12/2012 01:00:00) 11/12/2012 [facility] BLOOD BANK RESULTS ABO/Rh O POS 11/12/2012 Unknown [facility] CHEMISTRY Lactic Acid Lvl 5.7 0.5 - 2.2 11/11/2012 HI [facility] Microbiology Culture: MRSA 11/11/2012 [facility] BLOOD BANK RESULTS FFP product Product available (11/10/2012 18:22:00) 11/10/2012 Normal [facility] BLOOD BANK RESULTS Platelet product Product available (11/10/2012 18:22:00) 11/10/2012 Normal [facility] CHEMISTRY TSH 2.280 0.360 - 3.740 11/10/2012 Normal [facility] BLOOD BANK RESULTS FFP product Product available (11/09/2012 18:36:00) 11/09/2012 Normal [facility] BLOOD BANK RESULTS Platelet product Product available (11/09/2012 18:36:00) 11/09/2012 Normal [facility] CHEMISTRY BNP 46 <=100 11/09/2012 Normal <sup>10</sup>Interpretive Data: Elevated results are in line with increasing severity of
congestive heart failure. Minor elevations between 100 and 300
may be seen with Myocardial Ischemia, Sodium retaining drugs,
and compensated/treated heart failure. [facility] CHEMISTRY CHD Risk 3.68 3.90 - 5.80 11/09/2012 LOW [facility] CHEMISTRY LDL 77 <=99 11/09/2012 Normal [facility] CHEMISTRY HDL 37 >=61 11/09/2012 LOW [facility] CHEMISTRY Trig 109 <=149 11/09/2012 Normal [facility] CHEMISTRY Chol 136 <=199 11/09/2012 Normal [facility] CHEMISTRY Hgb A1C 6.2 <=5.6 11/09/2012 HI [facility] BLOOD BANK RESULTS Antibody Scrn Negative (11/09/2012 01:30:00) 11/09/2012 Normal [facility] BLOOD BANK RESULTS ABO/Rh O POS 11/09/2012 Unknown [facility] Pathology Reports No Data Provided for This [...] Small bilateral pleural effusions. Mild cardiomegaly. SL: [id number] 05/08/2018 [facility] Ext Lower Venous Doppler Unilat US [...] and lesser saphenous veins SL: [id number] 11/18/2017 [facility] Chest 1view DX Clinical Indica tion: [...] radiographic evidence of acute cardiopulmonary disease. SL: [id number] 11/18/2017 [facility] Abdomen RUQ US Clinical Indica tion: [...] or pole of the right kidney. SL: [id number] 03/06/2016 [facility] 1view DX Clinical Indica tion: Chest pain Comparison: Comparison is made to chest radiograph examination dated 10/05/2015. FINDINGS: Median sternotomy wires and mediastinal surgical clips are in place. The cardiomediastinal silhouette is within normal limits for appearance. No focal pulmonary consolidation, pneumothorax or pleural effusion. Midline trachea. IMPRESSION: 1. Postsurgical changes of the chest. No acute cardiopulmonary process. SL: [id number] 03/06/2016 [facility] Chest/Abdomen/Pelvis w IV contrast CT EXAM: [...] Findings. J Am Yu Radiol 2013;10:[id number] 10/05/2015 [facility] Spine cervical wo contrast CT EXAM: CT [...] tissue stranding at the left neck. 10/05/2015 [facility] Brain wo contrast CT EXAM: CT BRAIN [...] 16:36:41 Subject: No acute intracranial abnormality. 10/05/2015 [facility] Chest 1view DX EXAM: XR CHEST 1 [...] identified. IMPRESSION: No acute cardiopulmonary abnormality. 10/05/2015 [facility] Chest 2 views DX Clinical Yue cation: [...] Mild degenerative changes, otherwise unremarkable. SL: 02/24/2014 [facility] Hip 2 views DX Name: BAIRON [...] left hip. Mild degenerative changes. SL: 02/24/2014 [facility] Chest 1view EXAM: Chest 1view , [...] No pulmonary edema or pleural effusions. 06/28/2013 [facility] Chest 1view EXAM: CHEST ONE EW HISTORY: [...] atelectasis versus small left pleural effusion. 12/02/2012 [facility] Chest 2 views AP and lateral c [...] . Otherwise, the lungs are clear. 11/22/2012 [facility] Chest 1view PORTABLE CHEST 201 06-18-07 18:02:00 [...] again of small right pleural effusion. 11/17/2012 [facility] Chest 1view PORTABLE CHEST 201 06-17-06 04:39:00 [...] place. 2. Small right pleural effusion. 11/16/2012 [facility] Consultation Notes No Data Provided for This Section Discharge Summaries No Data Provided for This Section History and Physicals No Data Provided for This Section Vital Signs Vital Sign Value Date Comments Source Systolic (mm Hg) 145 09/08/2019 [facility] Diastolic (mm Hg) 60 09/08/2019 [facility] Heart Rate 62 09/08/2019 [facility] Respitory Rate 18 09/08/2019 [facility] Temperature Oral (F) 97.9 F 09/08/2019 [facility] Height 148.59 cm 09/08/2019 [facility] Weight 60.17 09/08/2019 [facility] BMI Calculated 27.25 09/08/2019 [facility] Height 154.94 cm 04/14/2019 [facility] Weight 64.091 04/14/2019 [facility] BMI Calculated 26.7 04/14/2019 [facility] Systolic (mm Hg) 157 03/24/2019 [facility] Diastolic (mm Hg) 72 03/24/2019 [facility] Heart Rate 79 03/24/2019 [facility] Respitory Rate 18 03/24/2019 [facility] Temperature Oral (F) 98.4 F 03/24/2019 [facility] Height 148.59 cm 03/24/2019 [facility] Weight 64.631 03/24/2019 [facility] BMI Calculated 29.27 03/24/2019 [facility] Heart Rate 81 05/08/2018 [facility] Resp[facility] Rate 22 05/08/2018 [facility] Temperature Oral (F) 98.0 F 05/08/2018 [facility] Systolic (mm Hg) 189 05/08/2018 [facility] Diastolic (mm Hg) 93 05/08/2018 [facility] Weight 65 0 05/08/2018 [facility] Height 160.02 cm 05/08/2018 [facility] BMI Calculated 25.38 05/08/2018 [facility] Temperature Oral (F) 98.0 F 05/08/2018 [facility] Heart Rate 89 05/08/2018 [facility] Respitory Rate 22 05/08/2018 [facility] Systolic (mm Hg) 184 05/08/2018 [facility] Diastolic (mm Hg) 79 05/08/2018 [facility] Height 149.86 cm 03/25/2018 [facility] BMI Calculated 27.28 03/25/2018 [facility] Weight 61.273 03/25/2018 [facility] Heart Rate 83 03/25/2018 [facility] Temperature Oral (F) 97.7 F 03/25/2018 [facility] Respitory Rate 16 03/25/2018 [facility] Systolic (mm Hg) 194 03/25/2018 [facility] Diastolic (mm Hg) 73 03/25/2018 [facility] Respitory Rate 20 11/18/2017 [facility] Heart Rate 70 11/18/2017 [facility] Systolic (mm Hg) 145 11/18/2017 [facility] Diastolic (mm Hg) 80 11/18/2017 [facility] Temperature Oral (F) 97.3 F 11/18/2017 [facility] Height 154.94 cm 11/18/2017 [facility] Weight 65 0 11/18/2017 [facility] BMI Calculated 27.08 11/18/2017 [facility] Systolic (mm Hg) 198 11/18/2017 [facility] Diastolic (mm Hg) 77 11/18/2017 [facility] Respitory Rate 20 11/18/2017 [facility] Heart Rate 77 11/18/2017 [facility] BMI Calculated 29 10/27/2017 [facility] Weight 62.5 10/27/2017 [facility] Temperature Oral (F) 97.7 F 10/27/2017 [facility] Respitory Rate 18 10/27/2017 [facility] Heart Rate 67 10/27/2017 [facility] Systolic (mm Hg) 172 10/27/2017 [facility] Diastolic (mm Hg) 74 10/27/2017 [facility] Height 146.81 cm 10/27/2017 [facility] Height 146.81 cm 07/28/2017 [facility] BMI Calculated 29.57 07/28/2017 [facility] Weight 63.722 07/28/2017 [facility] Temperature Oral (F) 97.4 F 07/28/2017 [facility] Respitory Rate 15 07/28/2017 [facility] Heart Rate 76 07/28/2017 [facility] Systolic (mm Hg) 179 07/28/2017 [facility] Diastolic (mm Hg) 76 07/28/2017 [facility] Height 124.46 cm 02/19/2017 [facility] Weight 62.273 02/19/2017 [facility] BMI Calculated 40.2 02/19/2017 [facility] Systolic (mm Hg) 151 02/19/2017 [facility] Diastolic (mm Hg) 74 02/19/2017 [facility] Heart Rate 80 02/19/2017 [facility] Temperature Oral (F) 97.6 F 02/19/2017 [facility] Systolic (mm Hg) 134 03/07/2016 [facility] Diastolic (mm Hg) 65 03/07/2016 [facility] Temperature Oral (F) 97.8 F 03/07/2016 [facility] Respitory Rate 20 03/07/2016 [facility] Heart Rate 61 03/07/2016 [facility] Temperature Oral (F) 97.1 F 03/07/2016 [facility] Heart Rate 66 03/07/2016 [facility] Respitory Rate 20 03/07/2016 [facility] Systolic (mm Hg) 122 03/07/2016 [facility] Diastolic (mm Hg) 64 03/07/2016 [facility] Heart Rate 63 03/07/2016 [facility] Temperature Oral (F) 98.5 F 03/07/2016 [facility] Systolic (mm Hg) 131 03/07/2016 [facility] Diastolic (mm Hg) 60 03/07/2016 [facility] Respitory Rate 20 03/07/2016 [facility] Weight 65.136 03/07/2016 [facility] Height 154.94 cm 03/07/2016 [facility] BMI Calculated 27.13 03/07/2016 [facility] Temperature Oral (F) 98.0 F 03/07/2016 [facility] Resp[facility] Rate 18 03/07/2016 [facility] Systolic (mm Hg) 141 03/07/2016 [facility] Diastolic (mm Hg) 65 03/07/2016 [facility] Respitory Rate 18 03/07/2016 [facility] Systolic (mm Hg) 149 03/07/2016 [facility] Diastolic (mm Hg) 68 03/07/2016 [facility] Systolic (mm Hg) 168 03/07/2016 [facility] Diastolic (mm Hg) 72 03/07/2016 [facility] Respitory Rate 20 03/07/2016 [facility] Temperature Oral (F) 97.7 F 03/06/2016 [facility] Heart Rate 69 03/06/2016 [facility] Height 154.94 cm 03/06/2016 [facility] BMI Calculated 26.89 03/06/2016 [facility] Weight 64.545 03/06/2016 [facility] Temperature Oral (F) 99.9 F 01/14/2016 [facility] Respitory Rate 18 01/14/2016 [facility] Systolic (mm Hg) 164 01/14/2016 [facility] Diastolic (mm Hg) 84 01/14/2016 [facility] Heart Rate 82 01/14/2016 [facility] Systolic (mm Hg) 168 01/13/2016 [facility] Diastolic (mm Hg) 72 01/13/2016 [facility] Heart Rate 82 01/13/2016 [facility] Height 154.94 cm 01/13/2016 [facility] BMI Calculated 26.7 01/13/2016 [facility] Respitory Rate 18 01/13/2016 [facility] Temperature Oral (F) 98.1 F 01/13/2016 [facility] Weight 64.091 01/13/2016 [facility] BMI Calculated 26.7 12/06/2015 [facility] Weight 64.091 12/06/2015 [facility] Height 154.94 cm 12/06/2015 [facility] Systolic (mm Hg) 137 12/06/2015 [facility] Diastolic (mm Hg) 70 12/06/2015 [facility] Temperature Oral (F) 97.6 F 12/06/2015 [facility] Respitory Rate 16 12/06/2015 [facility] Heart Rate 76 12/06/2015 [facility] Respitory Rate 18 10/06/2015 [facility] Systolic (mm Hg) 134 10/06/2015 [facility] Diastolic (mm Hg) 98 10/06/2015 [facility] Heart Rate 77 10/06/2015 [facility] Heart Rate 95 10/05/2015 [facility] Systolic (mm Hg) 164 10/05/2015 [facility] Diastolic (mm Hg) 85 10/05/2015 [facility] Respitory Rate 18 10/05/2015 [facility] Temperature Oral (F) 97.4 F 10/05/2015 [facility] Respitory Rate 18 10/05/2015 [facility] Heart Rate 99 10/05/2015 [facility] Temperature Oral (F) 98.8 F 10/05/2015 [facility] Systolic (mm Hg) 129 10/05/2015 [facility] Diastolic (mm Hg) 62 10/05/2015 [facility] Weight 63.636 10/05/2015 [facility] Temperature Oral (F) 97.6 F 09/06/2015 [facility] Height 154.94 cm 09/06/2015 [facility] Weight 63.665 09/06/2015 [facility] BMI Calculated 26.52 09/06/2015 [facility] Heart Rate 79 09/06/2015 [facility] Respitory Rate 16 09/06/2015 [facility] Systolic (mm Hg) 137 09/06/2015 [facility] Diastolic (mm Hg) 75 09/06/2015 [facility] Respitory Rate 18 08/27/2015 [facility] Systolic (mm Hg) 135 08/27/2015 [facility] Diastolic (mm Hg) 62 08/27/2015 [facility] Heart Rate 62 08/27/2015 [facility] Weight 63.636 08/27/2015 [facility] Height 154.94 cm 08/27/2015 [facility] BMI Calculated 26.51 08/27/2015 [facility] Respitory Rate 18 08/27/2015 [facility] Heart Rate 66 08/27/2015 [facility] Systolic (mm Hg) 170 08/27/2015 [facility] Diastolic (mm Hg) 82 08/27/2015 [facility] Temperature Oral (F) 98.2 F 08/27/2015 [facility] BMI Calculated 26.93 06/14/2015 [facility] Weight 64.659 06/14/2015 [facility] Height 154.94 cm 06/14/2015 [facility] Respitory Rate 16 06/14/2015 [facility] Heart Rate 80 06/14/2015 [facility] Temperature Oral (F) 96.4 F 06/14/2015 [facility] Systolic (mm Hg) 151 06/14/2015 [facility] Diastolic (mm Hg) 77 06/14/2015 [facility] Temperature Oral (F) 97.8 F 03/15/2015 [facility] Respitory Rate 18 03/15/2015 [facility] Heart Rate 88 03/15/2015 [facility] Height 154.94 cm 03/15/2015 [facility] BMI Calculated 26.56 03/15/2015 [facility] Weight 63.75 03/15/2015 [facility] Systolic (mm Hg) 149 03/15/2015 [facility] Diastolic (mm Hg) 67 03/15/2015 [facility] Height 154.94 cm 11/23/2014 [facility] BMI Calculated 28.29 11/23/2014 [facility] Weight 67.926 11/23/2014 [facility] Temperature Oral (F) 97.5 F 11/23/2014 [facility] Heart Rate 75 11/23/2014 [facility] Systolic (mm Hg) 130 11/23/2014 [facility] Diastolic (mm Hg) 72 11/23/2014 [facility] Weight 65.625 09/26/2014 [facility] Heart Rate 89 09/26/2014 [facility] Temperature Oral (F) 98.0 F 09/26/2014 [facility] Respitory Rate 16 09/26/2014 [facility] Systolic (mm Hg) 165 09/26/2014 [facility] Diastolic (mm Hg) 77 09/26/2014 [facility] Temperature Oral (F) 95.6 F 08/17/2014 [facility] Systolic (mm Hg) 147 08/17/2014 [facility] Diastolic (mm Hg) 73 08/17/2014 [facility] Weight 66.989 08/17/2014 [facility] BMI Calculated 27.9 08/17/2014 [facility] Height 154.94 cm 08/17/2014 [facility] Heart Rate 85 08/17/2014 [facility] Weight 66.108 05/18/2014 [facility] Heart Rate 92 05/18/2014 [facility] Systolic (mm Hg) 150 05/18/2014 [facility] Temperature Oral (F) 98.1 F 05/18/2014 [facility] Diastolic (mm Hg) 75 05/18/2014 [facility] BMI Calculated 27.54 05/18/2014 [facility] Height 154.94 cm 05/18/2014 [facility] Diastolic (mm Hg) 65 02/25/2014 [facility] Systolic (mm Hg) 132 02/25/2014 [facility] Rate 20 02/25/2014 [facility] Heart Rate 82 02/25/2014 [facility] Temperature Oral (F) 98 F 02/25/2014 [facility] Height 154.94 cm 02/24/2014 [facility] BMI Calculated 27.27 02/24/2014 [facility] Weight 65.455 02/24/2014 [facility] Systolic (mm Hg) 126 02/24/2014 [facility] Diastolic (mm Hg) 60 02/24/2014 [facility] Temperature Oral (F) 99.4 F 02/24/2014 [facility] Respitory Rate 16 02/24/2014 [facility] Heart Rate 77 02/24/2014 [facility] Height 154.94 cm 02/16/2014 [facility] BMI Calculated 27.89 02/16/2014 [facility] Weight 66.96 02/16/2014 [facility] Diastolic (mm Hg) 73 02/16/2014 [facility] Heart Rate 94 02/16/2014 [facility] Temperature Oral (F) 97.7 F 02/16/2014 [facility] Systolic (mm Hg) 146 02/16/2014 [facility] Respitory Rate 18 02/16/2014 [facility] Systolic (mm Hg) 127 11/17/2013 [facility] Respitory Rate 16 11/17/2013 [facility] Diastolic (mm Hg) 71 11/17/2013 [facility] Weight 66.818 11/17/2013 [facility] Heart Rate 97 11/17/2013 [facility] Temperature Oral (F) 97.2 F 11/17/2013 [facility] Height 154.9 cm 11/17/2013 [facility] BMI Calculated 27.85 11/17/2013 [facility] Diastolic (mm Hg) 77 08/18/2013 [facility] Temperature Oral (F) 97.9 F 08/18/2013 [facility] Heart Rate 91 08/18/2013 [facility] Systolic (mm Hg) 141 08/18/2013 [facility] Weight 66.506 08/18/2013 [facility] BMI Calculated 27.7 08/18/2013 [facility] Height 154.94 cm 08/18/2013 [facility] Diastolic (mm Hg) 72 07/28/2013 [facility] Temperature Oral (F) 97.4 F 07/28/2013 [facility] Systolic (mm Hg) 131 07/28/2013 [facility] Heart Rate 80 07/28/2013 [facility] Respitory Rate 17 07/28/2013 [facility] BMI Calculated 27.29 07/28/2013 [facility] Weight 65.511 07/28/2013 [facility] Height 154.94 cm 07/28/2013 [facility] BMI Calculated 27.74 07/21/2013 [facility] Weight 68.807 07/21/2013 [facility] Height 157.48 cm 07/21/2013 [facility] Diastolic (mm Hg) 80 07/21/2013 [facility] Systolic (mm Hg) 142 07/21/2013 [facility] Heart Rate 88 07/21/2013 [facility] Temperature Oral (F) 98.2 F 07/21/2013 [facility] Temperature Oral (F) 97.6 F 07/07/2013 [facility] Height 154.94 cm 07/07/2013 [facility] BMI Calculated 26.95 07/07/2013 [facility] Systolic (mm Hg) 150 07/07/2013 [facility] Diastolic (mm Hg) 77 07/07/2013 [facility] Respitory Rate 18 07/07/2013 [facility] Weight 64.688 07/07/2013 [facility] Heart Rate 88 07/07/2013 [facility] Heart Rate 82 06/23/2013 [facility] BMI Calculated 26.38 06/23/2013 [facility] Weight 63.324 06/23/2013 [facility] Height 154.94 cm 06/23/2013 [facility] Diastolic (mm Hg) 70 06/23/2013 [facility] Respitory Rate 16 06/23/2013 [facility] Systolic (mm Hg) 120 06/23/2013 [facility] Temperature Oral (F) 97.1 F 06/23/2013 [facility] Temperature Oral (F) 97.2 F 06/16/2013 [facility] Respitory Rate 20 06/16/2013 [facility] Heart Rate 92 06/16/2013 [facility] Diastolic (mm Hg) 87 06/16/2013 [facility] Systolic (mm Hg) 148 06/16/2013 [facility] Heart Rate 89 06/15/2013 [facility] Systolic (mm Hg) 125 06/15/2013 [facility] Temperature Oral (F) 97.6 F 06/15/2013 [facility] BMI Calculated 25.83 06/15/2013 [facility] Weight 62.001 06/15/2013 [facility] Height 154.94 cm 06/15/2013 [facility] Respitory Rate 16 06/15/2013 [facility] Diastolic (mm Hg) 76 06/15/2013 [facility] Diastolic (mm Hg) 67 12/18/2012 [facility] Systolic (mm Hg) 129 12/18/2012 [facility] Heart Rate 90 12/18/2012 [facility] Respitory Rate 18 12/18/2012 [facility] Temperature Oral (F) 98.1 F 12/18/2012 [facility] Temperature Oral (F) 98.0 F 12/17/2012 [facility] Systolic (mm Hg) 145 12/17/2012 [facility] Diastolic (mm Hg) 73 12/17/2012 [facility] Heart Rate 87 12/17/2012 [facility] Respitory Rate 18 12/17/2012 [facility] Height 154.94 cm 12/17/2012 [facility] Weight 60 0 12/17/2012 [facility] Systolic (mm Hg) 110 12/06/2012 [facility] Diastolic (mm Hg) 53 12/06/2012 [facility] Temperature Oral (F) 98.4 F 12/06/2012 [facility] Diastolic (mm Hg) 62 12/06/2012 [facility] Systolic (mm Hg) 105 12/06/2012 [facility] Systolic (mm Hg) 122 12/06/2012 [facility] Diastolic (mm Hg) 67 12/06/2012 [facility] Temperature Oral (F) 98 F 12/06/2012 [facility] Temperature Oral (F) 98 F 12/06/2012 [facility] Weight 60.483 12/06/2012 [facility] Respitory Rate 18 12/06/2012 [facility] Respitory Rate 18 12/06/2012 [facility] Respitory Rate 20 12/05/2012 [facility] Height 154.94 cm 12/02/2012 [facility] Weight 62.528 12/02/2012 [facility] Systolic (mm Hg) 133 11/26/2012 [facility] Diastolic (mm Hg) 61 11/26/2012 [facility] Temperature Oral (F) 99.2 F 11/26/2012 [facility] Systolic (mm Hg) 121 11/26/2012 [facility] Temperature Oral (F) 99.0 F 11/26/2012 [facility] Diastolic (mm Hg) 56 11/26/2012 [facility] Heart Rate 88 11/26/2012 [facility] Systolic (mm Hg) 114 11/26/2012 [facility] Respitory Rate 18 11/26/2012 [facility] Temperature Oral (F) 98.8 F 11/26/2012 [facility] Diastolic (mm Hg) 69 11/26/2012 [facility] Respitory Rate 18 11/26/2012 [facility] Heart Rate 89 11/26/2012 [facility] Heart Rate 79 11/25/2012 [facility] Respitory Rate 18 11/24/2012 [facility] Weight 73.722 11/19/2012 [facility] Height 160.02 cm 11/13/2012 [facility] Weight 65 0 11/09/2012 [facility] Height 154.94 cm 11/09/2012 [facility] Encounters Location Location Details Encounter Type Encounter Number Reason For Visit Attending Provider ADM Date DC Date Status Source [facility] Inpatient [id number] THREE VESSEL CAD DARLIGNWASERAFINT HARJEET 11/08/2012 11/26/2012 Active [facility] Outpatient [id number] HOSPITAL FOLLOW UP RANJITH GARZON 12/02/2012 Active [facility] Inpatient [id number] RT SAPHENOUS VEIN HARVEST SITE INFECTION, S/P CABG LIANG POTTER 12/02/2012 12/06/2012 Active [facility] Outpatient [id number] ST/P ACBX4 (SHEIKH TO LAD, SVG TO RPDA, SVG OM1, SVG TO O RANJITH LEEORIC 12/09/2012 Active [facility] Not Sent Em ergency [id number] CHRIS ENG 12/17/2012 12/17/2012 Discharged [facility] Outpatient [id number] ST/P ACBX4 (LIMALAD, SVG TO RPDA, SVG OM1, SVG TO OM2, LIANG POTTER 12/20/2012 Active [facility] Outpatient [id number] FOLLOW UP LIANGGUMARO POTTER 01/03/2013 Active [facility] Outpatient [id number] 2 WEEK FOLLOW UP LIANGGUMARO POTTER 01/17/2013 Active [facility] Outpatient [id number] _MAPID:[id number] Alcon janneth Tariq 06/15/2013 06/16/2013 [facility] Outpatient [id number] _MAPID:[id number] Percy marquita Arslan 06/16/2013 06/17/2013 [facility] Outpatient [id number] _MAPID:[id number] Percy marquita Arslan 06/23/2013 06/24/2013 [facility] Phone Message [id number] _MAPID:[id number] 06/26/2013 06/28/2013 [facility] Outpatient [id number] _MAPID:[id number] Percy Mcdaniels 07/07/2013 07/08/2013 [facility] Outpatient [id number] Tristan Mcdaniels 07/21/2013 07/22/2013 [facility] Outpatient [id number] Tristan Mcdaniels 07/28/2013 07/29/2013 [facility] Outpatient [id number] Tristan Mcdaniels 08/18/2013 08/19/2013 [facility] Outpatient [id number] Tristan Mcdaniels 11/17/2013 11/18/2013 [facility] Phone Message [id number] 12/02/19 14 12/03/2013 [facility] Outpatient [id number] Tristan Mcdaniels 02/16/2014 02/17/2014 [facility] [id number] 23 Frank Robertson 02/24/2014 02/25/2014 [facility] Outpatient [id number] Tristan Mcdaniels 05/18/2014 05/19/2014 [facility] Phone Message [id number] 06/04/1906/06/2014 [facility] Phone Message [id number] 06/06/19 15 06/08/2014 [facility] Outpatient [id number] Tristan Mcdaniels 08/17/2014 08/18/2014 [facility] Phone Message [id number] 09/22/19 15 09/23/2014 [facility] Outpatient [id number] Tristan Arslan 09/26/2014 09/27/2014 [facility] Outpatient [id number] Tristan Arslan 11/23/2014 11/24/2014 [facility] Phone Message [id number] 01/04/20 15 01/05/2015 [facility] Outpatient [id number] Tristan Arslan 03/15/2015 03/16/2015 [facility] Phone Message [id number] 04/02/20 15 04/04/2015 [facility] Phone Message [id number] 04/02/20 15 04/04/2015 [facility] Phone Message [id number] 04/19/19 16 04/20/2015 [facility] Outpatient [id number] Tristan Mcdaniels 06/14/2015 06/15/2015 [facility] [id number] Angela Pemberton 08/27/2015 08/27/2015 [facility] Outpatient [id number] Tristan Mcdaniels 09/06/2015 09/07/2015 [facility] [id number] Jj Galindo 10/05/2015 10/06/2015 [facility] Phone Message [id number] 10/07/19 16 10/09/2015 [facility] Outpatient [id number] Tristan Mcdaniels 12/06/2015 12/07/2015 [facility] Phone Message [id number] 01/07/20 16 01/09/2016 [facility] Emergency [id number] Brendan Wilson Jr 01/13/2016 01/14/2016 [facility] Phone Message [id number] 01/17/20 16 01/19/2016 [facility] Phone Message [id number] 01/21/20 16 01/23/2016 [facility] Phone Message [id number] 02/10/20 16 02/12/2016 [facility] Outpatient [id number] Tristan Arslan 02/21/2016 02/22/2016 [facility] Emergency [id number] Abdi Kat 03/06/2016 03/07/2016 [facility] Inpatient [id number] Tungzeferino Potts 03/07/2016 03/08/2016 [facility] Phone Message [id number] 08/26/19 17 08/27/2016 [facility] Phone Message [id number] 08/28/19 17 08/29/2016 [facility] Outpatient [id number] Tristan Arslan 02/19/2017 02/20/2017 [facility] Outpatient [id number] Tristan Arslan 07/28/2017 07/29/2017 [facility] Outpatient [id number] Tristan Arslan 10/27/2017 10/28/2017 [facility] Emergency [id number] Patricia Lagos 11/18/2017 11/18/2017 [facility] Outpatient [id number] Tristan Arslan 01/26/2018 01/26/2018 [facility] Outpatient [id number] Tristan Arslan 03/25/2018 03/26/2018 [facility] Emergency [id number] Chris Grande 05/08/2018 05/08/2018 [facility] Outpatient [id number] Tristan Arslan 03/24/2019 03/25/2019 [facility] Outpatient [id number] Tristan Mcdaniels 04/14/2019 04/15/2019 [facility] Outpatient [id number] Tristan Mcdaniels 09/08/2019 09/09/2019 [facility] Procedures Procedure Code Date Perfomer Comments Source CABG - Coronary artery bypass graft [id number] 11/27/2012 [facility] Coronary artery bypass grafts x 4 [id number] 11/11/2012 [facility] Coronary artery bypass grafts x 4 [id number] 11/11/2012 [facility] Angiogram [id number] 11/08/2012 [facility] Angiogram [id number] 11/08/2012 [facility] Colonoscopy [id number] 08/10/2012 [facility] Colonoscopy [id number] 08/10/2012 [facility] Hemorrhoidectomy [id number] [facility] Hemorrhoidectomy [id number] [facility] Assessment and Plan Assessment and Plan Date [...] no imaging findings). Dispo: surgical eval. 03/08/2016 [facility] Extracted from:Title: Vascular surgery Author: Kelli Ramírez MD Date: 10/05/15 Resp Ther Surgeon: Soni Referring Physician: Andrea Goyal MD [...] - This report was dictated by a [employer] Supervisor/Fellow. I have personally reviewed the images as [...] up in clinic with Dr. Shafer 10/06/2015 [facility] Plan of Care No Data Provided for This Section Social History Social History Date Source Social History TypeResponse Alcohol Never Smoking Status Never smoker; Previous treatment: None; Exposure to Tobacco Smoke None; Cigarette Smoking Last 365 Days No; Reg Smoking Cessation Counseling No 03/07/2016 [facility] Heart Failure Social History TypeResponse Alcohol Never Smoking Status Never smoker; Type: Cigars; Previous treatment: None; Exposure to Tobacco Smoke None; Cigarette Smoking Last 365 Days No; Reg Smoking Cessation Counseling No entered on: 09/08/19 03/07/2016 [facility] Social History TypeResponse Alcohol Never Smoking Status Never smoker; Type: Cigars; Previous treatment: None; Exposure to Tobacco Smoke None; Cigarette Smoking Last 365 Days No; Reg Smoking Cessation Counseling No entered on: 05/08/18 03/07/2016 [facility] Family History No Data Provided for This Section Advance Directives No Data Provided for This Section Functional Status No Data Provided for This Section
--- NOTE | 2020-01-28 08:30 | Emergency Department Note ---
History of Present Illnes History of Present Illness Chief Complaint: COVID PUI History of Present Illness This is a 85 year old female arrives to the ED with complaints of a fever, patient noted to be Cob[place] 19 positive. Patient denies any shortness of breath. Patient seen in ED yesterday . . 84 Y/O FEMALE PT AAOX3 PRESENTS TO ED WITH FEVER, 103.3 F, PT MEDICATED PER PROTOCOL / MD ORDERS, TOLERATED WELL; PT ATTACHED TO BS / CARDIAC MONITORS; ER MD TO BS FOR EVAL Historian: Patient, [employer]/EMS Arrival Mode: [place] (how long ago): day(s) Radiation: Reports non-radiation Severity: mild Timing of current episode: intermittent Progression: unchanged Chronicity: new Context: Reports recent illness Past Medical/Family History Physician Review I have reviewed the patient's past medical and family history. Any updates have been documented here. Past Medical History Recent Fever: Yes Clinical Suspicion of Infectio: Yes New/Unexplained Change in Ment: No Past Medical History: Hypertension, Diabetes, CAD, Anxiety, Depression, GERD Other Medical History: SHINGLES Past Surgical History: Cholecysctectomy, CABG Other Surgery: COLONOSCOPY Gall bladder sx bypass Social History Smoking Cessation: Never Smoker Counseling Performed: No Alcohol Use: None Any Illegal Drug Use: No Other Last Tetanus: OOD Any Pre-Existing Lines (PICC,: No Review of Systems Review of Systems Constitutional: Reports as per HPI, Reports fever EENTM: Reports no symptoms Cardiovascular: Reports no symptoms Respiratory: Reports as per HPI Gastrointestinal: Reports no symptoms Genitourinary: Reports no symptoms Musculoskeletal: Reports no symptoms Integumentary: Reports no symptoms Neurological: Reports no symptoms Psychological: Reports no symptoms Endocrine: Reports no symptoms Hematological/Lymphatic: Reports no symptoms Physical Exam Related Data Allergies: Coded Allergies: vancomycin (Verified Allergy, Intermediate, ITCHING, 03/17/19) Penicillins (Verified Allergy, Mild, RASH, 03/17/19) sulfur (Verified Allergy, Mild, RASH, 03/17/19) Sulfa (Sulfonamide Antibiotics) (Verified Allergy, Unknown, 03/17/19) Uncoded Allergies: PAIN MEDICATIONS (Adverse Reaction, Unknown, "Sensitive", 05/15/18) Vital signs reviewed: Yes Physical Exam CONSTITUTIONAL Constitutional: Present well-developed HENT HENT: Present normocephalic, Present atraumatic, Present oropharynx clear/moist, Present nose normal HENT L/R: Present left ext ear normal, Present right ext ear normal EYES Eyes: Reports PERRL, Reports conjunctivae normal NECK Neck: Present ROM normal PULMONARY Pulmonary: Present effort normal, Present breath sounds normal CARDIOVASCULAR Cardiovascular: Present regular rhythm, Present heart sounds normal, Present capillary refill normal, Present normal rate GASTROINTESTINAL Abdominal: Present soft, Present nontender, Present bowel sounds normal GENITOURINARY Genitourinary: Present exam deferred SKIN Skin: Present warm, Present dry MUSCULOSKELETAL Musculoskeletal: Present ROM normal NEUROLOGICAL Neurological: Present alert, Present no gross motor or sensory deficits PSYCHOLOGICAL Psychological: Present mood/affect normal, Present judgement normal Results Imaging Imaging results reviewed: Yes Impressions IMPRESSION: 1. Cardiomegaly with central venous congestion. Signed by: Dr. Glenroy Ching M.D. on 11/13/2019 9:00 PM Assessment & Plan Medical Decision Making MDM 85-year-old female arrived to the ED after testing covid positive. Chest x-ray unremarkable for pneumonia. Patient stable for discharge home. Assessment & Plan Final Impression: (1) COVID-19 Depart Disposition: HOME, SELF-halfway Meds Reported Medications Diphenoxylate Hcl/Atropine (LOMOTIL TABLET) 1 Each Tablet, PO PRN 04/19/19 Omeprazole (OMEPRAZOLE) 40 Mg Capsule.dr, 40 MG PO DAILY 04/19/19 Furosemide (LASIX) 40 Mg Tablet, 40 MG PO DAILY, #30 TAB 04/19/19 [Tylenol] No Conflict Check, PO PRN 04/19/19 Buspirone Hcl (BUSPIRONE HCL) 5 Mg Tablet, 10 MG PO TID, #60 TAB 05/15/18 Calcium Carbonate/Vitamin D3 (CALCIUM 500+D TABLET CHEW) 1 Each Tab.chew, 1 TAB PO BID 03/24/16 Pravastatin Sodium (PRAVASTATIN SODIUM) 20 Mg Tablet, 20 MG PO HS 06/22/14 Aspirin (ASPIR 81) 81 Mg Tablet.dr, 81 MG PO DAILY 02/18/13 Metoprolol Succinate (TOPROL XL) 50 Mg Tab.er.24h, 50 MG PO BID 02/18/13 Glipizide (GLUCOTROL) 5 Mg Tablet, 5 MG PO BID 08/04/12 TADEO STARK DO Jan 28, 2020 08:30
== END 2019-11-13 21:25 | disposition home or self-care (01) ==
LOC: ER 19:28
DX: U07.1 COVID-19 (principal); I10 Essential (primary) hypertension; E11.9 Type 2 diabetes mellitus without complications; I25.10 Atherosclerotic heart disease of native coronary artery without angina pectoris; K21.9 Gastro-esophageal reflux disease without esophagitis; F41.9 Anxiety disorder, unspecified; I51.7 Cardiomegaly
CPT/HCPCS: 71045; 99283